=== PATIENT | female | born 1970 | race Caucasian/White ===

== ENCOUNTER 2016-06-26 10:36 | Emergency (ER) | payer SELFPAY ==
[~2016-06-26] VITALS: Ht 162.6 cm; Wt 77.0 kg
[~2016-06-26 10:36] MED LIST: DICY1TAB26 PO; GLUCTAB PO; LORTA5 PO; PANT20 PO; SUCR1TAB PO
[2016-06-26 10:41] VITALS: BP 167/104; PULSE 106; RESP 19; TEMP 98.7; O2SAT 100
[2016-06-26] MEDS ORDERED: METF500T PO ×2 (10:55→10:56)
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
[2016-06-26] MEDS ORDERED: IBUP800T23 PO (20:08)
[2016-06-26] MEDS ORDERED: CIPR-9 PO (20:08)
[2016-06-26] MEDS ORDERED: ULTR50TA5 PO (20:08)
[2016-07-20] MEDS ORDERED: METF500T PO (13:02)
[2016-07-20] MEDS ORDERED: LEVEMIR SQ (13:02)
[2016-07-20] MEDS ORDERED: LISI-515 PO (13:02)
[2016-07-20] MEDS ORDERED: ATOR40TA16 PO (13:02)
[2016-07-20] MEDS ORDERED: BAYETES (13:04)
[2016-07-26] MEDS ORDERED: RANI150T PO (10:48)
[2016-07-26] MEDS ORDERED: IBUP800T23 PO (10:48)
[2016-07-27] MEDS ORDERED: OXYC1TAB63 PO (15:09)
[2016-08-05] MEDS ORDERED: SERT25TA83 PO (16:39)
[2016-08-05] MEDS ORDERED: AMLO5TAB2 PO (16:42)
== END 2016-06-26 11:08 | disposition home or self-care (01) ==
LOC: PHED 10:36
DX: E11.621 Type 2 diabetes mellitus with foot ulcer (principal); L97.411 Non-pressure chronic ulcer of right heel and midfoot limited to breakdown of skin; I10 Essential (primary) hypertension; F17.200 Nicotine dependence, unspecified, uncomplicated; Z79.84 Long term (current) use of oral hypoglycemic drugs; Z86.59 Personal history of other mental and behavioral disorders
CPT/HCPCS: 99283

== ENCOUNTER 2016-06-26 18:33 | Emergency (ER) | payer SELFPAY ==
[~2016-06-26] VITALS: Ht 162.6 cm; Wt 75.0 kg
[~2016-06-26 18:33] MED LIST changes: +METF500T PO
[2016-06-26 18:35] VITALS: BP 176/90; PULSE 116; RESP 17; TEMP 99.2; O2SAT 98
[2016-06-26 19:23] VITALS: BP 162/102; PULSE 107; RESP 20; O2SAT 97
[2016-06-26] MEDS ORDERED: LIDOCAINE 1%/EPINEPHrine 1:100,000 SOLN 20 ML VIAL INFIL ONE (19:30)
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
[2016-06-26] MEDS ORDERED: IBUP800T23 PO (20:08)
[2016-06-26] MEDS ORDERED: ULTR50TA5 PO (20:08)
[2016-06-26] MEDS ORDERED: CIPR-9 PO (20:08)
[2016-06-26] MEDS ORDERED: ONDANSETRON HCL 4 MG/2 ML VIAL IV PUSH ONE (20:15)
[2016-06-26] MEDS ORDERED: MORPHINE SULFATE 4 MG/ML INJ IV PUSH ONE (20:15)
[2016-06-26] MEDS ORDERED: SODIUM CHLOR 0.9% 1000 ML INJ 1,000 ML IV ONE (20:15)
[2016-06-26] MEDS ORDERED: CIPROFLOXACIN 400 MG PREMIX 200 ML IV ONE (20:15)
--- NOTE | 2016-06-26 20:21 | RADRPT ---
EXAM DATE/TIME: 06/26/2016 19:53 [facility] COMPARISON: No previous studies available for comparison. INDICATIONS : Right foot pain and swelling for the past two days. Ulcer on bottom of foot for the past three weeks. MEDICAL HISTORY : Diabetes mellitus type II. SURGICAL HISTORY : None. ENCOUNTER: Initial ACUITY: 3 weeks PAIN SCORE: 10/10 LOCATION: Right foot. FINDINGS: Two view examination of the right foot demonstrates no soft tissue swelling, dislocation, or fracture . The calcaneus is intact. Bony mineralization is normal. CONCLUSION: 1. No acute bony findings. Soft tissue ulcer plantar aspect of foot anteriorly. Hallux valgus deformi ty. Tristen Martinez MD on June 26, 2016 at 20:18 Board Certified Radiologist. This report was verified electronically.
[2016-06-26 20:25] LABS: AUTOMATED NEUTROPHIL # 14.3 TH/MM3 (1.8-7.7); BASOPHIL # 0.2 TH/MM3 (0-0.2); BASOPHIL % 1.1 % (0.0-2.0); EOSINOPHIL # 0.2 TH/MM3 (0-0.4); EOSINOPHIL % 0.9 % (0.0-4.0); HEMATOCRIT 39.3 % (35.0-46.0); LYMPH % 11.9 % (9.0-44.0); LYMPHOCYTE # 2.1 TH/MM3 (1.0-4.8); MEAN CELL VOLUME 86.2 FL (80.0-100.0); MEAN CORPUSCULAR HEMOGLOBIN 29.6 PG (27.0-34.0); MEAN CORPUSCULAR HGB CONC 34.3 % (32.0-36.0); MONO % 6.7 % (0.0-8.0); NEUT % 79.4 % (16.0-70.0); PLATELET COUNT 248 TH/MM3 (150-450); RED BLOOD COUNT 4.56 MIL/MM3 (4.00-5.30); RED CELL DISTRIBUTION WIDTH 12.6 % (11.6-17.2); WHITE BLOOD COUNT 18.1 TH/MM3 (4.0-11.0)
[2016-06-26 20:30] LABS: HEMO FLAGS AUTO DIFF
[2016-06-26 20:32] VITALS: BP 119/83; PULSE 83; RESP 16; O2SAT 98
[2016-06-26 20:42] LABS: PLATELET ESTIMATE SMEAR NORMAL (NORMAL); PLATELET MORPHOLOGY NORMAL (NORMAL); SCAN/DIFF AUTO DIFF CONFIRMED
[2016-07-20] MEDS ORDERED: ATOR40TA16 PO (13:02)
[2016-07-20] MEDS ORDERED: METF500T PO (13:02)
[2016-07-20] MEDS ORDERED: LISI-515 PO (13:02)
[2016-07-20] MEDS ORDERED: LEVEMIR SQ (13:02)
[2016-07-20] MEDS ORDERED: BAYETES (13:04)
[2016-07-26] MEDS ORDERED: RANI150T PO (10:48)
[2016-07-26] MEDS ORDERED: IBUP800T23 PO (10:48)
[2016-07-27] MEDS ORDERED: OXYC1TAB63 PO (15:09)
[2016-08-05] MEDS ORDERED: SERT25TA83 PO (16:39)
[2016-08-05] MEDS ORDERED: AMLO5TAB2 PO (16:42)
== END 2016-06-26 22:06 | disposition home or self-care (01) ==
LOC: NEPC 18:33
DX: E11.621 Type 2 diabetes mellitus with foot ulcer (principal); L97.511 Non-pressure chronic ulcer of other part of right foot limited to breakdown of skin; I10 Essential (primary) hypertension; F17.200 Nicotine dependence, unspecified, uncomplicated; Z79.84 Long term (current) use of oral hypoglycemic drugs; Z86.59 Personal history of other mental and behavioral disorders
CPT/HCPCS: 11000; 73620; 85025; 85652; 86140; 86403; 87070; 96374; 96375; 99285; J0744; J2270; J2405; J7030; 87205

== ENCOUNTER 2016-06-29 09:02 | Inpatient (IN) | payer SELFPAY ==
[~2016-06-29] VITALS: Ht 162.6 cm; Wt 80.2 kg
[~2016-06-29 09:02] MED LIST changes: +CIPR-9 PO; -DICY1TAB26 PO; -GLUCTAB PO; +IBUP800T23 PO; -LORTA5 PO; -PANT20 PO; -SUCR1TAB PO; +ULTR50TA5 PO
[2016-06-29 09:09] VITALS: BP_SYST 174; BP_SYST 187; BP_DIAS 81; BP_DIAS 87; PULSE 112; PULSE 115; RESP 16; RESP 20; TEMP 99.1; TEMP 99.6; O2SAT 99
[2016-06-29] MEDS ORDERED: MORPHINE SULFATE 4 MG/ML INJ IV PUSH ONE (09:45)
[2016-06-29] MEDS ORDERED: PIPERACIL-TAZO 4.5 GM PREMIX 100 ML IV ONE (09:45)
[2016-06-29] MEDS ORDERED: SODIUM CHLOR 0.9% 1000 ML INJ 1,000 ML IV ONE ×2 (09:45)
[2016-06-29 09:49] LABS: AUTOMATED NEUTROPHIL # 12.3 TH/MM3 (1.8-7.7); BASOPHIL # 0.2 TH/MM3 (0-0.2); BASOPHIL % 1.4 % (0.0-2.0); EOSINOPHIL # 0.1 TH/MM3 (0-0.4); EOSINOPHIL % 0.4 % (0.0-4.0); HEMATOCRIT 35.7 % (35.0-46.0); HEMO FLAGS DIFF FINAL; LYMPH % 7.8 % (9.0-44.0); LYMPHOCYTE # 1.2 TH/MM3 (1.0-4.8); MEAN CELL VOLUME 85.9 FL (80.0-100.0); MEAN CORPUSCULAR HEMOGLOBIN 30.1 PG (27.0-34.0); MEAN CORPUSCULAR HGB CONC 35.1 % (32.0-36.0); MONO % 9.2 % (0.0-8.0); NEUT % 81.2 % (16.0-70.0); PLATELET COUNT 273 TH/MM3 (150-450); RED BLOOD COUNT 4.15 MIL/MM3 (4.00-5.30); RED CELL DISTRIBUTION WIDTH 12.7 % (11.6-17.2); WHITE BLOOD COUNT 15.2 TH/MM3 (4.0-11.0)
--- NOTE | 2016-06-29 10:03 | PD ---
HPI Chief Complaint: Wound/Suture/Staple Re-Check Time Seen by Provider: 09:22 Travel History International Travel<30 days: No Contact w/Intl Traveler<30days: No Traveled to known affect area: No History of Present Illness HPI 45-year-old woman who presents to the emergency department complaining of worsening right foot pain redness swelling. She was seen about 3 days ago in the emergency department for what appeared initially be non-infected ulceration on the foot that was a little bit worse the second time she was seen. It was debris did. She was placed on antibiotics. She's been on Cipro for 2 days. This morning she started noticing worsening pain redness and swelling on the dorsum of the foot, as well as ecchymosis to the pinky toe and that side of the foot. She is a history diabetes with poor compliance due to limited means. She has been taking her metformin and antibiotics as prescribed. No history of previous foot infections. No other complaints. History Past Medical History Narrative Medical Hypertension Diabetes Tetanus Vaccination: > 5 Years Influenza Vaccination: No LMP: 05/2016 : 1 Para: 0 Social History Alcohol Use: No Tobacco Use: Yes (/2 PPD) Allergies-Medications (Allergen,Severity, Reaction): Coded Allergies: Aspirin (Verified Adverse Reaction, Intermediate, VOMITING, 06/29/16) Reported Meds & Prescriptions Reported Meds & Active Scripts Active Ultram (Tramadol HCl) 50 Mg Tab 50 Mg PO Q4H PRN Ibuprofen 800 Mg Tab 800 Mg PO Q8H PRN Cipro (Ciprofloxacin HCl) 500 Mg Tab 500 Mg PO BID 10 Days Reported Metformin (Metformin HCl) 500 Mg Tab 500 Mg PO DAILY With a meal Review of Systems Except as stated in HPI: all other systems reviewed are Neg Physical Exam Narrative GENERAL: Generally well-appearing 45 year-old woman, appears uncomfortable but nontoxic. SKIN: Focused skin assessment warm/dry. HEAD: Atraumatic. Normocephalic. EYES: Pupils equal and round. No scleral icterus. No injection or drainage. ENT: No nasal bleeding or discharge. Mucous membranes pink and moist. NECK: Trachea midline. No JVD. CARDIOVASCULAR: Regular rate and rhythm. No murmur appreciated. RESPIRATORY: No accessory muscle use. Clear to auscultation. Breath sounds equal bilaterally. GASTROINTESTINAL: Abdomen soft, non-tender, nondistended. Hepatic and splenic margins not palpable. MUSCULOSKELETAL: No obvious deformities. Right foot reveals edema and warmth to the entire distal lower extremity especially of the dorsum of the foot. Erythema is really confined to the dorsum of the foot. There is pitting edema there. There is a little bit of ecchymosis and some ecchymotic blisters around the pinky toe and the web space between the fourth and fifth toe. NEUROLOGICAL: Awake and alert. No obvious cranial nerve deficits. Motor grossly within normal limits. Normal speech. PSYCHIATRIC: Appropriate mood and affect; insight and judgment normal. Data Data Last Documented VS Vital Signs Date Time Temp Pulse Resp B/P Pulse Ox O2 Delivery O2 Flow Rate FiO2 06/29/16 09:23 16 06/29/16 09:09 99.1 112 174/81 06/29/16 09:09 99 Orders Complete Blood Count With Diff (06/29/16 09:31) Comprehensive Metabolic Panel (06/29/16 09:31) Westergren Sedimentation Rate (06/29/16 09:31) C-Reactive Protein (Crp) (06/29/16 09:31) Blood Culture (06/29/16 09:31) Iv Access Insert/Monitor (06/29/16 09:31) Sodium Chlor 0.9% 1000 Ml Inj (Ns 1000 M (06/29/16 09:45) Sodium Chlor 0.9% 1000 Ml Inj (Ns 1000 M (06/29/16 09:45) Morphine Inj (Morphine Inj) (06/29/16 09:45) Piperacil-Tazo 4.5 Gm Premix (Zosyn 4.5 (06/29/16 09:45) Labs Laboratory Tests Test 06/29/16 09:35 White Blood Count 15.2 TH/MM3 Red Blood Count 4.15 MIL/MM3 Hemoglobin 12.5 GM/DL Hematocrit 35.7 % Mean Corpuscular Volume 85.9 FL Mean Corpuscular Hemoglobin 30.1 PG Mean Corpuscular Hemoglobin 35.1 % Concent Red Cell Distribution Width 12.7 % Platelet Count 273 TH/MM3 Mean Platelet Volume 8.7 FL Neutrophils (%) (Auto) 81.2 % Lymphocytes (%) (Auto) 7.8 % Monocytes (%) (Auto) 9.2 % Eosinophils (%) (Auto) 0.4 % Basophils (%) (Auto) 1.4 % Neutrophils # (Auto) 12.3 TH/MM3 Lymphocytes # (Auto) 1.2 TH/MM3 Monocytes # (Auto) 1.4 TH/MM3 Eosinophils # (Auto) 0.1 TH/MM3 Basophils # (Auto) 0.2 TH/MM3 CBC Comment DIFF FINAL Differential Comment Erythrocyte Sedimentation Rate 94 mm/hr Sodium Level 132 MEQ/L Potassium Level 3.4 MEQ/L Chloride Level 94 MEQ/L Carbon Dioxide Level 25.1 MEQ/L Anion Gap 13 MEQ/L Blood Urea Nitrogen 10 MG/DL Creatinine 1.02 MG/DL Estimat Glomerular Filtration 59 ML/MIN Rate Random Glucose 308 MG/DL Calcium Level 8.9 MG/DL Total Bilirubin 1.1 MG/DL Aspartate Amino Transf 24 U/L (AST/SGOT) Alanine Aminotransferase 27 U/L (ALT/SGPT) Alkaline Phosphatase 241 U/L C-Reactive Protein 27.00 MG/DL Total Protein 7.4 GM/DL Albumin 2.6 GM/DL MDM Medical Decision Making Medical Screen Exam Complete: Yes Emergency Medical Condition: Yes Interpretation(s) LABS: CBC remarkable for mild leukocytosis Sedimentation rate 94 CMP remarkable for mildly elevated BUN/creatinine CRP 27 Differential Diagnosis Diabetic foot infection, cellulitis, DVT, other Narrative Course Medical decision making INITIAL: 45-year-old presents emergency department worsening diabetic foot infection. She has been on antibiotics for 48 hours. Despite that she's had worsening symptoms. No apparent abscess. No apparent gangrene. We'll give IV antibiotics, labs. I don't think she has a DVT. We will need admission. Diagnosis Primary Impression: Diabetic foot infection Admitting Information Admitting Physician Requests: Admit Rony Watkins MD Jun 29, 2016 10:02
[2016-06-29 10:14] LABS: ANION GAP 13 MEQ/L (5-15); AST (GOT) 24 U/L (15-37); BICARBONATE 25.1 MEQ/L (21.0-32.0); BLOOD UREA NITROGEN 10 MG/DL (7-18); CHLORIDE 94 MEQ/L (98-107); GLOMERULAR FILTRATION RATE 59 ML/MIN (>89); POTASSIUM 3.4 MEQ/L (3.5-5.1); SODIUM (NA) 132 MEQ/L (136-145)
[2016-06-29 10:23] LABS: ALKALINE PHOSPHATASE 241 U/L (45-117); ALT (GPT) 27 U/L (10-53); TOTAL BILIRUBIN ADULT 1.1 MG/DL (0.2-1.0)
[2016-06-29 11:00] VITALS: BP 152/83; PULSE 96; RESP 16; TEMP 97.8; O2SAT 99
--- NOTE | 2016-06-29 11:12 | HHI.HP ---
[facility] Service Family Medicine Primary Care Physician No Primary Care Physician Admission Diagnosis diabetic foot infection Diagnoses: International Travel<30 Days: No Contact w/Intl Traveler<30days: No Known Affected Area: No History of Present Illness 45 year old female with a history of type II diabetes mellitus, recently uncontrolled, presents with 3 week history of foot ulcer. The ulcer is located on the base of the right foot on the ball of the foot behind the great toe. The ulcer has gotten bigger over the last 3 weeks. Over the last couple days, she has erythema across the top of her foot that started to spread up her right leg. She was treated with Ciprofloxacin for two days before admission but there was worsening rather than improvement. She also presented to the ED on 06/26 and had incision and debridement of the foot. There is some foul smelling drainage from the ulcer. No abscess reported. She had night sweats last night. (Mina Mendez MD R2) Review of Systems Constitutional: COMPLAINS OF: Chills, DENIES: Fatigue, Fever, Night Sweats Endocrine: DENIES: Polyuria, Polyphagia Eyes: DENIES: Blurred vision, Eye pain, Double Vision Ears, nose, mouth, throat: DENIES: Nasal discharge, Ear Pain Respiratory: DENIES: Cough, Sputum production, Shortness of breath Cardiovascular: DENIES: Chest pain, Palpitations, Dyspnea on Exertion, Lower Extremity Edema Gastrointestinal: COMPLAINS OF: Nausea, Vomiting, DENIES: Abdominal pain, Black stools, Bloody stools Musculoskeletal: DENIES: Joint pain, Muscle aches, Neck pain Hematologic/lymphatic: DENIES: Lymphadenopathy Neurologic: DENIES: Headache, Seizures Psychiatric: DENIES: Anxiety, Depression (Mina Mendez MD R2) Past Family Social History Past Medical History Diabetes mellitus type 2, uncontrolled Difficulty getting medical insurance Takes Metformin 500 mg daily for diabetes No complications besides current foot ulcer Past Surgical History Cholecystectomy Abdominal hernia repair Reported Medications Reported Meds & Active Scripts Active Ultram (Tramadol HCl) 50 Mg Tab 50 Mg PO Q4H PRN Ibuprofen 800 Mg Tab 800 Mg PO Q8H PRN Cipro (Ciprofloxacin HCl) 500 Mg Tab 500 Mg PO BID 10 Days Reported Metformin (Metformin HCl) 500 Mg Tab 500 Mg PO DAILY With a meal (Mina Mendez MD R2) Allergies: Coded Allergies: Aspirin (Verified Adverse Reaction, Intermediate, VOMITING, 06/29/16) *MDRO Multi-Drug Resistant Organism (Verified Adverse Reaction, Unknown, ) MRSA (wound drainage) - 06/29/16 Family History Mom had cancer: cervical Dad: of lung cancer Siblings: healthy Social History Smoke half pack per day, started age 25 Alcohol: None Drug use: Marijuana 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 There is a 1 cm x 1 cm ulcer on the base of the right MTP area. Some white purulent drainage from the ulcer. Not able to palpate bone, the ulceration seems limited to the soft tissue. No bony tenderness. HEENT: Normocephalic, no conjunctivitis, no nasal discharge, normal pharynx NECK: No lymphadenopathy CARDIOVASCULAR: Regular rate and rhythm without murmurs, gallops, or rubs. Normal dorsal pedis and PT pulses. RESPIRATORY: Clear to auscultation. Breath sounds equal bilaterally. No wheezes , rales, or rhonchi. GASTROINTESTINAL: Abdomen soft, non-tender, nondistended. No hepato-splenomegaly , or palpable masses. No guarding. MUSCULOSKELETAL: Extremities without clubbing, cyanosis, or edema. No joint tenderness, effusion, or edema noted. No calf tenderness. Negative Homans sign bilaterally. NEUROLOGICAL: Awake and alert. Cranial nerves II through XII intact. Five out of 5 muscle strength in all muscle groups. Normal speech. Slightly diminished sensation to light touch on right foot. Laboratory Laboratory Tests Test 06/29/16 09:35 White Blood Count 15.2 Red Blood Count 4.15 Hemoglobin 12.5 Hematocrit 35.7 Mean Corpuscular Volume 85.9 Mean Corpuscular Hemoglobin 30.1 Mean Corpuscular Hemoglobin 35.1 Concent Red Cell Distribution Width 12.7 Platelet Count 273 Mean Platelet Volume 8.7 Neutrophils (%) (Auto) 81.2 Lymphocytes (%) (Auto) 7.8 Monocytes (%) (Auto) 9.2 Eosinophils (%) (Auto) 0.4 Basophils (%) (Auto) 1.4 Neutrophils # (Auto) 12.3 Lymphocytes # (Auto) 1.2 Monocytes # (Auto) 1.4 Eosinophils # (Auto) 0.1 Basophils # (Auto) 0.2 CBC Comment DIFF FINAL Differential Comment Erythrocyte Sedimentation Rate 94 Sodium Level 132 Potassium Level 3.4 Chloride Level 94 Carbon Dioxide Level 25.1 Anion Gap 13 Blood Urea Nitrogen 10 Creatinine 1.02 Estimat Glomerular Filtration 59 Rate Random Glucose 308 Calcium Level 8.9 Total Bilirubin 1.1 Aspartate Amino Transf 24 (AST/SGOT) Alanine Aminotransferase 27 (ALT/SGPT) Alkaline Phosphatase 241 C-Reactive Protein 27.00 Total Protein 7.4 Albumin 2.6 Date/Time Procedure Status Source Growth 06/29/16 09:30 Aerobic Blood Culture Received Blood Peripheral Pending 06/29/16 09:30 Anaerobic Blood Culture Received Blood Peripheral Pending (Mina Mendez MD R2) Result Diagram: 06/29/16 0935 06/29/16 0935 Imaging Last 72 hours Impressions Foot MRI 06/29/16 0000 Signed Impressions: Service Date/Time: Wednesday, June 29, 2016 12:26 - CONCLUSION: 1. No evidence of osteomyelitis. 2. Focal mild enhancement about the plantar soft tissue ulceration. No drainable fluid collections seen. Forest Recinos MD (Mina Mendez MD R2) Septic Shock Reassessment Heart: Regular rate and rhythm (tachycardic on admission, normal rate now) Lungs: Clear Skin: Warm Capillary Refill: <2 seconds (Mina Mendez MD R2) Assessment and Plan Assessment and Plan 45 year old female with diabetic foot ulcer Code Status FULL CODE Discussed Condition With Discussed with Dr. Henderson, Dr. Helm (Mina Mendez MD R2) Attending Attestation Patient seen and examined. Case reviewed and discussed with the resident team. Agree with plan of care as discussed with me and documented in the resident note. pt seen on admission (Hortencia Helm MD) Problem List: (1) Diabetic foot ulcer Status: Acute Plan: Ulcer on base of MTP area of the right foot, seems limited to the soft tissue, does not extend to the bone. No fluctuance, no abscess. ESR and CRP elevated. Good DP and PT pulses. MRI of foot negative for osteomyelitis. - Debrided on 06/26/16. - Consult podiatry. - Wound culture, blood culture. - Zosyn q6hrs, adjust based on cultures. (2) Cellulitis of right leg Status: Acute Plan: See above for management (3) Type 2 diabetes mellitus Status: Acute Plan: Poorly controlled diabetes, glucose is 300 on admission. Takes metformin 500 mg qday at home. No PCP or health insurance. - Diabetic diet - Low dose sliding scale insulin - Diabetic education - Case management to help her get PCP and insurance (4) No contraindication to deep vein thrombosis (DVT) prophylaxis Status: Acute Plan: Lovenox 40 mg qday (5) Nutrition, metabolism, and development symptoms Status: Acute Plan: - IVF at maintenance - Electrolytes normal - Diabetic diet (Mina Mendez MD R2) Physician Certification 2 Midnight Certification Type: Admission for Inpatient Services Order for Inpatient Services The services are ordered in accordance with Medicare regulations or non- Medicare payer requirements, as applicable. In the case of services not specified as inpatient-only, they are appropriately provided as inpatient services in accordance with the 2-midnight benchmark. Estimated LOS (days): 3 days is the estimated time the patient will need to remain in the hospital, assuming treatment plan goals are met and no additional complications. Post-Hospital Plan: Home (Mina Mendez MD R2) Problem Qualifiers (1) Diabetic foot ulcer: Qualified Code: E11.621 - Diabetic ulcer of right midfoot associated with type 2 diabetes mellitus, limited to breakdown of skin (2) Type 2 diabetes mellitus: Qualified Code: E11.42 - Type 2 diabetes mellitus with diabetic polyneuropathy , without long-term current use of insulin Mina Mendez MD R2 Jun 29, 2016 11:12 Hortencia Helm MD Jul 02, 2016 12:34
[2016-06-29] MEDS ORDERED: GLUCAGON 1 MG/ML VIAL OTHER PRN (11:30)
[2016-06-29] MEDS ORDERED: DEXTROSE 50% IN WATER 50 ML VIAL(D50) IV PUSH PRN (11:30)
[2016-06-29] MEDS ORDERED: NALOXONE HCL 0.4 MG/ML AMP IV PRN (11:45)
[2016-06-29] MEDS: SODIUM CHLOR 0.9% 1000 ML INJ 1,000 ML IV SCH ×2 (12:09→20:39)
[2016-06-29] MEDS: ENOXAPARIN SODIUM 40 MG/0.4 ML SYRINGE SQ SCH (12:10)
[2016-06-29] MEDS ORDERED: GADODIAMIDE PF 287 MG/ML 5 ML VIAL (for RAD MRI) IV ONE (12:53)
[2016-06-29 13:00] VITALS: BP 144/81; PULSE 86; RESP 16; TEMP 98; O2SAT 99
--- NOTE | 2016-06-29 13:33 | RADRPT ---
EXAM DATE/TIME: 06/29/2016 12:26 [facility] COMPARISON: FOOT RIGHT LIMITED (2VWS), June 26, 2016, 19:53. INDICATIONS : Osteomyelitis. Wound base of 1st toe plantar surface. CONTRAST: 15 cc Omniscan (gadodiamide) IV MEDICAL HISTORY : Diabetes mellitus type 2. SURGICAL HISTORY : Umbilical hernia repair. Cholecystectomy. ENCOUNTER: Initial ACUITY: 3 weeks PAIN SCORE: 6/10 LOCATION: Right foot TECHNIQUE: Multiplanar, multisequence MRI examination was performed without contrast and after the intravenous a dministration of gadolinium. FINDINGS: There is a soft tissue ulceration on the plantar aspect of the forefoot superficial to the distal 1st metatarsus and sesamoids. There is some enhancement in the adjacent soft tissues, but no enhancemen t or signal abnormality within the sesamoids or surrounding tendons. There is also diffuse soft tiss ue swelling about the dorsal aspect of the forefoot. The osseous structures are normal alignment. T here is some T2 prolongation within the marrow of the diametaphysis of the 1st metatarsus laterally w ith mild signal abnormality on T1-weighted scans and without abnormal enhancement in the marrow. Con ventional radiographs demonstrate a pseudoarticulation of the sesamoid and 1st metatarsal head. This suggests that the signal change in the diametaphysis of the 1st metatarsus is reactive to the degene rative changes. CONCLUSION: 1. No evidence of osteomyelitis. 2. Focal mild enhancement about the plantar soft tissue ulceration. No drainable fluid collections s een. Forest Recinos MD on June 29, 2016 at 13:21 Board Certified Radiologist. This report was verified electronically.
[2016-06-29] MEDS: PIPERACIL-TAZO 3.375 GM PREMIX 50 ML IV SCH ×2 (16:02→20:37)
[2016-06-29] MEDS: ACETAMINOPHEN 325 MG TAB PO PRN (16:06)
[2016-06-29] MEDS: INSULIN ASPART SUPPLEMENTAL SCALE SQ SCH ×2 (16:07→20:38)
[2016-06-29 16:10] VITALS: BP 156/78; PULSE 92; RESP 17; TEMP 98; O2SAT 99
--- NOTE | 2016-06-29 16:44 | PD.POD ---
Subjective Podiatric Problems Infection great toe Past Med/Surg/Social History Social History Smoking Status: Current Every Day Smoker Objective Vital Signs Vital Signs Date Time Temp Pulse Resp B/P Pulse Ox O2 Delivery O2 Flow Rate FiO2 06/29/16 16:10 98.0 92 17 156/78 99 Room Air 06/29/16 13:00 98.0 86 16 144/81 99 Room Air 06/29/16 11:00 97.8 96 16 152/83 99 Room Air 06/29/16 09:45 17 06/29/16 09:23 16 06/29/16 09:09 99.1 112 20 174/81 06/29/16 09:09 99.6 115 16 187/87 99 Coded Allergies: Aspirin (Verified Adverse Reaction, Intermediate, VOMITING, 06/29/16) Assessment & Plan A/P Will see patient tomorrow to determine if wound care consultation is more appropriate for continuity of care. Trinity Preez DPM Jun 29, 2016 16:44
[2016-06-29 18:39] VITALS: BP 132/73; PULSE 89; RESP 16; TEMP 99.2; O2SAT 98
[2016-06-29 20:00] VITALS: BP 125/71; PULSE 91; RESP 20; TEMP 99; O2SAT 98
[2016-06-29] MEDS: ONDANSETRON HCL 4 MG/2 ML VIAL IVP PRN (20:38)
[2016-06-29] MEDS: SODIUM CHLORIDE 0.9% FLUSH 10 ML FLUSH IV FLUSH SCH (20:38)
[2016-06-29] MEDS: oxyCODONE/ACETAMINOPHEN 10 MG/325 MG TAB PO PRN (20:38)
[2016-06-29] MEDS: SODIUM CHLORIDE 0.9% FLUSH 10 ML FLUSH IV FLUSH PRN (20:38)
[2016-06-30] VITALS: BP 120/62; PULSE 84; RESP 20; TEMP 98.6; O2SAT 97
[2016-06-30] MEDS: SODIUM CHLOR 0.9% 1000 ML INJ 1,000 ML IV SCH ×3 (03:06→21:19)
[2016-06-30] MEDS: PIPERACIL-TAZO 3.375 GM PREMIX 50 ML IV SCH ×4 (03:07→21:19)
[2016-06-30 04:00] VITALS: BP 145/70; PULSE 92; RESP 20; TEMP 98.8; O2SAT 92
[2016-06-30] MEDS: INSULIN ASPART SUPPLEMENTAL SCALE SQ SCH ×4 (06:15→21:18)
[2016-06-30 08:03] LABS: AUTOMATED NEUTROPHIL # 10.3 TH/MM3 (1.8-7.7); BASOPHIL # 0.1 TH/MM3 (0-0.2); BASOPHIL % 0.5 % (0.0-2.0); EOSINOPHIL # 0.1 TH/MM3 (0-0.4); EOSINOPHIL % 0.8 % (0.0-4.0); HEMATOCRIT 29.3 % (35.0-46.0); HEMO FLAGS DIFF FINAL; LYMPH % 9.5 % (9.0-44.0); LYMPHOCYTE # 1.2 TH/MM3 (1.0-4.8); MEAN CELL VOLUME 85.2 FL (80.0-100.0); MEAN CORPUSCULAR HEMOGLOBIN 29.4 PG (27.0-34.0); MEAN CORPUSCULAR HGB CONC 34.6 % (32.0-36.0); MONO % 9.2 % (0.0-8.0); PLATELET COUNT 260 TH/MM3 (150-450); RED BLOOD COUNT 3.44 MIL/MM3 (4.00-5.30); RED CELL DISTRIBUTION WIDTH 12.7 % (11.6-17.2); WHITE BLOOD COUNT 12.9 TH/MM3 (4.0-11.0)
[2016-06-30 08:24] LABS: BICARBONATE 27.7 MEQ/L (21.0-32.0); POTASSIUM 3.3 MEQ/L (3.5-5.1)
[2016-06-30 08:42] VITALS: BP 143/73; PULSE 78; RESP 16; TEMP 100.2; O2SAT 97
[2016-06-30] MEDS: SODIUM CHLORIDE 0.9% FLUSH 10 ML FLUSH IV FLUSH SCH ×2 (09:00→21:18)
[2016-06-30] MEDS: oxyCODONE/ACETAMINOPHEN 10 MG/325 MG TAB PO PRN ×2 (09:37→21:24)
[2016-06-30 11:00] VITALS: BP 155/81; PULSE 86; RESP 18; TEMP 98.3; O2SAT 97
--- NOTE | 2016-06-30 11:10 | HHI.HP ---
[facility] Service Family Medicine Primary Care Physician No Primary Care Physician Admission Diagnosis diabetic foot infection Diagnoses: (1) Diabetic foot ulcer Diagnosis: Principal (2) Cellulitis of right leg Diagnosis: Principal (3) Type 2 diabetes mellitus Diagnosis: Principal (4) No contraindication to deep vein thrombosis (DVT) prophylaxis Diagnosis: Principal (5) Nutrition, metabolism, and development symptoms Diagnosis: Principal International Travel<30 Days: No Contact w/Intl Traveler<30days: No Known Affected Area: No History of Present Illness Ms Leyva is a 45 year old female with a history of type II diabetes mellitus, recently uncontrolled, who presented with 3 week history of foot ulcer. The ulcer is located on the base of the right foot on the ball of the foot behind the great toe. The ulcer has gotten bigger over the last 3 weeks. Over the last couple days, she has erythema across the top of her foot that started to spread up her right leg. She was treated with Ciprofloxacin for two days before admission but there was worsening rather than improvement. She also presented to the ED on 06/26 and had incision and debridement of the foot. There was some foul smelling drainage from the ulcer. No abscess reported. She had night sweats last night. She was started on iv abx and had a fever overnight but has had some resolution of her erythema that had been spreading up her leg. She has some numbness chronically and is insensitive to light touch on her 5th toe on the right and some other areas as well but regains normal feeling above the ankle. Yesterday, she had a small probably 1-2 cm roughly circular area at the base of her 4th and 5th toes on the right. This area was discolored and darker that the surrounding skin but was flat and nontender. However, this am this area has greatly enlarged and gone from the dorsum of her foot to the ventral area as well as becoming larger in size and expanding three dimensionally. Ms Leyva has diminished feeling in her foot especially on the right but does not complain of terrible pain in this area. Review of Systems Other Constitutional: COMPLAINS OF: Chills, fever overnight DENIES: Fatigue. burning or pain on urination or frequency Endocrine: DENIES: Polyuria, Polyphagia Eyes: DENIES: Blurred vision, Eye pain, Double Vision Ears, nose, mouth, throat: DENIES: Nasal discharge, Ear Pain Respiratory: DENIES: Cough, Sputum production, Shortness of breath Cardiovascular: DENIES: Chest pain, Palpitations, Dyspnea on Exertion, Lower Extremity Edema Gastrointestinal: COMPLAINS OF: Nausea, Vomiting, DENIES: Abdominal pain, Black stools, Bloody stools Musculoskeletal: DENIES: Joint pain, Muscle aches, Neck pain Hematologic/lymphatic: DENIES: Lymphadenopathy Neurologic: DENIES: Headache, Seizures Psychiatric: DENIES: Anxiety, Depression Past Family Social History Past Medical History Diabetes mellitus type 2, uncontrolled Difficulty getting medical insurance Takes Metformin 500 mg daily for diabetes No complications besides current foot ulcer and neuropathy Past Surgical History Cholecystectomy Abdominal hernia repair Allergies: Coded Allergies: Aspirin (Verified Adverse Reaction, Intermediate, VOMITING, 06/29/16) Family History Mom had cancer: cervical Dad: of lung cancer Siblings: healthy Social History Smoke half pack per day, started age 25 Alcohol: None Drug use: Marijuana 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 From [place], moved here 6 years ago Physical Exam Vital Signs Vital Signs Date Time Temp Pulse Resp B/P Pulse Ox O2 Delivery O2 Flow Rate FiO2 06/30/16 11:00 98.3 86 18 155/81 97 06/30/16 08:42 100.2 78 16 143/73 97 06/30/16 04:00 98.8 92 20 145/70 92 06/30/16 00:00 98.6 84 20 120/62 97 06/29/16 21:43 16 06/29/16 20:00 99.0 91 20 125/71 98 06/29/16 18:39 99.2 89 16 132/73 98 06/29/16 17:06 16 06/29/16 16:10 98.0 92 17 156/78 99 Room Air 06/29/16 13:00 98.0 86 16 144/81 99 Room Air Physical Exam GENERAL: Lying in bed, no distress SKIN: Right lower extremity was erythematous and warm up to the mid-he. There is a 1 cm x 1 cm ulcer on the base of the right MTP area. Some white purulent drainage from the ulcer. Not able to palpate bone, the ulceration seems limited to the soft tissue. No bony tenderness. Yesterday there was a flat 1-2 cm discolored area at the base of her 4th and 5th toes dorsally that was nontender but today the area of blister extends ventrally to the base of her toes as well as grew three dimensionally so it is not flat but contains obvious fluid. decreased sensation 5th toe but able to feel light touch on other toes HEENT: Normocephalic, no conjunctivitis, no nasal discharge, normal pharynx NECK: No lymphadenopathy CARDIOVASCULAR: Regular rate and rhythm without murmurs, gallops, or rubs. Normal dorsal pedis and PT pulses. RESPIRATORY: Clear to auscultation. Breath sounds equal bilaterally. No wheezes , rales, or rhonchi. GASTROINTESTINAL: Abdomen soft, non-tender, nondistended. No hepato-splenomegaly , or palpable masses. No guarding. MUSCULOSKELETAL: Extremities without clubbing, cyanosis, or edema. No joint tenderness, effusion, or edema noted. No calf tenderness. Negative Homans sign bilaterally. NEUROLOGICAL: Awake and alert. Cranial nerves II through XII intact. Five out of 5 muscle strength in all muscle groups. Normal speech. Slightly diminished sensation to light touch on right foot as above. Laboratory Laboratory Tests Test 06/30/16 06:46 White Blood Count 12.9 Red Blood Count 3.44 Hemoglobin 10.1 Hematocrit 29.3 Mean Corpuscular Volume 85.2 Mean Corpuscular Hemoglobin 29.4 Mean Corpuscular Hemoglobin 34.6 Concent Red Cell Distribution Width 12.7 Platelet Count 260 Mean Platelet Volume 8.9 Neutrophils (%) (Auto) 80.0 Lymphocytes (%) (Auto) 9.5 Monocytes (%) (Auto) 9.2 Eosinophils (%) (Auto) 0.8 Basophils (%) (Auto) 0.5 Neutrophils # (Auto) 10.3 Lymphocytes # (Auto) 1.2 Monocytes # (Auto) 1.2 Eosinophils # (Auto) 0.1 Basophils # (Auto) 0.1 CBC Comment DIFF FINAL Differential Comment Sodium Level 136 Potassium Level 3.3 Chloride Level 100 Carbon Dioxide Level 27.7 Anion Gap 8 Blood Urea Nitrogen 7 Creatinine 0.82 Estimat Glomerular Filtration 75 Rate Random Glucose 239 Calcium Level 8.2 Date/Time Procedure Status Source Growth 06/29/16 11:40 Gram Stain - Final Resulted Wound Drainage 06/29/16 11:40 Wound Culture Resulted Wound Drainage Pending 06/29/16 09:30 Aerobic Blood Culture Received Blood Peripheral Pending 06/29/16 09:30 Anaerobic Blood Culture Received Blood Peripheral Pending Result Diagram: 06/30/16 0646 06/30/16 0646 Imaging Last 72 hours Impressions Foot MRI 06/29/16 0000 Signed Impressions: Service Date/Time: Wednesday, June 29, 2016 12:26 - CONCLUSION: 1. No evidence of osteomyelitis. 2. Focal mild enhancement about the plantar soft tissue ulceration. No drainable fluid collections seen. Forest Recinos MD Assessment and Plan Assessment and Plan 45 year old female with diabetic foot ulcer Problem List: (1) Diabetic foot ulcer Status: Acute Plan: Ulcer on base of MTP area of the right foot, seems limited to the soft tissue, does not extend to the bone. No fluctuance, no abscess. ESR and CRP elevated. Good DP and PT pulses. MRI of foot negative for osteomyelitis. - Debrided on 06/26/16. - Consulted podiatry. - Wound culture, blood culture. - Zosyn q6hrs, adjust based on cultures. Wound culture done in ED was taken by scraping the skin with swabs so may not be the most reliable. -Overnight she has developed a large discoloration and swelling of her right foot and appreciate help of Podiatry in evaluation and treatment of this new worsening. (2) Cellulitis of right leg Status: Acute Plan: See above for management (3) Type 2 diabetes mellitus Status: Acute Plan: Poorly controlled diabetes, glucose is 300 on admission. Takes metformin 500 mg q day at home. No PCP or health insurance. - Diabetic diet - Low dose sliding scale insulin - Diabetic education - Case management to help her get PCP and insurance (4) No contraindication to deep vein thrombosis (DVT) prophylaxis Status: Acute Plan: Lovenox 40 mg qday (5) Nutrition, metabolism, and development symptoms Status: Acute Plan: - IVF at maintenance, consider heplocking if taking good po - Electrolytes normal - Diabetic diet Physician Certification 2 Midnight Certification Type: Admission for Inpatient Services Order for Inpatient Services The services are ordered in accordance with Medicare regulations or non- Medicare payer requirements, as applicable. In the case of services not specified as inpatient-only, they are appropriately provided as inpatient services in accordance with the 2-midnight benchmark. Estimated LOS (days): 3 3 days is the estimated time the patient will need to remain in the hospital, assuming treatment plan goals are met and no additional complications. Post-Hospital Plan: Home Problem Qualifiers (1) Diabetic foot ulcer: Qualified Code: E11.621 - Diabetic ulcer of right midfoot associated with type 2 diabetes mellitus, limited to breakdown of skin (2) Type 2 diabetes mellitus: Qualified Code: E11.42 - Type 2 diabetes mellitus with diabetic polyneuropathy , without long-term current use of insulin Hortencia Helm MD Jun 30, 2016 11:10
[2016-06-30] MEDS: ENOXAPARIN SODIUM 40 MG/0.4 ML SYRINGE SQ SCH (11:48)
[2016-06-30] MEDS ORDERED: WALKER WHEELS/F1 MIS (12:13)
--- NOTE | 2016-06-30 12:51 | PD.CONS ---
History of Present Illness Service Podiatry Consult Requested By ED Reason for Consult Infection R foot Primary Care Physician No Primary Care Physician Diagnoses: History of Present Illness Patient states she has had wounds on the foot with calluses and noticed blistering, redness, and swelling occurring a few days ago and came into ED for admission. She has history of uncontrolled diabetes. Past Family Social History Allergies: Coded Allergies: Aspirin (Verified Adverse Reaction, Intermediate, VOMITING, 06/29/16) Past Medical History Diabetes mellitus type 2, uncontrolled Past Surgical History Cholecystectomy Abdominal hernia repair Active Ordered Medications Current Medications Medications (Trade) Dose Ordered Sig/Tj Route Start Time Stop Time Status Last Admin (D50w (Vial) Inj) 25 ml UNSCH PRN IV PUSH 06/29/16 11:30 Glucagon 1 mg 1 mg UNSCH PRN OTHER 06/29/16 11:30 (NS 1000 ml Inj) 1,000 ml @ 120 mls/hr Q8H20M IV 06/29/16 12:00 06/30/16 11:49 (NS Flush) 2 ml UNSCH PRN IV FLUSH 06/29/16 11:45 06/29/16 20:38 (NS Flush) 2 ml BID IV FLUSH 06/29/16 21:00 06/29/16 20:38 (Tylenol) 650 mg Q4H PRN PO 06/29/16 11:45 06/29/16 16:06 (Zofran Inj) 4 mg Q6H PRN IVP 06/29/16 11:45 06/29/16 20:38 (Senokot) 17.2 mg Q12H PRN PO 06/29/16 11:45 Naloxone HCl 0.4 mg 0.4 mg UNSCH PRN IV 06/29/16 11:45 (Zosyn 3.375 Gm Premix) 50 ml @ 100 mls/hr Q6H IV 06/29/16 16:00 06/30/16 09:36 (Percocet 5-325 Mg) 1 tab Q4H PRN PO 06/29/16 20:00 (Percocet 10-325 Mg) 1 tab Q4H PRN PO 06/29/16 20:00 06/30/16 09:37 Family History Mom had cancer: cervical Dad: of lung cancer Siblings: healthy Social History Smoke half pack per day, started age 25 Alcohol: None Drug use: Marijuana Physical Exam Vital Signs Vital Signs Date Time Temp Pulse Resp B/P Pulse Ox O2 Delivery O2 Flow Rate FiO2 06/30/16 11:00 98.3 86 18 155/81 97 06/30/16 08:42 100.2 78 16 143/73 97 06/30/16 04:00 98.8 92 20 145/70 92 06/30/16 00:00 98.6 84 20 120/62 97 06/29/16 21:43 16 06/29/16 20:00 99.0 91 20 125/71 98 06/29/16 18:39 99.2 89 16 132/73 98 06/29/16 17:06 16 06/29/16 16:10 98.0 92 17 156/78 99 Room Air 06/29/16 13:00 98.0 86 16 144/81 99 Room Air Physical Exam R foot with erythema and pitting edema to forefoot. Dorsal necrotic bulla noted to between 4th/5th toe and webspace, extending plantarly to below toes 3,4,5 R foot. Warm skin temperature, but no capillary refill and dusk R 5th toe. Remaining toes appear viable. No deep abscess noted. There is hyperkeratotic buildup plantar to 1st and 5th met head areas. Laboratory Laboratory Tests Test 06/30/16 06:46 White Blood Count 12.9 Red Blood Count 3.44 Hemoglobin 10.1 Hematocrit 29.3 Mean Corpuscular Volume 85.2 Mean Corpuscular Hemoglobin 29.4 Mean Corpuscular Hemoglobin 34.6 Concent Red Cell Distribution Width 12.7 Platelet Count 260 Mean Platelet Volume 8.9 Neutrophils (%) (Auto) 80.0 Lymphocytes (%) (Auto) 9.5 Monocytes (%) (Auto) 9.2 Eosinophils (%) (Auto) 0.8 Basophils (%) (Auto) 0.5 Neutrophils # (Auto) 10.3 Lymphocytes # (Auto) 1.2 Monocytes # (Auto) 1.2 Eosinophils # (Auto) 0.1 Basophils # (Auto) 0.1 CBC Comment DIFF FINAL Differential Comment Sodium Level 136 Potassium Level 3.3 Chloride Level 100 Carbon Dioxide Level 27.7 Anion Gap 8 Blood Urea Nitrogen 7 Creatinine 0.82 Estimat Glomerular Filtration 75 Rate Random Glucose 239 Calcium Level 8.2 Date/Time Procedure Status Source Growth 06/29/16 11:40 Gram Stain - Final Resulted Wound Drainage 06/29/16 11:40 Wound Culture Resulted Wound Drainage Pending 06/29/16 09:30 Aerobic Blood Culture - Preliminary Resulted Blood Peripheral NO GROWTH IN 1 DAY 06/29/16 09:30 Anaerobic Blood Culture - Preliminary Resulted Blood Peripheral NO GROWTH IN 1 DAY Result Diagram: 06/30/16 0646 06/30/16 0646 Imaging Last Impressions Foot MRI 06/29/16 0000 Signed Impressions: Service Date/Time: Wednesday, June 29, 2016 12:26 - CONCLUSION: 1. No evidence of osteomyelitis. 2. Focal mild enhancement about the plantar soft tissue ulceration. No drainable fluid collections seen. Forest Recinos MD Assessment and Plan Assessment and Plan Abscess with gangrene R foot Bedside incision and drainage performed with #15 blade and scissors, to remove necrotic bullous tissue and drainage from bulla was cultured. Wound area cleansed and betadine wet to dry dressing applied. Vascular consult ordered regarding tissue viability and vascularity due to diabetes/smoking history. Discussed with patient that 5th toe viability will be determined in the coming days, but appears nonviable today. Will follow Trinity Perez DPM Jun 30, 2016 12:51
--- NOTE | 2016-06-30 13:37 | PD.CAR.PN ---
CVT Progress Note Subjective/Hospital Course: patient evaluated Full consult SUYAPA Justin Objective: Vital Signs Date Time Temp Pulse Resp B/P Pulse Ox O2 Delivery O2 Flow Rate FiO2 06/30/16 11:00 98.3 86 18 155/81 97 06/30/16 08:42 100.2 78 16 143/73 97 06/30/16 04:00 98.8 92 20 145/70 92 06/30/16 00:00 98.6 84 20 120/62 97 06/29/16 21:43 16 06/29/16 20:00 99.0 91 20 125/71 98 06/29/16 18:39 99.2 89 16 132/73 98 06/29/16 17:06 16 06/29/16 16:10 98.0 92 17 156/78 99 Room Air Labs: Laboratory Tests Test 06/30/16 06:46 White Blood Count 12.9 TH/MM3 (4.0-11.0) Red Blood Count 3.44 MIL/MM3 (4.00-5.30) Hemoglobin 10.1 GM/DL (11.6-15.3) Hematocrit 29.3 % (35.0-46.0) Mean Corpuscular Volume 85.2 FL (80.0-100.0) Mean Corpuscular Hemoglobin 29.4 PG (27.0-34.0) Mean Corpuscular Hemoglobin 34.6 % Concent (32.0-36.0) Red Cell Distribution Width 12.7 % (11.6-17.2) Platelet Count 260 TH/MM3 (150-450) Mean Platelet Volume 8.9 FL (7.0-11.0) Neutrophils (%) (Auto) 80.0 % (16.0-70.0) Lymphocytes (%) (Auto) 9.5 % (9.0-44.0) Monocytes (%) (Auto) 9.2 % (0.0-8.0) Eosinophils (%) (Auto) 0.8 % (0.0-4.0) Basophils (%) (Auto) 0.5 % (0.0-2.0) Neutrophils # (Auto) 10.3 TH/MM3 (1.8-7.7) Lymphocytes # (Auto) 1.2 TH/MM3 (1.0-4.8) Monocytes # (Auto) 1.2 TH/MM3 (0-0.9) Eosinophils # (Auto) 0.1 TH/MM3 (0-0.4) Basophils # (Auto) 0.1 TH/MM3 (0-0.2) CBC Comment DIFF FINAL Differential Comment Sodium Level 136 MEQ/L (136-145) Potassium Level 3.3 MEQ/L (3.5-5.1) Chloride Level 100 MEQ/L (98-107) Carbon Dioxide Level 27.7 MEQ/L (21.0-32.0) Anion Gap 8 MEQ/L (5-15) Blood Urea Nitrogen 7 MG/DL (7-18) Creatinine 0.82 MG/DL (0.50-1.00) Estimat Glomerular Filtration 75 ML/MIN (>89) Rate Random Glucose 239 MG/DL (74-106) Calcium Level 8.2 MG/DL (8.5-10.1) Result Diagram: 06/30/16 0646 06/30/16 0646 Sandy Mcallister MD Jun 30, 2016 13:37
[2016-06-30] MEDS ORDERED: IOHEXOL 350 MG/ML 10 ML VIAL (for RAD DIAG) IV ONE (15:39)
[2016-06-30] MEDS: oxyCODONE/ACETAMINOPHEN 5 MG/325 MG TAB PO PRN (16:18)
--- NOTE | 2016-06-30 17:33 | RADRPT ---
EXAM DATE/TIME: 06/30/2016 15:55 [facility] COMPARISON: No previous studies available for comparison. INDICATIONS : Right sided bruit. Peripheral vascular disease. MEDICAL HISTORY : Hypertension. Diabetes. Depression. SURGICAL HISTORY : Cholecystectomy. Oral surgery. ENCOUNTER: Initial ACUITY: 1 day PAIN SCORE: 0/10 LOCATION: Bilateral neck PEAK SYSTOLIC VELOCITIES (cm/sec): ICA/CCA RATIO: Right: 0.9 Left: 0.8 ICA: Right: 73 Left: 72 CCA: Right: 85 Left: 86 ECA: Right: 94 Left: 102 VERTEBRAL: Right: 88 antegrade Left: 72 antegrade Elevated flow velocities and ICA/CCA ratios have been found to correlate with increased degrees of vessel stenosis, calculated as percentage of diameter relative to a normal segment of distal ICA/CCA FINDINGS: RIGHT CAROTID: No significant stenosis is visualized. There is minimal calcification seen in the carotid bulb and p roximal internal carotid artery. The waveforms are within normal limits. LEFT CAROTID: No significant stenosis is visualized. There is minimal calcification seen in the proximal internal carotid artery. The waveforms are within normal limits. VERTEBRAL ARTERIES: Antegrade flow is seen in both vertebral arteries. CONCLUSION: Mild calcified plaque in the carotid bulb and proximal internal carotid arteries with hemodynamic pro file characteristic of less than 50% stenosis. Forest Recinos MD on June 30, 2016 at 17:30 Board Certified Radiologist. This report was verified electronically.
--- NOTE | 2016-06-30 18:17 | RADRPT ---
EXAM DATE/TIME: 06/30/2016 15:17 [facility] COMPARISON: CT ABDOMEN & PELVIS W CONTRAST, June 05, 2015, 12:20. INDICATIONS : Right foot ulcer. IV CONTRAST: 100 cc Omnipaque 350 (iohexol) IV RADIATION DOSE: 3.1 CTDIvol (mGy) MEDICAL HISTORY : Hypertension. Cardiovascular disease Diabetes mellitus type 2. SURGICAL HISTORY : Cholecystectomy. Umbilical hernia repair. ENCOUNTER: Initial ACUITY: 1 day PAIN SCALE: 3/10 LOCATION: Right foot region. TECHNIQUE: Volumetric scanning was performed using a multi-row detector CT scanner. The data was post processed with a variety of visualization algorithms including full volume maximum intensity projection, multi -planar sliding thin slab reformation, curved planar reformation, and surface rendering techniques. Using automated exposure control and adjustment of the mA and/or kV according to patient size, radiat ion dose was kept as low as reasonably achievable to obtain optimal diagnostic quality images. FINDINGS: Aorta/inflow: There is mild scattered calcified atherosclerotic plaque involving the infrarenal aorta. No ulceratio n, aneurysmal change, or stenosis. In-Flow vessels are patent. The celiac, SMA, VONDA, and renal arteri es are patent.Right lower extremity: The outflow vessels show scattered mild atherosclerotic plaque within the distal SFA and [id number] [id number] popliteal artery without a hemodynamically significant stenosis. Profunda femoris patent. The trif urcation vessels are somewhat limited in their evaluation due to venous contamination and motion david fact. The anterior tibial artery is patent. Posterior tibial artery is diffusely small in caliber. I am uncertain whether the posterior tibial artery is patent across the ankle joint. Left lower extremity: The left lower extremity shows a focal noncalcified atheromatous plaque at the level of the femoral c ondyles. This generates a 20-30% stenosis of the popliteal artery. The anterior tibial artery is butts nt. The tibioperoneal trunk, posterior tibial artery, and peroneal artery show scattered areas of ath erosclerotic disease with areas of significant luminal narrowing. A questionable short segment occlus ion involving the peroneal origin. Other structures: The gallbladder is surgically absent. Some heterogeneity to the spleen without focal lesion. This rel ates to the arterial phase of the exam. A 2.8 cm cystic lesion involving the left adnexa. No free flu id. Several enlarged lymph nodes within the right groin. The largest measures 1.8 x 1.8 cm. CONCLUSION: 1. Patent inflow and outflow bilaterally. 2. The right lower extremity is somewhat limited in evaluation due to venous contamination and motion artifact. Single-vessel runoff to the right foot via the anterior tibial artery. Posterior tibial an d peroneal are diffusely diseased. 3. Left lower extremity is better evaluated. Anterior tibial artery is patent. The posterior tibial a nd peroneal are diffusely diseased. 4. 2.8 cm left adnexal cyst likely ovarian in origin. 5. Right groin adenopathy. Forest Berry Jr., MD on June 30, 2016 at 18:05 Board Certified Radiologist. This report was verified electronically.
[2016-06-30 20:22] VITALS: BP 164/79; PULSE 86; RESP 20; TEMP 96.7; O2SAT 100
[2016-06-30] MEDS: SODIUM CHLORIDE 0.9% FLUSH 10 ML FLUSH IV FLUSH PRN (21:18)
[2016-07-01] VITALS (7 sets, daily range): BP systolic 137–179; BP diastolic 63–92; PULSE 72–90; RESP 16–20; TEMP 97.6–99.1; O2SAT 96–99
--- NOTE | 2016-07-01 01:49 | PD.CAR.PN ---
CVT Progress Note Subjective/Hospital Course: patient evaluated Full consult SUYAPA Justin 07/01/16 Patient with the ulcer of the foot and no signs of osteomyelitis Patient's long-standing diabetes mellitus this poorly controlled and she is quite noncompliant with her care I reviewed the CTA with runoff which confirms the clinical impression. Patient has a fairly good inflow and then typical pattern of diabetes small vessel disease starting at the level of popliteal artery which is somewhat narrowed. Unfortunately trifurcation vessels are diseased and the only vessel running to the foot bilaterally his anterior tibial artery which is also diseased The posterior tibial and peroneal arteries are severely calcified and diseased with pieces here and there and no true continuity At this point there is nothing to reconstruct here patient has severe small vessel disease and with continuation of smoking will end up needing bilateral leg amputations in next few years T Objective: Vital Signs Date Time Temp Pulse Resp B/P Pulse Ox O2 Delivery O2 Flow Rate FiO2 07/01/16 00:00 98.7 78 16 138/63 99 06/30/16 22:24 16 06/30/16 20:22 96.7 86 20 164/79 100 06/30/16 11:00 98.3 86 18 155/81 97 06/30/16 08:42 100.2 78 16 143/73 97 06/30/16 04:00 98.8 92 20 145/70 92 Result Diagram: 06/30/16 0646 06/30/16 0646 Sandy Mcallister MD Jul 01, 2016 01:49
[2016-07-01] MEDS: PIPERACIL-TAZO 3.375 GM PREMIX 50 ML IV SCH ×4 (04:00→22:19)
[2016-07-01] MEDS: oxyCODONE/ACETAMINOPHEN 10 MG/325 MG TAB PO PRN ×3 (04:38→21:21)
[2016-07-01] MEDS: SODIUM CHLOR 0.9% 1000 ML INJ 1,000 ML IV SCH (04:38)
[2016-07-01] MEDS: SODIUM CHLORIDE 0.9% FLUSH 10 ML FLUSH IV FLUSH PRN (04:39)
[2016-07-01 04:54] LABS: HEMATOCRIT 30.8 % (35.0-46.0); MEAN CELL VOLUME 87.2 FL (80.0-100.0); MEAN CORPUSCULAR HGB CONC 34.4 % (32.0-36.0); PLATELET COUNT 251 TH/MM3 (150-450); RED BLOOD COUNT 3.53 MIL/MM3 (4.00-5.30); RED CELL DISTRIBUTION WIDTH 12.8 % (11.6-17.2); WHITE BLOOD COUNT 10.8 TH/MM3 (4.0-11.0)
[2016-07-01 04:55] LABS: REVIEW FLAG FINAL
[2016-07-01 05:01] LABS: BICARBONATE 27.5 MEQ/L (21.0-32.0); POTASSIUM 3.2 MEQ/L (3.5-5.1)
[2016-07-01 05:03] LABS: APTT (PATIENT) 39.4 SEC (24.3-30.1); PROTHROMBIN TIME - PATIENT 10.8 SEC (9.8-11.6)
[2016-07-01] MEDS: INSULIN ASPART SUPPLEMENTAL SCALE SQ SCH ×4 (06:10→21:21)
[2016-07-01] MEDS ORDERED: POTASSIUM CHLORIDE 10 MEQ CONTROLLED RELEASE TAB PO ONE (07:15)
[2016-07-01] MEDS: SODIUM CHLORIDE 0.9% FLUSH 10 ML FLUSH IV FLUSH SCH ×2 (09:00→20:55)
[2016-07-01] MEDS: VANCOMYCIN INJ 1,000 MG in SODIUM CHLOR 0.9% 250 ML INJ 250 ML IV SCH ×2 (09:01→20:54)
--- NOTE | 2016-07-01 14:03 | HHI.FPPN ---
Subjective Remarks Lying in bed, comfortable, no distress. Pain well controlled. I&D performed on bullous necrotic tissue yesterday. No nausea, vomiting, diarrhea, fevers, chills. (Mina Mendez MD R2) Objective Vitals Vital Signs Date Time Temp Pulse Resp B/P Pulse Ox O2 Delivery O2 Flow Rate FiO2 07/01/16 12:00 98.1 72 16 179/83 99 07/01/16 07:19 97.6 75 16 137/67 97 07/01/16 05:39 16 07/01/16 04:00 99.1 90 18 161/76 96 07/01/16 00:00 98.7 78 16 138/63 99 06/30/16 20:22 96.7 86 20 164/79 100 I/O 06/30/16 06/30/16 06/30/16 07/01/16 07/01/16 07/01/16 07:00 15:00 23:00 07:00 15:00 23:00 Intake Total 300 ml Balance 300 ml Intake Oral 200 ml IV Total 100 ml # Voids 2 1 (Mina Mendez MD R2) Result Diagram: 07/01/16 0408 07/01/16 0408 Imaging Last 72 hours Impressions Carotid Artery Ultrasound 06/30/16 0000 Signed Impressions: Service Date/Time: Thursday, June 30, 2016 15:55 - CONCLUSION: Mild calcified plaque in the carotid bulb and proximal internal carotid arteries with hemodynamic profile characteristic of less than 50%% stenosis. Forest Recinos MD Aorta w/Runoff CTA 06/30/16 0000 Signed Impressions: Service Date/Time: Thursday, June 30, 2016 15:17 - CONCLUSION: 1. Patent inflow and outflow bilaterally. 2. The right lower extremity is somewhat limited in evaluation due to venous contamination and motion artifact. Single-vessel runoff to the right foot via the anterior tibial artery. Posterior tibial and peroneal are diffusely diseased. 3. Left lower extremity is better evaluated. Anterior tibial artery is patent. The posterior tibial and peroneal are diffusely diseased. 4. 2.8 cm left adnexal cyst likely ovarian in origin. 5. Right groin adenopathy. Forest Berry Jr., MD Foot MRI 06/29/16 0000 Signed Impressions: Service Date/Time: Josie, June 29, 2016 12:26 - CONCLUSION: 1. No evidence of osteomyelitis. 2. Focal mild enhancement about the plantar soft tissue ulceration. No drainable fluid collections seen. Forest Recinos MD Objective Remarks GENERAL: Lying in bed, no distress SKIN: Right lower extremity erythematous, decreasing from days prior. There is a 1 cm x 1 cm ulcer on the base of the right MTP area. Base of ulcer appears clean, well granulated. Right 5th digit is gangrenous and lacks sensation. Area on top of foot that was bullous and necrotic is now s/p I&D and appears clean with good granulation tissue. HEENT: Normocephalic, no conjunctivitis, no nasal discharge, normal pharynx NECK: No lymphadenopathy CARDIOVASCULAR: Regular rate and rhythm without murmurs, gallops, or rubs. Palpable dorsalis pedis and PT pulses. RESPIRATORY: Clear to auscultation. Breath sounds equal bilaterally. No wheezes , rales, or rhonchi. GASTROINTESTINAL: Abdomen soft, non-tender, nondistended. No hepato-splenomegaly , or palpable masses. No guarding. MUSCULOSKELETAL: Extremities without clubbing, cyanosis, or edema. No joint tenderness, effusion, or edema noted. No calf tenderness. Negative Homans sign bilaterally. NEUROLOGICAL: Awake and alert. Cranial nerves II through XII intact. Five out of 5 muscle strength in all muscle groups. Normal speech. Slightly diminished sensation to light touch on right foot as above. The right 5th digit is lacking completely in sensation. Procedures I&D of bullous necrotic abscess on top of right foot. (Mina Mendez MD R2) A/P Assessment and Plan 45 year old female with diabetic foot ulcer and cellulitis Discharge Planning Pending resolution of cellulitis, afebrile, podiatry recommendations on gangrenous toe (Mina Mendez MD R2) Attending Attestation Patient seen and examined. Case reviewed and discussed with the resident team. Agree with plan of care as discussed with me and documented in the resident note. (Hortencia Helm MD) Problem List: (1) Diabetic foot ulcer Status: Acute Plan: Ulcer on base of MTP area of the right foot, seems limited to the soft tissue, does not extend to the bone. No fluctuance, no abscess. ESR and CRP elevated. Good DP and PT pulses. MRI of foot negative for osteomyelitis. Area on top of right foot developed necrotic abscess the night of admission and has been incised and drained by podiatry. Initial wound culture growing MRSA. Culture of the abscess is showing group B beta strep. Blood culture negative to date. - Podiatry on board. - Follow cultures. - Zosyn q6hrs, adjust based on cultures/sensitivities. - Vancomycin added 07/01/16 to cover for MRSA. - Education on diabetes control, case management to help set up PCP. (2) Gangrenous toe Status: Acute Plan: 5th right digit is gangrenous, lacking in sensation. - Podiatry consulted - Vascular surgery on board, CTA runoff shows significant small vessel disease. - Definitive management per podiatry. (3) Cellulitis of right leg Status: Acute Plan: Improving, see above for management (4) Type 2 diabetes mellitus Status: Acute Plan: Poorly controlled diabetes, glucose is 300 on admission. Takes metformin 500 mg q day at home. No PCP or health insurance. - Diabetic diet - Low dose sliding scale insulin - Diabetic education - Case management to help her get PCP and insurance (5) No contraindication to deep vein thrombosis (DVT) prophylaxis Status: Acute Plan: Lovenox 40 mg qday (6) Nutrition, metabolism, and development symptoms Status: Acute Plan: - PO fluids - Electrolytes normal - Diabetic diet (Mina Mendez MD R2) Problem Qualifiers (1) Diabetic foot ulcer: Qualified Code: E11.621 - Diabetic ulcer of right midfoot associated with type 2 diabetes mellitus, limited to breakdown of skin (2) Type 2 diabetes mellitus: Qualified Code: E11.42 - Type 2 diabetes mellitus with diabetic polyneuropathy , without long-term current use of insulin Mina Mendez MD R2 Jul 01, 2016 14:03 Hortencia Helm MD Jul 02, 2016 12:35
--- NOTE | 2016-07-01 19:24 | PD.POD ---
Subjective Podiatric Problems R lateral foot infection, gangrene R 5th toe Past Med/Surg/Social History Social History Smoking Status: Current Every Day Smoker Objective Vital Signs Vital Signs Date Time Temp Pulse Resp B/P Pulse Ox O2 Delivery O2 Flow Rate FiO2 07/01/16 17:09 148/92 Automatic Cuff 07/01/16 16:17 98.2 79 18 163/85 97 07/01/16 12:00 98.1 72 16 179/83 99 07/01/16 07:19 97.6 75 16 137/67 97 07/01/16 05:39 16 07/01/16 04:00 99.1 90 18 161/76 96 07/01/16 00:00 98.7 78 16 138/63 99 06/30/16 20:22 96.7 86 20 164/79 100 Coded Allergies: Aspirin (Verified Adverse Reaction, Intermediate, VOMITING, 06/29/16) Medications and IVs Current Medications Medications (Trade) Dose Ordered Sig/Tj Route Start Time Stop Time Status Last Admin (D50w (Vial) Inj) 25 ml UNSCH PRN IV PUSH 06/29/16 11:30 (Glucagon Inj) 1 mg UNSCH PRN OTHER 06/29/16 11:30 (NS Flush) 2 ml UNSCH PRN IV FLUSH 06/29/16 11:45 07/01/16 04:39 (NS Flush) 2 ml BID IV FLUSH 06/29/16 21:00 06/30/16 21:18 (Tylenol) 650 mg Q4H PRN PO 06/29/16 11:45 06/29/16 16:06 (Zofran Inj) 4 mg Q6H PRN IVP 06/29/16 11:45 06/29/16 20:38 (Senokot) 17.2 mg Q12H PRN PO 06/29/16 11:45 Naloxone HCl 0.4 mg 0.4 mg UNSCH PRN IV 06/29/16 11:45 (Zosyn 3.375 Gm Premix) 50 ml @ 100 mls/hr Q6H IV 06/29/16 16:00 07/01/16 15:30 (Percocet 5-325 Mg) 1 tab Q4H PRN PO 06/29/16 20:00 06/30/16 16:18 Oxycodone/ Acetaminophen 1 tab 1 tab Q4H PRN PO 06/29/16 20:00 07/01/16 12:46 (Vancomycin Inj/ NS 250 ml Inj) 250 ml @ 250 mls/hr Q12H IV 07/01/16 09:00 07/01/16 09:01 (Vasotec Inj) 1.25 mg Q6H PRN IV PUSH 07/01/16 16:45 Other Results Laboratory Tests Test 06/29/16 06/30/16 07/01/16 09:35 06:46 04:08 Erythrocyte Sedimentation Rate 94 mm/hr Total Bilirubin 1.1 MG/DL Aspartate Amino Transf 24 U/L (AST/SGOT) Alanine Aminotransferase 27 U/L (ALT/SGPT) Alkaline Phosphatase 241 U/L C-Reactive Protein 27.00 MG/DL Total Protein 7.4 GM/DL Albumin 2.6 GM/DL Neutrophils (%) (Auto) 80.0 % Lymphocytes (%) (Auto) 9.5 % Monocytes (%) (Auto) 9.2 % Eosinophils (%) (Auto) 0.8 % Basophils (%) (Auto) 0.5 % Neutrophils # (Auto) 10.3 TH/MM3 Lymphocytes # (Auto) 1.2 TH/MM3 Monocytes # (Auto) 1.2 TH/MM3 Eosinophils # (Auto) 0.1 TH/MM3 Basophils # (Auto) 0.1 TH/MM3 CBC Comment DIFF FINAL Differential Comment White Blood Count 10.8 TH/MM3 Red Blood Count 3.53 MIL/MM3 Hemoglobin 10.6 GM/DL Hematocrit 30.8 % Mean Corpuscular Volume 87.2 FL Mean Corpuscular Hemoglobin 30.0 PG Mean Corpuscular Hemoglobin 34.4 % Concent Red Cell Distribution Width 12.8 % Platelet Count 251 TH/MM3 Mean Platelet Volume 8.3 FL Prothrombin Time 10.8 SEC Prothromb Time International 1.0 RATIO Ratio Activated Partial 39.4 SEC Thromboplast Time Sodium Level 137 MEQ/L Potassium Level 3.2 MEQ/L Chloride Level 101 MEQ/L Carbon Dioxide Level 27.5 MEQ/L Anion Gap 9 MEQ/L Blood Urea Nitrogen 6 MG/DL Creatinine 0.66 MG/DL Estimat Glomerular Filtration 97 ML/MIN Rate Random Glucose 177 MG/DL Calcium Level 8.0 MG/DL Physical Exam Remarks R 5th toe necrotic and much more demarcated today. Not boggy. Erythema has not receded from original markings at ankle. Edema present. Painful to palpation. No purulence noted. Assessment & Plan A/P R 5th toe gangrene, cellulitis R foot/ankle Plan for amputation R 5th toe with application of wound vac tomorrow 7 a.m. Discussed with patient that the antibiotics are not reducing erythema enough and I recommend removing known necrotic tissue in order to reduce bacterial burden. Discussed that there is still a chance further demarcation will continue and further surgery or amputation may be required. Discussed that wound healing will be the biggest issue for her, due to microvascular compromise, and may be why the antibiotics are not as effective as I would have hoped. NPO after midnight Trinity Perez DPM Jul 01, 2016 19:24
[2016-07-02] VITALS (7 sets, daily range): BP systolic 131–189; BP diastolic 69–91; PULSE 71–86; RESP 18–20; TEMP 95.2–98.3; O2SAT 96–98
[2016-07-02] MEDS: PIPERACIL-TAZO 3.375 GM PREMIX 50 ML IV SCH ×4 (03:32→23:53)
[2016-07-02] MEDS: INSULIN ASPART SUPPLEMENTAL SCALE SQ SCH ×4 (05:45→21:00)
[2016-07-02 06:03] LABS: HEMATOCRIT 28.8 % (35.0-46.0); MEAN CELL VOLUME 85.2 FL (80.0-100.0); MEAN CORPUSCULAR HGB CONC 35.3 % (32.0-36.0); PLATELET COUNT 304 TH/MM3 (150-450); RED BLOOD COUNT 3.38 MIL/MM3 (4.00-5.30); RED CELL DISTRIBUTION WIDTH 12.9 % (11.6-17.2); REVIEW FLAG FINAL; WHITE BLOOD COUNT 10.2 TH/MM3 (4.0-11.0)
[2016-07-02] MEDS ORDERED: BUPIVACAINE HCL PF 0.5% 30 ML VIAL ONE (06:05)
[2016-07-02 06:30] LABS: BICARBONATE 27.7 MEQ/L (21.0-32.0); POTASSIUM 3.4 MEQ/L (3.5-5.1)
[2016-07-02] MEDS ORDERED: MIDAZOLAM HCL 2 MG/2 ML VIAL ONE (06:36)
[2016-07-02] MEDS ORDERED: ACETAMINOPHEN 1000 MG/100 ML VIAL IV ONE (06:36)
[2016-07-02] MEDS ORDERED: DEXAMETHASONE SOD PHOS 4 MG/ML VIAL ONE (06:37)
[2016-07-02] MEDS ORDERED: FAMOTIDINE 20 MG/2 ML VIAL ONE (06:37)
[2016-07-02] MEDS ORDERED: POTASSIUM CHLORIDE 20 MEQ CONTROLLED RELEASE TAB PO ONE (06:45)
--- NOTE | 2016-07-02 08:01 | HHI.PR ---
Immediate Post Op Note Procedure Date: Jul 02, 2016 Pre Op Diagnosis: Infection/abscess R foot Gangrene R 5th toe Post Op Diagnosis: same Surgeon: Trinity Perez DPM Lead Assistant Manager(s): Staff Procedure: I&D R foot Amputation R 5th toe Findings: Consistent with diagnosis Copious purulent material upon incision to amputate R 5th toe at MTP joint. Drainage cultured. Irrigation with 9L NS and debridement of necrotic tissue. Wound extended plantarly under digits 3 and 4, with duskiness of those respective digits beginning to occur. Minimal bleeding noted to residual tissue. Residual wound following amputation of 5th digit extended dorsally and laterally along dorsal surface of 5th metatarsal and 4th interspace, and plantarly under digits 5,4,and 3. No wound vac applied. Wound packed with xeroform, 4x4, abd pad, cast padding, tracy to R foot. Will monitor viability of digits 3 and 4 in the next 36 hours. Plan to reevaluate and likely transmetatarsal amputation on Tuesday, due to lack of viable soft tissue coverage to attain functional foot otherwise. Will discuss with patient when awake. Additional Information: no tourniquet utilized. Minimal bleeding intraoperatively. Complications: none Specimen(s) removed: R 5th toe to pathology Culture R foot Estimated blood loss: Minimal, 15ml Anesthesia: General Drains: None IVF Patient to: PACU Patient Condition: Good Date/Time of Procedure: SEE SURGICAL CARE RECORD Trinity Perez DPM Jul 02, 2016 08:01
[2016-07-02] MEDS ORDERED: *morphine SULFATE 8 MG/ML PERIprocedure ONLY ONE (08:11)
[2016-07-02] MEDS ORDERED: DO NOT ADM ANY ANTICOAGULANT DRUGS PRN (08:30)
[2016-07-02] MEDS: VANCOMYCIN INJ 1,000 MG in SODIUM CHLOR 0.9% 250 ML INJ 250 ML IV SCH ×2 (09:00→21:04)
[2016-07-02] MEDS: SODIUM CHLORIDE 0.9% FLUSH 10 ML FLUSH IV FLUSH SCH ×2 (09:00→21:04)
[2016-07-02] MEDS ORDERED: ONDANSETRON HCL 4 MG/2 ML VIAL IV PUSH ONE (09:32)
[2016-07-02] MEDS ORDERED: PROPOFOL 200 MG/20 ML AMP IV ONE (09:32)
[2016-07-02] MEDS ORDERED: Vancomycin Consult Pharmacy 1 EA OTHER SCH (09:45)
--- NOTE | 2016-07-02 10:23 | PD.ID.CON ---
History of Present Illness Service ID Consult Requested By Dr.M. Mendez Reason for Consult Evaluation and M'ment of Diabetic foot ulcer/abscess. Primary Care Physician No Primary Care Physician Diagnoses: History of Present Illness Ms Leyva is a 45-year-old female with past medical history significant for type 2 diabetes uncontrolled presents with a three-week history of foot ulcer. She reports that she had noticed a callus on the ball of the foot which may have ulcerated. She reports she has not much sensation in the lower extremities and unsure of how this started. The ulcer is located on the base of the right foot on the ball of the foot behind the great toe. The ulcer has gotten bigger over the last 3 weeks. Over the last couple days, she has erythema across the top of her foot that started to spread up her right leg. She was treated with Ciprofloxacin for two days before admission but there was worsening rather than improvement. She also presented to the ED on 06/26 and had incision and debridement of the foot. There was some foul smelling drainage from the ulcer. No abscess reported. She had night sweats last night. She was started on iv abx and had fever overnight but has had some resolution of her erythema that had been spreading up her leg. She developed a small probably 1-2 cm roughly circular area at the base of her 4th and 5th toes on the right. This area was discolored and darker that the surrounding skin but was flat and nontender. However, the area has greatly enlarged and gone from the dorsum of her foot to the ventral area as well as becoming larger in size and expanding three dimensionally. ID consulted for evaluation and management of diabetic foot ulcer and abscess. Review of Systems ROS Limitations: Poor Historian Constitutional: COMPLAINS OF: Fatigue, Fever, Chills, DENIES: Diaphoretic episodes, Weight gain, Weight loss, Dizziness, Change in appetite, Night Sweats Endocrine: DENIES: Abnorml menstrual pattern, Heat/cold intolerance, Polydipsia , Polyuria, Polyphagia Eyes: DENIES: Blurred vision, Diplopia, Eye inflammation, Eye pain, Vision loss , Photosensitivity, Double Vision Ears, nose, mouth, throat: DENIES: Tinnitus, Hearing loss, Vertigo, Nasal discharge, Oral lesions, Throat pain, Hoarseness, Ear Pain, Running Nose, Epistaxis, Sinus Pain, Toothache, Odynophagia Respiratory: DENIES: Apneas, Cough, Snoring, Wheezing, Hemoptysis, Sputum production, Shortness of breath Cardiovascular: DENIES: Chest pain, Palpitations, Syncope, Dyspnea on Exertion , PND, Lower Extremity Edema, Orthopnea, Claudication Gastrointestinal: DENIES: Abdominal pain, Black stools, Bloody stools, Constipation, Diarrhea, Nausea, Vomiting, Difficulty Swallowing, Anorexia Genitourinary: DENIES: Abnormal vaginal bleeding, Dysmenorrhea, Dyspareunia, Sexual dysfunction, Urinary frequency, Urinary incontinence, Urgency, Hematuria , Dysuria, Nocturia, Vaginal discharge Musculoskeletal: COMPLAINS OF: Joint pain, Joint Swelling, DENIES: Muscle aches, Stiffness, Back pain, Neck pain Integumentary: COMPLAINS OF: Abnormal pigmentation, DENIES: Pruritus, Rash, Nail changes, Breast masses, Breast skin changes, Nipple discharge Hematologic/lymphatic: DENIES: Bruising, Lymphadenopathy Immunologic/allergic: DENIES: Eczema, Urticaria Neurologic: COMPLAINS OF: Paresthesias, DENIES: Abnormal gait, Headache, Localized weakness, Seizures, Speech Problems, Tremor, Poor Balance Psychiatric: DENIES: Anxiety, Confusion, Mood changes, Depression, Hallucinations, Agitation, Suicidal Ideation, Homicidal Ideation, Delusions Except as stated in HPI: all other systems reviewed are Neg Past Family Social History Allergies: Coded Allergies: Aspirin (Verified Adverse Reaction, Intermediate, VOMITING, 06/29/16) *MDRO Multi-Drug Resistant Organism (Verified Adverse Reaction, Unknown, ) MRSA (wound drainage) - 06/29/16 Past Medical History Diabetes mellitus type 2, uncontrolled Difficulty getting medical insurance Takes Metformin 500 mg daily for diabetes No complications besides current foot ulcer and neuropathy Past Surgical History Cholecystectomy Abdominal hernia repair Reported Medications Reported Meds & Active Scripts Active Walker with Front Wheels (Device) 1 Mis Mis 1 Ea .ROUTE DIRECTED Ultram (Tramadol HCl) 50 Mg Tab 50 Mg PO Q4H PRN Ibuprofen 800 Mg Tab 800 Mg PO Q8H PRN Cipro (Ciprofloxacin HCl) 500 Mg Tab 500 Mg PO BID 10 Days Reported Metformin (Metformin HCl) 500 Mg Tab 500 Mg PO DAILY With a meal Active Ordered Medications Current Medications Medications (Trade) Dose Ordered Sig/Tj Route Start Time Stop Time Status Last Admin (D50w (Vial) Inj) 25 ml UNSCH PRN IV PUSH 06/29/16 11:30 (Glucagon Inj) 1 mg UNSCH PRN OTHER 06/29/16 11:30 (NS Flush) 2 ml UNSCH PRN IV FLUSH 06/29/16 11:45 07/01/16 04:39 (NS Flush) 2 ml BID IV FLUSH 06/29/16 21:00 07/02/16 09:00 (Tylenol) 650 mg Q4H PRN PO 06/29/16 11:45 06/29/16 16:06 (Zofran Inj) 4 mg Q6H PRN IVP 06/29/16 11:45 06/29/16 20:38 (Senokot) 17.2 mg Q12H PRN PO 06/29/16 11:45 Naloxone HCl 0.4 mg 0.4 mg UNSCH PRN IV 06/29/16 11:45 (Zosyn 3.375 Gm Premix) 50 ml @ 100 mls/hr Q6H IV 06/29/16 16:00 07/02/16 03:32 (Percocet 5-325 Mg) 1 tab Q4H PRN PO 06/29/16 20:00 06/30/16 16:18 Oxycodone/ Acetaminophen 1 tab 1 tab Q4H PRN PO 06/29/16 20:00 07/01/16 21:21 (Vancomycin Inj/ NS 250 ml Inj) 250 ml @ 250 mls/hr Q12H IV 07/01/16 09:00 07/02/16 09:00 (Vasotec Inj) 1.25 mg Q6H PRN IV PUSH 07/01/16 16:45 Miscellaneous Information ALL NURSING DEPARTME... 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 From [place], moved here 6 years ago Physical Exam Vital Signs Vital Signs Date Time Temp Pulse Resp B/P Pulse Ox O2 Delivery O2 Flow Rate FiO2 07/02/16 08:30 98.3 79 12 161/88 95 Nasal Cannula 2 07/02/16 08:15 76 12 161/90 95 Nasal Cannula 2 07/02/16 08:00 98.3 92 12 167/91 92 Nasal Cannula 4 07/02/16 08:00 95.2 78 20 175/83 96 07/02/16 04:30 97.5 81 20 145/75 96 07/02/16 00:00 97.1 80 20 131/69 97 07/01/16 22:23 14 07/01/16 20:00 97.7 82 20 173/79 98 07/01/16 17:09 148/92 Automatic Cuff 07/01/16 16:17 98.2 79 18 163/85 97 07/01/16 12:00 98.1 72 16 179/83 99 Physical Exam GENERAL: This is a well-nourished, well-developed patient, in no apparent distress. SKIN: No rashes, ecchymoses or lesions. Cool and dry. HEAD: Atraumatic. Normocephalic. No temporal or scalp tenderness. EYES: Pupils equal round and reactive. Extraocular motions intact. No scleral icterus. No injection or drainage. ENT: Nose without bleeding, purulent drainage or septal hematoma. Throat without erythema, tonsillar hypertrophy or exudate. Uvula midline. Airway patent. NECK: Trachea midline. Supple, nontender, no meningeal signs. CARDIOVASCULAR: RRR RESPIRATORY: Clear to auscultation. Breath sounds equal bilaterally. No wheezes , rales, or rhonchi. GASTROINTESTINAL: Abdomen soft, non-tender, nondistended. MUSCULOSKELETAL: RLE in post op dressing. [place] toes and wiggles toes. NEUROLOGICAL: Awake and alert. Grossly non focal. Decreased sensation to soft touch in LE Psych: cooperative IV line sites with no e.o infection. Laboratory Laboratory Tests Test 07/02/16 05:26 White Blood Count 10.2 Red Blood Count 3.38 Hemoglobin 10.2 Hematocrit 28.8 Mean Corpuscular Volume 85.2 Mean Corpuscular Hemoglobin 30.0 Mean Corpuscular Hemoglobin 35.3 Concent Red Cell Distribution Width 12.9 Platelet Count 304 Mean Platelet Volume 8.2 Sodium Level 135 Potassium Level 3.4 Chloride Level 99 Carbon Dioxide Level 27.7 Anion Gap 8 Blood Urea Nitrogen 7 Creatinine 0.69 Estimat Glomerular Filtration 92 Rate Random Glucose 206 Calcium Level 8.4 Magnesium Level 1.8 Date/Time Procedure Status Source Growth 07/02/16 08:50 Gram Stain Received Wound Foot Pending 07/02/16 08:50 Wound Culture Received Wound Foot Pending 07/02/16 08:50 Fungal Smear Received Wound Foot Pending 07/02/16 08:50 Fungal Culture Received Wound Foot Pending 07/02/16 08:50 Acid Fast Stain Received Wound Foot Pending 07/02/16 08:50 Mycobacterial Culture Received Wound Foot Pending 06/30/16 12:45 Gram Stain - Final Complete Wound Foot 06/30/16 12:45 Wound Culture - Final Complete Group B Beta Strep 06/29/16 09:30 Aerobic Blood Culture - Preliminary Resulted Blood Peripheral NO GROWTH IN 2 DAYS 06/29/16 09:30 Anaerobic Blood Culture - Preliminary Resulted Blood Peripheral NO GROWTH IN 2 DAYS Result Diagram: 07/02/16 0526 07/02/16 0526 Imaging Last Impressions Carotid Artery Ultrasound 06/30/16 0000 Signed Impressions: Service Date/Time: Thursday, June 30, 2016 15:55 - CONCLUSION: Mild calcified plaque in the carotid bulb and proximal internal carotid arteries with hemodynamic profile characteristic of less than 50%% stenosis. Forest Recinos MD Aorta w/Runoff CTA 06/30/16 0000 Signed Impressions: Service Date/Time: Thursday, June 30, 2016 15:17 - CONCLUSION: 1. Patent inflow and outflow bilaterally. 2. The right lower extremity is somewhat limited in evaluation due to venous contamination and motion artifact. Single-vessel runoff to the right foot via the anterior tibial artery. Posterior tibial and peroneal are diffusely diseased. 3. Left lower extremity is better evaluated. Anterior tibial artery is patent. The posterior tibial and peroneal are diffusely diseased. 4. 2.8 cm left adnexal cyst likely ovarian in origin. 5. Right groin adenopathy. Forest Berry Jr., MD Foot MRI 06/29/16 0000 Signed Impressions: Service Date/Time: Wednesday, June 29, 2016 12:26 - CONCLUSION: 1. No evidence of osteomyelitis. 2. Focal mild enhancement about the plantar soft tissue ulceration. No drainable fluid collections seen. Forest Recinos MD Assessment and Plan Assessment and Plan Right plantar aspect Diabetic foot infection (DFI) with abscess. MRSA and Grp B strep infection in DFI. Small vessel disease, PVD. Diabetes mellitus uncontrolled Chronic smoker still active: counseled. Recs: Continue Zosyn IV Continue Vanco IV (target 10-15) for now. Follow cultures follow clinically. d/w : will need further I&D and possible more surgery such as TMA based on follow up examinations by her. She will d.w patient on follow up exam. to cover for me from 07/03/16 to 07/05/16. I will be back 07/06/16. Charmaine Soares MD Jul 02, 2016 10:23
--- NOTE | 2016-07-02 10:54 | PD.CAR.PN ---
CVT Progress Note Subjective/Hospital Course: patient evaluated Full consult TF Thanks Nhan 07/01/16 Patient with the ulcer of the foot and no signs of osteomyelitis Patient's long-standing diabetes mellitus this poorly controlled and she is quite noncompliant with her care I reviewed the CTA with runoff which confirms the clinical impression. Patient has a fairly good inflow and then typical pattern of diabetes small vessel disease starting at the level of popliteal artery which is somewhat narrowed. Unfortunately trifurcation vessels are diseased and the only vessel running to the foot bilaterally his anterior tibial artery which is also diseased The posterior tibial and peroneal arteries are severely calcified and diseased with pieces here and there and no true continuity At this point there is nothing to reconstruct here patient has severe small vessel disease and with continuation of smoking will end up needing bilateral leg amputations in next few years J 07/02/16 From vascular standpoint this patient has good inflow through iliacs into the femorals and superficial femoral arteries bilaterally as well popliteal arteries. The problem recurs below the level of the knee were patient's occlusion of posterior tibial and peroneal arteries bilaterally in the only runoff to the foot bilaterally his anterior tibial artery There is no unreconstructable disease here and any attempt to do any arthrectomy and balloon angioplasty or such would potentially result in complete occlusion and imminent limb loss. Patient needs to be active and stop smoking otherwise she will end up with a lateral above-knee amputations in the next few years Objective: Vital Signs Date Time Temp Pulse Resp B/P Pulse Ox O2 Delivery O2 Flow Rate FiO2 07/02/16 08:30 98.3 79 12 161/88 95 Nasal Cannula 2 07/02/16 08:15 76 12 161/90 95 Nasal Cannula 2 07/02/16 08:00 98.3 92 12 167/91 92 Nasal Cannula 4 07/02/16 08:00 95.2 78 20 175/83 96 07/02/16 04:30 97.5 81 20 145/75 96 07/02/16 00:00 97.1 80 20 131/69 97 07/01/16 22:23 14 07/01/16 20:00 97.7 82 20 173/79 98 07/01/16 17:09 148/92 Automatic Cuff 07/01/16 16:17 98.2 79 18 163/85 97 07/01/16 12:00 98.1 72 16 179/83 99 Labs: Laboratory Tests Test 07/02/16 05:26 White Blood Count 10.2 TH/MM3 (4.0-11.0) Red Blood Count 3.38 MIL/MM3 (4.00-5.30) Hemoglobin 10.2 GM/DL (11.6-15.3) Hematocrit 28.8 % (35.0-46.0) Mean Corpuscular Volume 85.2 FL (80.0-100.0) Mean Corpuscular Hemoglobin 30.0 PG (27.0-34.0) Mean Corpuscular Hemoglobin 35.3 % Concent (32.0-36.0) Red Cell Distribution Width 12.9 % (11.6-17.2) Platelet Count 304 TH/MM3 (150-450) Mean Platelet Volume 8.2 FL (7.0-11.0) Sodium Level 135 MEQ/L (136-145) Potassium Level 3.4 MEQ/L (3.5-5.1) Chloride Level 99 MEQ/L (98-107) Carbon Dioxide Level 27.7 MEQ/L (21.0-32.0) Anion Gap 8 MEQ/L (5-15) Blood Urea Nitrogen 7 MG/DL (7-18) Creatinine 0.69 MG/DL (0.50-1.00) Estimat Glomerular Filtration 92 ML/MIN (>89) Rate Random Glucose 206 MG/DL (74-106) Calcium Level 8.4 MG/DL (8.5-10.1) Magnesium Level 1.8 MG/DL (1.5-2.5) Result Diagram: 07/02/16 0526 07/02/16 0526 Sandy Mcallister MD Jul 02, 2016 10:54
--- NOTE | 2016-07-02 11:58 | HHI.FPPN ---
Subjective Remarks Ms Leyva is s/p amputation of her 5th toe today. Her foot is well bandaged and she has sensation in her toes now but per operative report she had a large amount of pus and some spreading infection under the tissues that may necessitate further operations. She has had some variability in her glucose levels but has been NPO with surgery and had some elevated levels otherwise. Objective Vitals Vital Signs Date Time Temp Pulse Resp B/P Pulse Ox O2 Delivery O2 Flow Rate FiO2 07/02/16 08:30 98.3 79 12 161/88 95 Nasal Cannula 2 07/02/16 08:15 76 12 161/90 95 Nasal Cannula 2 07/02/16 08:00 98.3 92 12 167/91 92 Nasal Cannula 4 07/02/16 08:00 95.2 78 20 175/83 96 07/02/16 04:30 97.5 81 20 145/75 96 07/02/16 00:00 97.1 80 20 131/69 97 07/01/16 22:23 14 07/01/16 20:00 97.7 82 20 173/79 98 07/01/16 17:09 148/92 Automatic Cuff 07/01/16 16:17 98.2 79 18 163/85 97 07/01/16 12:00 98.1 72 16 179/83 99 I/O 07/01/16 07/01/16 07/01/16 07/02/16 07/02/16 07/02/16 07:00 15:00 23:00 07:00 15:00 23:00 Intake Total 1200 ml 240 ml 200 ml Output Total 50 ml Balance 1200 ml 240 ml 150 ml Intake Oral 700 ml 240 ml IV Total 500 ml Other 200 ml Output Estimated Blood Loss 50 ml # Voids 2 3 2 1 # Bowel Movements 0 0 Result Diagram: 07/02/16 0526 07/02/16525 Objective Remarks GENERAL: Lying in bed, no distress after surgery SKIN: Right lower extremity erythematous, was decreasing from days prior. There was a 1 cm x 1 cm ulcer on the base of the right MTP area. Base of ulcer appeared clean, well granulated. Right 5th digit was gangrenous and lacked sensation. Area on top of foot that was bullous and necrotic is now s/p I&D and appeared clean with good granulation tissue. Today, was not able to examine foot as she had just returned from surgery and had a large bandage however she has sensation in her remaining toes that appear pink at the ends except some slight purple tinge to her third toe. She is able to move her remaining toes as well. HEENT: Normocephalic, no conjunctivitis, no nasal discharge, normal pharynx NECK: No lymphadenopathy CARDIOVASCULAR: Regular rate and rhythm without murmurs, gallops, or rubs. Palpable dorsalis pedis and PT pulses yesterday. RESPIRATORY: Clear to auscultation. Breath sounds equal bilaterally. No wheezes , rales, or rhonchi. GASTROINTESTINAL: Abdomen soft, non-tender, nondistended. No hepato-splenomegaly , or palpable masses. No guarding. MUSCULOSKELETAL: Extremities without clubbing, cyanosis, or edema. No joint tenderness, effusion, or edema noted. No calf tenderness. Negative Homans sign bilaterally. NEUROLOGICAL: Awake and alert. Cranial nerves II through XII intact. Five out of 5 muscle strength in all muscle groups. Normal speech. Slightly diminished sensation to light touch on right foot as above yesterday. The right 5th digit was lacking completely in sensation. Procedures I&D of bullous necrotic abscess on top of right foot. Urinary Catheter: No Vascular Central Line Catheter: No A/P Assessment and Plan 45 year old female with diabetic foot ulcer and cellulitis Discharge Planning Pending resolution of cellulitis, afebrile, podiatry recommendations on gangrenous toe Problem List: (1) Diabetic foot ulcer Status: Acute Plan: Ulcer on base of MTP area of the right foot, seems limited to the soft tissue, does not extend to the bone. No fluctuance, no abscess. ESR and CRP elevated. Good DP and PT pulses. MRI of foot negative for osteomyelitis on admission. Area on top of right foot developed necrotic abscess the night of admission and has been incised and drained by podiatry. Initial wound culture growing MRSA but this culture was done by swabbing the skin of the ulcer as I observed this being done. Culture of the abscess is showing group B beta strep which is a true culture as it was done with the I& D. Blood cultures negative to date. - Podiatry on board, appreciate their help. - Follow cultures. - Zosyn q6hrs, adjust based on cultures/sensitivities. - Vancomycin added 07/01/16 to cover for MRSA. When admitted she had no evidence of abscess near the wound and it seemed to be just cellulitis but the bullous abscess came up with the strep infection - Education on diabetes control, case management to help set up PCP. (2) Gangrenous toe Status: Acute Plan: 5th right digit was gangrenous, lacking in sensation. - Podiatry consulted - Vascular surgery on board, CTA runoff shows significant small vessel disease. - Definitive management per podiatry done today as her tow was removed. She may need a more extensive amputation as she looked worse during surgery than expected. (3) Cellulitis of right leg Status: Acute Plan: Improving, see above for management (4) Type 2 diabetes mellitus Status: Acute Plan: Poorly controlled diabetes, glucose was 300 on admission. Takes metformin 500 mg q day at home. No PCP or health insurance. - Diabetic diet - Low dose sliding scale insulin - Diabetic education - Case management to help her get PCP and insurance - her glucoses are variable in the hospital and will work on determining what she will need as an outpt (5) No contraindication to deep vein thrombosis (DVT) prophylaxis Status: Acute Plan: Lovenox 40 mg q day, held as she just had surgery and may need more extensive surgery (6) Nutrition, metabolism, and development symptoms Status: Acute Plan: - PO fluids - Electrolytes normal - Diabetic diet Problem Qualifiers (1) Diabetic foot ulcer: Qualified Code: E11.621 - Diabetic ulcer of right midfoot associated with type 2 diabetes mellitus, limited to breakdown of skin (2) Type 2 diabetes mellitus: Qualified Code: E11.42 - Type 2 diabetes mellitus with diabetic polyneuropathy , without long-term current use of insulin Hortencia Helm MD Jul 02, 2016 11:58
--- NOTE | 2016-07-02 12:18 | RADRPT ---
EXAM DATE/TIME: 07/02/2016 09:19 [facility] COMPARISON: MRI FOOT RIGHT W & W/O CONTRAST, June 29, 2016, 12:26. FOOT RIGHT LIMITED (2VWS), June 26, 2016, 1 9:53. INDICATIONS : Post op right foot surgery removal of 5th toe. MEDICAL HISTORY : Diabetes mellitus type II. Cardiovascular disease. Hypertension. SURGICAL HISTORY : Umbilical hernia repair. Cholecystectomy. ENCOUNTER: Initial ACUITY: 1 day PAIN SCORE: 5/10 LOCATION: Right Foot FINDINGS: There is amputation of the fifth toe at the level of the metatarsophalangeal joint. The rest of the e xamination has not significantly changed. CONCLUSION: Postop amputation. Lore Whitley MD on July 02, 2016 at 12:15 Board Certified Radiologist. This report was verified electronically.
--- NOTE | 2016-07-02 19:52 | EKG ---
Date Performed: 07/01/2016 Time Performed: 22:06:20 PTAGE: 45 years EKG: Sinus rhythm Early repolarization is less prominent from the prior tracing NORMAL ECG PREVIOUS TRACING : 10/19/2011 19.38 DOCTOR: Elder Wong Interpretating Date/Time 07/02/2016 19:51:37
[2016-07-02] MEDS ORDERED: PHARMACY ORDERED LAB ONE (20:45)
[2016-07-02] MEDS: oxyCODONE/ACETAMINOPHEN 10 MG/325 MG TAB PO PRN (21:19)
[2016-07-03 04:00] VITALS: BP 144/70; PULSE 76; RESP 18; TEMP 97.9; O2SAT 99
[2016-07-03] MEDS: PIPERACIL-TAZO 3.375 GM PREMIX 50 ML IV SCH ×4 (04:06→21:52)
[2016-07-03] MEDS: INSULIN ASPART SUPPLEMENTAL SCALE SQ SCH ×4 (05:54→20:51)
[2016-07-03 07:27] LABS: MEAN CELL VOLUME 85.5 FL (80.0-100.0); MEAN CORPUSCULAR HEMOGLOBIN 30.1 PG (27.0-34.0); MEAN CORPUSCULAR HGB CONC 35.2 % (32.0-36.0); PLATELET COUNT 319 TH/MM3 (150-450); RED BLOOD COUNT 3.28 MIL/MM3 (4.00-5.30); RED CELL DISTRIBUTION WIDTH 12.8 % (11.6-17.2); REVIEW FLAG FINAL; WHITE BLOOD COUNT 9.1 TH/MM3 (4.0-11.0)
[2016-07-03 07:51] LABS: BICARBONATE 29.2 MEQ/L (21.0-32.0); MAGNESIUM 1.7 MG/DL (1.5-2.5); POTASSIUM 3.2 MEQ/L (3.5-5.1)
[2016-07-03 08:00] VITALS: BP 180/86; PULSE 75; RESP 18; TEMP 98; O2SAT 98
[2016-07-03] MEDS: VANCOMYCIN INJ 1,000 MG in SODIUM CHLOR 0.9% 250 ML INJ 250 ML IV SCH (08:41)
[2016-07-03] MEDS: SODIUM CHLORIDE 0.9% FLUSH 10 ML FLUSH IV FLUSH SCH ×2 (08:41→20:49)
--- NOTE | 2016-07-03 09:35 | HHI.FPPN ---
Subjective Remarks No acute events overnight. POD 1 from R pinky toe amputation. During surgery there was copious purulent drainage. Pain currently well-controlled. No CP, SOB , N/V. (Ritesh Henderson MD R1) Objective Vitals Vital Signs Date Time Temp Pulse Resp B/P Pulse Ox O2 Delivery O2 Flow Rate FiO2 07/03/16 04:00 97.9 76 18 144/70 99 07/02/16 22:28 98.0 77 18 177/91 98 07/02/16 19:45 98.3 75 20 179/85 97 07/02/16 17:18 96.2 86 20 189/91 97 07/02/16 12:00 98.1 71 20 155/76 97 I/O 07/02/16 07/02/16 07/02/16 07/03/16 07/03/16 07/03/16 07:00 15:00 23:00 07:00 15:00 23:00 Intake Total 200 ml 480 ml Output Total 50 ml Balance 150 ml 480 ml Intake Oral 480 ml Other 200 ml Output Estimated Blood Loss 50 ml # Voids 1 2 # Bowel Movements 0 0 (Ritesh Henderson MD R1) Result Diagram: 07/03/16 0614 07/03/16 0614 Imaging Last Impressions Foot X-Ray 07/02/16 0000 Signed Impressions: Service Date/Time: Saturday, July 02, 2016 09:19 - CONCLUSION: Postop amputation. KDilip Whitley MD Carotid Artery Ultrasound 06/30/16 0000 Signed Impressions: Service Date/Time: Thursday, June 30, 2016 15:55 - CONCLUSION: Mild calcified plaque in the carotid bulb and proximal internal carotid arteries with hemodynamic profile characteristic of less than 50%% stenosis. Forest Recinos MD Aorta w/Runoff CTA 06/30/16 0000 Signed Impressions: Service Date/Time: Thursday, June 30, 2016 15:17 - CONCLUSION: 1. Patent inflow and outflow bilaterally. 2. The right lower extremity is somewhat limited in evaluation due to venous contamination and motion artifact. Single-vessel runoff to the right foot via the anterior tibial artery. Posterior tibial and peroneal are diffusely diseased. 3. Left lower extremity is better evaluated. Anterior tibial artery is patent. The posterior tibial and peroneal are diffusely diseased. 4. 2.8 cm left adnexal cyst likely ovarian in origin. 5. Right groin adenopathy. Forest Berry Jr., MD Foot MRI 06/29/16 0000 Signed Impressions: Service Date/Time: Wednesday, June 29, 2016 12:26 - CONCLUSION: 1. No evidence of osteomyelitis. 2. Focal mild enhancement about the plantar soft tissue ulceration. No drainable fluid collections seen. Forest Recinos MD Objective Remarks GENERAL: Lying in bed, no distress after surgery SKIN: Right lower extremity erythematous, was decreasing from days prior. There was a 1 cm x 1 cm ulcer on the base of the right MTP area. Base of ulcer appeared clean, well granulated. S/p right 5th toe amputation. Area on top of foot that was bullous and necrotic is now s/p I&D and appeared clean with good granulation tissue. Today, was not able to examine foot as she has firm wrapping in place however she has sensation in her remaining toes that appear pink at the ends except some slight purple tinge to her third toe. She is able to move her remaining toes as well, limited by firm wrap in place. CARDIOVASCULAR: Regular rate and rhythm without murmurs, gallops, or rubs. RESPIRATORY: Clear to auscultation. Breath sounds equal bilaterally. No wheezes , rales, or rhonchi. GASTROINTESTINAL: Abdomen soft, non-tender, nondistended. No hepato-splenomegaly , or palpable masses. No guarding. MUSCULOSKELETAL: Extremities without clubbing, cyanosis, or edema. Right foot exam as above. NEUROLOGICAL: Awake and alert. Cranial nerves II through XII intact. Five out of 5 muscle strength in all muscle groups. Normal speech. Slightly diminished sensation to light touch on right foot as above yesterday. Procedures I&D of bullous necrotic abscess on top of right foot. (Ritesh Henderson MD R1) A/P Assessment and Plan 45 year old female with diabetic foot ulcer and cellulitis Discharge Planning Pending resolution of cellulitis, afebrile, podiatry recommendations on gangrenous toe (Ritesh Henderson MD R1) Attending Attestation Patient seen and examined. Case reviewed and discussed with the resident team. Agree with plan of care as discussed with me and documented in the resident note. (Hortencia Helm MD) Problem List: (1) Diabetic foot ulcer Status: Acute Plan: Ulcer on base of MTP area of the right foot, seems limited to the soft tissue, does not extend to the bone. No fluctuance, no abscess. ESR and CRP elevated. Good DP and PT pulses. MRI of foot negative for osteomyelitis on admission. Area on top of right foot developed necrotic abscess the night of admission and has been incised and drained by podiatry. Initial wound culture growing MRSA but this culture was done by swabbing the skin of the ulcer as I observed this being done. Wound culture at time of I&D growing group B strep Blood cultures negative to date. POD 1 s/p R pinky toe amputation. - Podiatry on board, appreciate their assistance - To re-evaluate with likely trans-metatarsal amputation on 07/04 - Follow cultures - Zosyn q6hrs - Vancomycin added 07/01/16 to cover for MRSA. When admitted she had no evidence of abscess near the wound and it seemed to be just cellulitis but the bullous abscess came up with the strep infection - Education on diabetes control, case management to help set up PCP (2) Gangrenous toe Status: Acute Plan: 5th right digit was gangrenous, lacking in sensation POD 1 s/p amputation - Podiatry consulted, appreciate assistance (see above) - Vascular surgery on board, CTA runoff shows significant small vessel disease (3) Cellulitis of right leg Status: Acute Plan: Improving, see above for management (4) Type 2 diabetes mellitus Status: Chronic Plan: Poorly controlled diabetes, glucose was 300 on admission. Takes metformin 500 mg q day at home. No PCP or health insurance. BSG 192-360 - Diabetic diet - Low dose sliding scale insulin - Diabetic education - Case management to help her get PCP and insurance - her glucoses are variable in the hospital and will work on determining what she will need as an outpt (5) No contraindication to deep vein thrombosis (DVT) prophylaxis Status: Acute Plan: Lovenox 40 mg q day, held as she just had surgery and may need more extensive surgery (6) Nutrition, metabolism, and development symptoms Status: Acute Plan: - PO fluids - Electrolytes normal - Diabetic diet dw Dr. Helm (Ritesh Henderson MD R1) Problem Qualifiers (1) Diabetic foot ulcer: Qualified Code: E11.621 - Diabetic ulcer of right midfoot associated with type 2 diabetes mellitus, limited to breakdown of skin (2) Type 2 diabetes mellitus: Qualified Code: E11.42 - Type 2 diabetes mellitus with diabetic polyneuropathy , without long-term current use of insulin Ritesh Henderson MD R1 Jul 03, 2016 09:35 Hortencia Helm MD Jul 06, 2016 11:24
[2016-07-03] MEDS: oxyCODONE/ACETAMINOPHEN 10 MG/325 MG TAB PO PRN ×3 (10:36→21:51)
--- NOTE | 2016-07-03 10:36 | PD.POD ---
Subjective Podiatric Problems R lateral foot infection, gangrene R 5th toe s/p amputation R 5th toe and I&D R foot 07/02/16 Past Med/Surg/Social History Social History Smoking Status: Current Every Day Smoker Objective Vital Signs Vital Signs Date Time Temp Pulse Resp B/P Pulse Ox O2 Delivery O2 Flow Rate FiO2 07/03/16 08:00 98.0 75 18 180/86 98 07/03/16 04:00 97.9 76 18 144/70 99 07/02/16 22:28 98.0 77 18 177/91 98 07/02/16 19:45 98.3 75 20 179/85 97 07/02/16 17:18 96.2 86 20 189/91 97 07/02/16 12:00 98.1 71 20 155/76 97 Coded Allergies: Aspirin (Verified Adverse Reaction, Intermediate, VOMITING, 06/29/16) *MDRO Multi-Drug Resistant Organism (Verified Adverse Reaction, Unknown, ) MRSA (wound drainage) - 06/29/16 Physical Exam Remarks R lateral foot amputation site with 80% healthy granular base and 10% fibrous, 10% necrotic tissue noted. R 3rd/4th toes still appear viable at this time and have pinked back up with capillary refill intact. Wound extends dorsally into 4th interspace and laterally to 5th metatarsal head , and plantarly into toe sulcus under 4th and 3rd toes. No kirby purulence or malodor noted. Assessment & Plan A/P R 5th toe gangrene, cellulitis R foot, s/p I&D R foot and amputation R 5th toe Ana Plan for OR tomorrow for repeat I&D R foot with attempt at wound vac application Discussed that if the wound condition deteriorates, she may have to have eventual TMA vs 4th/5th ray amputations to allow wound closure to occur. Discussed that foot salvage attempt requires her to be NWB R foot at all times. Discussed very long-term wound healing for salvage attempt and likelihood of recurrent infections and possible hospitalizations. She understood risks/benefits/complications. NPO after midnight tonight. Trinity Perez DPM Jul 03, 2016 10:36
[2016-07-03] MEDS: SENNOSIDES 8.6 MG TAB PO PRN (11:28)
[2016-07-03 12:00] VITALS: BP 157/81; PULSE 77; RESP 18; TEMP 98; O2SAT 98
[2016-07-03 16:00] VITALS: BP 154/78; PULSE 71; RESP 18; TEMP 97.7; O2SAT 99
[2016-07-03] MEDS: VANCOMYCIN 1,000 MG/NS 250 ML IV SCH ×2 (17:12)
[2016-07-03 20:00] VITALS: BP 140/76; PULSE 73; RESP 18; TEMP 98; O2SAT 96
[2016-07-04] VITALS (8 sets, daily range): BP systolic 114–192; BP diastolic 55–90; PULSE 71–80; RESP 18–20; TEMP 97.4–99; O2SAT 95–98
[2016-07-04] MEDS: VANCOMYCIN 1,000 MG/NS 250 ML IV SCH ×4 (00:54→09:00)
[2016-07-04] MEDS: oxyCODONE/ACETAMINOPHEN 10 MG/325 MG TAB PO PRN ×2 (02:44→13:33)
[2016-07-04] MEDS: PIPERACIL-TAZO 3.375 GM PREMIX 50 ML IV SCH ×4 (04:00→21:54)
[2016-07-04] MEDS: INSULIN ASPART SUPPLEMENTAL SCALE SQ SCH ×4 (06:03→21:55)
[2016-07-04 07:21] LABS: HEMATOCRIT 31.5 % (35.0-46.0); MEAN CELL VOLUME 86.9 FL (80.0-100.0); MEAN CORPUSCULAR HEMOGLOBIN 28.8 PG (27.0-34.0); MEAN CORPUSCULAR HGB CONC 33.2 % (32.0-36.0); PLATELET COUNT 340 TH/MM3 (150-450); RED BLOOD COUNT 3.63 MIL/MM3 (4.00-5.30); REVIEW FLAG FINAL; WHITE BLOOD COUNT 9.1 TH/MM3 (4.0-11.0)
[2016-07-04 07:29] LABS: APTT (PATIENT) 35.5 SEC (24.3-30.1); PROTHROMBIN TIME - PATIENT 10.5 SEC (9.8-11.6)
[2016-07-04 07:42] LABS: BICARBONATE 29.9 MEQ/L (21.0-32.0); POTASSIUM 3.4 MEQ/L (3.5-5.1)
[2016-07-04] MEDS ORDERED: POTASSIUM CHLORIDE 20 MEQ CONTROLLED RELEASE TAB PO ONE (08:00)
[2016-07-04] MEDS ORDERED: NEOMYCIN/POLYMYXIN 1 ML G.U. IRRIGANT IR ONE (08:10)
[2016-07-04] MEDS ORDERED: PHARMACY ORDERED LAB ONE ×2 (08:45→16:45)
--- NOTE | 2016-07-04 08:57 | HHI.PR ---
Immediate Post Op Note Procedure Date: Jul 04, 2016 Pre Op Diagnosis: Infection R foot Post Op Diagnosis: Infection R foot Surgeon: Trinity Perez DPM Rn Forensic(s): Staff Procedure: I&D R foot with wound vac application Findings: Consistent with diagnosis. There is exposed tendon to R dorsal 5th metatarsal area and plantar R 3rd digit area. Bone is visible to 5th met head with central cartilaginous erosion noted. No further necrotic tissue noted. Healthy bleeding granular base to wound bed. Wound extends from dorsal lateral foot to plantar toe sulcus under digits 4, 3, and ends at interspace between 2nd/3rd digits. Approximate wound measurements 15cm x 4cm x 2cm depth with undermining approximately 1cm at each end of the wound Adaptic applied over tendon and bone, followed by small granufoam wound vac. Setting at 125mmHg continuous medium. 4x4, cast padding, and tracy bandage applied over vac. Additional Information: no tourniquet utilized. More bleeding noted intraoperatively than before. Digits 3 and 4 no longer appear dusky at this time. Patient will likely need to either be transferred to [facility] for long-term care vs home health wound vac changes. Patient's wound will be monitored weekly while in-house to determine if further surgery is required or if she is able to continue limb salvage attempt. Complications: none Specimen(s) removed: none Estimated blood loss: 20mL Anesthesia: General Drains: None IVF Patient to: PACU Patient Condition: Good Date/Time of Procedure: SEE SURGICAL CARE RECORD Trinity Perez DPM Jul 04, 2016 08:57
[2016-07-04] MEDS ORDERED: fentaNYL CITRATE 250 MCG/5 ML AMP ONE (09:06)
[2016-07-04] MEDS ORDERED: MIDAZOLAM HCL 2 MG/2 ML VIAL ONE (09:06)
[2016-07-04] MEDS ORDERED: VANCOMYCIN HCL 1000 MG VIAL ONE (09:10)
[2016-07-04] MEDS ORDERED: *morphine SULFATE 8 MG/ML PERIprocedure ONLY ONE (09:27)
[2016-07-04] MEDS ORDERED: DO NOT ADM ANY ANTICOAGULANT DRUGS PRN (09:30)
[2016-07-04] MEDS: SODIUM CHLORIDE 0.9% FLUSH 10 ML FLUSH IV FLUSH SCH ×2 (10:46→21:57)
[2016-07-04] MEDS ORDERED: PHENYLEPH/NS 1000 MCG/10 ML SYR IV ONE (12:00)
[2016-07-04] MEDS ORDERED: ePHEDrine/NS 25 MG/5 ML SYR IV ONE (12:00)
[2016-07-04] MEDS ORDERED: PROPOFOL 200 MG/20 ML AMP IV ONE (12:00)
[2016-07-04] MEDS ORDERED: ONDANSETRON HCL 4 MG/2 ML VIAL IV PUSH ONE (12:00)
--- NOTE | 2016-07-04 14:42 | HHI.FPPN ---
Subjective Remarks Had repeat I&D of right foot this morning, tolerated procedure well. Still having some pain of right foot but well-controlled with current medication regimen. Good sensation of remaining toes. Not having any CP, SOB, N/V, abdominal pain. (Ritesh Henderson MD R1) Objective Vitals Vital Signs Date Time Temp Pulse Resp B/P Pulse Ox O2 Delivery O2 Flow Rate FiO2 07/04/16 12:00 98.1 76 18 178/84 97 07/04/16 09:40 74 16 162/89 95 Nasal Cannula 3 07/04/16 09:30 74 16 167/94 95 Nasal Cannula 3 07/04/16 09:15 90 16 148/86 95 Nasal Cannula 3 07/04/16 08:54 98.8 90 16 157/100 95 Nasal Cannula 3 07/04/16 08:00 98.0 77 18 171/81 96 07/04/16 06:05 71 168/87 07/04/16 04:00 98.1 72 18 171/90 96 07/04/16 00:15 97.9 74 18 114/55 98 07/03/16 20:00 98.0 73 18 140/76 96 07/03/16 16:00 97.7 71 18 154/78 99 I/O 07/03/16 07/03/16 07/03/16 07/04/16 07/04/16 07/04/16 07:00 15:00 23:00 07:00 15:00 23:00 Intake Total 480 ml 1817 ml 850 ml Output Total 450 ml Balance 480 ml 1817 ml 400 ml Intake Oral 480 ml 1200 ml 0 ml IV Total 617 ml Other 850 ml Output Urine Total 400 ml Estimated Blood Loss 50 ml # Voids 2 4 1 2 # Bowel Movements 0 1 0 0 0 (Ritesh Henderson MD R1) Result Diagram: 07/04/16 0610 07/04/16 0610 Imaging Last Impressions Foot X-Ray 07/02/16 0000 Signed Impressions: Service Date/Time: Saturday, July 02, 2016 09:19 - CONCLUSION: Postop amputation. Lore Whitley MD Carotid Artery Ultrasound 06/30/16 0000 Signed Impressions: Service Date/Time: Thursday, June 30, 2016 15:55 - CONCLUSION: Mild calcified plaque in the carotid bulb and proximal internal carotid arteries with hemodynamic profile characteristic of less than 50%% stenosis. Forest Recinos MD Aorta w/Runoff CTA 06/30/16 0000 Signed Impressions: Service Date/Time: Thursday, June 30, 2016 15:17 - CONCLUSION: 1. Patent inflow and outflow bilaterally. 2. The right lower extremity is somewhat limited in evaluation due to venous contamination and motion artifact. Single-vessel runoff to the right foot via the anterior tibial artery. Posterior tibial and peroneal are diffusely diseased. 3. Left lower extremity is better evaluated. Anterior tibial artery is patent. The posterior tibial and peroneal are diffusely diseased. 4. 2.8 cm left adnexal cyst likely ovarian in origin. 5. Right groin adenopathy. Forest Berry Jr., MD Foot MRI 06/29/16 0000 Signed Impressions: Service Date/Time: Wednesday, June 29, 2016 12:26 - CONCLUSION: 1. No evidence of osteomyelitis. 2. Focal mild enhancement about the plantar soft tissue ulceration. No drainable fluid collections seen. Forest Recinos MD Objective Remarks GENERAL: Lying in bed, no distress after surgery SKIN: Right lower extremity erythematous, was decreasing from days prior. There was a 1 cm x 1 cm ulcer on the base of the right MTP area. Base of ulcer appeared clean, well granulated. S/p right 5th toe amputation. Area on top of foot that was bullous and necrotic is now s/p I&D x2; appeared clean with good granulation tissue. Today, was not able to examine foot as she has firm wrapping in place however she has sensation in her remaining toes that appear pink at the ends except some slight purple tinge to her third toe. She is able to move her remaining toes as well, limited by cast. CARDIOVASCULAR: Regular rate and rhythm without murmurs, gallops, or rubs. RESPIRATORY: Clear to auscultation. Breath sounds equal bilaterally. No wheezes , rales, or rhonchi. GASTROINTESTINAL: Abdomen soft, non-tender, nondistended. No hepato-splenomegaly , or palpable masses. No guarding. MUSCULOSKELETAL: Extremities without clubbing, cyanosis, or edema. Right foot exam as above. NEUROLOGICAL: Awake and alert. Cranial nerves II through XII intact. Five out of 5 muscle strength in all muscle groups. Normal speech. Sensation intact over remaining toes R foot. Procedures Amputation R 5th toe with I&D - 07/02 Repeat I&D abscess with wound vac placement R foot - 07/04 (Ritesh Henderson MD R1) A/P Assessment and Plan 45 year old female with diabetic foot ulcer and cellulitis Discharge Planning Pending removal of wound vac (Ritesh Henderson MD R1) Attending Attestation Patient seen and examined. Case reviewed and discussed with the resident team. Agree with plan of care as discussed with me and documented in the resident note. (Hortencia Helm MD) Problem List: (1) Diabetic foot ulcer Status: Acute Plan: Ulcer on base of MTP area of the right foot, seems limited to the soft tissue, does not extend to the bone. No fluctuance, no abscess. ESR and CRP elevated. Good DP and PT pulses. MRI of foot negative for osteomyelitis on admission. Area on top of right foot developed necrotic abscess the night of admission and has been incised and drained by podiatry. Initial wound culture growing MRSA but this culture was done by swabbing the skin of the ulcer as I observed this being done. Wound culture at time of I&D growing group B strep Superficial wound culture growing MRSA Blood cultures negative to date. POD 2 s/p R pinky toe amputation. - Podiatry on board, appreciate their assistance - Wound vac in place after repeat I&D R foot, following - Follow cultures - Zosyn q6hrs; despite cultures growing only gram positives, continue at this time due to improvement on Zosyn alone over first day hospitalization - Vancomycin added 07/01/16 to cover for MRSA. When admitted she had no evidence of abscess near the wound and it seemed to be just cellulitis but the bullous abscess came up with the strep infection - Education on diabetes control, case management to help set up PCP (2) Gangrenous toe Status: Acute Plan: 5th right digit was gangrenous, lacking in sensation POD 2 s/p amputation - Podiatry consulted, appreciate assistance (see above) - Vascular surgery on board, CTA runoff shows significant small vessel disease (3) Cellulitis of right leg Status: Acute Plan: Improving, see above for antibiotics management (4) Type 2 diabetes mellitus Status: Chronic Plan: Poorly controlled diabetes, glucose was 300 on admission. Takes metformin 500 mg q day at home. No PCP or health insurance. BSG 190s to low 300s - Diabetic diet - Low dose sliding scale insulin - Add Levemir 5 BID - Diabetic education - Case management to help her get PCP and insurance - her glucoses are variable in the hospital and will work on determining what she will need as an outpt (5) No contraindication to deep vein thrombosis (DVT) prophylaxis Status: Acute Plan: Lovenox 40 mg q day, held as she just had surgery and may need more extensive surgery (6) Nutrition, metabolism, and development symptoms Status: Acute Plan: - PO fluids - Electrolytes normal - Diabetic diet dw Dr. Helm (Ritesh Henderson MD R1) Problem Qualifiers (1) Diabetic foot ulcer: Qualified Code: E11.621 - Diabetic ulcer of right midfoot associated with type 2 diabetes mellitus, limited to breakdown of skin (2) Type 2 diabetes mellitus: Qualified Code: E11.42 - Type 2 diabetes mellitus with diabetic polyneuropathy , without long-term current use of insulin Ritesh Henderson MD R1 Jul 04, 2016 14:42 Hortencia Helm MD Jul 06, 2016 11:25
--- NOTE | 2016-07-04 16:28 | HHI.PR ---
Addendum to Inpatient Note Addendum Reason: Additional Documentation Additional Information OFF SERVICE NOTE 45 yo female with h/o T2DM admitted for diabetic foot ulcer of right foot. Initially appeared mild but with severe surrounding cellulitis, started on Zosyn IV hospital day 1. Cellulitis improved however 5th toe became more necrotic. Added vancomycin 07/01 to provide expanded gram positive coverage. She was taken to the OR on 07/02 for amputation right 5th toe, at that time wound draining copious purulent material with suspected abscess noted, I&D performed during same surgery. Wound cultures grew both group B Strep and MRSA. ID consulted, continuing vancomycin and Zosyn. Podiatry performed repeat I&D with wound vac placement on 07/04. Disposition pending further management of wound by podiatry, culture results with sensitivities, and ID recommendations for treatment choice and duration. Antibiotic History Zosyn - 06/29 to present Vanco - 07/01 to present Ritesh Henderson MD R1 Jul 04, 2016 4:28 pm
--- NOTE | 2016-07-04 17:28 | HHI.IDPN ---
Subjective Subjective Remarks ID COVERAGE 45 Y/O female admitted with R foot ulcer, has DM, smoker Has had amputation 5th toe Repeat surgery done today and had debridement, has wound vac in place No fever No rash No diarrhea Antibiotics Vanco Zosyn Lines PIV Past Medical History Diabetes mellitus type 2, uncontrolled Difficulty getting medical insurance Takes Metformin 500 mg daily for diabetes No complications besides current foot ulcer and neuropathy Past Surgical History Cholecystectomy Abdominal hernia repair Allergies: Coded Allergies: Aspirin (Verified Adverse Reaction, Intermediate, VOMITING, 06/29/16) *MDRO Multi-Drug Resistant Organism (Verified Adverse Reaction, Unknown, ) MRSA (wound drainage) - 06/29/16 Objective . Vital Signs Date Time Temp Pulse Resp B/P Pulse Ox O2 Delivery O2 Flow Rate FiO2 07/04/16 16:00 97.4 80 18 189/86 95 07/04/16 12:00 98.1 76 18 178/84 97 07/04/16 09:40 74 16 162/89 95 Nasal Cannula 3 07/04/16 09:30 74 16 167/94 95 Nasal Cannula 3 07/04/16 09:15 90 16 148/86 95 Nasal Cannula 3 07/04/16 08:54 98.8 90 16 157/100 95 Nasal Cannula 3 07/04/16 08:00 98.0 77 18 171/81 96 07/04/16 06:05 71 168/87 07/04/16 04:00 98.1 72 18 171/90 96 07/04/16 00:15 97.9 74 18 114/55 98 07/03/16 20:00 98.0 73 18 140/76 96 07/03/16 07/03/16 07/04/16 15:00 23:00 07:00 Intake Total 1817 ml Balance 1817 ml Intake Oral 1200 ml IV Total 617 ml # Voids 4 1 2 # Bowel Movements 1 0 0 . Laboratory Tests Test 07/03/16 07/04/16 06:14 06:10 White Blood Count 9.1 TH/MM3 9.1 TH/MM3 Red Blood Count 3.28 MIL/MM3 3.63 MIL/MM3 Hemoglobin 9.9 GM/DL 10.5 GM/DL Hematocrit 28.0 % 31.5 % Mean Corpuscular Volume 85.5 FL 86.9 FL Mean Corpuscular Hemoglobin 30.1 PG 28.8 PG Mean Corpuscular Hemoglobin 35.2 % 33.2 % Concent Red Cell Distribution Width 12.8 % 13.0 % Platelet Count 319 TH/MM3 340 TH/MM3 Mean Platelet Volume 8.2 FL 8.0 FL Laboratory Tests Test 07/03/16 07/04/16 06:14 06:10 Sodium Level 135 MEQ/L 138 MEQ/L Potassium Level 3.2 MEQ/L 3.4 MEQ/L Chloride Level 98 MEQ/L 100 MEQ/L Carbon Dioxide Level 29.2 MEQ/L 29.9 MEQ/L Anion Gap 8 MEQ/L 8 MEQ/L Blood Urea Nitrogen 11 MG/DL 12 MG/DL Creatinine 0.85 MG/DL 0.92 MG/DL Estimat Glomerular Filtration 72 ML/MIN 66 ML/MIN Rate Random Glucose 288 MG/DL 180 MG/DL Calcium Level 8.4 MG/DL 8.6 MG/DL Magnesium Level 1.7 MG/DL Microbiology Date/Time Procedure Status Source Growth 07/02/16 08:50 Gram Stain - Final Complete Wound Foot 07/02/16 08:50 Wound Culture - Final Complete Group B Beta Strep 07/02/16 08:50 Acid Fast Stain - Final Resulted Wound Foot NO ACID FAST BACILLI SEEN 07/02/16 08:50 Mycobacterial Culture Resulted Wound Foot Pending 07/02/16 08:50 Fungal Smear - Final Resulted Wound Foot NO FUNGAL ELEMENTS SEEN. 07/02/16 08:50 Fungal Culture Resulted Wound Foot Pending Imaging Foot X-Ray 07/02/16 0000 Signed Impressions: Service Date/Time: Saturday, July 02, 2016 09:19 - CONCLUSION: Postop amputation. K. Sachin Whitley MD Carotid Artery Ultrasound 06/30/16 0000 Signed Impressions: Service Date/Time: Thursday, June 30, 2016 15:55 - CONCLUSION: Mild calcified plaque in the carotid bulb and proximal internal carotid arteries with hemodynamic profile characteristic of less than 50%% stenosis. Forest Recinos MD Aorta w/Runoff CTA 06/30/16 0000 Signed Impressions: Service Date/Time: Thursday, June 30, 2016 15:17 - CONCLUSION: 1. Patent inflow and outflow bilaterally. 2. The right lower extremity is somewhat limited in evaluation due to venous contamination and motion artifact. Single-vessel runoff to the right foot via the anterior tibial artery. Posterior tibial and peroneal are diffusely diseased. 3. Left lower extremity is better evaluated. Anterior tibial artery is patent. The posterior tibial and peroneal are diffusely diseased. 4. 2.8 cm left adnexal cyst likely ovarian in origin. 5. Right groin adenopathy. Forest Berry Jr., MD Foot MRI 06/29/16 0000 Signed Impressions: Service Date/Time: Wednesday, June 29, 2016 12:26 - CONCLUSION: 1. No evidence of osteomyelitis. 2. Focal mild enhancement about the plantar soft tissue ulceration. No drainable fluid collections seen. Forest Recinos MD Physical Exam GENERAL: Awake and alert, NAD SKIN: No rashes, ecchymoses or lesions. Cool and dry. HEAD: Atraumatic. Normocephalic. No temporal or scalp tenderness. EYES: Pupils equal round and reactive. Extraocular motions intact. No scleral icterus. No injection or drainage. ENT: Nose without bleeding, purulent drainage. MOsit mucosa. Throat without erythema, or exudate. NECK: Trachea midline. Supple, nontender, no meningeal signs. CARDIOVASCULAR: RRR RESPIRATORY: Clear to auscultation. Breath sounds equal bilaterally. No wheezes , rales, or rhonchi. GASTROINTESTINAL: Abdomen soft, non-tender, nondistended. MUSCULOSKELETAL: RLE in post op dressing. [place] toes and wiggles toes. NEUROLOGICAL: Awake and alert. Grossly non focal. Decreased sensation to soft touch in LE Psych: cooperative IV line sites with no e.o infection. Assessment & Plan Remarks IMPRESSION Right plantar aspect Diabetic foot infection (DFI) with abscess. MRSA and Grp B strep infection in DFI. Small vessel disease, PVD. Diabetes mellitus uncontrolled Chronic smoker still active: counseled. Recs: Continue Zosyn IV Continue Vanco IV (target 10-15) Follow cultures Monitor progress Podiatry will be following her wound closely - has exposed bones, and not sure what kind of coverage can be done for that; high risk for more amputation Martha Braun MD Jul 04, 2016 17:28
[2016-07-04] MEDS: INSULIN DETEMIR 100 UNITS/ML VIAL SQ SCH (21:00)
[2016-07-05] VITALS (8 sets, daily range): BP systolic 144–202; BP diastolic 75–98; PULSE 68–83; RESP 17–20; TEMP 97.9–99.9; O2SAT 94–98
[2016-07-05] MEDS: oxyCODONE/ACETAMINOPHEN 10 MG/325 MG TAB PO PRN ×3 (00:41→23:42)
[2016-07-05] MEDS: ONDANSETRON HCL 4 MG/2 ML VIAL IVP PRN (00:41)
[2016-07-05] MEDS: SODIUM CHLORIDE 0.9% FLUSH 10 ML FLUSH IV FLUSH PRN (00:42)
[2016-07-05] MEDS: PIPERACIL-TAZO 3.375 GM PREMIX 50 ML IV SCH ×4 (02:57→21:25)
[2016-07-05] MEDS: ENALAPRILAT 1.25 MG/ML VIAL IV PUSH PRN ×3 (02:57→21:23)
[2016-07-05] MEDS: INSULIN ASPART SUPPLEMENTAL SCALE SQ SCH ×4 (05:39→21:25)
[2016-07-05 07:40] LABS: HEMATOCRIT 28.2 % (35.0-46.0); MEAN CELL VOLUME 85.3 FL (80.0-100.0); MEAN CORPUSCULAR HGB CONC 35.1 % (32.0-36.0); PLATELET COUNT 356 TH/MM3 (150-450); REVIEW FLAG FINAL
[2016-07-05 08:04] LABS: BICARBONATE 29.4 MEQ/L (21.0-32.0); POTASSIUM 3.6 MEQ/L (3.5-5.1)
[2016-07-05] MEDS: SODIUM CHLORIDE 0.9% FLUSH 10 ML FLUSH IV FLUSH SCH ×2 (09:40→21:24)
[2016-07-05] MEDS: INSULIN DETEMIR 100 UNITS/ML VIAL SQ SCH ×2 (09:40→21:24)
[2016-07-05] MEDS: VANCOMYCIN 1,000 MG/NS 250 ML IV SCH ×4 (09:40→21:24)
[2016-07-05] MEDS: SENNOSIDES 8.6 MG TAB PO PRN (10:20)
[2016-07-05] MEDS ORDERED: LISINOPRIL 10 MG TAB PO SCH (10:30)
--- NOTE | 2016-07-05 11:18 | HHI.FPPN ---
Subjective Remarks Patient seen and examined this morning. Afebrile, elevated blood pressures ranging from 144-202/82-98. She says pain is tolerable. Her main concern is that her blood pressure is elevated, agrees with starting lisinopril. She reports that she has good sensation in her toes. Endorses: None Denies: Fever, chills, nausea, vomiting, shortness of breath, chest pain, headache, abdominal pain, calf pain (Chan Garcia MD R2) Objective Vitals Vital Signs Date Time Temp Pulse Resp B/P Pulse Ox O2 Delivery O2 Flow Rate FiO2 07/05/16 08:31 98.2 68 17 172/89 96 07/05/16 04:00 98.0 68 20 144/75 95 07/05/16 03:04 70 175/82 07/05/16 01:48 75 186/79 174/78 07/05/16 00:00 99.9 74 20 202/98 94 07/04/16 21:35 96 21 07/04/16 20:00 99.0 74 20 192/80 95 07/04/16 16:00 97.4 80 18 189/86 95 07/04/16 12:00 98.1 76 18 178/84 97 I/O 07/04/16 07/04/16 07/04/16 07/05/16 07/05/16 07/05/16 07:00 15:00 23:00 07:00 15:00 23:00 Intake Total 850 ml 620 ml Output Total 450 ml Balance 400 ml 620 ml Intake Oral 0 ml 620 ml Other 850 ml Output Urine Total 400 ml Estimated Blood Loss 50 ml # Voids 2 4 # Bowel Movements 0 0 0 (Chan Garcia MD R2) Result Diagram: 07/05/16 0615 07/05/16 0615 Imaging Last Impressions Foot X-Ray 07/02/16 0000 Signed Impressions: Service Date/Time: Saturday, July 02, 2016 09:19 - CONCLUSION: Postop amputation. Lore Whitley MD Carotid Artery Ultrasound 06/30/16 0000 Signed Impressions: Service Date/Time: Thursday, June 30, 2016 15:55 - CONCLUSION: Mild calcified plaque in the carotid bulb and proximal internal carotid arteries with hemodynamic profile characteristic of less than 50%% stenosis. Forest Recinos MD Aorta w/Runoff CTA 06/30/16 0000 Signed Impressions: Service Date/Time: Thursday, June 30, 2016 15:17 - CONCLUSION: 1. Patent inflow and outflow bilaterally. 2. The right lower extremity is somewhat limited in evaluation due to venous contamination and motion artifact. Single-vessel runoff to the right foot via the anterior tibial artery. Posterior tibial and peroneal are diffusely diseased. 3. Left lower extremity is better evaluated. Anterior tibial artery is patent. The posterior tibial and peroneal are diffusely diseased. 4. 2.8 cm left adnexal cyst likely ovarian in origin. 5. Right groin adenopathy. Forest Berry Jr., MD Foot MRI 06/29/16 0000 Signed Impressions: Service Date/Time: Wednesday, June 29, 2016 12:26 - CONCLUSION: 1. No evidence of osteomyelitis. 2. Focal mild enhancement about the plantar soft tissue ulceration. No drainable fluid collections seen. Forest Recinos MD Objective Remarks GENERAL: Lying in bed, no distress after surgery SKIN: Right lower extremity erythematous, was decreasing from days prior. There was a 1 cm x 1 cm ulcer on the base of the right MTP area. Base of ulcer appeared clean, well granulated. S/p right 5th toe amputation. Area on top of foot that was bullous and necrotic is now s/p I&D x2; appeared clean with good granulation tissue. Today, was not able to examine foot as she has firm wrapping in place with vacuum however she has sensation in her remaining toes that appear pink at the ends except some slight purple tinge to her third toe. She is able to move her remaining toes as well, limited by cast. CARDIOVASCULAR: Regular rate and rhythm without murmurs, gallops, or rubs. RESPIRATORY: Clear to auscultation. Breath sounds equal bilaterally. No wheezes , rales, or rhonchi. GASTROINTESTINAL: Abdomen soft, non-tender, nondistended. No hepato-splenomegaly , or palpable masses. No guarding. MUSCULOSKELETAL: Extremities without clubbing, cyanosis, or edema. Right foot exam as above. NEUROLOGICAL: Awake and alert. Cranial nerves II through XII intact. Five out of 5 muscle strength in all muscle groups. Normal speech. Sensation intact over remaining toes R foot. Procedures Amputation R 5th toe with I&D - 07/02 Repeat I&D abscess with wound vac placement R foot - 07/04 (Chan Garcia MD R2) A/P Assessment and Plan 45 year old female with diabetic foot ulcer and cellulitis Discharge Planning Pending removal of wound vac (Chan Garcia MD R2) Attending Attestation Patient seen and examined. Case reviewed and discussed with the resident team. Agree with plan of care as discussed with me and documented in the resident note. (Hortencia Helm MD) Problem List: (1) Diabetic foot ulcer Status: Acute Plan: Foot in dressing with vacuum Wound culture at time of I&D growing group B strep Superficial wound culture growing MRSA Blood cultures negative to date. POD 3 s/p R pinky toe amputation. - Podiatry on board, appreciate their assistance - Wound vac in place after repeat I&D R foot, following - Follow cultures - Zosyn q6hrs; despite cultures growing only gram positives, continue at this time due to improvement on Zosyn alone over first day hospitalization - Vancomycin added 07/01/16 to cover for MRSA. When admitted she had no evidence of abscess near the wound and it seemed to be just cellulitis but the bullous abscess came up with the strep infection - Education on diabetes control, case management to help set up PCP (2) Gangrenous toe Status: Acute Plan: 5th right digit was gangrenous, lacking in sensation POD 3 s/p amputation - Podiatry consulted, appreciate assistance (see above) - Vascular surgery on board, CTA runoff shows significant small vessel disease (3) Cellulitis of right leg Status: Acute Plan: Improving, see above for antibiotics management (4) Type 2 diabetes mellitus Status: Chronic Plan: Poorly controlled diabetes, glucose was 300 on admission. Takes metformin 500 mg q day at home. No PCP or health insurance. BSG 150s to 190s - Diabetic diet - Low dose sliding scale insulin - Levemir 5 BID - Diabetic education - Case management to help her get PCP and insurance - her glucoses are variable in the hospital and will work on determining what she will need as an outpt (5) Nutrition, metabolism, and development symptoms Status: Acute Plan: - PO fluids - Electrolytes normal - Diabetic diet - DVT prophylaxis: Heparin every 8 Disposition: Pending podiatry recommendations dw Dr. Helm (Chan Garcia MD R2) Problem Qualifiers (1) Diabetic foot ulcer: Qualified Code: E11.621 - Diabetic ulcer of right midfoot associated with type 2 diabetes mellitus, limited to breakdown of skin (2) Type 2 diabetes mellitus: Qualified Code: E11.42 - Type 2 diabetes mellitus with diabetic polyneuropathy , without long-term current use of insulin Chan Garcia MD R2 Jul 05, 2016 11:18 Hortencia Helm MD Jul 06, 2016 11:25
[2016-07-05] MEDS: HEPARIN SODIUM - SQ 10,000 UNITS/ML VIAL SQ SCH ×2 (13:46→21:25)
[2016-07-06] VITALS (8 sets, daily range): BP systolic 134–176; BP diastolic 74–93; PULSE 55–77; RESP 16–18; TEMP 97.6–98.6; O2SAT 93–97
[2016-07-06] MEDS: HEPARIN SODIUM - SQ 10,000 UNITS/ML VIAL SQ SCH ×3 (04:24→21:34)
[2016-07-06] MEDS: PIPERACIL-TAZO 3.375 GM PREMIX 50 ML IV SCH ×4 (04:24→21:40)
[2016-07-06] MEDS: oxyCODONE/ACETAMINOPHEN 10 MG/325 MG TAB PO PRN ×3 (05:51→21:33)
[2016-07-06] MEDS: INSULIN ASPART SUPPLEMENTAL SCALE SQ SCH ×4 (05:51→21:35)
[2016-07-06 08:07] LABS: HEMATOCRIT 29.7 % (35.0-46.0); MEAN CELL VOLUME 85.8 FL (80.0-100.0); MEAN CORPUSCULAR HEMOGLOBIN 28.9 PG (27.0-34.0); MEAN CORPUSCULAR HGB CONC 33.7 % (32.0-36.0); PLATELET COUNT 305 TH/MM3 (150-450); RED BLOOD COUNT 3.46 MIL/MM3 (4.00-5.30); RED CELL DISTRIBUTION WIDTH 12.7 % (11.6-17.2); REVIEW FLAG FINAL; WHITE BLOOD COUNT 7.9 TH/MM3 (4.0-11.0)
[2016-07-06 08:17] LABS: BICARBONATE 28.6 MEQ/L (21.0-32.0); POTASSIUM 3.3 MEQ/L (3.5-5.1)
[2016-07-06] MEDS: INSULIN DETEMIR 100 UNITS/ML VIAL SQ SCH ×2 (09:19→21:34)
[2016-07-06] MEDS: ENALAPRILAT 1.25 MG/ML VIAL IV PUSH PRN (09:19)
[2016-07-06] MEDS: SODIUM CHLORIDE 0.9% FLUSH 10 ML FLUSH IV FLUSH SCH ×2 (09:20→21:38)
[2016-07-06] MEDS: VANCOMYCIN 1,000 MG/NS 250 ML IV SCH ×4 (09:20→22:27)
[2016-07-06] MEDS: LISINOPRIL 20 MG TAB PO SCH (09:20)
--- NOTE | 2016-07-06 09:25 | HHI.FPPN ---
Subjective Remarks Patient seen and examined this morning. Afebrile since stable. She reports that her pain is well-controlled. She has been getting physical therapy and able to move around. She reports that today her dressing will be changed on the foot and they may or may not continue the vacuum. Her main concern is her meals and how they are affecting her blood sugar, we have agreed to get diabetic education and dietitian consult to come and talk to her. She is looking forward to this. Endorses: None Denies: Fever, chills, nausea, vomiting, shortness of breath, chest pain, headache, abdominal pain, calf pain (Chan Garcia MD R2) Objective Vitals Vital Signs Date Time Temp Pulse Resp B/P Pulse Ox O2 Delivery O2 Flow Rate FiO2 07/06/16 08:08 97.8 64 17 163/82 95 07/06/16 06:36 18 07/06/16 04:00 97.9 68 16 158/84 95 07/06/16 00:00 98.0 74 18 148/88 96 07/05/16 20:00 98.1 83 20 170/94 98 07/05/16 16:33 97.9 72 18 183/92 98 07/05/16 12:36 98.3 72 17 180/89 96 I/O 07/05/16 07/05/16 07/05/16 07/06/16 07/06/16 07/06/16 07:00 15:00 23:00 07:00 15:00 23:00 Intake Total 620 ml 720 ml 480 ml 0 ml Balance 620 ml 720 ml 480 ml 0 ml Intake Oral 620 ml 720 ml 480 ml 0 ml # Voids 4 4 1 1 # Bowel Movements 0 0 0 0 (Chan Garcia MD R2) Result Diagram: 07/06/16 0716 07/06/16 0716 Imaging Last Impressions Foot X-Ray 07/02/16 0000 Signed Impressions: Service Date/Time: Saturday, July 02, 2016 09:19 - CONCLUSION: Postop amputation. Lore Whitley MD Carotid Artery Ultrasound 06/30/16 0000 Signed Impressions: Service Date/Time: Thursday, June 30, 2016 15:55 - CONCLUSION: Mild calcified plaque in the carotid bulb and proximal internal carotid arteries with hemodynamic profile characteristic of less than 50%% stenosis. Foerst Recinos MD Aorta w/Runoff CTA 06/30/16 0000 Signed Impressions: Service Date/Time: Thursday, June 30, 2016 15:17 - CONCLUSION: 1. Patent inflow and outflow bilaterally. 2. The right lower extremity is somewhat limited in evaluation due to venous contamination and motion artifact. Single-vessel runoff to the right foot via the anterior tibial artery. Posterior tibial and peroneal are diffusely diseased. 3. Left lower extremity is better evaluated. Anterior tibial artery is patent. The posterior tibial and peroneal are diffusely diseased. 4. 2.8 cm left adnexal cyst likely ovarian in origin. 5. Right groin adenopathy. Forest Berry Jr., MD Foot MRI 06/29/16 0000 Signed Impressions: Service Date/Time: Wednesday, June 29, 2016 12:26 - CONCLUSION: 1. No evidence of osteomyelitis. 2. Focal mild enhancement about the plantar soft tissue ulceration. No drainable fluid collections seen. Forest Recinos MD Objective Remarks GENERAL: Lying in bed, no distress after surgery SKIN: Right lower extremity erythematous, was decreasing from days prior. There was a 1 cm x 1 cm ulcer on the base of the right MTP area. Base of ulcer appeared clean, well granulated. S/p right 5th toe amputation. Area on top of foot that was bullous and necrotic is now s/p I&D x2; appeared clean with good granulation tissue. Today, was not able to examine foot as she has firm wrapping in place with vacuum however she has sensation in her remaining toes that appear pink at the ends except some slight purple tinge to her third toe. She is able to move her remaining toes as well, limited by cast. CARDIOVASCULAR: Regular rate and rhythm without murmurs, gallops, or rubs. RESPIRATORY: Clear to auscultation. Breath sounds equal bilaterally. No wheezes , rales, or rhonchi. GASTROINTESTINAL: Abdomen soft, non-tender, nondistended. No hepato-splenomegaly , or palpable masses. No guarding. MUSCULOSKELETAL: Extremities without clubbing, cyanosis, or edema. Right foot exam as above. NEUROLOGICAL: Awake and alert. Cranial nerves II through XII intact. Five out of 5 muscle strength in all muscle groups. Normal speech. Sensation intact over remaining toes R foot. Procedures Amputation R 5th toe with I&D - 07/02 Repeat I&D abscess with wound vac placement R foot - 07/04 Medications and IVs Current Medications Medications (Trade) Dose Ordered Sig/Tj Route Start Time Stop Time Status Last Admin (D50w (Vial) Inj) 25 ml UNSCH PRN IV PUSH 06/29/16 11:30 (Glucagon Inj) 1 mg UNSCH PRN OTHER 06/29/16 11:30 (NS Flush) 2 ml UNSCH PRN IV FLUSH 06/29/16 11:45 07/05/16 00:42 (NS Flush) 2 ml BID IV FLUSH 06/29/16 21:00 07/05/16 21:24 (Tylenol) 650 mg Q4H PRN PO 06/29/16 11:45 06/29/16 16:06 (Zofran Inj) 4 mg Q6H PRN IVP 06/29/16 11:45 07/05/16 00:41 (Senokot) 17.2 mg Q12H PRN PO 06/29/16 11:45 07/05/16 10:20 Naloxone HCl 0.4 mg 0.4 mg UNSCH PRN IV 06/29/16 11:45 (Zosyn 3.375 Gm Premix) 50 ml @ 100 mls/hr Q6H IV 06/29/16 16:00 07/06/16 04:24 (Percocet 5-325 Mg) 1 tab Q4H PRN PO 06/29/16 20:00 06/30/16 16:18 (Percocet 10-325 Mg) 1 tab Q4H PRN PO 06/29/16 20:00 07/06/16 05:51 Enalaprilat 1.25 mg 1.25 mg Q6H PRN IV PUSH 07/01/16 16:45 07/05/16 21:23 (Vancomycin Consult Pharmacy) 0 ml @ 0 mls/hr UNSCH OTHER 07/02/16 09:45 Insulin Detemir 5 units 5 units Q12HR SQ 07/04/16 21:00 07/05/16 21:24 (Vancomycin Inj/ NS 250 ml Inj) 250 ml @ 250 mls/hr Q12H IV 07/05/16 09:00 07/05/16 21:24 Miscellaneous Information SPECIFIC LAB TO BE ALVERTO... ONCE ONCE .XX 07/06/16 20:45 07/06/16 20:46 (Heparin Inj) 5,000 units Q8HR SQ 07/05/16 14:00 07/06/16 04:24 (Prinivil) 20 mg DAILY PO 07/06/16 09:00 (Chan Garcia MD R2) A/P Assessment and Plan 45 year old female with diabetic foot ulcer and cellulitis Discharge Planning Pending removal of wound vac (Chan Garcia MD R2) Attending Attestation Patient seen and examined. Case reviewed and discussed with the resident team. Agree with plan of care as discussed with me and documented in the resident note. she reports podiatry may want to do a skin graft to cover her wound (Hortencia Helm MD) Problem List: (1) Diabetic foot ulcer Status: Acute Plan: Foot in dressing with vacuum Wound culture at time of I&D growing group B strep Superficial wound culture growing MRSA Blood cultures negative to date. POD 4 s/p R fifth toe amputation. - Podiatry on board, appreciate their assistance - Wound vac in place after repeat I&D R foot, following - Follow cultures - Zosyn q6hrs; despite cultures growing only gram positives, continue at this time due to improvement on Zosyn alone over first day hospitalization - Vancomycin added 07/01/16 to cover for MRSA. When admitted she had no evidence of abscess near the wound and it seemed to be just cellulitis but the bullous abscess came up with the strep infection - Education on diabetes control, case management to help set up PCP (2) Gangrenous toe Status: Acute Plan: 5th right digit was gangrenous, lacking in sensation POD 4 s/p amputation - Podiatry consulted, appreciate assistance (see above) - Vascular surgery on board, CTA runoff shows significant small vessel disease (3) Cellulitis of right leg Status: Acute Plan: Improving, see above for antibiotics management (4) Type 2 diabetes mellitus Status: Chronic Plan: Poorly controlled diabetes, glucose was 300 on admission. Takes metformin 500 mg q day at home. No PCP or health insurance. BSG 170s to 300s - Diabetic diet - Low dose sliding scale insulin - Increasing to Levemir 10 BID - Diabetic education - Case management to help her get PCP and insurance - her glucoses are variable in the hospital and will work on determining what she will need as an outpt (5) Nutrition, metabolism, and development symptoms Status: Acute Plan: - PO fluids - Electrolytes normal - Diabetic diet - DVT prophylaxis: Heparin every 8 Disposition: Pending podiatry recommendations wdw Dr. Helm (Chan Garcia MD R2) Problem Qualifiers (1) Diabetic foot ulcer: Qualified Code: E11.621 - Diabetic ulcer of right midfoot associated with type 2 diabetes mellitus, limited to breakdown of skin (2) Type 2 diabetes mellitus: Qualified Code: E11.42 - Type 2 diabetes mellitus with diabetic polyneuropathy , without long-term current use of insulin Chan Garcia MD R2 Jul 06, 2016 09:25 Hortencia Helm MD Jul 06, 2016 11:26
[2016-07-06] MEDS ORDERED: POTASSIUM CHLORIDE 10 MEQ CONTROLLED RELEASE TAB PO ONE (09:30)
--- NOTE | 2016-07-06 10:14 | MP ---
cc: TRINITY HOUSTON DPM DATE OF SURGERY: 07/02/2016 DATE OF : 1970 INDICATION The patient presented to the emergency department with worsening infection to the right lateral aspect of the foot with color changes to the right fifth toe. It was noted that the toe was starting to turn dark and her foot was very red and swollen and increasingly painful. She had MRI that showed no fluid collection noted. However, the infection began worsening and I explained to her that the fifth digit was necrotic and was no longer alive and was infected and needed to be removed in order to remove as much infectious material from her as possible. She agreed to move forward with amputation of the right fifth toe due to gangrene of the right fifth toe as well as incision and drainage of the right foot. She understood the risks, benefits and potential complications and wished to proceed with the surgery. DETAILS OF PROCEDURE She was seen in pre-op holding by myself, nursing staff and Anesthesia where the correct patient, side and site were all confirmed to be correct and the right foot. She was then taken to the surgical suite, placed in supine position where attention was directed to the right foot. The right foot was prepped and draped in normal sterile fashion followed by two semi-elliptical incisions made to remove the fifth digit and disarticulation at the metatarsophalangeal joint. Upon incision copious purulent material was produced and just actively draining from the area. The drainage was cultured. The area was copiously irrigated with nine liters of normal saline and there was extensive debridement of all the necrotic tissue which extended plantarly under digits three and four. There was also noted to be some duskiness of those respective digits that was beginning to occur. Minimal bleeding was noted to the residual tissue. At the dorsal aspect of the surface of the fifth metatarsal into the fourth interspace necrotic tissue extended in that direction as well. Following removal of necrotic tissue and irrigation with the nine liters of normal saline the wound was packed with Xeroform, 4x4s, ABD pad and cast padding with Michael bandage to the right foot. Will monitor the viability of the digits three and four over the next 36 hours and determine if further amputation is more likely versus a repeat debridement of the area in order to attempt to salvage the foot. I will discussed with the patient in the coming days SHORT OPERATIVE NOTE SURGEON [facility] LENDING MANAGER Staff. PREOPERATIVE DIAGNOSIS 1. Infection and abscess, right foot. 2. Gangrene, right fifth toe. POSTOPERATIVE DIAGNOSIS 1. Infection and abscess, right foot. 2. Gangrene, right fifth toe. PROCEDURE I&D right foot with amputation of the right fifth toe. PATHOLOGY Culture right foot, and fifth digit to pathology. PROPHYLAXIS On scheduled antibiotics. ANESTHESIA General endotracheal. ESTIMATED BLOOD LOSS 15 mL and minimal. CONDITION Stable to PACU. COMPLICATIONS None. TOURNIQUET TIME No tourniquet was utilized and there was minimal bleeding noted intraoperatively. Vascular is on the case with their consultation pending. Will assess in the coming days. PLAN OF ACTIVITY She will be non-weightbearing to the right foot. Trinity BRYANT /9:00 AM /9:52 AM
--- NOTE | 2016-07-06 10:26 | MP ---
cc: TRINIYT HOUSTON RODOLFO DATE OF SURGERY: 07/04/2016 DATE OF : 1970 INDICATION The patient is a 45-year-old female who presented initially with infection to the right foot with necrosis of the fifth toe. She underwent a right fifth toe amputation with incision and drainage of the right foot on 07/02/2016. I had discussed with her that she would either need further debridement of the area with possibility of applying a wound VAC versus further amputation of the foot. At the time of that surgery the right third and fourth digits were beginning to appear dusky and over the last 36 hours they have pinked back up and become more viable in appearance. I discussed with the patient that we will attempt wound salvage at this time and will monitor over the coming days, weeks and months to determine if further surgery is required. She agreed to move forward with I&D of the right foot with wound VAC application. DETAILS OF PROCEDURE She was seen in pre-op holding by myself, nursing staff and Anesthesia where the correct patient, side and site were all confirmed to be correct in the right foot. She was then taken to the surgical suite and placed in supine position. The right foot was prepped and draped in normal sterile fashion followed by attention directed to the right foot after timeouts were performed as per hospital protocol. The area was copiously irrigated and debrided using a curet, #15 blade and rongeur down to healthy bleeding tissue. There was tendon exposed to the plantar aspect of the third digit and the right dorsal aspect of the fifth metatarsal area. There was also bone noted to be visible to the fifth metatarsal head with a central cartilaginous erosion noted in the metatarsal head area. There was no further necrotic tissue noted within the wound bed and healthy bleeding granular base was also noted to the wound bed. It extends dorsally and laterally on the foot all the way to the plantar toe sulcus under digit four and then digit three with exposed tendon at that area, and the wound ends at the interspace area between the second and third digits. The proximal wound measurements are 15 cm x 4 cm and 2 cm in depth and there is undermining noted approximately 1 cm at each end of the wound. Adaptic was then applied after irrigation and debridement. Adaptic was applied over the tendon and bone area followed by a small GranuFoam wound VAC. This wound VAC was set at 125 mmHg continuous medium and was found to have no leaks. A bandage consisting of 4x4s, cast padding and Michael bandage applied over the VAC. She tolerated the procedure and anesthesia well without complications and was returned to PACU with vital signs stable and vascular status intact to the remainder of the right foot. We will monitor the wound over the coming weeks to determine if further surgery is required versus continued limb salvage attempts. I discussed with the patient that she will be non-weightbearing to the right foot at all times. SHORT OPERATIVE NOTE SURGEON [facility] [employer] TEACHER Staff. PREOPERATIVE DIAGNOSIS Infection right foot. POSTOPERATIVE DIAGNOSIS Infection right foot. PROCEDURE Incision and drainage right foot with wound VAC application. PATHOLOGY None. COMPLICATIONS None. PROPHYLAXIS On schedule antibiotics. ANESTHESIA General endotracheal. ESTIMATED BLOOD LOSS 20 mL. CONDITION Stable to PACU. DISPOSITION Non-weightbearing right foot. Continue wound VAC dressing changes Tuesday, , Tuesday, and wrote for the nursing staff if they have complications to consult the wound care nurse to come and assist with obtaining a seal due to the difficulty of the dressing being between the toes. We will monitor the wound approximately every week while the patient is in-house to determine if the wound is responding positively. The patient will need to have wound VAC dressings ordered with home health upon discharge versus staying in-house bed bug exterminator or being transferred over to [facility] for long-term care. Trinity BRYANT /9:06 AM /10:13 AM
[2016-07-06] MEDS: ACETAMINOPHEN 325 MG TAB PO PRN (13:36)
--- NOTE | 2016-07-06 19:38 | PD.POD ---
Subjective Podiatric Problems s/p R 5th digit amputation and right foot I and D with Dr Perez. Patient seen at bedside this am in NAD. Pain scale used: 0-10 numeric scale Pain score: 0 Past Med/Surg/Social History Social History Smoking Status: Current Every Day Smoker Objective Vital Signs Vital Signs Date Time Temp Pulse Resp B/P Pulse Ox O2 Delivery O2 Flow Rate FiO2 07/06/16 17:42 96 21 07/06/16 16:26 97.6 61 18 176/84 96 07/06/16 12:17 97.7 77 18 155/74 96 07/06/16 08:08 97.8 64 17 163/82 95 07/06/16 06:36 18 07/06/16 04:00 97.9 68 16 158/84 95 07/06/16 00:00 98.0 74 18 148/88 96 07/05/16 20:00 98.1 83 20 170/94 98 Coded Allergies: Aspirin (Verified Adverse Reaction, Intermediate, VOMITING, 06/29/16) *MDRO Multi-Drug Resistant Organism (Verified Adverse Reaction, Unknown, ) MRSA (wound drainage) - 06/29/16 Other Results Laboratory Tests Test 07/03/16 07/04/16 07/04/16 07/06/16 06:14 06:10 16:45 07:16 Magnesium Level 1.7 MG/DL Prothrombin Time 10.5 SEC Prothromb Time International 1.0 RATIO Ratio Activated Partial 35.5 SEC Thromboplast Time Vancomycin Level Trough 20.1 MCG/ML White Blood Count 7.9 TH/MM3 Red Blood Count 3.46 MIL/MM3 Hemoglobin 10.0 GM/DL Hematocrit 29.7 % Mean Corpuscular Volume 85.8 FL Mean Corpuscular Hemoglobin 28.9 PG Mean Corpuscular Hemoglobin 33.7 % Concent Red Cell Distribution Width 12.7 % Platelet Count 305 TH/MM3 Mean Platelet Volume 7.8 FL Sodium Level 137 MEQ/L Potassium Level 3.3 MEQ/L Chloride Level 100 MEQ/L Carbon Dioxide Level 28.6 MEQ/L Anion Gap 8 MEQ/L Blood Urea Nitrogen 11 MG/DL Creatinine 0.91 MG/DL Estimat Glomerular Filtration 67 ML/MIN Rate Random Glucose 234 MG/DL Calcium Level 8.3 MG/DL Exam-Podiatry Dermatological Exam Ulcers: Location/Measurements RLE Intact VAC. Minimal drainage. Digits 1-4 pink and warm, CFT < 5 secs. Muscle strength is + 5/5 in all quadrants. Assessment & Plan Diagnosis: (1) Diabetic foot infection Status: Acute (2) Diabetic foot ulcer Status: Acute (3) Gangrenous toe Status: Acute (4) Type 2 diabetes mellitus Status: Chronic A/P s/p R 5th digit amputation and right foot I and D with Dr Perez. Plan for VAC change on 07/08/16. Plan for abx. Will continue to f/u. Problem Qualifiers (1) Diabetic foot ulcer: Qualified Code: E11.621 - Diabetic ulcer of right midfoot associated with type 2 diabetes mellitus, limited to breakdown of skin (2) Type 2 diabetes mellitus: Qualified Code: E11.42 - Type 2 diabetes mellitus with diabetic polyneuropathy , without long-term current use of insulin Roselyn Issa DPM Jul 06, 2016 19:38
[2016-07-06] MEDS ORDERED: PHARMACY ORDERED LAB ONE (20:45)
[2016-07-07] VITALS (10 sets, daily range): BP systolic 156–183; BP diastolic 70–92; PULSE 58–68; RESP 16–18; TEMP 97.7–99.1; O2SAT 93–99
[2016-07-07] MEDS: PIPERACIL-TAZO 3.375 GM PREMIX 50 ML IV SCH ×2 (05:11→09:03)
[2016-07-07] MEDS: oxyCODONE/ACETAMINOPHEN 10 MG/325 MG TAB PO PRN ×3 (05:12→21:38)
[2016-07-07] MEDS: HEPARIN SODIUM - SQ 10,000 UNITS/ML VIAL SQ SCH ×3 (05:12→21:38)
[2016-07-07] MEDS: INSULIN ASPART SUPPLEMENTAL SCALE SQ SCH ×4 (06:06→21:39)
[2016-07-07 08:36] LABS: BICARBONATE 29.7 MEQ/L (21.0-32.0)
[2016-07-07 08:37] LABS: POTASSIUM 4.6 MEQ/L (3.5-5.1)
--- NOTE | 2016-07-07 08:37 | HHI.FPPN ---
Subjective Remarks Patient seen and examined this morning. Afebrile vital signs stable. She is doing well and has no complaints this time. She had a discussion with the diabetic education team and really enjoyed the conversation and what she learned. She understands the plan of care is wound VAC change on 07/08/16. Endorses: None Denies: Fever, chills, nausea, vomiting, shortness of breath, chest pain, headache, abdominal pain, calf pain (Chan Garcia MD R2) Objective Vitals Vital Signs Date Time Temp Pulse Resp B/P Pulse Ox O2 Delivery O2 Flow Rate FiO2 07/07/16 04:00 97.9 63 16 165/85 96 07/07/16 00:00 98.0 58 18 163/89 98 07/06/16 20:00 98.2 55 16 164/84 97 07/06/16 17:42 96 21 07/06/16 16:26 97.6 61 18 176/84 96 07/06/16 12:17 97.7 77 18 155/74 96 I/O 07/06/16 07/06/16 07/06/16 07/07/16 07/07/16 07/07/16 07:00 15:00 23:00 07:00 15:00 23:00 Intake Total 0 ml 820 ml 480 ml 240 ml Balance 0 ml 820 ml 480 ml 240 ml Intake Oral 0 ml 820 ml 480 ml 240 ml # Voids 1 3 2 3 # Bowel Movements 0 0 0 0 (Chan Garcia MD R2) Result Diagram: 07/06/16 0716 07/06/16 0716 Imaging Last Impressions Foot X-Ray 07/02/16 0000 Signed Impressions: Service Date/Time: Saturday, July 02, 2016 09:19 - CONCLUSION: Postop amputation. KDilip Whitley MD Carotid Artery Ultrasound 06/30/16 0000 Signed Impressions: Service Date/Time: Thursday, June 30, 2016 15:55 - CONCLUSION: Mild calcified plaque in the carotid bulb and proximal internal carotid arteries with hemodynamic profile characteristic of less than 50%% stenosis. Forest Recinos MD Aorta w/Runoff CTA 06/30/16 0000 Signed Impressions: Service Date/Time: Thursday, June 30, 2016 15:17 - CONCLUSION: 1. Patent inflow and outflow bilaterally. 2. The right lower extremity is somewhat limited in evaluation due to venous contamination and motion artifact. Single-vessel runoff to the right foot via the anterior tibial artery. Posterior tibial and peroneal are diffusely diseased. 3. Left lower extremity is better evaluated. Anterior tibial artery is patent. The posterior tibial and peroneal are diffusely diseased. 4. 2.8 cm left adnexal cyst likely ovarian in origin. 5. Right groin adenopathy. Forest Berry Jr., MD Foot MRI 06/29/16 0000 Signed Impressions: Service Date/Time: Wednesday, June 29, 2016 12:26 - CONCLUSION: 1. No evidence of osteomyelitis. 2. Focal mild enhancement about the plantar soft tissue ulceration. No drainable fluid collections seen. Forest Recinos MD Objective Remarks GENERAL: Lying in bed, no distress after surgery SKIN: Right lower extremity erythematous, was decreasing from days prior. There was a 1 cm x 1 cm ulcer on the base of the right MTP area. Base of ulcer appeared clean, well granulated. S/p right 5th toe amputation. Area on top of foot that was bullous and necrotic is now s/p I&D x2; appeared clean with good granulation tissue. Today, was not able to examine foot as she has firm wrapping in place with vacuum however she has sensation in her remaining toes that appear pink at the ends except some slight purple tinge to her third toe. She is able to move her remaining toes as well, limited by cast. CARDIOVASCULAR: Regular rate and rhythm without murmurs, gallops, or rubs. RESPIRATORY: Clear to auscultation. Breath sounds equal bilaterally. No wheezes , rales, or rhonchi. GASTROINTESTINAL: Abdomen soft, non-tender, nondistended. No hepato-splenomegaly , or palpable masses. No guarding. MUSCULOSKELETAL: Extremities without clubbing, cyanosis, or edema. Right foot exam as above. NEUROLOGICAL: Awake and alert. Cranial nerves II through XII intact. Five out of 5 muscle strength in all muscle groups. Normal speech. Sensation intact over remaining toes R foot. Procedures Amputation R 5th toe with I&D - 07/02 Repeat I&D abscess with wound vac placement R foot - 07/04 Medications and IVs Current Medications Medications (Trade) Dose Ordered Sig/Tj Route Start Time Stop Time Status Last Admin (D50w (Vial) Inj) 25 ml UNSCH PRN IV PUSH 06/29/16 11:30 (Glucagon Inj) 1 mg UNSCH PRN OTHER 06/29/16 11:30 (NS Flush) 2 ml UNSCH PRN IV FLUSH 06/29/16 11:45 07/05/16 00:42 (NS Flush) 2 ml BID IV FLUSH 06/29/16 21:00 07/06/16 21:38 (Tylenol) 650 mg Q4H PRN PO 06/29/16 11:45 07/06/16 13:36 (Zofran Inj) 4 mg Q6H PRN IVP 06/29/16 11:45 07/05/16 00:41 Naloxone HCl 0.4 mg 0.4 mg UNSCH PRN IV 06/29/16 11:45 (Zosyn 3.375 Gm Premix) 50 ml @ 100 mls/hr Q6H IV 06/29/16 16:00 07/07/16 05:11 (Percocet 5-325 Mg) 1 tab Q4H PRN PO 06/29/16 20:00 06/30/16 16:18 (Percocet 10-325 Mg) 1 tab Q4H PRN PO 06/29/16 20:00 07/07/16 05:12 Enalaprilat 1.25 mg 1.25 mg Q6H PRN IV PUSH 07/01/16 16:45 07/06/16 09:19 Pharmacy Profile Note 0 ml @ 0 mls/hr UNSCH OTHER 07/02/16 09:45 (Vancomycin Inj/ NS 250 ml Inj) 250 ml @ 250 mls/hr Q12H IV 07/05/16 09:00 07/06/16 22:27 (Heparin Inj) 5,000 units Q8HR SQ 07/05/16 14:00 07/07/16 05:12 (Prinivil) 20 mg DAILY PO 07/06/16 09:00 07/06/16 09:20 (Levemir Inj) 10 units Q12HR SQ 07/06/16 21:00 07/06/16 21:34 (Nessa-Colace) 2 tab BID PO 07/07/16 09:00 (Chan Garcia MD R2) A/P Assessment and Plan 45 year old female with diabetic foot ulcer and cellulitis Discharge Planning Pending removal of wound vac (Chan Garcia MD R2) Attending Attestation Patient seen and examined. Case reviewed and discussed with the resident team. Agree with plan of care as discussed with me and documented in the resident note. (Hortencia Helm MD) Problem List: (1) Diabetic foot ulcer Status: Acute Plan: Foot in dressing with vacuum Wound culture at time of I&D growing group B strep Superficial wound culture growing MRSA Blood cultures negative to date. POD 4 s/p R fifth toe amputation. - Podiatry on board, appreciate their assistance - Wound vac in place after repeat I&D R foot, following -Group B strep, MRSA - Zosyn q6hrs; despite cultures growing only gram positives, continue at this time due to improvement on Zosyn alone over first day hospitalization - Vancomycin added 07/01/16 to cover for MRSA. When admitted she had no evidence of abscess near the wound and it seemed to be just cellulitis but the bullous abscess came up with the strep infection - Education on diabetes control, case management to help set up PCP (2) Gangrenous toe Status: Acute Plan: 5th right digit was gangrenous, lacking in sensation POD 4 s/p amputation - Podiatry consulted, appreciate assistance (see above) - Vascular surgery on board, CTA runoff shows significant small vessel disease (3) Cellulitis of right leg Status: Acute Plan: Improving, see above for antibiotics management (4) Type 2 diabetes mellitus Status: Chronic Plan: Poorly controlled diabetes, glucose was 300 on admission. Takes metformin 500 mg q day at home. No PCP or health insurance. BSG 170s to 300s - Diabetic diet - Low dose sliding scale insulin - Increasing to Levemir 10 BID - Diabetic education - Case management to help her get PCP and insurance - her glucoses are variable in the hospital and will work on determining what she will need as an outpt (5) Nutrition, metabolism, and development symptoms Status: Acute Plan: - PO fluids - Electrolytes normal - Diabetic diet - DVT prophylaxis: Heparin every 8 Disposition: Pending podiatry recommendations wdw Dr. Helm (Chan Garcia MD R2) Problem Qualifiers (1) Diabetic foot ulcer: Qualified Code: E11.621 - Diabetic ulcer of right midfoot associated with type 2 diabetes mellitus, limited to breakdown of skin (2) Type 2 diabetes mellitus: Qualified Code: E11.42 - Type 2 diabetes mellitus with diabetic polyneuropathy , without long-term current use of insulin Chan Garcia MD R2 Jul 07, 2016 08:37 Hortencia Helm MD Jul 08, 2016 11:48
[2016-07-07] MEDS: INSULIN DETEMIR 100 UNITS/ML VIAL SQ SCH ×2 (09:00→21:39)
[2016-07-07] MEDS: DOCUSATE SODIUM 50 MG/SENNA 8.6 MG TAB PO SCH ×2 (09:04→21:38)
[2016-07-07] MEDS: LISINOPRIL 20 MG TAB PO SCH (09:04)
--- NOTE | 2016-07-07 11:05 | HHI.IDPN ---
Subjective Subjective Remarks 45 y/o female admitted with R foot ulcer, has DM, smoker No fever No rash No diarrhea Antibiotics Vanco Zosyn Lines PIV Past Medical History Diabetes mellitus type 2, uncontrolled Difficulty getting medical insurance Takes Metformin 500 mg daily for diabetes No complications besides current foot ulcer and neuropathy Past Surgical History Cholecystectomy Abdominal hernia repair Allergies: Coded Allergies: Aspirin (Verified Adverse Reaction, Intermediate, VOMITING, 06/29/16) *MDRO Multi-Drug Resistant Organism (Verified Adverse Reaction, Unknown, ) MRSA (wound drainage) - 06/29/16 Objective . Vital Signs Date Time Temp Pulse Resp B/P Pulse Ox O2 Delivery O2 Flow Rate FiO2 07/07/16 08:09 97.7 60 17 167/74 93 07/07/16 04:00 97.9 63 16 165/85 96 07/07/16 00:00 98.0 58 18 163/89 98 07/06/16 20:00 98.2 55 16 164/84 97 07/06/16 17:42 96 21 07/06/16 16:26 97.6 61 18 176/84 96 07/06/16 12:17 97.7 77 18 155/74 96 07/06/16 07/06/16 07/07/16 15:00 23:00 07:00 Intake Total 820 ml 480 ml 240 ml Balance 820 ml 480 ml 240 ml Intake Oral 820 ml 480 ml 240 ml # Voids 3 2 3 # Bowel Movements 0 0 0 . Laboratory Tests Test 07/06/16 07:16 White Blood Count 7.9 TH/MM3 Red Blood Count 3.46 MIL/MM3 Hemoglobin 10.0 GM/DL Hematocrit 29.7 % Mean Corpuscular Volume 85.8 FL Mean Corpuscular Hemoglobin 28.9 PG Mean Corpuscular Hemoglobin 33.7 % Concent Red Cell Distribution Width 12.7 % Platelet Count 305 TH/MM3 Mean Platelet Volume 7.8 FL Laboratory Tests Test 07/06/16 07/07/16 07:16 07:26 Sodium Level 137 MEQ/L 138 MEQ/L Potassium Level 3.3 MEQ/L 4.6 MEQ/L Chloride Level 100 MEQ/L 101 MEQ/L Carbon Dioxide Level 28.6 MEQ/L 29.7 MEQ/L Anion Gap 8 MEQ/L 7 MEQ/L Blood Urea Nitrogen 11 MG/DL 12 MG/DL Creatinine 0.91 MG/DL 0.96 MG/DL Estimat Glomerular Filtration 67 ML/MIN 63 ML/MIN Rate Random Glucose 234 MG/DL 145 MG/DL Calcium Level 8.3 MG/DL 8.5 MG/DL Imaging Foot X-Ray 07/02/16 0000 Signed Impressions: Service Date/Time: Saturday, July 02, 2016 09:19 - CONCLUSION: Postop amputation. KDilip Whitley MD Carotid Artery Ultrasound 06/30/16 0000 Signed Impressions: Service Date/Time: Thursday, June 30, 2016 15:55 - CONCLUSION: Mild calcified plaque in the carotid bulb and proximal internal carotid arteries with hemodynamic profile characteristic of less than 50%% stenosis. Forest Recinos MD Aorta w/Runoff CTA 06/30/16 0000 Signed Impressions: Service Date/Time: Thursday, June 30, 2016 15:17 - CONCLUSION: 1. Patent inflow and outflow bilaterally. 2. The right lower extremity is somewhat limited in evaluation due to venous contamination and motion artifact. Single-vessel runoff to the right foot via the anterior tibial artery. Posterior tibial and peroneal are diffusely diseased. 3. Left lower extremity is better evaluated. Anterior tibial artery is patent. The posterior tibial and peroneal are diffusely diseased. 4. 2.8 cm left adnexal cyst likely ovarian in origin. 5. Right groin adenopathy. Forest Berry Jr., MD Foot MRI 06/29/16 0000 Signed Impressions: Service Date/Time: Wednesday, June 29, 2016 12:26 - CONCLUSION: 1. No evidence of osteomyelitis. 2. Focal mild enhancement about the plantar soft tissue ulceration. No drainable fluid collections seen. Forest Recinos MD Physical Exam GENERAL: Awake and alert, NAD SKIN: No rashes, ecchymoses or lesions. Cool and dry. HEAD: Atraumatic. Normocephalic. No temporal or scalp tenderness. EYES: Pupils equal round and reactive. Extraocular motions intact. No scleral icterus. No injection or drainage. ENT: Nose without bleeding, purulent drainage. MOsit mucosa. Throat without erythema, or exudate. NECK: Trachea midline. Supple, nontender, no meningeal signs. CARDIOVASCULAR: RRR RESPIRATORY: Clear to auscultation. Breath sounds equal bilaterally. No wheezes , rales, or rhonchi. GASTROINTESTINAL: Abdomen soft, non-tender, nondistended. MUSCULOSKELETAL: RLE with wound vac. NEUROLOGICAL: Awake and alert. Grossly non focal. Decreased sensation to soft touch in LE Psych: cooperative IV line sites with no e.o infection. Assessment & Plan Remarks IMPRESSION Right plantar aspect Diabetic foot infection (DFI) with abscess. MRSA and Grp B strep infection in DFI. Small vessel disease, PVD. Diabetes mellitus uncontrolled Chronic smoker still active: counseled. Recs: DC Zosyn IV Continue Vanco IV (target 10-15) Follow cultures Monitor progress Podiatry will be following her wound closely - has exposed bones, and not sure what kind of coverage can be done for that; high risk for more amputation Charmaine Soares MD Jul 07, 2016 11:05
[2016-07-07] MEDS: VANCOMYCIN INJ 1,500 MG in SODIUM CHLORID 0.9% 500 ML INJ 500 ML IV SCH ×2 (11:08→22:58)
[2016-07-07] MEDS: ENALAPRILAT 1.25 MG/ML VIAL IV PUSH PRN (21:38)
[2016-07-07] MEDS: SODIUM CHLORIDE 0.9% FLUSH 10 ML FLUSH IV FLUSH SCH (21:39)
[2016-07-08] VITALS (7 sets, daily range): BP systolic 147–179; BP diastolic 67–96; PULSE 61–70; RESP 16–20; TEMP 97.7–98.3; O2SAT 93–98
[2016-07-08] MEDS: HEPARIN SODIUM - SQ 10,000 UNITS/ML VIAL SQ SCH ×3 (05:08→21:46)
[2016-07-08] MEDS: INSULIN ASPART SUPPLEMENTAL SCALE SQ SCH ×4 (06:02→21:47)
[2016-07-08] MEDS: oxyCODONE/ACETAMINOPHEN 10 MG/325 MG TAB PO PRN ×3 (06:02→21:48)
[2016-07-08 06:44] LABS: HEMATOCRIT 29.1 % (35.0-46.0); MEAN CELL VOLUME 85.1 FL (80.0-100.0); MEAN CORPUSCULAR HEMOGLOBIN 30.2 PG (27.0-34.0); MEAN CORPUSCULAR HGB CONC 35.5 % (32.0-36.0); PLATELET COUNT 355 TH/MM3 (150-450); RED BLOOD COUNT 3.41 MIL/MM3 (4.00-5.30); REVIEW FLAG FINAL; WHITE BLOOD COUNT 8.9 TH/MM3 (4.0-11.0)
[2016-07-08 06:56] LABS: BICARBONATE 29.2 MEQ/L (21.0-32.0); POTASSIUM 3.6 MEQ/L (3.5-5.1)
[2016-07-08] MEDS: LISINOPRIL 20 MG TAB PO SCH (08:31)
[2016-07-08] MEDS: SODIUM CHLORIDE 0.9% FLUSH 10 ML FLUSH IV FLUSH SCH ×2 (08:32→21:47)
[2016-07-08] MEDS: INSULIN DETEMIR 100 UNITS/ML VIAL SQ SCH ×2 (08:32→21:47)
[2016-07-08] MEDS: DOCUSATE SODIUM 50 MG/SENNA 8.6 MG TAB PO SCH ×2 (08:36→21:46)
[2016-07-08] MEDS: VANCOMYCIN INJ 1,500 MG in SODIUM CHLORID 0.9% 500 ML INJ 500 ML IV SCH ×2 (10:10→22:45)
--- NOTE | 2016-07-08 11:03 | HHI.FPPN ---
Subjective Remarks Patient seen and examined this morning. Afebrile vital signs stable. Her foot is out of the wound VAC and she says she is doing well. She has no complaints at this time. Endorses: None Denies: Fever, chills, nausea, vomiting, shortness of breath, chest pain, headache, abdominal pain, calf pain (Chan Garcia MD R2) Objective Vitals Vital Signs Date Time Temp Pulse Resp B/P Pulse Ox O2 Delivery O2 Flow Rate FiO2 07/08/16 08:00 98.0 70 18 160/76 96 07/08/16 04:00 98.3 63 16 147/67 96 07/08/16 00:00 97.9 63 16 149/88 98 07/07/16 23:00 156/88 07/07/16 21:42 162/92 07/07/16 21:32 99 21 07/07/16 20:00 99.1 67 18 183/90 98 07/07/16 16:10 98.9 68 18 167/79 98 07/07/16 12:10 97.9 62 18 166/70 98 I/O 07/07/16 07/07/16 07/07/16 07/08/16 07/08/16 07/08/16 07:00 15:00 23:00 07:00 15:00 23:00 Intake Total 240 ml 360 ml 480 ml 240 ml Balance 240 ml 360 ml 480 ml 240 ml Intake Oral 240 ml 360 ml 480 ml 240 ml # Voids 3 5 2 2 # Bowel Movements 0 1 0 0 (Chan Garcia MD R2) Result Diagram: 07/08/16 0556 07/08/16 0556 Imaging Last Impressions Foot X-Ray 07/02/16 0000 Signed Impressions: Service Date/Time: Saturday, July 02, 2016 09:19 - CONCLUSION: Postop amputation. K. Sachin Whitley MD Carotid Artery Ultrasound 06/30/16 0000 Signed Impressions: Service Date/Time: Thursday, June 30, 2016 15:55 - CONCLUSION: Mild calcified plaque in the carotid bulb and proximal internal carotid arteries with hemodynamic profile characteristic of less than 50%% stenosis. Forest Recinos MD Aorta w/Runoff CTA 06/30/16 0000 Signed Impressions: Service Date/Time: Thursday, June 30, 2016 15:17 - CONCLUSION: 1. Patent inflow and outflow bilaterally. 2. The right lower extremity is somewhat limited in evaluation due to venous contamination and motion artifact. Single-vessel runoff to the right foot via the anterior tibial artery. Posterior tibial and peroneal are diffusely diseased. 3. Left lower extremity is better evaluated. Anterior tibial artery is patent. The posterior tibial and peroneal are diffusely diseased. 4. 2.8 cm left adnexal cyst likely ovarian in origin. 5. Right groin adenopathy. Forest Berry Jr., MD Foot MRI 06/29/16 0000 Signed Impressions: Service Date/Time: Wednesday, June 29, 2016 12:26 - CONCLUSION: 1. No evidence of osteomyelitis. 2. Focal mild enhancement about the plantar soft tissue ulceration. No drainable fluid collections seen. Forest Recinos MD Objective Remarks GENERAL: Lying in bed, no distress after surgery SKIN: Base of ulcer appeared clean, well granulated. S/p right 5th toe amputation. Area on top of foot that was bullous and necrotic is now s/p I&D x2 ; appeared clean with good granulation tissue. The amputated area was able to be visualized, good granulation, no signs of pus or erythema, no bone visualized. She is able to move her remaining toes as well, limited by cast. CARDIOVASCULAR: Regular rate and rhythm without murmurs, gallops, or rubs. RESPIRATORY: Clear to auscultation. Breath sounds equal bilaterally. No wheezes , rales, or rhonchi. GASTROINTESTINAL: Abdomen soft, non-tender, nondistended. No hepato-splenomegaly , or palpable masses. No guarding. MUSCULOSKELETAL: Extremities without clubbing, cyanosis, or edema. Right foot exam as above. NEUROLOGICAL: Awake and alert. Cranial nerves II through XII intact. Five out of 5 muscle strength in all muscle groups. Normal speech. Sensation intact over remaining toes R foot. Procedures Amputation R 5th toe with I&D - 07/02 Repeat I&D abscess with wound vac placement R foot - 07/04 Medications and IVs Current Medications Medications (Trade) Dose Ordered Sig/Tj Route Start Time Stop Time Status Last Admin (D50w (Vial) Inj) 25 ml UNSCH PRN IV PUSH 06/29/16 11:30 (Glucagon Inj) 1 mg UNSCH PRN OTHER 06/29/16 11:30 (NS Flush) 2 ml UNSCH PRN IV FLUSH 06/29/16 11:45 07/05/16 00:42 (NS Flush) 2 ml BID IV FLUSH 06/29/16 21:00 07/08/16 08:32 (Tylenol) 650 mg Q4H PRN PO 06/29/16 11:45 07/06/16 13:36 (Zofran Inj) 4 mg Q6H PRN IVP 06/29/16 11:45 07/05/16 00:41 (Narcan Inj) 0.4 mg UNSCH PRN IV 06/29/16 11:45 (Percocet 5-325 Mg) 1 tab Q4H PRN PO 06/29/16 20:00 06/30/16 16:18 (Percocet 10-325 Mg) 1 tab Q4H PRN PO 06/29/16 20:00 07/08/16 10:10 Enalaprilat 1.25 mg 1.25 mg Q6H PRN IV PUSH 07/01/16 16:45 07/07/16 21:38 (Vancomycin Consult Pharmacy) 0 ml @ 0 mls/hr UNSCH OTHER 07/02/16 09:45 (Heparin Inj) 5,000 units Q8HR SQ 07/05/16 14:00 07/08/16 05:08 (Prinivil) 20 mg DAILY PO 07/06/16 09:00 07/08/16 08:31 (Levemir Inj) 10 units Q12HR SQ 07/06/16 21:00 07/08/16 08:32 Senna/Docusate Sodium 2 tab 2 tab BID PO 07/07/16 09:00 07/07/16 21:38 (Vancomycin Inj/ NS 500 ml Inj) 515 ml @ 250 mls/hr Q12H IV 07/07/16 11:00 07/08/16 10:10 Miscellaneous Information SPECIFIC LAB TO BE DRAWN:VANCOMYCIN TROUGH DATE TO... ONCE ONCE .XX 07/09/16 10:45 07/09/16 10:46 (Chan Garcia MD R2) A/P Assessment and Plan 45 year old female with diabetic foot ulcer and cellulitis Discharge Planning Pending podiatry recommendations (Chan Garcia MD R2) Attending Attestation Patient seen and examined. Case reviewed and discussed with the resident team. Agree with plan of care as discussed with me and documented in the resident note. (Hortencia Helm MD) Problem List: (1) Diabetic foot ulcer Status: Acute Plan: Wound culture at time of I&D growing group B strep Superficial wound culture growing MRSA Blood cultures negative to date. POD 5 s/p R fifth toe amputation. - Podiatry on board, appreciate their assistance -Group B strep, MRSA - Zosyn q6hrs; despite cultures growing only gram positives - Vancomycin added 07/01/16 to cover for MRSA. - Education on diabetes control, case management to help set up PCP (2) Gangrenous toe Status: Acute Plan: 5th right digit was gangrenous, lacking in sensation POD 5 s/p amputation - Podiatry consulted, appreciate assistance (see above) - Vascular surgery on board, CTA runoff shows significant small vessel disease (3) Cellulitis of right leg Status: Acute Plan: Improving, see above for antibiotics management (4) Type 2 diabetes mellitus Status: Chronic Plan: Poorly controlled diabetes, glucose was 300 on admission. Takes metformin 500 mg q day at home. No PCP or health insurance. BSG 170s to 300s - Diabetic diet - Low dose sliding scale insulin - Increasing to Levemir 10 BID - Diabetic education - Case management to help her get PCP and insurance - her glucoses are variable in the hospital and will work on determining what she will need as an outpt (5) Nutrition, metabolism, and development symptoms Status: Acute Plan: - PO fluids - Electrolytes normal - Diabetic diet - DVT prophylaxis: Heparin every 8 Disposition: Pending podiatry recommendations wdw Dr. Helm (Chan Garcia MD R2) Problem Qualifiers (1) Diabetic foot ulcer: Qualified Code: E11.621 - Diabetic ulcer of right midfoot associated with type 2 diabetes mellitus, limited to breakdown of skin (2) Type 2 diabetes mellitus: Qualified Code: E11.42 - Type 2 diabetes mellitus with diabetic polyneuropathy , without long-term current use of insulin Chan Garcia MD R2 Jul 08, 2016 11:03 Hortencia Helm MD Jul 08, 2016 11:48
[2016-07-08] MEDS: ACETAMINOPHEN 325 MG TAB PO PRN (16:42)
[2016-07-08] MEDS: ENALAPRILAT 1.25 MG/ML VIAL IV PUSH PRN (17:12)
--- NOTE | 2016-07-08 19:53 | PD.POD ---
Subjective Podiatric Problems s/p R 5th digit amputation and right foot I and D with Dr Perez. Patient seen at bedside this am in NAD. Pain scale used: 0-10 numeric scale Pain score: 4 Past Med/Surg/Social History Social History Smoking Status: Current Every Day Smoker Objective Vital Signs Vital Signs Date Time Temp Pulse Resp B/P Pulse Ox O2 Delivery O2 Flow Rate FiO2 07/08/16 16:00 97.7 69 18 179/88 93 07/08/16 12:00 98.2 61 18 157/96 96 07/08/16 08:00 98.0 70 18 160/76 96 07/08/16 04:00 98.3 63 16 147/67 96 07/08/16 00:00 97.9 63 16 149/88 98 07/07/16 23:00 156/88 07/07/16 21:42 162/92 07/07/16 21:32 99 21 07/07/16 20:00 99.1 67 18 183/90 98 Coded Allergies: Aspirin (Verified Adverse Reaction, Intermediate, VOMITING, 06/29/16) *MDRO Multi-Drug Resistant Organism (Verified Adverse Reaction, Unknown, ) MRSA (wound drainage) - 06/29/16 Other Results Laboratory Tests Test 07/04/16 07/06/16 07/08/16 06:10 22:10 05:56 Prothrombin Time 10.5 SEC Prothromb Time International 1.0 RATIO Ratio Activated Partial 35.5 SEC Thromboplast Time Vancomycin Level Trough 6.1 MCG/ML White Blood Count 8.9 TH/MM3 Red Blood Count 3.41 MIL/MM3 Hemoglobin 10.3 GM/DL Hematocrit 29.1 % Mean Corpuscular Volume 85.1 FL Mean Corpuscular Hemoglobin 30.2 PG Mean Corpuscular Hemoglobin 35.5 % Concent Red Cell Distribution Width 13.0 % Platelet Count 355 TH/MM3 Mean Platelet Volume 7.9 FL Sodium Level 140 MEQ/L Potassium Level 3.6 MEQ/L Chloride Level 102 MEQ/L Carbon Dioxide Level 29.2 MEQ/L Anion Gap 9 MEQ/L Blood Urea Nitrogen 9 MG/DL Creatinine 0.81 MG/DL Estimat Glomerular Filtration 76 ML/MIN Rate Random Glucose 186 MG/DL Calcium Level 8.8 MG/DL Exam-Podiatry Dermatological Exam Ulcers: Location/Measurements RLE digit 4-1 warm and pink. Surgical site is granular with exposed tendon. No mal odor and no acute soi. Assessment & Plan Diagnosis: (1) Diabetic foot infection Status: Acute (2) Diabetic foot ulcer Status: Acute (3) Gangrenous toe Status: Acute (4) Type 2 diabetes mellitus Status: Chronic A/P s/p R 5th digit amputation and right foot I and D with Dr Perez. No further surgical intervention planned. OK to d/c per Podiatry Needs 6 weeks IV abx Needs d/c with VAC Recommend HBO consult prior to d/c F/U with Dr Perez within 1 week of d/c. Problem Qualifiers (1) Diabetic foot ulcer: Qualified Code: E11.621 - Diabetic ulcer of right midfoot associated with type 2 diabetes mellitus, limited to breakdown of skin (2) Type 2 diabetes mellitus: Qualified Code: E11.42 - Type 2 diabetes mellitus with diabetic polyneuropathy , without long-term current use of insulin Roselyn Issa DPM Jul 08, 2016 19:53
[2016-07-09 00:01] VITALS: BP 132/79; PULSE 76; RESP 16; TEMP 97.6; O2SAT 97
[2016-07-09 04:00] VITALS: BP 165/77; PULSE 90; RESP 16; TEMP 98.4; O2SAT 96
[2016-07-09] MEDS: HEPARIN SODIUM - SQ 10,000 UNITS/ML VIAL SQ SCH ×3 (05:40→20:37)
[2016-07-09] MEDS: INSULIN ASPART SUPPLEMENTAL SCALE SQ SCH ×4 (05:41→20:38)
[2016-07-09 08:00] VITALS: BP 171/83; PULSE 67; RESP 16; TEMP 98.4; O2SAT 96
[2016-07-09] MEDS: DOCUSATE SODIUM 50 MG/SENNA 8.6 MG TAB PO SCH ×2 (08:51→20:37)
[2016-07-09] MEDS: LISINOPRIL 20 MG TAB PO SCH (08:51)
[2016-07-09] MEDS: INSULIN DETEMIR 100 UNITS/ML VIAL SQ SCH ×2 (08:52→20:38)
[2016-07-09] MEDS: SODIUM CHLORIDE 0.9% FLUSH 10 ML FLUSH IV FLUSH SCH ×2 (08:52→20:39)
[2016-07-09] MEDS: ENALAPRILAT 1.25 MG/ML VIAL IV PUSH PRN ×2 (08:52→21:55)
[2016-07-09] MEDS: oxyCODONE/ACETAMINOPHEN 10 MG/325 MG TAB PO PRN ×2 (08:53→21:56)
--- NOTE | 2016-07-09 09:28 | HHI.FPPN ---
Subjective Remarks Ms Leyva needs 6 weeks of iv antibiotics per pt today. She also is keeping her wound vac plus her resort manager wants her to have hyperbaric oxygen. Otherwise, she feels well and is happy to go through whatever treatment she needs to heal. She has no complaints. Objective Vitals Vital Signs Date Time Temp Pulse Resp B/P Pulse Ox O2 Delivery O2 Flow Rate FiO2 07/09/16 08:00 98.4 67 16 171/83 96 07/09/16 04:00 98.4 90 16 165/77 96 07/09/16 00:01 97.6 76 16 132/79 97 07/08/16 21:25 98 21 07/08/16 20:00 98.1 70 20 169/81 96 07/08/16 16:00 97.7 69 18 179/88 93 07/08/16 12:00 98.2 61 18 157/96 96 I/O 07/08/16 07/08/16 07/08/16 07/09/16 07/09/16 07/09/16 07:00 15:00 23:00 07:00 15:00 23:00 Intake Total 240 ml 1200 ml 540 ml 80 ml Balance 240 ml 1200 ml 540 ml 80 ml Intake Oral 240 ml 1200 ml 540 ml 80 ml # Voids 2 3 3 1 # Bowel Movements 0 0 Result Diagram: 07/08/16 0556 07/08/16 0556 Objective Remarks GENERAL: Lying in bed, no distress after surgery SKIN: Base of ulcer appeared clean, well granulated. S/p right 5th toe amputation. Area on top of foot that was bullous and necrotic is now s/p I&D x2 ; appeared clean with good granulation tissue. The amputated area was able to be visualized, good granulation, no signs of pus or erythema, no bone visualized. She is able to move her remaining toes as well. CARDIOVASCULAR: Regular rate and rhythm without murmurs, gallops, or rubs. RESPIRATORY: Clear to auscultation. Breath sounds equal bilaterally. No wheezes , rales, or rhonchi. GASTROINTESTINAL: Abdomen soft, non-tender, nondistended. No hepato-splenomegaly , or palpable masses. No guarding. MUSCULOSKELETAL: Extremities without clubbing, cyanosis, or edema. Right foot exam as above. NEUROLOGICAL: Awake and alert. Cranial nerves II through XII intact. Five out of 5 muscle strength in all muscle groups. Normal speech. Sensation intact over remaining toes R foot. Procedures Amputation R 5th toe with I&D - 07/02 Repeat I&D abscess with wound vac placement R foot - 07/04 Urinary Catheter: No Vascular Central Line Catheter: No A/P Assessment and Plan 45 year old female with diabetic foot ulcer and cellulitis Discharge Planning Pending podiatry recommendations Problem List: (1) Diabetic foot ulcer Status: Acute Plan: Wound culture at time of I&D growing group B strep Superficial wound culture growing MRSA Blood cultures negative to date. POD 6 s/p R fifth toe amputation. - Podiatry on board, appreciate their assistance -Group B strep, MRSA - Zosyn q6hrs; despite cultures growing only gram positives as she is diabetic and the MRSA culture was just a skin scraping and not a tissue culture - Vancomycin added 07/01/16 to cover for MRSA. - Education on diabetes control, case management to help set up PCP - unsure how many weeks left in her 6 weeks total of abx. She has no insurance and getting HHC, wound vac, hyperbaric oxygen and abx paid for as an outpt will be extremely difficult. (2) Type 2 diabetes mellitus Status: Chronic Plan: Poorly controlled diabetes, glucose was 300 on admission. Takes metformin 500 mg q day at home. No PCP or health insurance. BSG 170s to 300s - Diabetic diet - Low dose sliding scale insulin - Increasing to Levemir 10 BID - Diabetic education - Case management to help her get PCP and insurance, she wants to go to FP clinic on discharge - her glucoses are variable in the hospital and will work on determining what she will need as an outpt (3) Nutrition, metabolism, and development symptoms Status: Acute Plan: - PO fluids - Electrolytes normal - Diabetic diet - DVT prophylaxis: Heparin every 8 Disposition: Pending podiatry recommendations, she will likely merit extended stay (4) Gangrenous toe Status: Acute Plan: 5th right digit was gangrenous, lacking in sensation POD 6 s/p amputation - Podiatry consulted, appreciate assistance (see above) - Vascular surgery on board, CTA runoff shows significant small vessel disease Problem Qualifiers (1) Diabetic foot ulcer: Qualified Code: E11.621 - Diabetic ulcer of right midfoot associated with type 2 diabetes mellitus, limited to breakdown of skin (2) Type 2 diabetes mellitus: Qualified Code: E11.42 - Type 2 diabetes mellitus with diabetic polyneuropathy , without long-term current use of insulin Hortencia Helm MD Jul 09, 2016 09:28
[2016-07-09] MEDS ORDERED: PHARMACY ORDERED LAB ONE (10:45)
[2016-07-09] MEDS: VANCOMYCIN INJ 1,500 MG in SODIUM CHLORID 0.9% 500 ML INJ 500 ML IV SCH (11:47)
[2016-07-09 12:00] VITALS: BP 207/98; PULSE 71; RESP 18; TEMP 98; O2SAT 98
--- NOTE | 2016-07-09 13:00 | PD.WOU.CON ---
Patient Intake Chief Complaint Mack grade 3 ulceration of the right foot Consult Requested by Dr. Issa for HBO evaluation Reason for Consult HBO evaluation Primary Care Physician No Primary Care Physician History of Present Illness Patient is a 45-year-old diabetic with history of smoking who had an infection of the right lateral foot. She underwent incision and drainage by Dr. Navarro with application of negative pressure wound therapy VAC. Dr. Issa has been following the patient and felt that she may benefit from hyperbaric oxygen therapy. Patient currently has no apical insurance. There has been discussion of doing further surgical debridement of her wound. Coded Allergies: Aspirin (Verified Adverse Reaction, Intermediate, VOMITING, 06/29/16) *MDRO Multi-Drug Resistant Organism (Verified Adverse Reaction, Unknown, ) MRSA (wound drainage) - 06/29/16 Preferred Language to Discuss: [place] Barriers to Learning: None Teaching Method: Discussion Vital Signs Date Time Temp Pulse Resp B/P Pulse Ox O2 Delivery O2 Flow Rate FiO2 07/09/16 08:00 98.4 67 16 171/83 96 07/09/16 04:00 98.4 90 16 165/77 96 07/09/16 00:01 97.6 76 16 132/79 97 07/08/16 21:25 98 21 07/08/16 20:00 98.1 70 20 169/81 96 07/08/16 16:00 97.7 69 18 179/88 93 Pain scale used: 0-10 numeric scale Pain score: 1 Medications Current Medications Sodium Chloride 1,000 ml @ 2,000 mls/hr Q30M ONCE IV ; Start 06/29/16 at 09:45 ; Stop 06/29/16 at 09:45; Status DC Sodium Chloride (NS 1000 ml Inj) 1,000 ml @ 2,000 mls/hr Q30M ONCE IV Last administered on 06/29/16 09:41; Start 06/29/16 at 09:45; Stop 06/29/16 at 10:14 ; Status DC Morphine Sulfate 4 mg 4 mg ONCE ONCE IV PUSH Last administered on 06/29/16 09 :40; Start 06/29/16 at 09:45; Stop 06/29/16 at 09:46; Status DC Piperacillin Sod/ Tazobactam Sod (Zosyn 4.5 Gm Premix) 100 ml @ 200 mls/hr ONCE ONCE IV Last administered on 06/29/16 09:41; Start 06/29/16 at 09:45; Stop 06/29/16 at 10:14; Status DC Dextrose (D50w (Vial) Inj) 25 ml UNSCH PRN IV PUSH HYPOGLYCEMIA-SEE COMMENTS; Start 06/29/16 at 11:30 Glucagon (Glucagon Inj) 1 mg UNSCH PRN OTHER HYPOGLYCEMIA-SEE COMMENTS; Start 06/29/16 at 11:30 Insulin Aspart 1 1 ACHS SLIDING SCALE SQ Last administered on 07/09/16 11:47 ; Start 06/29/16 at 16:00 Sodium Chloride (NS 1000 ml Inj) 1,000 ml @ 120 mls/hr Q8H20M IV Last administered on 07/01/16 04:38; Start 06/29/16 at 12:00; Stop 07/01/16 at 14:04 ; Status DC Sodium Chloride (NS Flush) 2 ml UNSCH PRN IV FLUSH FLUSH AFTER USING IV ACCESS Last administered on 07/05/16 00:42; Start 06/29/16 at 11:45 Sodium Chloride (NS Flush) 2 ml BID IV FLUSH Last administered on 07/09/16 08: 52; Start 06/29/16 at 21:00 Acetaminophen (Tylenol) 650 mg Q4H PRN PO PAIN SCALE 3 TO 4 Last administered on 07/08/16 16:42; Start 06/29/16 at 11:45 Ondansetron HCl (Zofran Inj) 4 mg Q6H PRN IVP NAUSEA OR VOMITING Last administered on 07/05/16 00:41; Start 06/29/16 at 11:45 Sennosides (Senokot) 17.2 mg Q12H PRN PO CONSTIPATION Last administered on 07/05 10:20; Start 06/29/16 at 11:45; Stop 07/07/16 at 07:07; Status DC Enoxaparin Sodium (Lovenox Inj) 40 mg Q24H SQ Last administered on 06/30/16 11 :48; Start 06/29/16 at 13:00; Stop 06/30/16 at 12:14; Status DC Naloxone HCl 0.4 mg 0.4 mg UNSCH PRN IV SEE LABEL COMMENTS; Start 06/29/16 at 11:45 Piperacillin Sod/ Tazobactam Sod (Zosyn 3.375 Gm Premix) 50 ml @ 100 mls/hr Q6H IV Last administered on 07/07/16 09:03; Start 06/29/16 at 16:00; Stop at 10:37; Status DC Gadodiamide (Omniscan Pf Inj) 15 ml STK-MED ONCE IV Last administered on 12:53; Start 06/29/16 at 12:53; Stop 06/29/16 at 12:54; Status DC Oxycodone/ Acetaminophen (Percocet 5-325 Mg) 1 tab Q4H PRN PO PAIN SCALE 5 TO 7 Last administered on 06/30/16 16:18; Start 06/29/16 at 20:00 Oxycodone/ Acetaminophen (Percocet 10-325 Mg) 1 tab Q4H PRN PO PAIN SCALE 8 TO 10 Last administered on 07/09/16 08:53; Start 06/29/16 at 20:00 Iohexol (Omnipaque 350 Inj) 100 ml STK-MED ONCE IV Last administered on 15:39; Start 06/30/16 at 15:39; Stop 06/30/16 at 15:40; Status DC Potassium Chloride 40 meq 40 meq ONCE ONCE PO Last administered on 07/01/16 07:50; Start 07/01/16 at 07:15; Stop 07/01/16 at 07:16; Status DC Vancomycin HCl/ Sodium Chloride (Vancomycin Inj/ NS 250 ml Inj) 250 ml @ 250 mls/hr Q12H IV Last administered on 07/03/16 08:41; Start 07/01/16 at 09:00; Stop 07/03/16 at 11:22; Status DC Enalaprilat (Vasotec Inj) 1.25 mg Q6H PRN IV PUSH SBP>160, DBP>90 Last administered on 07/09/16 08:52; Start 07/01/16 at 16:45 Bupivacaine HCl (Marcaine Pf 0.5% Inj) 30 ml STK-MED ONCE .ROUTE ; Start at 06:05; Stop 07/02/16 at 06:06; Status DC Acetaminophen (Ofirmev Inj) 1,000 mg STK-MED ONCE IV ; Start 07/02/16 at 06:36; Stop 07/02/16 at 06:37; Status DC Midazolam HCl (Versed Inj) 2 mg STK-MED ONCE .ROUTE ; Start 07/02/16 at 06:36; Stop 07/02/16 at 06:37; Status DC Fentanyl Citrate (fentaNYL INJ) 100 mcg STK-MED ONCE .ROUTE ; Start 07/02/16 at 06:37; Stop 07/02/16 at 06:38; Status DC Dexamethasone Sodium Phosphate (Decadron Inj) 4 mg STK-MED ONCE .ROUTE ; Start 07/02/16 at 06:37; Stop 07/02/16 at 06:38; Status DC Famotidine (Pepcid Inj) 20 mg STK-MED ONCE .ROUTE ; Start 07/02/16 at 06:37; Stop 07/02/16 at 06:38; Status DC Potassium Chloride (KCl) 40 meq ONCE ONCE PO ; Start 07/02/16 at 06:45; Stop at 06:46; Status DC Morphine Sulfate (*morphine INJ PERIprocedure ONLY) 8 mg STK-MED ONCE .ROUTE Last administered on 07/02/16t 08:11; Start 07/02/16 at 08:11; Stop 07/02/16 at 08:12; Status DC Miscellaneous Information ALL NURSING DEPARTME... UNSCH PRN .XX SEE LABEL COMMENTS; Start 07/02/16 at 08:30; Stop 07/03/16 at 08:29; Status DC Pharmacy Profile Note (Vancomycin Consult Pharmacy) 0 ml @ 0 mls/hr UNSCH OTHER ; Start 07/02/16 at 09:45 Miscellaneous Information SPECIFIC LAB TO BE ALVERTO... ONCE ONCE .XX Last administered on 07/02/16t 20:45; Start 07/02/16 at 20:45; Stop 07/02/16 at 20:46 ; Status DC Vancomycin HCl/ Sodium Chloride (Vancomycin Inj/ NS 250 ml Inj) 250 ml @ 250 mls/hr Q8H IV Last administered on 07/04/16 09:00; Start 07/03/16 at 17:00; Stop 07/04/16 at 19:13; Status DC Miscellaneous Information SPECIFIC LAB TO BE ALVERTO... ONCE ONCE .XX ; Start 07/04 at 08:45; Stop 07/04/16 at 08:46; Status DC Potassium Chloride (KCl) 40 meq ONCE ONCE PO Last administered on 07/04/16 10 :45; Start 07/04/16 at 08:00; Stop 07/04/16 at 08:01; Status DC Neomycin/Polymyxin (Neosporin G.u. Irr) 6 ml STK-MED ONCE IR Last administered on 07/04/16 08:10; Start 07/04/16 at 08:10; Stop 07/04/16 at 08:36; Status DC Midazolam HCl (Versed Inj) 2 mg STK-MED ONCE .ROUTE ; Start 07/04/16 at 09:06; Stop 07/04/16 at 09:07; Status DC Fentanyl Citrate (fentaNYL INJ) 250 mcg STK-MED ONCE .ROUTE ; Start 07/04/16 at 09:06; Stop 07/04/16 at 09:07; Status DC Vancomycin HCl (Vancomycin Inj) 1,000 mg STK-MED ONCE .ROUTE ; Start 07/04/16 at 09:10; Stop 07/04/16 at 09:11; Status DC Miscellaneous Information ALL NURSING DEPARTME... UNSCH PRN .XX SEE LABEL COMMENTS; Start 07/04/16 at 09:30; Stop 07/05/16 at 09:29; Status DC Morphine Sulfate (*morphine INJ PERIprocedure ONLY) 8 mg STK-MED ONCE .ROUTE Last administered on 07/04/16 09:27; Start 07/04/16 at 09:27; Stop 07/04/16 at 09:28; Status DC Insulin Detemir (Levemir Inj) 5 units Q12HR SQ Last administered on 07/06/16 09:19; Start 07/04/16 at 21:00; Stop 07/06/16 at 09:26; Status DC Miscellaneous Information SPECIFIC LAB TO BE ALVERTO... ONCE ONCE .XX Last administered on 07/04/16 16:45; Start 07/04/16 at 16:45; Stop 07/04/16 at 16:46 ; Status DC Vancomycin HCl/ Sodium Chloride (Vancomycin Inj/ NS 250 ml Inj) 250 ml @ 250 mls/hr Q12H IV Last administered on 07/06/16 22:27; Start 07/05/16 at 09:00; Stop 07/07/16 at 08:59; Status DC Miscellaneous Information SPECIFIC LAB TO BE ALVERTO... ONCE ONCE .XX Last administered on 07/06/16 20:45; Start 07/06/16 at 20:45; Stop 07/06/16 at 20:46 ; Status DC Lisinopril (Prinivil) 10 mg DAILY PO Last administered on 07/05/16 11:14; Start 07/05/16 at 10:30; Stop 07/06/16 at 07:24; Status DC Heparin Sodium (Porcine) (Heparin Inj) 5,000 units Q8HR SQ Last administered on 07/09/16 05:40; Start 07/05/16 at 14:00 Lisinopril (Prinivil) 20 mg DAILY PO Last administered on 07/09/16 08:51; Start 07/06/16 at 09:00 Insulin Detemir (Levemir Inj) 10 units Q12HR SQ Last administered on 07/09/16 08:52; Start 07/06/16 at 21:00 Potassium Chloride (KCl) 10 meq UNSCH X1 ONCE PO Last administered on 09:35; Start 07/06/16 at 09:30; Stop 07/06/16 at 09:31; Status DC Senna/Docusate Sodium 2 tab 2 tab BID PO Last administered on 07/09/16 08:51; Start 07/07/16 at 09:00 Vancomycin HCl/ Sodium Chloride (Vancomycin Inj/ NS 500 ml Inj) 515 ml @ 250 mls/hr Q12H IV Last administered on 07/09/16 11:47; Start 07/07/16 at 11:00 Miscellaneous Information SPECIFIC LAB TO BE DRAWN:VANCOMYCIN TROUGH DATE TO... ONCE ONCE .XX Last administered on 07/09/16 11:47; Start 07/09/16 at 10:45; Stop 07/09/16 at 10:46; Status DC Past, Family & Social History Past Medical History PFS Reviewed: Yes Endocrine: 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: Diabetes mellitus Past Surgical History Gastrointestinal: 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: Cholecystectomy Review of Systems Neurological: COMPLAINS OF: Numbness/tingling, Changes in sensation Psychiatric: COMPLAINS OF: Depression/anxiety Wound Assessment Vascular Assessment R Dorsails Pedis: Doppler L Dorsails Pedis: Doppler R Posterior Tibial: Doppler L Posterior Tibial: Doppler Sensation of Left Extremity: Diminished Sensation of Right Extremity: Diminished Healing Assessment Rate 1) Wound Location/Description: Mack grade 3 ulceration of the right foot with exposed tendons Lab and Radiology Results Laboratory Laboratory Tests Test 07/08/16 05:56 White Blood Count 8.9 TH/MM3 Red Blood Count 3.41 MIL/MM3 Hemoglobin 10.3 GM/DL Hematocrit 29.1 % Mean Corpuscular Volume 85.1 FL Mean Corpuscular Hemoglobin 30.2 PG Mean Corpuscular Hemoglobin 35.5 % Concent Red Cell Distribution Width 13.0 % Platelet Count 355 TH/MM3 Mean Platelet Volume 7.9 FL Laboratory Tests Test 07/08/16 05:56 Sodium Level 140 MEQ/L Potassium Level 3.6 MEQ/L Chloride Level 102 MEQ/L Carbon Dioxide Level 29.2 MEQ/L Anion Gap 9 MEQ/L Blood Urea Nitrogen 9 MG/DL Creatinine 0.81 MG/DL Estimat Glomerular Filtration 76 ML/MIN Rate Random Glucose 186 MG/DL Calcium Level 8.8 MG/DL Radiology Last Impressions Foot X-Ray 07/02/16 0000 Signed Impressions: Service Date/Time: Saturday, July 02, 2016 09:19 - CONCLUSION: Postop amputation. K. Sachin Whitley MD Carotid Artery Ultrasound 06/30/16 0000 Signed Impressions: Service Date/Time: Thursday, June 30, 2016 15:55 - CONCLUSION: Mild calcified plaque in the carotid bulb and proximal internal carotid arteries with hemodynamic profile characteristic of less than 50%% stenosis. Forest Recinos MD Aorta w/Runoff CTA 06/30/16 0000 Signed Impressions: Service Date/Time: Thursday, June 30, 2016 15:17 - CONCLUSION: 1. Patent inflow and outflow bilaterally. 2. The right lower extremity is somewhat limited in evaluation due to venous contamination and motion artifact. Single-vessel runoff to the right foot via the anterior tibial artery. Posterior tibial and peroneal are diffusely diseased. 3. Left lower extremity is better evaluated. Anterior tibial artery is patent. The posterior tibial and peroneal are diffusely diseased. 4. 2.8 cm left adnexal cyst likely ovarian in origin. 5. Right groin adenopathy. Forest Berry Jr., MD Foot MRI 06/29/16 0000 Signed Impressions: Service Date/Time: Wednesday, June 29, 2016 12:26 - CONCLUSION: 1. No evidence of osteomyelitis. 2. Focal mild enhancement about the plantar soft tissue ulceration. No drainable fluid collections seen. Forest Recinos MD Assessment/Plan Problem List: (1) Diabetic foot infection Status: Acute (2) Diabetic foot ulcer Status: Acute Additional Plans & Procedures PLAN: Patient might benefit from hyperbaric oxygen therapy. However, HBO T can only be administered on an outpatient basis. Patient has no financial ability to pay for hyperbaric oxygen therapy. More than likely she will require further surgical intervention. Should she should go home and wishes to start hyperbaric therapy we can revisit that procedure at that time. Continue thank you for this consultation. Please reconsult as necessary Problem Qualifiers (1) Diabetic foot ulcer: Qualified Code: E11.621 - Diabetic ulcer of right midfoot associated with type 2 diabetes mellitus, limited to breakdown of skin Dalton Salvador DPM Jul 09, 2016 13:00
[2016-07-09] MEDS: oxyCODONE/ACETAMINOPHEN 5 MG/325 MG TAB PO PRN (16:28)
--- NOTE | 2016-07-09 19:06 | HHI.PR ---
Addendum to Inpatient Note Addendum Reason: Additional Documentation Additional Information Case d.w Patient is self pay. DME such as wound vac, HBO therapy and IV antibiotics at home need to be arranged. D/w [facility] nurse case manager: once arrangements made please call me. I can be reached on my cell if these arrangements can be made on Tuesday. If any medical needs (not discharge related issues) please call this weekend. Charmaine Soares MD Jul 09, 2016 19:06
[2016-07-09 20:00] VITALS: BP 181/89; PULSE 73; RESP 18; TEMP 97.9; O2SAT 97
[2016-07-09] MEDS: VANCOMYCIN 1,000 MG/NS 250 ML IV SCH ×2 (23:58)
[2016-07-10] VITALS (7 sets, daily range): BP systolic 151–186; BP diastolic 76–91; PULSE 61–74; RESP 16–20; TEMP 97.7–98.5; O2SAT 94–100
[2016-07-10] MEDS: HEPARIN SODIUM - SQ 10,000 UNITS/ML VIAL SQ SCH ×3 (05:37→21:40)
[2016-07-10] MEDS: INSULIN ASPART SUPPLEMENTAL SCALE SQ SCH ×4 (05:39→21:40)
--- NOTE | 2016-07-10 07:31 | HHI.FPPN ---
Subjective Remarks Patient was seen and examined this morning. Her symptoms are stable. Pain is well controlled. She has no shortness of breath, chest pain, fever, chills, nausea, vomiting, abdominal pain. She had a bowel movement yesterday. She is tolerating meals well. She understands that she is taking you IV antibiotics for a total of 6 weeks, continue wound VAC. She is unable to have hyperbaric oxygen therapy as an inpatient and does not have insurance at this time and therefore we will not be able to afford [id number] HBO therapy. (Paula Beltrán MD R1) Objective Vitals Vital Signs Date Time Temp Pulse Resp B/P Pulse Ox O2 Delivery O2 Flow Rate FiO2 07/10/16 04:00 98.0 74 18 151/76 94 07/10/16 01:00 156/88 07/10/16 00:00 98.0 68 16 168/83 98 07/09/16 20:00 97.9 73 18 181/89 97 07/09/16 12:00 98.0 71 18 207/98 98 07/09/16 08:00 98.4 67 16 171/83 96 I/O 07/09/16 07/09/16 07/09/16 07/10/16 07/10/16 07/10/16 07:00 15:00 23:00 07:00 15:00 23:00 Intake Total 80 ml 480 ml 240 ml 120 ml Balance 80 ml 480 ml 240 ml 120 ml Intake Oral 80 ml 480 ml 240 ml 120 ml # Voids 1 3 2 2 # Bowel Movements 0 1 0 (Paula Beltrán MD R1) Result Diagram: 07/08/16 0556 07/08/16 0556 Imaging Last Impressions Foot X-Ray 07/02/16 0000 Signed Impressions: Service Date/Time: Saturday, July 02, 2016 09:19 - CONCLUSION: Postop amputation. Lore Whitley MD Carotid Artery Ultrasound 06/30/16 0000 Signed Impressions: Service Date/Time: Thursday, June 30, 2016 15:55 - CONCLUSION: Mild calcified plaque in the carotid bulb and proximal internal carotid arteries with hemodynamic profile characteristic of less than 50%% stenosis. Forest Recinos MD Aorta w/Runoff CTA 06/30/16 0000 Signed Impressions: Service Date/Time: Thursday, June 30, 2016 15:17 - CONCLUSION: 1. Patent inflow and outflow bilaterally. 2. The right lower extremity is somewhat limited in evaluation due to venous contamination and motion artifact. Single-vessel runoff to the right foot via the anterior tibial artery. Posterior tibial and peroneal are diffusely diseased. 3. Left lower extremity is better evaluated. Anterior tibial artery is patent. The posterior tibial and peroneal are diffusely diseased. 4. 2.8 cm left adnexal cyst likely ovarian in origin. 5. Right groin adenopathy. oFrest Berry Jr., MD Foot MRI 06/29/16 0000 Signed Impressions: Service Date/Time: Wednesday, June 29, 2016 12:26 - CONCLUSION: 1. No evidence of osteomyelitis. 2. Focal mild enhancement about the plantar soft tissue ulceration. No drainable fluid collections seen. Forest Recinos MD Objective Remarks GENERAL: Patient is a well nourished, well appearing female sitting in bed in no apparent distress. SKIN: Patient's right lower extremity continues to be attached a wound VAC with dressing clean, dry, intact. She has 1st-3rd toes exposed and they are normal in appearance. Exam 07/08: Base of ulcer appeared clean, well granulated. S/p right 5th toe amputation. Area on top of foot that was bullous and necrotic is now s/p I&D x2; appeared clean with good granulation tissue. The amputated area was able to be visualized, good granulation, no signs of pus or erythema, no bone visualized. She is able to move her remaining toes as well. CARDIOVASCULAR: Regular rate and rhythm without murmurs, gallops, or rubs. RESPIRATORY: Clear to auscultation. Breath sounds equal bilaterally. No wheezes , rales, or rhonchi. GASTROINTESTINAL: Abdomen soft, non-tender, nondistended. No hepato-splenomegaly , or palpable masses. No guarding. MUSCULOSKELETAL: Extremities without clubbing, cyanosis, or edema. Right foot exam as above. NEUROLOGICAL: Awake and alert. Cranial nerves II through XII intact. Five out of 5 muscle strength in all muscle groups. Normal speech. Sensation intact over remaining toes R foot. Procedures Amputation R 5th toe with I&D - 07/02 Repeat I&D abscess with wound vac placement R foot - 07/04 Medications and IVs Inpatient Medications Acetaminophen (Tylenol) 650 mg Q4H PRN PO PAIN SCALE 3 TO 4 Last administered on 07/08/16 16:42; Start 06/29/16 at 11:45 Dextrose (D50w (Vial) Inj) 25 ml UNSCH PRN IV PUSH HYPOGLYCEMIA-SEE COMMENTS; Start 06/29/16 at 11:30 Enalaprilat (Vasotec Inj) 1.25 mg Q6H PRN IV PUSH SBP>160, DBP>90 Last administered on 07/09/16 21:55; Start 07/01/16 at 16:45 Enoxaparin Sodium (Lovenox Inj) 40 mg Q24H SQ Last administered on 06/30/16 11 :48; Start 06/29/16 at 13:00; Stop 06/30/16 at 12:14; Status DC Glucagon (Glucagon Inj) 1 mg UNSCH PRN OTHER HYPOGLYCEMIA-SEE COMMENTS; Start 06/29/16 at 11:30 Heparin Sodium (Porcine) (Heparin Inj) 5,000 units Q8HR SQ Last administered on 07/10/16 05:37; Start 07/05/16 at 14:00 Insulin Aspart 1 1 ACHS SLIDING SCALE SQ Last administered on 07/10/16 05:39 ; Start 06/29/16 at 16:00 Insulin Detemir (Levemir Inj) 10 units Q12HR SQ Last administered on 07/09/16 20:38; Start 07/06/16 at 21:00 Lisinopril (Prinivil) 20 mg DAILY PO Last administered on 07/09/16 08:51; Start 07/06/16 at 09:00 Miscellaneous Information SPECIFIC LAB TO BE DRAWN:VANCO TROUGH DATE TO... ONCE ONCE .XX ; Start 07/10/16 at 23:45; Stop 07/10/16 at 23:46 Morphine Sulfate 4 mg 4 mg ONCE ONCE IV PUSH Last administered on 06/29/16 09 :40; Start 06/29/16 at 09:45; Stop 06/29/16 at 09:46; Status DC Naloxone HCl 0.4 mg 0.4 mg UNSCH PRN IV SEE LABEL COMMENTS; Start 06/29/16 at 11:45 Ondansetron HCl (Zofran Inj) 4 mg Q6H PRN IVP NAUSEA OR VOMITING Last administered on 07/05/16 00:41; Start 06/29/16 at 11:45 Oxycodone/ Acetaminophen (Percocet 5-325 Mg) 1 tab Q4H PRN PO PAIN SCALE 5 TO 7 Last administered on 07/09/16 16:28; Start 06/29/16 at 20:00 Oxycodone/ Acetaminophen (Percocet 10-325 Mg) 1 tab Q4H PRN PO PAIN SCALE 8 TO 10 Last administered on 07/09/16 21:56; Start 06/29/16 at 20:00 Pharmacy Profile Note (Vancomycin Consult Pharmacy) 0 ml @ 0 mls/hr UNSCH OTHER ; Start 07/02/16 at 09:45 Piperacillin Sod/ Tazobactam Sod (Zosyn 3.375 Gm Premix) 50 ml @ 100 mls/hr Q6H IV Last administered on 07/07/16 09:03; Start 06/29/16 at 16:00; Stop at 10:37; Status DC Piperacillin Sod/ Tazobactam Sod (Zosyn 4.5 Gm Premix) 100 ml @ 200 mls/hr ONCE ONCE IV Last administered on 06/29/16 09:41; Start 06/29/16 at 09:45; Stop 06/29/16 at 10:14; Status DC Potassium Chloride 40 meq 40 meq ONCE ONCE PO ; Start 07/02/16 at 06:45; Stop 07/02/16 at 06:46; Status DC Potassium Chloride (KCl) 10 meq UNSCH X1 ONCE PO Last administered on 09:35; Start 07/06/16 at 09:30; Stop 07/06/16 at 09:31; Status DC Senna/Docusate Sodium 2 tab 2 tab BID PO Last administered on 07/09/16 20:37; Start 07/07/16 at 09:00 Sennosides (Senokot) 17.2 mg Q12H PRN PO CONSTIPATION Last administered on 07/05 10:20; Start 06/29/16 at 11:45; Stop 07/07/16 at 07:07; Status DC Sodium Chloride (NS 1000 ml Inj) 1,000 ml @ 120 mls/hr Q8H20M IV Last administered on 07/01/16 04:38; Start 06/29/16 at 12:00; Stop 07/01/16 at 14:04 ; Status DC Sodium Chloride (NS Flush) 2 ml BID IV FLUSH Last administered on 07/09/16 20: 39; Start 06/29/16 at 21:00 Vancomycin HCl 1500 mg/Sodium Chloride 515 ml @ 250 mls/hr Q12H IV Last administered on 07/09/16 11:47; Start 07/07/16 at 11:00; Stop 07/09/16 at 13:26 ; Status DC Vancomycin HCl/ Sodium Chloride (Vancomycin Inj/ NS 250 ml Inj) 250 ml @ 250 mls/hr Q12H IV Last administered on 07/09/16 23:58; Start 07/10/16 at 00:00 ( Paula Beltrán MD R1) A/P Assessment and Plan 45 year old female with diabetes, admitted with diabetic foot ulcer and cellulitis, status post I&D and fifth toe amputation of the right lower extremity. She needs to remain inpatient due to need for continued use of wound VAC, need for continued IV antibiotics, and lack of insurance. Discharge Planning Possibly to be discharged in 12 days. Patient needs to be set up for continued home management to include home health, IV antibiotics to total course of 6 weeks therapy, and wound VAC. (Paula Beltrán MD R1) Attending Attestation Patient seen and examined. Case reviewed and discussed with the resident team. Agree with plan of care as discussed with me and documented in the resident note. (Hortencia Helm MD) Problem List: (1) Diabetic foot ulcer Status: Acute Plan: Continue IV Vanco and Zosyn per ID. Continue wound VAC per podiatry. Will discharge once patient can be set up with wound VAC and IV antibiotics at home. It is recommended the patient receive hyperbaric oxygen therapy, however, patient would need to pay out of pocket for this as outpatient Hospital course: Wound culture 06/29 and 06/30, at time of I&D, growing Group B strep, MRSA Wound culture growing MRSA was superficial wound collection Blood cultures 06/29 negative growth, final Patient received right fifth toe amputation on 07/04 Podiatry on board, appreciate their assistance Zosyn 06/29-07/07; though cultures growing only gram positives she is diabetic and the MRSA culture was just a skin scraping and not a tissue culture Vancomycin added 07/01/16 to cover for MRSA. Education on diabetes control, case management to help set up PCP Infectious disease consulted, Dr. Soares following. Patient to require PICC placement for IV antibx at home, will write for these prior to discharge. She has no insurance and getting HHC, wound vac, hyperbaric oxygen and abx paid for as an outpt will be extremely difficult. (2) Type 2 diabetes mellitus Status: Chronic Plan: BSG [id number] over last 24 hours, required 13 additional units NovoLog Continue sliding scale and diabetic diet Continue Levemir 10 units twice a day Hospital course: - Poorly controlled diabetes, glucose was 300 on admission. Takes metformin 500 mg q day at home. No PCP or health insurance. - Diabetic diet - Low dose sliding scale insulin - Levemir 10 BID increased from 5 BID - Diabetic education - Case management to help her get PCP and insurance, she wants to go to FP clinic on discharge - her bedtime glucoses are variable in the hospital and will work on determining what she will need as an outpt (3) Gangrenous toe Status: Acute Plan: 5th right digit was gangrenous, lacking in sensation S/P amputation 07/04 Hospital Course: - Podiatry consulted, appreciate assistance (see above) - Vascular surgery on board, CTA runoff shows significant small vessel disease (4) Nutrition, metabolism, and development symptoms Status: Acute Plan: - PO fluids - Electrolytes normal - Diabetic diet - DVT prophylaxis: Heparin every 8 (Paula Beltrán MD R1) Problem Qualifiers (1) Diabetic foot ulcer: Qualified Code: E11.621 - Diabetic ulcer of right midfoot associated with type 2 diabetes mellitus, limited to breakdown of skin (2) Type 2 diabetes mellitus: Qualified Code: E11.42 - Type 2 diabetes mellitus with diabetic polyneuropathy , without long-term current use of insulin Paula Beltrán MD R1 Jul 10, 2016 07:31 Hortencia Helm MD July 12, 2016 11:57
[2016-07-10] MEDS: INSULIN DETEMIR 100 UNITS/ML VIAL SQ SCH ×2 (09:54→21:39)
[2016-07-10] MEDS: LISINOPRIL 20 MG TAB PO SCH (09:54)
[2016-07-10] MEDS: SODIUM CHLORIDE 0.9% FLUSH 10 ML FLUSH IV FLUSH SCH ×2 (09:54→21:39)
[2016-07-10] MEDS: DOCUSATE SODIUM 50 MG/SENNA 8.6 MG TAB PO SCH ×2 (09:54→21:00)
[2016-07-10] MEDS: oxyCODONE/ACETAMINOPHEN 10 MG/325 MG TAB PO PRN ×2 (12:04→21:41)
[2016-07-10] MEDS: VANCOMYCIN 1,000 MG/NS 250 ML IV SCH ×2 (12:44)
[2016-07-10] MEDS: ENALAPRILAT 1.25 MG/ML VIAL IV PUSH PRN (12:44)
[2016-07-11] VITALS (8 sets, daily range): BP systolic 137–190; BP diastolic 79–105; PULSE 57–82; RESP 18–20; TEMP 97.5–98.4; O2SAT 96–100
[2016-07-11] MEDS: VANCOMYCIN 1,000 MG/NS 250 ML IV SCH ×4 (00:51→13:05)
[2016-07-11] MEDS: ENALAPRILAT 1.25 MG/ML VIAL IV PUSH PRN ×2 (00:58→21:51)
[2016-07-11] MEDS: oxyCODONE/ACETAMINOPHEN 10 MG/325 MG TAB PO PRN ×3 (02:09→21:50)
[2016-07-11] MEDS: HEPARIN SODIUM - SQ 10,000 UNITS/ML VIAL SQ SCH ×3 (06:17→21:51)
[2016-07-11] MEDS: INSULIN ASPART SUPPLEMENTAL SCALE SQ SCH ×4 (06:18→21:48)
[2016-07-11] MEDS: DOCUSATE SODIUM 50 MG/SENNA 8.6 MG TAB PO SCH ×2 (08:10→21:00)
[2016-07-11] MEDS: LISINOPRIL 20 MG TAB PO SCH (08:10)
[2016-07-11] MEDS: INSULIN DETEMIR 100 UNITS/ML VIAL SQ SCH ×2 (08:11→21:47)
[2016-07-11] MEDS: SODIUM CHLORIDE 0.9% FLUSH 10 ML FLUSH IV FLUSH SCH ×2 (08:20→21:50)
--- NOTE | 2016-07-11 09:07 | HHI.FPPN ---
Subjective Remarks Patient seen and examined this morning. Afebrile vital signs stable. She is sitting up in bed comfortable with no complaints. We discussed future plan of care and need for home health, she is in agreement with obtaining a PICC line for further antibiotics. Endorses: Phantom feelings of amputated toe Denies: Fever, chills, nausea, vomiting, shortness of breath, chest pain, headache, abdominal pain, calf pain (Chan Garcia MD R2) Objective Vitals Vital Signs Date Time Temp Pulse Resp B/P Pulse Ox O2 Delivery O2 Flow Rate FiO2 07/11/16 08:22 Room Air 07/11/16 04:00 97.6 82 20 137/80 98 07/11/16 01:30 154/80 07/11/16 00:00 97.6 63 20 168/79 97 07/10/16 20:00 97.7 70 20 170/79 99 160/80 07/10/16 20:00 Room Air 07/10/16 16:00 98.5 65 16 182/83 96 07/10/16 12:00 98.3 61 16 184/82 100 I/O 07/10/16 07/10/16 07/10/16 07/11/16 07/11/16 07/11/16 07:00 15:00 23:00 07:00 15:00 23:00 Intake Total 120 ml 720 ml 480 ml 480 ml Balance 120 ml 720 ml 480 ml 480 ml Intake Oral 120 ml 720 ml 480 ml 480 ml # Voids 2 4 3 3 # Bowel Movements 0 1 (Chan Garcia MD R2) Result Diagram: 07/08/16 0556 07/10/16 0925 Objective Remarks GENERAL: Patient is a well nourished, well appearing female sitting in bed in no apparent distress. SKIN: Patient's right lower extremity continues to be attached a wound VAC with dressing clean, dry, intact. She has 1st-3rd toes exposed and they are normal in appearance. Exam 07/08: Base of ulcer appeared clean, well granulated. S/p right 5th toe amputation. Area on top of foot that was bullous and necrotic is now s/p I&D x2; appeared clean with good granulation tissue. The amputated area was able to be visualized, good granulation, no signs of pus or erythema, no bone visualized. She is able to move her remaining toes as well. CARDIOVASCULAR: Regular rate and rhythm without murmurs, gallops, or rubs. RESPIRATORY: Clear to auscultation. Breath sounds equal bilaterally. No wheezes , rales, or rhonchi. GASTROINTESTINAL: Abdomen soft, non-tender, nondistended. No hepato-splenomegaly , or palpable masses. No guarding. MUSCULOSKELETAL: Extremities without clubbing, cyanosis, or edema. Right foot exam as above. NEUROLOGICAL: Awake and alert. Cranial nerves II through XII intact. Five out of 5 muscle strength in all muscle groups. Normal speech. Sensation intact over remaining toes R foot. Procedures Amputation R 5th toe with I&D - 07/02 Repeat I&D abscess with wound vac placement R foot - 07/04 (Chan Garcia MD R2) A/P Assessment and Plan 45 year old female with diabetes, admitted with diabetic foot ulcer and cellulitis, status post I&D and fifth toe amputation of the right lower extremity. She needs to remain inpatient due to need for continued use of wound VAC, need for continued IV antibiotics, and lack of insurance. Discharge Planning Patient needs to be set up for continued home management to include home health , IV antibiotics to total course of 6 weeks therapy, and wound VAC. (Chan Garcia MD R2) Attending Attestation Patient seen and examined. Case reviewed and discussed with the resident team. Agree with plan of care as discussed with me and documented in the resident note. (Hortencia Helm MD) Problem List: (1) Diabetic foot ulcer Status: Acute Plan: Continue IV Vanco and Zosyn per ID. Continue wound VAC per podiatry. Will discharge once patient can be set up with wound VAC and IV antibiotics at home. It is recommended the patient receive hyperbaric oxygen therapy, however, patient would need to pay out of pocket for this as outpatient Hospital course: Wound culture 06/29 and 06/30, at time of I&D, growing Group B strep, MRSA Wound culture growing MRSA was superficial wound collection Blood cultures 06/29 negative growth, final Patient received right fifth toe amputation on 07/04 Podiatry on board, appreciate their assistance Jacquelinesycayla 06/29-07/07; though cultures growing only gram positives she is diabetic and the MRSA culture was just a skin scraping and not a tissue culture Vancomycin added 07/01/16 to cover for MRSA. Education on diabetes control, case management to help set up PCP Infectious disease consulted, Dr. Soares following. Patient to require PICC placement for IV antibx at home, will write for these prior to discharge. She has no insurance and getting HHC, wound vac, hyperbaric oxygen and abx paid for as an outpt will be extremely difficult. (2) Type 2 diabetes mellitus Status: Chronic Plan: BSG [id number] over last 24 hours, required 13 additional units NovoLog Continue sliding scale and diabetic diet Continue Levemir 10 units twice a day Hospital course: - Poorly controlled diabetes, glucose was 300 on admission. Takes metformin 500 mg q day at home. No PCP or health insurance. - Diabetic diet - Low dose sliding scale insulin - Levemir 10 BID - Diabetic education - Case management to help her get PCP and insurance, she wants to go to FP clinic on discharge - her bedtime glucoses are variable in the hospital and will work on determining what she will need as an outpt (3) Gangrenous toe Status: Acute Plan: 5th right digit was gangrenous, lacking in sensation S/P amputation 07/04 Hospital Course: - Podiatry consulted, appreciate assistance (see above) - Vascular surgery on board, CTA runoff shows significant small vessel disease (4) Nutrition, metabolism, and development symptoms Status: Acute Plan: - Electrolytes normal - Diabetic diet - DVT prophylaxis: Heparin every 8 (Chan Garcia MD R2) Problem Qualifiers (1) Diabetic foot ulcer: Qualified Code: E11.621 - Diabetic ulcer of right midfoot associated with type 2 diabetes mellitus, limited to breakdown of skin (2) Type 2 diabetes mellitus: Qualified Code: E11.42 - Type 2 diabetes mellitus with diabetic polyneuropathy , without long-term current use of insulin Chan Garcia MD R2 Jul 11, 2016 09:07 Hortencia Helm MD July 12, 2016 11:58
[2016-07-11 10:34] LABS: BASOPHIL # 0.1 TH/MM3 (0-0.2); BASOPHIL % 0.7 % (0.0-2.0); EOSINOPHIL # 0.3 TH/MM3 (0-0.4); EOSINOPHIL % 3.2 % (0.0-4.0); HEMATOCRIT 32.7 % (35.0-46.0); HEMO FLAGS DIFF FINAL; LYMPHOCYTE # 2.7 TH/MM3 (1.0-4.8); MEAN CELL VOLUME 86.7 FL (80.0-100.0); MEAN CORPUSCULAR HEMOGLOBIN 29.5 PG (27.0-34.0); MEAN CORPUSCULAR HGB CONC 34.1 % (32.0-36.0); MONO % 7.7 % (0.0-8.0); NEUT % 57.4 % (16.0-70.0); PLATELET COUNT 415 TH/MM3 (150-450); RED BLOOD COUNT 3.77 MIL/MM3 (4.00-5.30); RED CELL DISTRIBUTION WIDTH 13.6 % (11.6-17.2); WHITE BLOOD COUNT 8.7 TH/MM3 (4.0-11.0)
--- NOTE | 2016-07-11 11:16 | HHI.FF ---
Face to Face Verification Diagnosis: (1) Diabetic foot ulcer (2) Type 2 diabetes mellitus Physical Therapy Order: Evaluate and Treat Occupational Therapy Order: Evaluate and Treat Home Health Nursing Order: Medical education Signs/symptoms of disease process Diabetic education Medication education-adverse effect Wound care and dressing changes IV medication administration Instructions: Patient will require IV antibiotics to be administered once daily She will require management of wound VAC daily until ordered to DC by physician I have seen patient Ana Leyva on 07/11/16. My clinical findings support the need for the requested home health care services because: Patient is diabetic with recent nonhealing ulcer requiring amputation of right fifth toe. She has continued requirement for wound VAC, IV antibiotics, and likely hyperbaric oxygen therapy. She requires home health services because she must remain nonambulatory and requires IV antibiotic administration daily. Ltd mobility - disease progression Deconditioned w/ increased weakness Infection w/ risk of complications Injectable med education/admin I certify that my clinical findings support that this patient is homebound because: Post-op weakness Poor cardiac reserve Paula Beltrán MD R1 Jul 11, 2016 11:16
[2016-07-11 11:19] LABS: POTASSIUM 3.7 MEQ/L (3.5-5.1)
[2016-07-11] MEDS: ACETAMINOPHEN 325 MG TAB PO PRN (11:31)
[2016-07-11] MEDS ORDERED: PHARMACY ORDERED LAB ONE (11:45)
--- NOTE | 2016-07-11 18:38 | RADRPT ---
EXAM DATE/TIME: 07/11/2016 18:04 [facility] COMPARISON: CHEST SINGLE AP, March 24, 2015, 10:05. INDICATIONS : Right sided PICC line placement. MEDICAL HISTORY : None. SURGICAL HISTORY : None. ENCOUNTER: Initial ACUITY: 1 day PAIN SCORE: 0/10 LOCATION: Bilateral chest FINDINGS: There is linear atelectasis in both lung bases. There is no appreciable pleural effusion for techniq ue. Heart and mediastinum are unremarkable. Right subclavian PICC line is present with tip overlappi ng the expected region of the SVC. No definite pneumothorax is seen for technique. CONCLUSION: Bibasilar linear atelectasis. Lore Whitley MD on July 11, 2016 at 18:35 Board Certified Radiologist. This report was verified electronically.
[2016-07-11] MEDS ORDERED: SODIUM CHLORIDE 0.9% FLUSH 10 ML FLUSH IV FLUSH PRN (19:00)
[2016-07-12] VITALS (7 sets, daily range): BP systolic 156–181; BP diastolic 77–91; PULSE 63–81; RESP 17–19; TEMP 97.1–98.8; O2SAT 95–98
[2016-07-12] MEDS ORDERED: VANCOMYCIN 1,000 MG/NS 250 ML IV SCH ×2 (06:00)
[2016-07-12] MEDS: HEPARIN SODIUM - SQ 10,000 UNITS/ML VIAL SQ SCH ×3 (06:02→21:53)
[2016-07-12] MEDS: INSULIN ASPART SUPPLEMENTAL SCALE SQ SCH ×4 (06:03→21:55)
[2016-07-12] MEDS: SODIUM CHLORIDE 0.9% FLUSH 10 ML FLUSH IV FLUSH SCH ×3 (10:35→21:58)
[2016-07-12] MEDS: INSULIN DETEMIR 100 UNITS/ML VIAL SQ SCH ×2 (10:36→21:54)
[2016-07-12] MEDS: DOCUSATE SODIUM 50 MG/SENNA 8.6 MG TAB PO SCH ×2 (10:36→21:00)
[2016-07-12] MEDS: LISINOPRIL 20 MG TAB PO SCH (10:36)
[2016-07-12] MEDS: oxyCODONE/ACETAMINOPHEN 10 MG/325 MG TAB PO PRN ×3 (10:38→23:04)
[2016-07-12] MEDS ORDERED: LEVEMIR SQ (11:20)
[2016-07-12] MEDS ORDERED: GLUCTES12 (11:20)
[2016-07-12] MEDS ORDERED: BIOM30MI (11:20)
[2016-07-12] MEDS ORDERED: OXYC1TAB36 PO (11:20)
[2016-07-12] MEDS ORDERED: INSU1MIS15 (11:20)
[2016-07-12] MEDS ORDERED: LISI-515 PO (11:20)
[2016-07-12] MEDS ORDERED: LANCETS1 MI1 (11:20)
[2016-07-12] MEDS ORDERED: GLUCKIT15 (11:20)
[2016-07-12] MEDS ORDERED: METF500T PO (11:20)
--- NOTE | 2016-07-12 12:01 | HHI.FPPN ---
Subjective Remarks Pt seen and examined this AM. Was feeling anxious about wound vac and dressing changes but feeling better now. Ready to go home. Denies CP, SOB. Ambulating with wheeled walker. Tolerating PO without nausea/vomiting. (Tatiana Villegas MD) Objective Vitals Vital Signs Date Time Temp Pulse Resp B/P Pulse Ox O2 Delivery O2 Flow Rate FiO2 07/12/16 10:44 Room Air 07/12/16 08:07 98.4 64 19 178/91 98 07/12/16 04:30 156/78 07/12/16 04:00 97.9 71 18 161/77 95 07/12/16 00:00 98.8 70 18 171/85 98 07/11/16 23:00 160/82 07/11/16 20:00 97.5 57 18 190/90 100 07/11/16 20:00 Room Air 07/11/16 16:00 97.9 60 20 176/93 96 07/11/16 12:00 98.4 62 20 162/85 98 I/O 07/11/16 07/11/16 07/11/16 07/12/16 07/12/16 07/12/16 07:00 15:00 23:00 07:00 15:00 23:00 Intake Total 480 ml 560 ml Output Total 100 ml Balance 480 ml -100 ml 560 ml Intake Oral 480 ml 560 ml Drainage Total 100 ml # Voids 3 4 # Bowel Movements 0 (Tatiana Villegas MD) Result Diagram: 07/11/16 0916 07/12/16 0630 Objective Remarks GENERAL: Well-nourished, well-developed, pleasant female sitting up in bed in [facility]. SKIN: Warm and dry. HEENT: Pupils equal and round. EOMI. MMM. HEART: RRR no m/r/g. LUNGS: CTAB without wheezes or crackles. EXTREMITIES: RLE with wound VAC. Dressing C/D/I. RUE with PICC line in place and no surrounding erythema. NEURO: Awake and alert. Normal speech. PSYCH: Appropriate mood and affect. Procedures Amputation R 5th toe with I&D - 07/02 Repeat I&D abscess with wound vac placement R foot - 07/04 (Tatiana Villegas MD) A/P Assessment and Plan 45 year old female with poorly-controlled diabetes and no PCP admitted on 06/29/16 with RLE diabetic foot ulcer and cellulitis. Foot MRI did not show evidence of osteomyelitis and CTA with run-off showed bilateral severe small vessel disease. Bedside I&D was performed on 06/30 by podiatry She underwent I&D and R fifth toe amputation on 07/02. CV surgery consulted but unfortunately small vessel disease burden was too high for any vascular intervention. The patient underwent further I&D in the OR along with amputation of the right fifth toe on 07/[address] Perez (podiatry). Cultures of the wound grew MRSA and group B strep, and infectious disease was consulted. She went back to the OR on 07/04 for further debridement along with wound vac placement. She is medically stable and ready for discharge with home health to administer IV vancomycin and wound vac care. Discharge Planning D/C home with home health today; patient to need 6 weeks IV vancomycin and wound vac care. Case management assisting with D/C needs. (Tatiana Villegas MD) Attending Attestation Patient seen and examined. Case reviewed and discussed with the resident team. Agree with plan of care as discussed with me and documented in the resident note. (Hortencia Helm MD) Problem List: (1) Diabetic foot ulcer Status: Acute Plan: Patient with poorly-controlled DM presenting with R fifth toe diabetic foot ulcer. MRI with no evidence of osteomyelitis. CTA of LE w/ severe small vessel disease; not a vascular surgery candidate. - Wound cultures growing Group B strep and MRSA - Blood cultures no growth - Podiatry consulted; s/p I&D and right fifth toe amputation on 07/02 and repeat I&D with wound vac placement on 07/04. Appreciate their expertise - ID consulted for assistance with antibiotic management as patient will need long-term IV antibiotics. PICC line RUE placed yesterday * Zosyn 06/29-07/07 * Vancomycin 07/01- (will await orders from ID for duration of treatment) - Patient would benefit from HBO but since self-pay she is not a candidate at this time (2) Type 2 diabetes mellitus Status: Chronic Plan: Poorly-controlled DM and h/o noncompliance. - Diabetic education and nutrition consulted - Supposedly takes metformin at home but compliance is questionable - Patient has been on Levemir 10 units BID but has required 11 units SSI yesterday so will D/C home on 12 units BID and PCP will titrate - D/C home on metformin 1000 mg PO BID - Check A1c (3) Peripheral arterial disease Status: Chronic Plan: Patient with severe bilateral small vessel disease and not a vascular surgery candidate. - A1c and lipid profile ordered - Counseled on smoking cessation - Needs better BP control; to be followed as outpatient - D/C on ASA and statin (4) Hypertension Status: Chronic Plan: BPs elevated. Started on Lisinopril this admission and increased to 40 mg daily today. Patient will need f/u as outpatient. (5) Nutrition, metabolism, and development symptoms Status: Acute Plan: - Fluids: Tolerating PO - Electrolytes: WNL - Nutrition: Diabetic diet sdw Dr. Helm and Dr. Lore Beltrán (Tatiana Villegas MD) Problem Qualifiers (1) Diabetic foot ulcer: Qualified Code: E11.621 - Diabetic ulcer of right midfoot associated with type 2 diabetes mellitus, limited to breakdown of skin (2) Type 2 diabetes mellitus: Qualified Code: E11.42 - Type 2 diabetes mellitus with diabetic polyneuropathy , without long-term current use of insulin Tatiana Villegas MD July 12, 2016 12:01 Hortencia Helm MD July 12, 2016 13:10
[2016-07-12] MEDS ORDERED: ATOR40TA16 PO (12:06)
--- NOTE | 2016-07-12 12:07 | HHI.DS ---
Discharge Summary Admission Date Jun 29, 2016 at 10:53 Discharge Date: July 12, 2016 Admitting Diagnosis diabetic foot infection (1) Diabetic foot ulcer Plan: Patient with poorly-controlled DM presenting with R fifth toe diabetic foot ulcer. MRI with no evidence of osteomyelitis. CTA of LE w/ severe small vessel disease; not a vascular surgery candidate. - Wound cultures growing Group B strep and MRSA - Blood cultures no growth - Podiatry consulted; s/p I&D and right fifth toe amputation on 07/02 and repeat I&D with wound vac placement on 07/04. Appreciate their expertise - ID consulted for assistance with antibiotic management as patient will need long-term IV antibiotics. PICC line RUE placed yesterday * Zosyn 06/29-07/07 * Vancomycin 07/01- (will await orders from ID for duration of treatment) - Patient would benefit from HBO but since self-pay she is not a candidate at this time (2) Type 2 diabetes mellitus Plan: Poorly-controlled DM and h/o noncompliance. - Diabetic education and nutrition consulted - Supposedly takes metformin at home but compliance is questionable - Patient has been on Levemir 10 units BID but has required 11 units SSI yesterday so will D/C home on 12 units BID and PCP will titrate - D/C home on metformin 1000 mg PO BID - Check A1c (3) Peripheral arterial disease Plan: Patient with severe bilateral small vessel disease and not a vascular surgery candidate. - A1c and lipid profile ordered - Counseled on smoking cessation - Needs better BP control; to be followed as outpatient - D/C on ASA and statin (4) Hypertension Plan: BPs elevated. Started on Lisinopril this admission and increased to 40 mg daily today. Patient will need f/u as outpatient. Consultants Podiatry ID Vascular surgery Procedures Amputation R 5th toe with I&D - 07/02 Repeat I&D abscess with wound vac placement R foot - 07/04 Brief History Ms Leyva is a 45 year old female with a history of type II diabetes mellitus, recently uncontrolled, who presented with 3 week history of foot ulcer. The ulcer is located on the base of the right foot on the ball of the foot behind the great toe. The ulcer has gotten bigger over the last 3 weeks. Over the last couple days, she has erythema across the top of her foot that started to spread up her right leg. She was treated with Ciprofloxacin for two days before admission but there was worsening rather than improvement. She also presented to the ED on 06/26 and had incision and debridement of the foot. There was some foul smelling drainage from the ulcer. No abscess reported. She had night sweats last night. She was started on iv abx and had a fever overnight but has had some resolution of her erythema that had been spreading up her leg. She has some numbness chronically and is insensitive to light touch on her 5th toe on the right and some other areas as well but regains normal feeling above the ankle. Yesterday, she had a small probably 1-2 cm roughly circular area at the base of her 4th and 5th toes on the right. This area was discolored and darker that the surrounding skin but was flat and nontender. However, this am this area has greatly enlarged and gone from the dorsum of her foot to the ventral area as well as becoming larger in size and expanding three dimensionally. Ms Leyva has diminished feeling in her foot especially on the right but does not complain of terrible pain in this area. CBC/BMP: 07/11/16 0916 07/12/16 0630 Significant Findings Laboratory Tests Test 07/10/16 07/11/16 07/11/16 07/12/16 09:25 09:16 12:01 06:30 Estimat Glomerular Filtration 67 ML/MIN (>89) 66 ML/MIN (>89) 69 ML/MIN (>89) Rate Red Blood Count 3.77 MIL/MM3 (4.00-5.30) Hemoglobin 11.1 GM/DL (11.6-15.3) Hematocrit 32.7 % (35.0-46.0) Vancomycin Level Trough 18.5 MCG/ML (5.0-10.0) PE at Discharge GENERAL: Well-nourished, well-developed, pleasant female sitting up in bed in [facility]. SKIN: Warm and dry. HEENT: Pupils equal and round. EOMI. MMM. HEART: RRR no m/r/g. LUNGS: CTAB without wheezes or crackles. EXTREMITIES: RLE with wound VAC. Dressing C/D/I. RUE with PICC line in place and no surrounding erythema. NEURO: Awake and alert. Normal speech. PSYCH: Appropriate mood and affect. Hospital Course 45 year old female with poorly-controlled diabetes and no PCP admitted on 06/29/16 with RLE diabetic foot ulcer and cellulitis. Foot MRI did not show evidence of osteomyelitis and CTA with run-off showed bilateral severe small vessel disease. Bedside I&D was performed on 06/30 by podiatry She underwent I&D and R fifth toe amputation on 07/02. CV surgery consulted but unfortunately small vessel disease burden was too high for any vascular intervention. The patient underwent further I&D in the OR along with amputation of the right fifth toe on 07/[address] Perez (podiatry). Cultures of the wound grew MRSA and group B strep, and infectious disease was consulted. She went back to the OR on 07/04 for further debridement along with wound vac placement. She is medically stable and ready for discharge with home health to administer IV vancomycin and wound vac care on 07/12. Pt Condition on Discharge: Stable Discharge Disposition: Disch w/ Home Health Serv Discharge Instructions DIET: Follow Instructions for: Diabetic Diet Activities you can perform: Partial Weight Bearing Follow up Referrals: Infectious Disease - 1 Week PCP Follow-up - 1 Week New Medications: Aspirin (Aspirin) 81 Mg Tabdr 81 MG PO DAILY #30 TAB Atorvastatin (Atorvastatin) 40 Mg Tab 40 MG PO HS Cholesterol Management #30 Ref 0 TAB Blood Glucose Monitoring W/Device (Glucocom Blood Glucose Mo W/Device) 1 Kit Kit 1 KIT .ROUTE DIRECTED Blood Sugar Management #1 KIT Glucocom Test Strips (Glucocom Test Strips) 1 Sarah Sarah 1 EA .ROUTE DIRECTED Blood Sugar Management #1 BOX Insulin Detemir Inj (Levemir Inj) 1,000 unit/ 10 ML Vial 12 UNITS SQ BID Do not mix with any other Insulin. Blood Sugar Management #1 Ref 1 VIAL Insulin Syringe/U-100/31G X 5/16" 1 ml (Insulin Syringe/U-100/31G X 5/16" 1 ml) 1 Mis Mis 1 EA .ROUTE DIRECTED Blood Sugar Management #1 Ref 0 BOX Lancets (Lancets) 1 Mis Mis 1 EA .ROUTE DIRECTED Blood Sugar Management #1 Ref 0 BOX Metformin (Metformin) 500 Mg Tab 500 MG PO BIDPC With meals Blood Sugar Management #60 Ref 0 TAB Parenteral Therapy Supplies (Sharpsafety Sharps Contai) 1 Mis Mis 1 EA .ROUTE DIRECTED #1 Ref 0 EA Walker with Front Wheels (Walker with Front Wheels) 1 Mis Mis 1 EA .ROUTE DIRECTED #1 Ref 0 EA Lisinopril (Lisinopril) 20 Mg Tab 40 MG PO DAILY #30 TAB Oxycodone-Acetaminophen (Oxycodone-Acetaminophen) 10-325 mg Tab 1 TAB PO Q4H PRN BREAKTHROUGH PAIN #30 TAB Discontinued Medications: Ciprofloxacin (Cipro) 500 Mg Tab 500 MG PO BID Infection Days 10 Ref 0 TAB Ibuprofen (Ibuprofen) 800 Mg Tab 800 MG PO Q8H PRN pain #30 Ref 0 TAB Metformin (Metformin) 500 Mg Tab 500 MG PO DAILY With a meal Blood Sugar Management #30 Ref 0 TAB Tramadol (Ultram) 50 Mg Tab 50 MG PO Q4H PRN PAIN #12 Ref 0 TAB Tatiana Villegas MD July 12, 2016 12:07
[2016-07-12] MEDS ORDERED: EPIN1INJ21 IV PUSH (12:29)
[2016-07-12] MEDS ORDERED: EPIN1INJ21 SQ (12:29)
[2016-07-12] MEDS ORDERED: SOLU250I IV PUSH (12:29)
[2016-07-12] MEDS ORDERED: VANC10IN IV (12:29)
--- NOTE | 2016-07-12 12:39 | HHI.FF ---
cc: Yolande Hackett MD Infusion Therapy Location of Infusion Therapy: Home Health Care IV Infusion Order Patient Information Appointment Date: July 12, 2016 Patient Weight 80.2 kg Diagnosis: Diagnosis MRSA osteomyelitis foot Coded Allergies: Aspirin (Verified Adverse Reaction, Intermediate, VOMITING, 06/29/16) *MDRO Multi-Drug Resistant Organism (Verified Adverse Reaction, Unknown, ) MRSA (wound drainage) - 06/29/16 Administer Medication Vancomycin 1250 mg IV daily Start Treatment: July 12, 2016 Stop Treatment: August 10, 2016 Additional Information Venous access: PICC Line Additional Instructions [x] Peripheral flush and dressing changes per protocol [x] 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 [] May leave port accessed during therapy. [] May leave peripheral site accessed for duration of therapy. [x] If patient has SOB or respiratory distress, check oxygen saturation. If less than 90% or clinical signs of respiratory distress, administer oxygen at 2 L/min. via nasal cannula and notify physician. [x] Anaphylaxis/Reaction orders: * Stop infusion. * Keep IV line open with saline flush. * Notify physician. * Monitor vital signs every 15 minutes until symptoms resolve. * Check Oxygen saturation; Oxygen at 2 L/min. via nasal cannula if less than 90% or clinical signs of respiratory distress. * Administer diphenhydramine (Benadryl) 25 mg IV STAT, (unless patient has received as pre-med). May repeat once, if necessary. * Solu-Cortef 250 mg IVP over 30-60 seconds, use 100 mg vials for each dissolution. * Epinephrine (1mg/1 ml) 0.3 mg subcutaneously or IVP now with any signs of respiratory distress. * Check with physician for new additional pre-med orders if patient is re- challenged or re-treated. [x] May remove PICC line when treatment complete, after confirming with Physician. [x] If the patient is admitted to the hospital, the ED, or transferred via [facility] , complete transfer form including medication reconciliation order sheet. Laboratory Tests Weekly Labs: CBC w/diff, Creatinine, CRP, LFT's (Hepatic function test), Vancomycin Trough (Target 15-20) Additional Information Please draw weekly labs, call with abnormal labs and or, change in clinical condition or problems to: Dr.Reba Hackett and or covering ID Physician Follow up appt: Patient to schedule follow up appt with Dr.Reba Hackett within 10 days weeks post discharge. Follow up with PCP Follow up with other MDs as planned. Counseling: Counseled about medication side effects Counseled about PICC line care and hand hygiene. Charmaine Soares MD July 12, 2016 12:39
--- NOTE | 2016-07-12 12:46 | HHI.IDPN ---
Subjective Subjective Remarks 45 y/o female admitted with R foot ulcer, has DM, smoker No fever No rash No diarrhea Antibiotics Vanco IV Lines PIV Past Medical History Diabetes mellitus type 2, uncontrolled Difficulty getting medical insurance Takes Metformin 500 mg daily for diabetes No complications besides current foot ulcer and neuropathy Past Surgical History Cholecystectomy Abdominal hernia repair Allergies: Coded Allergies: Aspirin (Verified Adverse Reaction, Intermediate, VOMITING, 06/29/16) *MDRO Multi-Drug Resistant Organism (Verified Adverse Reaction, Unknown, ) MRSA (wound drainage) - 06/29/16 Objective . Vital Signs Date Time Temp Pulse Resp B/P Pulse Ox O2 Delivery O2 Flow Rate FiO2 07/12/16 10:44 Room Air 07/12/16 08:07 98.4 64 19 178/91 98 07/12/16 04:30 156/78 07/12/16 04:00 97.9 71 18 161/77 95 07/12/16 00:00 98.8 70 18 171/85 98 07/11/16 23:00 160/82 07/11/16 20:00 97.5 57 18 190/90 100 07/11/16 20:00 Room Air 07/11/16 16:00 97.9 60 20 176/93 96 07/11/16 07/11/16 07/12/16 15:00 23:00 07:00 Intake Total 560 ml Output Total 100 ml Balance -100 ml 560 ml Intake Oral 560 ml Drainage Total 100 ml # Voids 4 # Bowel Movements 0 . Laboratory Tests Test 07/11/16 09:16 White Blood Count 8.7 TH/MM3 Red Blood Count 3.77 MIL/MM3 Hemoglobin 11.1 GM/DL Hematocrit 32.7 % Mean Corpuscular Volume 86.7 FL Mean Corpuscular Hemoglobin 29.5 PG Mean Corpuscular Hemoglobin 34.1 % Concent Red Cell Distribution Width 13.6 % Platelet Count 415 TH/MM3 Mean Platelet Volume 8.0 FL Neutrophils (%) (Auto) 57.4 % Lymphocytes (%) (Auto) 31.0 % Monocytes (%) (Auto) 7.7 % Eosinophils (%) (Auto) 3.2 % Basophils (%) (Auto) 0.7 % Neutrophils # (Auto) 5.0 TH/MM3 Lymphocytes # (Auto) 2.7 TH/MM3 Monocytes # (Auto) 0.7 TH/MM3 Eosinophils # (Auto) 0.3 TH/MM3 Basophils # (Auto) 0.1 TH/MM3 CBC Comment DIFF FINAL Differential Comment Laboratory Tests Test 07/11/16 07/12/16 09:16 06:30 Sodium Level 139 MEQ/L Potassium Level 3.7 MEQ/L Chloride Level 103 MEQ/L Carbon Dioxide Level 29.0 MEQ/L Anion Gap 7 MEQ/L Blood Urea Nitrogen 17 MG/DL Creatinine 0.92 MG/DL 0.89 MG/DL Estimat Glomerular Filtration 66 ML/MIN 69 ML/MIN Rate Random Glucose 78 MG/DL Calcium Level 9.3 MG/DL Imaging Foot X-Ray 07/02/16 0000 Signed Impressions: Service Date/Time: Saturday, July 02, 2016 09:19 - CONCLUSION: Postop amputation. Lore Whitley MD Carotid Artery Ultrasound 06/30/16 0000 Signed Impressions: Service Date/Time: Thursday, June 30, 2016 15:55 - CONCLUSION: Mild calcified plaque in the carotid bulb and proximal internal carotid arteries with hemodynamic profile characteristic of less than 50%% stenosis. Froest Recinos MD Aorta w/Runoff CTA 06/30/16 0000 Signed Impressions: Service Date/Time: Thursday, June 30, 2016 15:17 - CONCLUSION: 1. Patent inflow and outflow bilaterally. 2. The right lower extremity is somewhat limited in evaluation due to venous contamination and motion artifact. Single-vessel runoff to the right foot via the anterior tibial artery. Posterior tibial and peroneal are diffusely diseased. 3. Left lower extremity is better evaluated. Anterior tibial artery is patent. The posterior tibial and peroneal are diffusely diseased. 4. 2.8 cm left adnexal cyst likely ovarian in origin. 5. Right groin adenopathy. Forest Berry Jr., MD Foot MRI 06/29/16 0000 Signed Impressions: Service Date/Time: Wednesday, June 29, 2016 12:26 - CONCLUSION: 1. No evidence of osteomyelitis. 2. Focal mild enhancement about the plantar soft tissue ulceration. No drainable fluid collections seen. Forest Recinos MD Physical Exam GENERAL: Awake and alert, NAD SKIN: No rashes, ecchymoses or lesions. Cool and dry. HEAD: Atraumatic. Normocephalic. No temporal or scalp tenderness. EYES: Pupils equal round and reactive. Extraocular motions intact. No scleral icterus. No injection or drainage. ENT: Nose without bleeding, purulent drainage. MOsit mucosa. Throat without erythema, or exudate. NECK: Trachea midline. Supple, nontender, no meningeal signs. CARDIOVASCULAR: RRR RESPIRATORY: Clear to auscultation. Breath sounds equal bilaterally. No wheezes , rales, or rhonchi. GASTROINTESTINAL: Abdomen soft, non-tender, nondistended. MUSCULOSKELETAL: RLE with wound vac. NEUROLOGICAL: Awake and alert. Grossly non focal. Decreased sensation to soft touch in LE Psych: cooperative IV line sites with no e.o infection. Assessment & Plan Remarks IMPRESSION Right plantar aspect Diabetic foot infection (DFI) with abscess. MRSA and Grp B strep infection in DFI. Small vessel disease, PVD. Diabetes mellitus uncontrolled Chronic smoker still active: counseled. Recs: Continue Vanco IV (target 10-15). [place] Pharmacist to change dose to 1250 mg IV q24hrs to hopefully transition to home in next day or two once Home health arrangements done. xuan Primary team Xuan Ux Specialist: patient needs IV antibiotics at home or SNF (cannot weight bear to come to clinic every day). Also needs transportation arranged to ensure the patient comes to her follow up visits. In addition to this she needs wound vac arranged. ID orders in chart already once placed determined i will finalize the order. Charmaine Soares MD July 12, 2016 12:46
[2016-07-12 14:01] LABS: HEMOGLOBIN A1a 1.6 %; HEMOGLOBIN A1b 2.7 %; HEMOGLOBIN Ao 79.8 %; HEMOGLOBIN P3 4.2 %
--- NOTE | 2016-07-12 16:07 | HHI.FF ---
Face to Face Verification Diagnosis: (1) Diabetic foot infection (2) Osteomyelitis Home Health Nursing Order: Medication education-adverse effect Wound care and dressing changes IV medication administration Instructions: Wound care nursing Dressing changes M, W, F Wound vac management IV Vancomycin administration daily via PICC I have seen patient Ana Leyva on 07/12/16. My clinical findings support the need for the requested home health care services because: Ltd mobility - disease progression Limited ability to care for self Infection w/ risk of complications Injectable med education/admin I certify that my clinical findings support that this patient is homebound because: Unsteady gait/balance Unsafe to leave home unassisted Paula Beltrán MD R1 July 12, 2016 16:07
[2016-07-13] VITALS: BP 170/87; PULSE 65; RESP 17; TEMP 97.6; O2SAT 95
[2016-07-13 00:48] VITALS: BP 152/98
[2016-07-13 04:00] VITALS: BP 148/72; PULSE 62; RESP 17; TEMP 96.7; O2SAT 98
[2016-07-13] MEDS: HEPARIN SODIUM - SQ 10,000 UNITS/ML VIAL SQ SCH ×2 (05:43→13:45)
[2016-07-13] MEDS: INSULIN ASPART SUPPLEMENTAL SCALE SQ SCH ×3 (05:44→15:58)
[2016-07-13] MEDS ORDERED: PHARMACY ORDERED LAB ONE (05:45)
[2016-07-13] MEDS ORDERED: VANCOMYCIN INJ 1,250 MG in SODIUM CHLOR 0.9% 250 ML INJ 250 ML IV SCH (06:00)
[2016-07-13 08:10] VITALS: BP 167/78; PULSE 64; RESP 16; TEMP 98.1; O2SAT 96
[2016-07-13] MEDS: DOCUSATE SODIUM 50 MG/SENNA 8.6 MG TAB PO SCH (08:15)
[2016-07-13] MEDS: LISINOPRIL 20 MG TAB PO SCH (08:15)
[2016-07-13] MEDS: SODIUM CHLORIDE 0.9% FLUSH 10 ML FLUSH IV FLUSH SCH ×2 (08:16)
[2016-07-13] MEDS: INSULIN DETEMIR 100 UNITS/ML VIAL SQ SCH (08:16)
--- NOTE | 2016-07-13 08:48 | HHI.FPPN ---
Subjective Remarks Patient was seen and examined this morning. She has no complaints or concerns this morning. She denies chest pain, sob. She is somewhat anxious about managing her IV medications at home and asks about how to apply for Medicaid and disability. (Paula Beltrán MD R1) Objective Vitals Vital Signs Date Time Temp Pulse Resp B/P Pulse Ox O2 Delivery O2 Flow Rate FiO2 07/13/16 04:00 96.7 62 17 148/72 98 07/13/16 00:48 152/98 07/13/16 00:00 97.6 65 17 170/87 95 07/12/16 21:55 Room Air 07/12/16 20:00 98.0 72 17 162/78 96 07/12/16 16:06 97.1 81 18 156/89 96 07/12/16 12:06 97.7 63 19 181/89 98 07/12/16 10:44 Room Air I/O 07/12/16 07/12/16 07/12/16 07/13/16 07/13/16 07/13/16 07:00 15:00 23:00 07:00 15:00 23:00 Intake Total 480 ml 240 ml 240 ml Output Total 6 ml Balance 474 ml 240 ml 240 ml Intake Oral 480 ml 240 ml 240 ml Output Urine Total 6 ml # Voids 2 2 # Bowel Movements 1 (Paula Beltrán MD R1) Result Diagram: 07/11/16 0916 07/12/16 0630 Imaging Last Impressions Chest X-Ray 07/11/16 0000 Signed Impressions: Service Date/Time: Monday, July 11, 2016 18:04 - CONCLUSION: Bibasilar linear atelectasis. Lore Whitley MD Foot X-Ray 07/02/16 0000 Signed Impressions: Service Date/Time: Saturday, July 02, 2016 09:19 - CONCLUSION: Postop amputation. Lore Whitley MD Carotid Artery Ultrasound 06/30/16 0000 Signed Impressions: Service Date/Time: Thursday, June 30, 2016 15:55 - CONCLUSION: Mild calcified plaque in the carotid bulb and proximal internal carotid arteries with hemodynamic profile characteristic of less than 50%% stenosis. Forest Recinos MD Aorta w/Runoff CTA 06/30/16 0000 Signed Impressions: Service Date/Time: Thursday, June 30, 2016 15:17 - CONCLUSION: 1. Patent inflow and outflow bilaterally. 2. The right lower extremity is somewhat limited in evaluation due to venous contamination and motion artifact. Single-vessel runoff to the right foot via the anterior tibial artery. Posterior tibial and peroneal are diffusely diseased. 3. Left lower extremity is better evaluated. Anterior tibial artery is patent. The posterior tibial and peroneal are diffusely diseased. 4. 2.8 cm left adnexal cyst likely ovarian in origin. 5. Right groin adenopathy. Forest Berry Jr., MD Foot MRI 06/29/16 0000 Signed Impressions: Service Date/Time: Wednesday, June 29, 2016 12:26 - CONCLUSION: 1. No evidence of osteomyelitis. 2. Focal mild enhancement about the plantar soft tissue ulceration. No drainable fluid collections seen. Forest Recinos MD Objective Remarks GENERAL: Well-nourished, well-developed, pleasant female sitting up in bed in NAD. SKIN: Warm and dry. Skin exam notable only for RLE findings. HEENT: Pupils equal and round. EOMI. MMM. HEART: RRR no m/r/g. LUNGS: CTAB without wheezes or crackles. EXTREMITIES: RLE with wound VAC. Dressing C/D/I. RUE with PICC line in place and no surrounding erythema. NEURO: Awake and alert. Normal speech. PSYCH: Appropriate mood and affect. Procedures Amputation R 5th toe with I&D - 07/02 Repeat I&D abscess with wound vac placement R foot - 07/04 Medications and IVs Inpatient Medications Acetaminophen (Tylenol) 650 mg Q4H PRN PO PAIN SCALE 3 TO 4 Last administered on 07/11/16 11:31; Start 06/29/16 at 11:45 Dextrose (D50w (Vial) Inj) 25 ml UNSCH PRN IV PUSH HYPOGLYCEMIA-SEE COMMENTS; Start 06/29/16 at 11:30 Enalaprilat (Vasotec Inj) 1.25 mg Q6H PRN IV PUSH SBP>160, DBP>90 Last administered on 07/11/16 21:51; Start 07/01/16 at 16:45 Enoxaparin Sodium (Lovenox Inj) 40 mg Q24H SQ Last administered on 06/30/16 11 :48; Start 06/29/16 at 13:00; Stop 06/30/16 at 12:14; Status DC Glucagon (Glucagon Inj) 1 mg UNSCH PRN OTHER HYPOGLYCEMIA-SEE COMMENTS; Start 06/29/16 at 11:30 Heparin Sodium (Porcine) (Heparin Central Flush) See Protocol UNSCH PRN IV FLUSH SEE PROTOCOL TABLE; Start 07/11/16 at 19:00 Heparin Sodium (Porcine) (Heparin Inj) 5,000 units Q8HR SQ Last administered on 07/13/16 05:43; Start 07/05/16 at 14:00 Insulin Aspart 1 1 ACHS SLIDING SCALE SQ Last administered on 07/13/16 05:44; Start 06/29/16 at 16:00 Insulin Detemir (Levemir Inj) 10 units Q12HR SQ Last administered on 07/13/16 08:16; Start 07/06/16 at 21:00 Lisinopril (Prinivil) 20 mg DAILY PO Last administered on 07/11/16 08:10; Start 07/06/16 at 09:00; Stop 07/12/16 at 06:59; Status DC Lisinopril 40 mg 40 mg DAILY PO Last administered on 07/13/16 08:15; Start 07/12 at 09:00 Miscellaneous Information SPECIFIC LAB TO BE DRAWN:VANCOMY... ONCE ONCE .XX Last administered on 07/13/16 05:44; Start 07/13/16 at 05:45; Stop 07/13/16 at 05: 46; Status DC Morphine Sulfate 4 mg 4 mg ONCE ONCE IV PUSH Last administered on 06/29/16 09 :40; Start 06/29/16 at 09:45; Stop 06/29/16 at 09:46; Status DC Naloxone HCl 0.4 mg 0.4 mg UNSCH PRN IV SEE LABEL COMMENTS; Start 06/29/16 at 11:45 Ondansetron HCl (Zofran Inj) 4 mg Q6H PRN IVP NAUSEA OR VOMITING Last administered on 07/05/16 00:41; Start 06/29/16 at 11:45 Oxycodone/ Acetaminophen (Percocet 5-325 Mg) 1 tab Q4H PRN PO PAIN SCALE 5 TO 7 Last administered on 07/09/16 16:28; Start 06/29/16 at 20:00 Oxycodone/ Acetaminophen (Percocet 10-325 Mg) 1 tab Q4H PRN PO PAIN SCALE 8 TO 10 Last administered on 07/12/16 23:04; Start 06/29/16 at 20:00 Pharmacy Profile Note (Vancomycin Consult Pharmacy) 0 ml @ 0 mls/hr UNSCH OTHER ; Start 07/02/16 at 09:45 Piperacillin Sod/ Tazobactam Sod (Zosyn 3.375 Gm Premix) 50 ml @ 100 mls/hr Q6H IV Last administered on 07/07/16 09:03; Start 06/29/16 at 16:00; Stop at 10:37; Status DC Piperacillin Sod/ Tazobactam Sod (Zosyn 4.5 Gm Premix) 100 ml @ 200 mls/hr ONCE ONCE IV Last administered on 06/29/16 09:41; Start 06/29/16 at 09:45; Stop 06/29/16 at 10:14; Status DC Potassium Chloride 40 meq 40 meq ONCE ONCE PO ; Start 07/02/16 at 06:45; Stop 07/02/16 at 06:46; Status DC Potassium Chloride (KCl) 10 meq UNSCH X1 ONCE PO Last administered on 09:35; Start 07/06/16 at 09:30; Stop 07/06/16 at 09:31; Status DC Senna/Docusate Sodium 2 tab 2 tab BID PO Last administered on 07/11/16 08:10; Start 07/07/16 at 09:00 Sennosides (Senokot) 17.2 mg Q12H PRN PO CONSTIPATION Last administered on 07/05 10:20; Start 06/29/16 at 11:45; Stop 07/07/16 at 07:07; Status DC Sodium Chloride (NS 1000 ml Inj) 1,000 ml @ 120 mls/hr Q8H20M IV Last administered on 07/01/16 04:38; Start 06/29/16 at 12:00; Stop 07/01/16 at 14:04 ; Status DC Sodium Chloride (NS Flush) UNSCH PRN IV FLUSH SEE PROTOCOL TABLE; Start at 19:00 Vancomycin HCl/ Sodium Chloride (Vancomycin Inj/ NS 250 ml Inj) 262.5 ml @ 250 mls/hr Q24H IV Last administered on 07/13/16 06:48; Start 07/13/16 at 06:00 Vancomycin HCl/ Sodium Chloride (Vancomycin Inj/ NS 500 ml Inj) 515 ml @ 250 mls/hr Q12H IV Last administered on 07/09/16t 11:47; Start 07/07/16 at 11:00; Stop 07/09/16 at 13:26; Status DC (Paula Beltrán MD R1) Urinary Catheter: No (Paula Beltrán MD R1) Vascular Central Line Catheter: No (Paula Beltrán MD R1) A/P Assessment and Plan 45 year old female with poorly-controlled diabetes and no PCP admitted on 06/29/16 with RLE diabetic foot ulcer and cellulitis. Foot MRI did not show evidence of osteomyelitis and CTA with run-off showed bilateral severe small vessel disease. Bedside I&D was performed on 06/30 by podiatry She underwent I&D and R fifth toe amputation on 07/02. CV surgery consulted but unfortunately small vessel disease burden was too high for any vascular intervention. The patient underwent further I&D in the OR along with amputation of the right fifth toe on 07/[address] Perez (podiatry). Cultures of the wound grew MRSA and group B strep, and infectious disease was consulted. She went back to the OR on 07/04 for further debridement along with wound vac placement. She is medically stable and ready for discharge with home health to administer IV vancomycin and wound vac care. Discharge Planning D/C home with home health 07/12; patient to need 6 weeks IV vancomycin and wound vac care, orders written. Case management assisting with D/C needs. (Paula Beltrán MD R1) Attending Attestation Patient seen and examined. Case reviewed and discussed with the resident team. Agree with plan of care as discussed with me and documented in the resident note. (Hortencia Helm MD) Problem List: (1) Diabetic foot ulcer Status: Acute Plan: Patient with poorly-controlled DM presenting with R fifth toe diabetic foot ulcer. MRI with no evidence of osteomyelitis. CTA of LE w/ severe small vessel disease; not a vascular surgery candidate. - Wound cultures growing Group B strep and MRSA - Blood cultures no growth - Podiatry consulted; s/p I&D and right fifth toe amputation on 07/02 and repeat I&D with wound vac placement on 07/04. Appreciate their expertise - ID consulted for assistance with antibiotic management as patient will need long-term IV antibiotics. PICC line RUE placed yesterday * Zosyn 06/29-07/07 * Vancomycin 07/01- to continue daily infusions as outpt - Patient would benefit from HBO but since self-pay she is not a candidate at this time (2) Type 2 diabetes mellitus Status: Chronic Plan: Poorly-controlled DM and h/o noncompliance. - Diabetic education and nutrition consulted - Supposedly takes metformin at home but compliance is questionable - Patient has been on Levemir 10 units BID but has required 11 units SSI yesterday so will D/C home on 12 units BID and PCP will titrate - D/C home on metformin 1000 mg PO BID - Check A1c (3) Peripheral arterial disease Status: Chronic Plan: Patient with severe bilateral small vessel disease and not a vascular surgery candidate. - A1c and lipid profile ordered - Counseled on smoking cessation - Needs better BP control; to be followed as outpatient - Standard of care to start ASA and statin; allergic to ASA (rash) so will start atorvastatin; lipid profile and a1c to be followed up as outpatient (4) Hypertension Status: Chronic Plan: BPs elevated. Started on Lisinopril this admission and increased to 40 mg daily today. Patient will need f/u as outpatient. (5) Nutrition, metabolism, and development symptoms Status: Acute Plan: - Fluids: Tolerating PO - Electrolytes: WNL - Nutrition: Diabetic diet - PPX: heparin 5000U sq 8hr (Paula Beltrán MD R1) Problem Qualifiers (1) Diabetic foot ulcer: Qualified Code: E11.621 - Diabetic ulcer of right midfoot associated with type 2 diabetes mellitus, limited to breakdown of skin (2) Type 2 diabetes mellitus: Qualified Code: E11.42 - Type 2 diabetes mellitus with diabetic polyneuropathy , without long-term current use of insulin Paula Beltrán MD R1 July 13, 2016 08:48 Hortencia Helm MD July 16, 2016 13:53
[2016-07-13] MEDS ORDERED: ATOR40TA16 PO (09:02)
[2016-07-13] MEDS ORDERED: ATORVASTATIN 40 MG TAB PO SCH (09:30)
[2016-07-13] MEDS: ACETAMINOPHEN 325 MG TAB PO PRN (11:11)
[2016-07-13 12:10] VITALS: BP 189/91; PULSE 64; RESP 16; TEMP 98.5; O2SAT 97
[2016-07-13] MEDS ORDERED: LORazepam 0.5 MG TAB PO PRN (13:30)
[2016-07-13] MEDS ORDERED: SERTRALINE HCL 50 MG TAB PO SCH (13:30)
[2016-07-13] MEDS ORDERED: PILL SPLITTER OTHER PRN (13:45)
--- NOTE | 2016-07-13 15:48 | HHI.FF ---
Face to Face Verification Diagnosis: (1) Diabetic foot ulcer (2) Osteomyelitis Home Health Nursing Order: Wound care and dressing changes Instructions: Wound care nursing Dressing changes M, W, F Wound vac management I have seen patient Ana Leyva on 07/13/16. My clinical findings support the need for the requested home health care services because: Ltd mobility - disease progression Infection w/ risk of complications I certify that my clinical findings support that this patient is homebound because: Post-op weakness Unsafe to leave home unassisted [id number] bed/chair Paula Beltrán MD R1 July 13, 2016 15:47
[2016-07-13] MEDS: oxyCODONE/ACETAMINOPHEN 10 MG/325 MG TAB PO PRN (16:00)
[2016-07-13 16:09] VITALS: BP 174/76; PULSE 62; RESP 16; TEMP 98; O2SAT 97
[2016-07-20] MEDS ORDERED: ATOR40TA16 PO (13:02)
[2016-07-20] MEDS ORDERED: METF500T PO (13:02)
[2016-07-20] MEDS ORDERED: LISI-515 PO (13:02)
[2016-07-20] MEDS ORDERED: LEVEMIR SQ (13:02)
[2016-07-20] MEDS ORDERED: BAYETES (13:04)
[2016-07-26] MEDS ORDERED: RANI150T PO (10:48)
[2016-07-26] MEDS ORDERED: IBUP800T23 PO (10:48)
[2016-07-27] MEDS ORDERED: OXYC1TAB63 PO (15:09)
[2016-08-05] MEDS ORDERED: SERT25TA83 PO (16:39)
[2016-08-05] MEDS ORDERED: AMLO5TAB2 PO (16:42)
== END 2016-07-13 19:15 | disposition home health service (06) | DRG 617 ==
LOC: NEPE 09:02 → NEDA 10:53 → NEDH 16:26 → NEPFCDU 18:43 → N04B 07-02 22:28
PROVIDERS: ADMIT Family Medicine; ATTEND Family Medicine
PROC: 0J9Q3ZZ Drainage of Right Foot Subcutaneous Tissue and Fascia, Percutaneous Approach (ICD-10-PCS; 2016-06-30)
PROC: 0JDQ0ZZ Extraction of Right Foot Subcutaneous Tissue and Fascia, Open Approach (ICD-10-PCS; 2016-07-02)
PROC: 0Y6X0Z0 Detachment at Right 5th Toe, Complete, Open Approach (ICD-10-PCS; principal; 2016-07-02 07:12)
PROC: 0JDQ0ZZ Extraction of Right Foot Subcutaneous Tissue and Fascia, Open Approach (ICD-10-PCS; 2016-07-04)
DX: E11.621 Type 2 diabetes mellitus with foot ulcer (principal); L02.611 Cutaneous abscess of right foot; E11.52 Type 2 diabetes mellitus with diabetic peripheral angiopathy with gangrene; L03.115 Cellulitis of right lower limb; E11.65 Type 2 diabetes mellitus with hyperglycemia; L97.519 Non-pressure chronic ulcer of other part of right foot with unspecified severity; E11.42 Type 2 diabetes mellitus with diabetic polyneuropathy; E11.628 Type 2 diabetes mellitus with other skin complications; I10 Essential (primary) hypertension; Z88.6 Allergy status to analgesic agent; F12.90 Cannabis use, unspecified, uncomplicated; B95.62 Methicillin resistant Staphylococcus aureus infection as the cause of diseases classified elsewhere; B95.1 Streptococcus, group B, as the cause of diseases classified elsewhere; F17.210 Nicotine dependence, cigarettes, uncomplicated; Z79.84 Long term (current) use of oral hypoglycemic drugs; Z91.19 Patient's noncompliance with other medical treatment and regimen
CPT/HCPCS: 36569; 71010; 73630; 73720; 75635; 76937; 80048; 80053; 80061; 80202; 82565; 82948; 83036; 83735; 85025; 85027; 85610; 85652; 85730; 86140; 86403; 87015; 87040; 87070; 87102; 87116; 87147; 87186; 87205; 87206; 88305; 88311; 93005; 93880; 94150; 96361; 96365; 96375; A9579; J0131; J1100; J1642; J1644; J1650; J1815; J2250; J2270; J2370; J2405; J2543; J3010; J3370; J7030; J7040; J7050; L3260; Q9967

== ENCOUNTER 2016-08-01 14:16 | Inpatient (IN) | payer SELFPAY ==
[~2016-08-01] VITALS: Ht 162.6 cm; Wt 75.9 kg
[~2016-08-01 14:16] MED LIST changes: +ATOR40TA16 PO; +BAYETES; +BIOM30MI; -CIPR-9 PO; +EPIN1INJ21 IV PUSH; +EPIN1INJ21 SQ; +GLUCKIT15; +GLUCTES12; +INSU1MIS15; +LANCETS1 MI1; +LEVEMIR SQ; +LISI-515 PO; +OXYC1TAB63 PO; +RANI150T PO; +SOLU250I IV PUSH; -ULTR50TA5 PO; +VANC10IN IV; +WALKER WHEELS/F1 MIS
[2016-08-01 14:18] VITALS: BP 166/87; PULSE 68; RESP 20; TEMP 98; O2SAT 99
[2016-08-01] MEDS ORDERED: MORPHINE SULFATE 4 MG/ML INJ IV PUSH ONE (15:15)
[2016-08-01 15:27] VITALS: O2SAT 99
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
--- NOTE | 2016-08-01 15:48 | RADRPT ---
EXAM DATE/TIME: 08/01/2016 15:38 [facility] COMPARISON: FOOT RIGHT COMPLETE ([id number]), July 02, 2016, 9:19. INDICATIONS : Wound check post surgery 07/02/2016. MEDICAL HISTORY : Diabetes mellitus type II. Hypertension SURGICAL HISTORY : Right fifth digit diabetic amputation ENCOUNTER: Subsequent ACUITY: 1 month PAIN SCORE: 3/10 LOCATION: Right foot FINDINGS: Changes of fifth toe amputation again noted. Heads of the second through fifth metatarsals are extrem chari osteopenic but I don't see an acute bony destructive process. There is some soft tissue swelling and probable ulceration dorsal to the distal fifth metatarsal. CONCLUSION: Previous fifth toe amputation. Swelling and ulceration around the distal fifth metatarsal without acu te bone destruction or other definite radiographic evidence of osteomyelitis. Distal second through f ifth metatarsals are all considerably osteopenic. Kit Pike MD on August 01, 2016 at 15:44 Board Certified Radiologist. This report was verified electronically.
[2016-08-01 15:50] LABS: AUTOMATED NEUTROPHIL # 1.6 TH/MM3 (1.8-7.7); BASOPHIL # 0.1 TH/MM3 (0-0.2); BASOPHIL % 1.1 % (0.0-2.0); EOSINOPHIL # 0.7 TH/MM3 (0-0.4); EOSINOPHIL % 15.3 % (0.0-4.0); HEMATOCRIT 32.4 % (35.0-46.0); HEMO FLAGS DIFF FINAL; LYMPH % 39.7 % (9.0-44.0); LYMPHOCYTE # 1.9 TH/MM3 (1.0-4.8); MEAN CELL VOLUME 83.7 FL (80.0-100.0); MEAN CORPUSCULAR HEMOGLOBIN 28.9 PG (27.0-34.0); MEAN CORPUSCULAR HGB CONC 34.6 % (32.0-36.0); MONO % 10.7 % (0.0-8.0); NEUT % 33.2 % (16.0-70.0); PLATELET COUNT 214 TH/MM3 (150-450); RED BLOOD COUNT 3.87 MIL/MM3 (4.00-5.30); RED CELL DISTRIBUTION WIDTH 13.4 % (11.6-17.2); WHITE BLOOD COUNT 4.8 TH/MM3 (4.0-11.0)
[2016-08-01 16:07] LABS: BICARBONATE 27.3 MEQ/L (21.0-32.0); MAGNESIUM 1.7 MG/DL (1.5-2.5); POTASSIUM 4.3 MEQ/L (3.5-5.1)
[2016-08-01 16:09] LABS: APTT (PATIENT) 36.1 SEC (24.3-30.1)
[2016-08-01] MEDS ORDERED: GLUCAGON 1 MG/ML VIAL OTHER PRN (17:15)
[2016-08-01] MEDS ORDERED: ACETAMINOPHEN 325 MG TAB PO PRN ×2 (17:15→20:45)
[2016-08-01] MEDS ORDERED: DEXTROSE 50% IN WATER 50 ML VIAL(D50) IV PRN (17:15)
[2016-08-01] MEDS ORDERED: VANC1000P IV (17:36)
[2016-08-01 18:37] VITALS: BP 156/89; PULSE 72; PULSE 88; RESP 16; O2SAT 98
--- NOTE | 2016-08-01 20:43 | HHI.HP ---
HPI Service [facility] Primary Care Physician Ritesh Henderson MD Admission Diagnosis right surgical wound infection, new diabetic ulcer Diagnoses: (1) Diabetic foot infection Diagnosis: Principal (2) HTN (hypertension) Diagnosis: Principal (3) DM (diabetes mellitus) Diagnosis: Principal Travel History International Travel<30 Days: No Contact w/Intl Traveler <30 Da: No Traveled to Known Affected Are: No History of Present Illness This is a 45-year-old female with a PMH of Depression, HTN, DM and Right 5th Toe Amputation 07/02 s/p I&D and Wound Vac 07/04/[address] Perez, who presented to the ER w/ complaints of possible right foot infection x2-3 days. Notes right toe skin darkening, denies fevers or chills. Previously on Zosyn -07/07/16 and Vanc started on 07/01 via PICC, compliant w/ meds, currently being seen by [facility]. On arrival, BP 166/87, HR 68, O2 sat 98% on RA, Afebrile. WBC normal. Chemistry essentially at baseline. CRP 0.81. INR 1.0. Foot X- ray with previous fifth toe amputation, swelling and ulceration around distal fifth metatarsal without acute bone destruction or evidence of osteomyelitis. S /p Blood/Wound Cultures in ER. Review of Systems Except as stated in HPI: all other systems reviewed are Neg ROS: 14 point review of systems otherwise negative. Past Family Social History Past Medical History PMH: Depression, HTN, DM and Right 5th Toe Amputation 07/02 s/p I&D and Wound Vac 07/04/[address] Perez Past Surgical History PAST SURGICAL HISTORY: Umbilical Hernia Repair, Cholecystectomy, Right Toe And dictation Allergies: Coded Allergies: Aspirin (Verified Adverse Reaction, Intermediate, VOMITING, 08/01/16) *MDRO Multi-Drug Resistant Organism (Verified Adverse Reaction, Unknown, ) MRSA (wound drainage) - 06/29/16 Family History PAST FAMILY HISTORY: Reviewed, positive for DM. Social History PAST SOCIAL HISTORY: Negative for alcohol, tobacco or drugs. Physical Exam Vital Signs Vital Signs Date Time Temp Pulse Resp B/P Pulse Ox O2 Delivery O2 Flow Rate FiO2 08/01/16 18:37 72 16 156/89 98 Room Air 08/01/16 15:55 16 08/01/16 15:27 99 Room Air 08/01/16 14:18 98.0 68 20 166/87 99 Room Air Physical Exam PE: GENERAL: Middle-aged female in no acute distress. HEENT: PERRLA, EOMI. No scleral icterus or conjunctival pallor. No lid lag or facial droop. CARDIOVASCULAR: Regular rate and rhythm. No obvious murmurs to auscultation. No chest tenderness to palpation. RESPIRATORY: No obvious rhonchi or wheezing. Clear to auscultation. Breath sounds equal bilaterally. GASTROINTESTINAL: Abdomen soft, non-tender, nondistended. BS normal. MUSCULOSKELETAL: Extremities without clubbing, cyanosis, or edema. No obvious deformities. Right 5th toe amputation, +purulent drainage, darkening of surrounding tissue. NEUROLOGICAL: Awake, alert and oriented x4. No focal neurologic deficits. Moving both upper and lower extremities spontaneously. Laboratory Laboratory Tests Test 08/01/16 15:25 White Blood Count 4.8 Red Blood Count 3.87 Hemoglobin 11.2 Hematocrit 32.4 Mean Corpuscular Volume 83.7 Mean Corpuscular Hemoglobin 28.9 Mean Corpuscular Hemoglobin 34.6 Concent Red Cell Distribution Width 13.4 Platelet Count 214 Mean Platelet Volume 8.0 Neutrophils (%) (Auto) 33.2 Lymphocytes (%) (Auto) 39.7 Monocytes (%) (Auto) 10.7 Eosinophils (%) (Auto) 15.3 Basophils (%) (Auto) 1.1 Neutrophils # (Auto) 1.6 Lymphocytes # (Auto) 1.9 Monocytes # (Auto) 0.5 Eosinophils # (Auto) 0.7 Basophils # (Auto) 0.1 CBC Comment DIFF FINAL Differential Comment Prothrombin Time 11.0 Prothromb Time International 1.0 Ratio Activated Partial 36.1 Thromboplast Time Sodium Level 141 Potassium Level 4.3 Chloride Level 107 Carbon Dioxide Level 27.3 Anion Gap 7 Blood Urea Nitrogen 21 Creatinine 0.84 Estimat Glomerular Filtration 73 Rate Random Glucose 146 Calcium Level 8.8 Magnesium Level 1.7 C-Reactive Protein 0.81 Date/Time Procedure Status Source Growth 08/01/16 15:25 Gram Stain Received Wound Foot Pending 08/01/16 15:25 Wound Culture Received Wound Foot Pending 08/01/16 15:24 Aerobic Blood Culture Received Blood Peripheral Pending 08/01/16 15:24 Anaerobic Blood Culture Received Blood Peripheral Pending Result Diagram: 08/01/16 1525 08/01/16 1525 Assessment and Plan Problem List: (1) Diabetic foot infection ICD Code: E11.69 Status: Acute (2) HTN (hypertension) ICD Code: I10 Status: Acute (3) DM (diabetes mellitus) ICD Code: E11.9 Status: Acute Assessment and Plan A/P: 1. Diabetic Foot Infection: Right 5th Toe Amputation 07/02 s/p I&D and Wound Vac 07/04/[address] Perez, previoulsy on Zosyn 06/29-07/07/16 and Vanc started on 07/01 via PICC, compliant w/ meds, currently being seen by [facility]. Will consult Dr. Soares for further eval, Podiatry consulted by ER physician. Continue w/ IV Abx. Follow up Blood/Wound Cultures. 2. HTN: BP 160's, resume home medications, will monitor. 3. DM: Sliding scale w/ Accu-Cheks. Resume home Insulin. Check Hgb A1c. 4. DVT Prophylaxis: Mechanical contraindication in light of lower extremity wound 5. Social work for d/c planning as needed. 6. Case discussed w/ ER physician at length. Sandra Krause MD August 01, 2016 20:43
[2016-08-01] MEDS ORDERED: SODIUM CHLORIDE 0.9% FLUSH 10 ML FLUSH IV FLUSH PRN (20:45)
[2016-08-01] MEDS ORDERED: ONDANSETRON HCL 4 MG/2 ML VIAL IVP PRN (20:45)
[2016-08-01] MEDS ORDERED: BISACODYL 10 MG SUPP RECTAL PRN (20:45)
[2016-08-01] MEDS ORDERED: Vancomycin Consult Pharmacy 1 EA OTHER SCH (20:45)
[2016-08-01 21:00] VITALS: BP 181/95; PULSE 71; RESP 18; TEMP 97.1; O2SAT 100
[2016-08-01 21:12] VITALS: BP_SYST 152; BP_SYST 162; BP_DIAS 81; BP_DIAS 82; PULSE 73
[2016-08-01] MEDS: VANCOMYCIN 1,000 MG/NS 250 ML IV SCH ×2 (22:27)
[2016-08-01] MEDS: ATORVASTATIN 40 MG TAB PO SCH (22:27)
[2016-08-01] MEDS: INSULIN ASPART SUPPLEMENTAL SCALE SQ SCH (22:28)
[2016-08-01] MEDS: SODIUM CHLORIDE 0.9% FLUSH 10 ML FLUSH IV FLUSH SCH (22:29)
[2016-08-01] MEDS: INSULIN DETEMIR 100 UNITS/ML VIAL SQ SCH (22:29)
[2016-08-01] MEDS: MORPHINE SULFATE 4 MG/ML INJ IV PRN (22:52)
[2016-08-02] VITALS (7 sets, daily range): BP systolic 149–177; BP diastolic 80–93; PULSE 62–78; RESP 16–18; TEMP 96.2–97.6; O2SAT 99–100
[2016-08-02] MEDS: MORPHINE SULFATE 4 MG/ML INJ IV PRN (04:14)
[2016-08-02] MEDS: INSULIN ASPART SUPPLEMENTAL SCALE SQ SCH ×4 (05:39→21:00)
[2016-08-02 05:49] LABS: AUTOMATED NEUTROPHIL # 1.7 TH/MM3 (1.8-7.7); BASOPHIL % 0.7 % (0.0-2.0); EOSINOPHIL # 0.7 TH/MM3 (0-0.4); EOSINOPHIL % 13.5 % (0.0-4.0); HEMATOCRIT 31.8 % (35.0-46.0); HEMO FLAGS DIFF FINAL; LYMPH % 41.1 % (9.0-44.0); LYMPHOCYTE # 2.1 TH/MM3 (1.0-4.8); MEAN CELL VOLUME 84.3 FL (80.0-100.0); MEAN CORPUSCULAR HEMOGLOBIN 28.1 PG (27.0-34.0); MEAN CORPUSCULAR HGB CONC 33.4 % (32.0-36.0); MONO % 11.2 % (0.0-8.0); NEUT % 33.5 % (16.0-70.0); PLATELET COUNT 204 TH/MM3 (150-450); RED BLOOD COUNT 3.77 MIL/MM3 (4.00-5.30); RED CELL DISTRIBUTION WIDTH 13.3 % (11.6-17.2)
[2016-08-02 06:32] LABS: ALT (GPT) 15 U/L (10-53); ANION GAP 7 MEQ/L (5-15); AST (GOT) 15 U/L (15-37); BICARBONATE 28.1 MEQ/L (21.0-32.0); BLOOD UREA NITROGEN 20 MG/DL (7-18); CHLORIDE 106 MEQ/L (98-107); GLOMERULAR FILTRATION RATE 80 ML/MIN (>89); POTASSIUM 3.8 MEQ/L (3.5-5.1); SODIUM (NA) 141 MEQ/L (136-145)
[2016-08-02 06:35] LABS: ALKALINE PHOSPHATASE 93 U/L (45-117); TOTAL BILIRUBIN ADULT 0.4 MG/DL (0.2-1.0)
[2016-08-02] MEDS: VANCOMYCIN 1,000 MG/NS 250 ML IV SCH ×4 (09:37→21:11)
[2016-08-02] MEDS: SODIUM CHLORIDE 0.9% FLUSH 10 ML FLUSH IV FLUSH SCH ×2 (09:38→21:12)
[2016-08-02] MEDS: INSULIN DETEMIR 100 UNITS/ML VIAL SQ SCH ×2 (09:45→21:31)
[2016-08-02] MEDS: ACETAMINOPHEN/HYDROcodone 325 MG/5 MG TAB PO PRN ×3 (12:24→21:11)
--- NOTE | 2016-08-02 13:53 | PD.ID.CON ---
History of Present Illness Service ID Consult Requested By Reason for Consult Evaluation and Mment of Diabetic foot ulcer ? osteomyelitis. Primary Care Physician Ritesh Henderson MD Diagnoses: History of Present Illness Ms Leyva is a 45-year-old female with past medical history significant for type 2 diabetes uncontrolled presented with 3 week h/o ulcer back in June 2016. She was seen by me and during that admission. Patient was discharged on Vanco IV and was seen in follow up at clinic who reports the wound was doing better. Patient reports the wound vac was discontinued due to difficulty placing it due to the position of the wound. She now reports she is back at hospital because her toe ulcer margins are black in color and she is concerned about new infection. She reports compliance with medications. Podiatry consult is pending at time of my visit. Patient has a PICC line in place. ID consulted for evaluation and management of diabetic foot ulcer ? osteomyelitis. Past Family Social History Allergies: Coded Allergies: Aspirin (Verified Adverse Reaction, Intermediate, VOMITING, 08/01/16) *MDRO Multi-Drug Resistant Organism (Verified Adverse Reaction, Unknown, ) MRSA (wound drainage) - 06/29/16 Past Medical History Diabetes mellitus type 2, uncontrolled Difficulty getting medical insurance Takes Metformin 500 mg daily for diabetes No complications besides current foot ulcer and neuropathy Past Surgical History Cholecystectomy Abdominal hernia repair Reported Medications Reported Meds & Active Scripts Active Oxycodone-Acetaminophen 5-325 mg Tab 1 Tab PO Q6H PRN Atorvastatin (Atorvastatin Calcium) 40 Mg Tab 40 Mg PO HS Lisinopril 20 Mg Tab 40 Mg PO DAILY 30 Days Metformin (Metformin HCl) 500 Mg Tab 500 Mg PO BIDPC With meals Levemir Inj (Insulin Detemir) 1,000 unit/ 10 ML Vial 12 Units SQ BID Do not mix with any other Insulin. Reported Vancomycin Inj (Vancomycin HCl) 1,000 Mg Inj 1,250 Mg IV DAILY Active Ordered Medications Current Medications Medications (Trade) Dose Ordered Sig/Tj Route Start Time Stop Time Status Last Admin (D50w (Vial) Inj) 50 ml UNSCH PRN IV 08/01/16 17:15 (Glucagon Inj) 1 mg UNSCH PRN OTHER 08/01/16 17:15 (NS Flush) 2 ml UNSCH PRN IV FLUSH 08/01/16 20:45 (NS Flush) 2 ml BID IV FLUSH 08/01/16 21:00 08/02/16 09:38 (Zofran Inj) 4 mg Q6H PRN IVP 08/01/16 20:45 08/01/16 22:47 (Dulcolax Supp) 10 mg DAILY PRN RECTAL 08/01/16 20:45 (Tylenol) 650 mg Q6H PRN PO 08/01/16 20:45 (Bradford 5-325 Mg) 1 tab Q4H PRN PO 08/01/16 20:45 08/02/16 12:24 (Morphine Inj) 2 mg Q3H PRN IV 08/01/16 20:45 08/02/16 04:14 (Lipitor) 40 mg HS PO 08/01/16 21:00 08/01/16 22:27 Insulin Detemir 12 units 12 units BID SQ 08/01/16 21:00 08/02/16 09:45 Pharmacy Profile Note 0 ml @ 0 mls/hr UNSCH OTHER 08/01/16 20:45 (Vancomycin Inj/ NS 250 ml Inj) 250 ml @ 250 mls/hr Q12H IV 08/01/16 21:00 08/02/16 09:37 Miscellaneous Information SPECIFIC LAB TO BE DRAWN:VANCO TROUGH DATE TO BE DRDilip.. 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 From [place], moved here 6 years ago Physical Exam Vital Signs Vital Signs Date Time Temp Pulse Resp B/P Pulse Ox O2 Delivery O2 Flow Rate FiO2 08/02/16 12:00 96.4 74 18 161/89 100 08/02/16 08:00 96.2 78 16 175/88 99 08/02/16 05:51 149/80 08/02/16 04:00 96.8 75 18 165/93 99 08/02/16 00:00 97.2 63 17 168/84 100 08/01/16 21:12 73 162/81 152/82 08/01/16 21:00 97.1 71 18 181/95 100 08/01/16 18:37 72 16 156/89 98 Room Air 08/01/16 15:55 16 08/01/16 15:27 99 Room Air 08/01/16 14:18 98.0 68 20 166/87 99 Room Air Physical Exam GENERAL: This is a well-nourished, well-developed patient, in no apparent distress. SKIN: No rashes, ecchymoses or lesions. Cool and dry. HEAD: Atraumatic. Normocephalic. No temporal or scalp tenderness. EYES: Pupils equal round and reactive. Extraocular motions intact. No scleral icterus. No injection or drainage. ENT: Nose without bleeding, purulent drainage or septal hematoma. Throat without erythema, tonsillar hypertrophy or exudate. Uvula midline. Airway patent. NECK: Trachea midline. No JVD or lymphadenopathy. Supple, nontender, no meningeal signs. CARDIOVASCULAR: Regular rate and rhythm without murmurs, gallops, or rubs. RESPIRATORY: Clear to auscultation. Breath sounds equal bilaterally. No wheezes , rales, or rhonchi. GASTROINTESTINAL: Abdomen soft, non-tender, nondistended. MUSCULOSKELETAL: Prior fifth digit amp Wound forefoot- dorsolateral wound along fifth superficial, granular, about 4 cm long and wrapping under 3,4 sulcus- Retained nonabsorbable graft reved from sulcus with slough and possible purulence Wound under sulcus no tracking deep, granular -interdigital 3-5 induration, scabbing removed with no deep wound. NEUROLOGICAL: Awake and alert. Grossly non focal Psych: cooperative PICC line site with no e/o infection. Laboratory Laboratory Tests Test 08/01/16 08/02/16 15:25 04:10 White Blood Count 4.8 5.0 Red Blood Count 3.87 3.77 Hemoglobin 11.2 10.6 Hematocrit 32.4 31.8 Mean Corpuscular Volume 83.7 84.3 Mean Corpuscular Hemoglobin 28.9 28.1 Mean Corpuscular Hemoglobin 34.6 33.4 Concent Red Cell Distribution Width 13.4 13.3 Platelet Count 214 204 Mean Platelet Volume 8.0 8.2 Neutrophils (%) (Auto) 33.2 33.5 Lymphocytes (%) (Auto) 39.7 41.1 Monocytes (%) (Auto) 10.7 11.2 Eosinophils (%) (Auto) 15.3 13.5 Basophils (%) (Auto) 1.1 0.7 Neutrophils # (Auto) 1.6 1.7 Lymphocytes # (Auto) 1.9 2.1 Monocytes # (Auto) 0.5 0.6 Eosinophils # (Auto) 0.7 0.7 Basophils # (Auto) 0.1 0.0 CBC Comment DIFF FINAL DIFF FINAL Differential Comment Prothrombin Time 11.0 Prothromb Time International 1.0 Ratio Activated Partial 36.1 Thromboplast Time Sodium Level 141 141 Potassium Level 4.3 3.8 Chloride Level 107 106 Carbon Dioxide Level 27.3 28.1 Anion Gap 7 7 Blood Urea Nitrogen 21 20 Creatinine 0.84 0.78 Estimat Glomerular Filtration 73 80 Rate Random Glucose 146 154 Calcium Level 8.8 8.9 Magnesium Level 1.7 C-Reactive Protein 0.81 Total Bilirubin 0.4 Aspartate Amino Transf 15 (AST/SGOT) Alanine Aminotransferase 15 (ALT/SGPT) Alkaline Phosphatase 93 Total Protein 6.5 Albumin 3.1 Date/Time Procedure Status Source Growth 08/01/16 15:25 Gram Stain - Final Resulted Wound Foot 08/01/16 15:25 Wound Culture Resulted Wound Foot Pending 08/01/16 15:24 Aerobic Blood Culture - Preliminary Resulted Blood Peripheral NO GROWTH IN 1 DAY 08/01/16 15:24 Anaerobic Blood Culture - Preliminary Resulted Blood Peripheral NO GROWTH IN 1 DAY Result Diagram: 08/02/16 0410 08/02/16 0410 Imaging Last Impressions Foot X-Ray 08/01/16 0000 Signed Impressions: Service Date/Time: Monday, August 01, 2016 15:38 - CONCLUSION: Previous fifth toe amputation. Swelling and ulceration around the distal fifth metatarsal without acute bone destruction or other definite radiographic evidence of osteomyelitis. Distal second through fifth metatarsals are all considerably osteopenic. Kit Pike MD Assessment and Plan Assessment and Plan Right foot osteomyelitis culture/path proven last admission was on Vanco IV as outpatient (tentative stop date was August 10 but will reassess) Right foot Diabetic foot infection MRSA and Strep in prior cultures Now with MRSA again. Retained foreign body removed by Podiatry as possible source of continuing infection. DM2 uncontrolled. Recs Continue Vanco IV (target trough 15-20) Follow cultures Follow clinically. Appreciate podiatry recs. Hopefully home soon if no surgery by podiatry and will likely switch to oral at this point since clinically at this point no residual osteomyelitis per ortho note. Charmanie Soares MD August 02, 2016 13:53
[2016-08-02] MEDS: LISINOPRIL 20 MG TAB PO SCH (15:31)
--- NOTE | 2016-08-02 16:20 | PD.CONS ---
History of Present Illness Service Podiatry Consult Requested By Reason for Consult Right foot infection Primary Care Physician Ritesh Henderson MD Diagnoses: History of Present Illness Ms Leyva is a 45-year-old female with past medical history significant for type 2 diabetes uncontrolled presented with 3 week h/o ulcer back in June 2016. She was seen by me and during that admission. Patient was discharged on Vanco IV and was seen in follow up at clinic who reports the wound was doing better. Patient reports the wound vac was discontinued due to difficulty placing it due to the position of the wound. She now reports she is back at hospital because her toe ulcer margins are black in color and she is concerned about new infection. She reports compliance with medications. Podiatry consult is pending at time of my visit. Patient has a PICC line in place. ID consulted for evaluation and management of diabetic foot ulcer ? osteomyelitis. Past Family Social History Allergies: Coded Allergies: Aspirin (Verified Adverse Reaction, Intermediate, VOMITING, 08/01/16) *MDRO Multi-Drug Resistant Organism (Verified Adverse Reaction, Unknown, ) MRSA (wound drainage) - 06/29/16 Physical Exam Vital Signs Vital Signs Date Time Temp Pulse Resp B/P Pulse Ox O2 Delivery O2 Flow Rate FiO2 08/02/16 14:25 18 08/02/16 12:00 96.4 74 18 161/89 100 08/02/16 08:00 96.2 78 16 175/88 99 08/02/16 05:51 149/80 08/02/16 04:00 96.8 75 18 165/93 99 08/02/16 00:00 97.2 63 17 168/84 100 08/01/16 21:12 73 162/81 152/82 08/01/16 21:00 97.1 71 18 181/95 100 08/01/16 18:37 72 16 156/89 98 Room Air Physical Exam GENERAL: This is a well-nourished, well-developed patient, in no apparent distress. SKIN: No rashes, ecchymoses or lesions. Cool and dry. HEAD: Atraumatic. Normocephalic. No temporal or scalp tenderness. EYES: Pupils equal round and reactive. Extraocular motions intact. No scleral icterus. No injection or drainage. ENT: Nose without bleeding, purulent drainage or septal hematoma. Throat without erythema, tonsillar hypertrophy or exudate. Uvula midline. Airway patent. NECK: Trachea midline. No JVD or lymphadenopathy. Supple, nontender, no meningeal signs. CARDIOVASCULAR: Regular rate and rhythm without murmurs, gallops, or rubs. RESPIRATORY: Clear to auscultation. Breath sounds equal bilaterally. No wheezes , rales, or rhonchi. GASTROINTESTINAL: Abdomen soft, non-tender, nondistended. No hepato-splenomegaly , or palpable masses. No guarding. MUSCULOSKELETAL: Extremities without clubbing, cyanosis, or edema. No joint tenderness, effusion, or edema noted. No calf tenderness. Negative Homans sign bilaterally. NEUROLOGICAL: Awake and alert. Cranial nerves II through XII intact. Motor and sensory grossly within normal limits. Five out of 5 muscle strength in all muscle groups. Normal speech. Laboratory Laboratory Tests Test 08/02/16 04:10 White Blood Count 5.0 Red Blood Count 3.77 Hemoglobin 10.6 Hematocrit 31.8 Mean Corpuscular Volume 84.3 Mean Corpuscular Hemoglobin 28.1 Mean Corpuscular Hemoglobin 33.4 Concent Red Cell Distribution Width 13.3 Platelet Count 204 Mean Platelet Volume 8.2 Neutrophils (%) (Auto) 33.5 Lymphocytes (%) (Auto) 41.1 Monocytes (%) (Auto) 11.2 Eosinophils (%) (Auto) 13.5 Basophils (%) (Auto) 0.7 Neutrophils # (Auto) 1.7 Lymphocytes # (Auto) 2.1 Monocytes # (Auto) 0.6 Eosinophils # (Auto) 0.7 Basophils # (Auto) 0.0 CBC Comment DIFF FINAL Differential Comment Sodium Level 141 Potassium Level 3.8 Chloride Level 106 Carbon Dioxide Level 28.1 Anion Gap 7 Blood Urea Nitrogen 20 Creatinine 0.78 Estimat Glomerular Filtration 80 Rate Random Glucose 154 Calcium Level 8.9 Total Bilirubin 0.4 Aspartate Amino Transf 15 (AST/SGOT) Alanine Aminotransferase 15 (ALT/SGPT) Alkaline Phosphatase 93 Total Protein 6.5 Albumin 3.1 Date/Time Procedure Status Source Growth 08/01/16 15:25 Gram Stain - Final Resulted Wound Foot 08/01/16 15:25 Wound Culture - Preliminary Resulted S. Aureus Mrsa 08/01/16 15:24 Aerobic Blood Culture - Preliminary Resulted Blood Peripheral NO GROWTH IN 1 DAY 08/01/16 15:24 Anaerobic Blood Culture - Preliminary Resulted Blood Peripheral NO GROWTH IN 1 DAY Result Diagram: 08/02/16 0410 08/02/16 041 Imaging Xray negative for foreign bodies or signs of bone infection with fifth digit amp Course Right foot sensation loss Pulses intact No foot edema or streaking, redness CAn wiggle toes Prior fifth digit amp Wound forefoot- dorsolateral wound along fifth superficial, granular, about 4 cm long and wrapping under 3,4 sulcus- Retained nonabsorbable graft reved from sulcus with slough and possible purulence Wound under sulcus no tracking deep, granular -interdigital 3-5 induration, scabbing removed with no deep wound, xerosis diffuse on plantar forefoot Assessment and Plan Assessment and Plan Right foot wound with infection from presumed retained xeroform graft Graft removed and good punctate bleeding Wound redressed with saline, 4x4, kerlix, tracy Plan is observe and see if removing graft improves wound May begin santyl to help remove slough from retained sulcus graft No sign of bone infection or deep wound Continue antibiotics Kenji Melendez DPM August 02, 2016 16:20
--- NOTE | 2016-08-02 16:35 | HHI.PR ---
Subjective Remarks no complains of pain at present patient states good hypoglycemic awareness, she states she has been checking her BS at home ranges from 90-140s on 12 units bid of SQ Levemir and Metformin no diarrhea, chesrt pains or shortness of breath seen earlier by Podiatry Objective Vitals Vital Signs Date Time Temp Pulse Resp B/P Pulse Ox O2 Delivery O2 Flow Rate FiO2 08/02/16 14:25 18 08/02/16 12:00 96.4 74 18 161/89 100 08/02/16 08:00 96.2 78 16 175/88 99 08/02/16 05:51 149/80 08/02/16 04:00 96.8 75 18 165/93 99 08/02/16 00:00 97.2 63 17 168/84 100 08/01/16 21:12 73 162/81 152/82 08/01/16 21:00 97.1 71 18 181/95 100 08/01/16 18:37 72 16 156/89 98 Room Air I/O 08/01/16 08/01/16 08/01/16 08/02/16 08/02/16 08/02/16 07:00 15:00 23:00 07:00 15:00 23:00 Intake Total 240 ml 960 ml Output Total 350 ml Balance -110 ml 960 ml Intake Oral 240 ml 960 ml Output Urine Total 350 ml # Voids 2 1 4 # Bowel Movements 1 Result Diagram: 08/02/16 0410 08/02/16 0410 Imaging Last Impressions Foot X-Ray 08/01/16 0000 Signed Impressions: Service Date/Time: Monday, August 01, 2016 15:38 - CONCLUSION: Previous fifth toe amputation. Swelling and ulceration around the distal fifth metatarsal without acute bone destruction or other definite radiographic evidence of osteomyelitis. Distal second through fifth metatarsals are all considerably osteopenic. Kit Pike MD Objective Remarks awake and alert, NAD anicteric lungs clear regular rhythm abdomen soft, nontender UE- PICC line in place, good peripheral pulses Left foot- elastic dressing in place A/P Problem List: (1) Diabetic foot infection ICD Code: E11.69 Status: Acute (2) HTN (hypertension) ICD Code: I10 Status: Acute (3) DM (diabetes mellitus) ICD Code: E11.9 Status: Acute Assessment and Plan 45 years old female Diabetic Foot Infection with forefoot abscess history of MRSA. Possible retained foreign body S/P Right 5th Toe Amputation 07/02 s/p I&D and Wound Vac by Dr. Perez, previously on Zosyn 06/29-07/07/16 and Vanc started on via PICC, compliant w/ meds, currently being seen by [facility]. - Podiatry and ID will be ff along with us. Daily dressing change. IV Vancomycin HTN, uncontrolled - Lisinorpil 40 mg po daily. clonidine prn parameter DM: Sliding scale w/ Accu-Cheks. last A1C 11.3 . patient swears that she has been compliant and monitoring her blood sugars- doing good on Levemer 12 unit bid continue this and adjust. Hold Metformin in the event of any imaging studies DVT Prophylaxis: Mechanical contraindication in light of lower extremity wound Social work for d/c planning as needed. Joslyn Gunderson MD August 02, 2016 16:34
[2016-08-02] MEDS: ATORVASTATIN 40 MG TAB PO SCH (21:12)
[2016-08-03] VITALS (7 sets, daily range): BP systolic 134–179; BP diastolic 71–93; PULSE 60–70; RESP 18–20; TEMP 97–98; O2SAT 98–100
[2016-08-03] MEDS: cloNIDine HCL 0.1 MG TAB PO PRN ×3 (00:33→20:29)
[2016-08-03] MEDS: ACETAMINOPHEN/HYDROcodone 325 MG/5 MG TAB PO PRN ×3 (00:37→20:07)
[2016-08-03] MEDS: INSULIN ASPART SUPPLEMENTAL SCALE SQ SCH ×4 (06:03→20:17)
[2016-08-03] MEDS ORDERED: PHARMACY ORDERED LAB ONE (08:45)
[2016-08-03] MEDS: LISINOPRIL 20 MG TAB PO SCH (10:22)
[2016-08-03] MEDS: INSULIN DETEMIR 100 UNITS/ML VIAL SQ SCH ×2 (10:25→20:18)
[2016-08-03] MEDS: VANCOMYCIN 1,000 MG/NS 250 ML IV SCH ×2 (10:40)
[2016-08-03] MEDS: SODIUM CHLORIDE 0.9% FLUSH 10 ML FLUSH IV FLUSH SCH ×2 (10:45→20:19)
--- NOTE | 2016-08-03 14:51 | PD.POD ---
Subjective Podiatric Problems Pt doing well, no acutre events Pain score: 3 Past Med/Surg/Social History Past Medical History Endocrine: 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: Diabetes mellitus Respiratory: DENIES HX OF: Allergies/hay fever, Asthma, COPD, CPAP use, Sleep apnea, Other respiratory history Cardiovascular: 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: Hyperlipidemia, Hypertension, DENIES HX OF: Abdominal aortic aneurysm, Angina, Atrial fibrillation, Cardiac arrhythmias, Coronary artery disease, Deep venous thrombosis, Heart failure, Heart valve disease, Myocardial infarction, Peripheral vascular dz, Other CV history Gastrointestinal: DENIES HX OF: Colitis, GERD, Irritable bowel syndrome, Liver disease, Pancreatitis, Peptic ulcer disease, Other GI history Genitourinary: DENIES HX OF: Chlamydia, Gonorrhea, Hemodialysis, Herpes genitalis, Human papillomavirus, Kidney disease, Kidney failure, Kidney stones, Past UTI, Peritoneal dialysis, Urinary incontinence, Other history Gynecologic: 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) Age at menarche: 11 history: : 2 Live births: 0 Musculoskeletal: DENIES HX OF: Fibromyalgia, Fractures, Gout, Osteoarthritis, Osteoporosis, Rheumatoid arthritis, Other musculoskeletal hx Cancer/Hematology: DENIES HX OF: Anemia, Bladder Cancer, Blood cancer, Brain cancer, Breast cancer, Colorectal cancer, Endocrine cancer, Eye cancer, GI cancer, cancer, Kidney cancer, Leukemia, Liver cancer, Lung cancer, Lymphoma , Musculoskeletal cancer, Neurologic cancer, Oral cancer, Skin cancer, Stomach cancer, Thyroid cancer, Other cancer/hematology Cancer - female: DENIES HX OF: Cervical cancer, Ovarian cancer, Uterine cancer Infectious disease: DENIES HX OF: AIDS, Chickenpox, Hepatitis, HIV, Measles, MRSA, Mumps, Polio, Positive PPD, Rheumatic fever, Rubella, Syphilis, Tuberculosis, Vanc-resistant enterococc, Other inf disease history Integumentary: DENIES HX OF: Acne, Eczema, Psoriasis, Other integumentary hx Neurologic: DENIES HX OF: ADHD, Autism, Dementia, Developmental delay, Headaches, Multiple sclerosis, Parkinson disease, Peripheral neuropathy, Restless leg syndrome, Seizures, Stroke, Transient ischemic attack, Other neurologic history Psychiatric: 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: Anxiety, DENIES HX OF: Anorexia nervosa, Bipolar disorder, Bulimia, Depression, Schizophrenia, Other psychiatric history Genetic/metabolic: DENIES HX OF: Cystic fibrosis, Down syndrome, Other genetic history, Other metabolic history Events: DENIES HX OF: Anaphylaxis, Gunshot wound, Motor vehicle accident, Other events Disabilities: DENIES HX OF: Hearing deficit, Vision deficit, Hemiparesis, Paraplegia, Quadriplegia, Other disabilities Past Surgical History HEENT: DENIES HX OF: Cataract extraction, Dental surgery, Laryngectomy, Tonsillectomy, Other head surgery, Other eye surgery, Other ear surgery, Other nasal surgery, Other throat surgery Endocrine: DENIES HX OF: Parathyroidectomy, Thyroid surgery, Other endocrine surgery Respiratory: DENIES HX OF: Bronchoscopy, Lobectomy, Other chest surgery Cardiovascular: DENIES HX OF: Angiogram, Angioplasty, CABG surgery, Carotid endarterectomy, Coronary stent, Heart transplant, Pacemaker, Valve replacement, Other cardiac surgery Gastrointestinal: 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: Cholecystectomy, Hernia repair (umbilical ), DENIES HX OF: Appendectomy, Colectomy, subtotal, Colectomy, total, Gastric bypass, Splenectomy, Other GI surgery Genitourinary: DENIES HX OF: Bladder surgery, Kidney stone extraction, Nephrectomy, Other surgery Gynecologic: DENIES HX OF: Cervical conization/LEEP, delivery, Hysterectomy, Oophorectomy, Tubal ligation, 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7 63 18 154/76 98 08/03/16 01:50 67 18 134/71 98 08/03/16 00:00 98.0 70 18 179/87 100 08/02/16 20:00 97.6 69 18 165/82 100 08/02/16 16:00 96.7 62 17 177/84 100 Coded Allergies: Aspirin (Verified Adverse Reaction, Intermediate, VOMITING, 08/01/16) *MDRO Multi-Drug Resistant Organism (Verified Adverse Reaction, Unknown, ) MRSA (wound drainage) - 06/29/16 MRSA (foot)-08/01/16 Exam-Podiatry Remarks Right foot 2/4 pulses No redness to proximal foor post surgical wound from fifth ray dorsolateral under 3,4 toe in sulcus- rolled edges, granular, punctate bleeding, no deep tracking wound, 1,2,3,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 Paulino in one week Pt to keep dressing c/d/i and change dressing daily via home health Sugar control and medical management per primary Kenji Melendez DPM August 03, 2016 14:51
--- NOTE | 2016-08-03 15:01 | HHI.PR ---
Subjective Remarks no complains Objective Vitals Vital Signs Date Time Temp Pulse Resp B/P Pulse Ox O2 Delivery O2 Flow Rate FiO2 08/03/16 12:00 97.2 60 20 156/92 100 08/03/16 08:00 97.0 60 20 170/89 99 08/03/16 05:30 97.7 63 18 154/76 98 08/03/16 01:50 67 18 134/71 98 08/03/16 00:00 98.0 70 18 179/87 100 08/02/16 20:00 97.6 69 18 165/82 100 08/02/16 16:00 96.7 62 17 177/84 100 I/O 08/02/16 08/02/16 08/02/16 08/03/16 08/03/16 08/03/16 07:00 15:00 23:00 07:00 15:00 23:00 Intake Total 240 ml 960 ml 480 ml 120 ml Output Total 350 ml Balance -110 ml 960 ml 480 ml 120 ml Intake Oral 240 ml 960 ml 480 ml 120 ml Output Urine Total 350 ml # Voids 1 4 2 2 # Bowel Movements 1 Result Diagram: 08/02/16 0410 08/03/16 0543 Imaging Last Impressions Foot X-Ray 08/01/16 0000 Signed Impressions: Service Date/Time: Monday, August 01, 2016 15:38 - CONCLUSION: Previous fifth toe amputation. Swelling and ulceration around the distal fifth metatarsal without acute bone destruction or other definite radiographic evidence of osteomyelitis. Distal second through fifth metatarsals are all considerably osteopenic. Kit Pike MD Objective Remarks awake and alert, NAD anicteric lungs clear regular rhythm abdomen soft, nontender UE- PICC line in place, good peripheral pulses Left foot- wound- no foul odor, minimal drainage A/P Problem List: (1) Diabetic foot infection ICD Code: E11.69 Status: Acute (2) HTN (hypertension) ICD Code: I10 Status: Acute (3) DM (diabetes mellitus) ICD Code: E11.9 Status: Acute Assessment and Plan 45 years old female Diabetic Foot Infection with forefoot abscess history of MRSA. S/P Right 5th Toe Amputation 07/02 s/p I&D and Wound Vac 07/04/[address] Perez, S/P removable on retained nonabsorbable by Podiatry 08/02 - Dr. Yoandy godfrey- dressing changed today -Dr. Rodger godfrey on Vancomycin HTN, uncontrolled - Lisinopril 40 mg po daily. clonidine prn parameter- counselled on compliance DM: Sliding scale w/ Accu-Cheks. last A1C 11.3 . patient swears that she has been compliant and monitoring her blood sugars- doing good on Levemer 12 unit bid continue this and adjust. Hold Metformin in the event of any imaging studies - restart Metformin 500 mg po bid DVT Prophylaxis: Mechanical contraindication in light of lower extremity wound Social work for d/c planning as needed. Joslyn Gunderson MD August 03, 2016 15:01 Joslyn Gunderson MD August 03, 2016 15:01
[2016-08-03] MEDS: metFORMIN HCL 500 MG TAB PO SCH (17:07)
[2016-08-03] MEDS ORDERED: DOXY100C PO (19:09)
--- NOTE | 2016-08-03 19:15 | HHI.PR ---
Addendum to Inpatient Note Addendum Reason: Additional Documentation Additional Information Reviewed podiatry note from today no residual bone infection, continue wound care and follow up in 1 week with Reviewed chart: BCX negative at 48hrs, Afebrile, WBC ok. 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 Discontinue PICC line choco today to avoid any PICC infections. No need from ID standpoint. Patient not on maintenance IVF either. Ok to leave IV line out tonite. Ok to DC home from ID standpoint. RN asked to notify hospitalist. Will sign off please call back if any change in clinical condition or questions. Charmaine Soares MD August 03, 2016 19:15
[2016-08-03] MEDS: DOXYCYCLINE HYCLATE 100 MG CAP PO SCH (20:07)
[2016-08-03] MEDS: ATORVASTATIN 40 MG TAB PO SCH (20:07)
[2016-08-04] VITALS: BP 137/74; PULSE 63; RESP 16; TEMP 97.3; O2SAT 98
[2016-08-04] MEDS: ACETAMINOPHEN/HYDROcodone 325 MG/5 MG TAB PO PRN (00:07)
[2016-08-04 04:00] VITALS: BP 142/80; PULSE 68; RESP 18; TEMP 96.5; O2SAT 99
[2016-08-04] MEDS: INSULIN ASPART SUPPLEMENTAL SCALE SQ SCH ×2 (07:00→12:06)
[2016-08-04] MEDS: DOXYCYCLINE HYCLATE 100 MG CAP PO SCH (07:49)
[2016-08-04] MEDS: metFORMIN HCL 500 MG TAB PO SCH (07:49)
[2016-08-04] MEDS: LISINOPRIL 20 MG TAB PO SCH (07:49)
[2016-08-04 07:50] VITALS: BP 151/85; PULSE 60; RESP 20; TEMP 96.5; O2SAT 98
[2016-08-04] MEDS: INSULIN DETEMIR 100 UNITS/ML VIAL SQ SCH (07:50)
--- NOTE | 2016-08-04 07:56 | HHI.PR ---
Subjective Remarks no complaints blood sugars reviewed with her- improved readings Objective Vitals Vital Signs Date Time Temp Pulse Resp B/P Pulse Ox O2 Delivery O2 Flow Rate FiO2 08/04/16 04:00 96.5 68 18 142/80 99 08/04/16 00:00 97.3 63 16 137/74 98 08/03/16 20:20 97.2 60 18 173/81 99 08/03/16 16:32 18 08/03/16 16:00 97.4 66 20 170/93 100 08/03/16 12:00 97.2 60 20 156/92 100 08/03/16 08:00 97.0 60 20 170/89 99 I/O 08/03/16 08/03/16 08/03/16 08/04/16 08/04/16 08/04/16 07:00 15:00 23:00 07:00 15:00 23:00 Intake Total 120 ml 600 ml 480 ml 360 ml Balance 120 ml 600 ml 480 ml 360 ml Intake Oral 120 ml 600 ml 480 ml 360 ml # Voids 2 2 2 Result Diagram: 08/02/16 0410 08/03/16 0543 Imaging Last Impressions Foot X-Ray 08/01/16 0000 Signed Impressions: Service Date/Time: Monday, August 01, 2016 15:38 - CONCLUSION: Previous fifth toe amputation. Swelling and ulceration around the distal fifth metatarsal without acute bone destruction or other definite radiographic evidence of osteomyelitis. Distal second through fifth metatarsals are all considerably osteopenic. Kit Pike MD Objective Remarks awake and alert, NAD anicteric lungs clear regular rhythm abdomen soft, nontender UE- PICC line in place, good peripheral pulses Left foot- wound- no foul odor, minimal drainage, edges clean, no necrotic edges A/P Problem List: (1) Diabetic foot infection ICD Code: E11.69 Status: Acute (2) HTN (hypertension) ICD Code: I10 Status: Acute (3) DM (diabetes mellitus) ICD Code: E11.9 Status: Acute Assessment and Plan 45 years old female Diabetic Foot Infection with forefoot abscess history of MRSA. Possible retained foreign body S/P Right 5th Toe Amputation 07/02 s/p I&D and Wound Vac by Dr. Perez, previously on Zosyn 06/29-4/26/17 and Vanc started on via PICC, compliant w/ meds, currently being ff by [facility]. - Podiatry ff cleared for DC- dressing change daily. OP ff up with Dr. Mckenzie Soares ff up- Dozycycline 100 m,g po bid x 7 days HTN,improved readings on Lisinorpil 40 mg po daily. clonidine prn parameter DM: reinforced ciet and compliance with meds last A1C 11.3 . patient swears that she has been compliant and monitoring her blood sugars- doing good on Levemer 12 unit bid continue this and adjust. continue metformin 500 mg po bid DVT Prophylaxis: Mechanical contraindication in light of lower extremity wound DC today FF up with PCP tomorrow FF up with Podiatry in 1 week Joslyn Gunderson MD August 04, 2016 07:55
[2016-08-04] MEDS ORDERED: ULTR37.55 PO (08:01)
[2016-08-04 11:50] VITALS: BP 146/85; PULSE 66; RESP 20; TEMP 97.2; O2SAT 98
[2016-08-04] MEDS: SODIUM CHLORIDE 0.9% FLUSH 10 ML FLUSH IV FLUSH SCH (11:56)
--- NOTE | 2016-08-04 12:06 | HHI.FF ---
Face to Face Verification Diagnosis: (1) DM (diabetes mellitus) (2) Diabetic foot infection Home Health Nursing Order: Medical education Signs/symptoms of disease process Wound care and dressing changes I have seen patient Ana Leyva on 08/04/16. My clinical findings support the need for the requested home health care services because: Ltd mobility - disease progression Med compliance is questionable Infection w/ risk of complications I certify that my clinical findings support that this patient is homebound because: Need for psychosocial assistance Joslyn Gunderson MD August 04, 2016 12:06
--- NOTE | 2016-08-04 12:08 | HHI.DS ---
Discharge Summary Admission Date August 01, 2016 at 18:30 Discharge Date: August 04, 2016 Admitting Diagnosis right surgical wound infection, new diabetic ulcer (1) Diabetic foot infection ICD Code: E11.69 Diagnosis: Principal (2) HTN (hypertension) ICD Code: I10 Diagnosis: Secondary (3) DM (diabetes mellitus) ICD Code: E11.9 Diagnosis: Secondary Procedures none Brief History - From Admission This is a 45-year-old female with a PMH of Depression, HTN, DM and Right 5th Toe Amputation 07/02 s/p I&D and Wound Vac 07/04/[address] Perez, who presented to the ER w/ complaints of possible right foot infection x2-3 days. Notes right toe skin darkening, denies fevers or chills. Previously on Zosyn -07/07/16 and Vanc started on 07/01 via PICC, compliant w/ meds, currently being seen by [facility]. On arrival, BP 166/87, HR 68, O2 sat 98% on RA, Afebrile. WBC normal. Chemistry essentially at baseline. CRP 0.81. INR 1.0. Foot X- ray with previous fifth toe amputation, swelling and ulceration around distal fifth metatarsal without acute bone destruction or evidence of osteomyelitis. S /p Blood/Wound Cultures in ER. CBC/BMP: 08/02/16 0410 08/03/16 0543 Significant Findings Laboratory Tests Test 08/01/16 08/02/16 08/03/16 08/03/16 15:25 04:10 05:43 10:30 Red Blood Count 3.87 MIL/MM3 3.77 MIL/MM3 (4.00-5.30) (4.00-5.30) Hemoglobin 11.2 GM/DL 10.6 GM/DL (11.6-15.3) (11.6-15.3) Hematocrit 32.4 % 31.8 % (35.0-46.0) (35.0-46.0) Monocytes (%) (Auto) 10.7 % 11.2 % (0.0-8.0) (0.0-8.0) Eosinophils (%) (Auto) 15.3 % 13.5 % (0.0-4.0) (0.0-4.0) Neutrophils # (Auto) 1.6 TH/MM3 1.7 TH/MM3 (1.8-7.7) (1.8-7.7) Eosinophils # (Auto) 0.7 TH/MM3 0.7 TH/MM3 (0-0.4) (0-0.4) Activated Partial 36.1 SEC Thromboplast Time (24.3-30.1) Blood Urea Nitrogen 21 MG/DL (7-18) 20 MG/DL (7-18) Estimat Glomerular Filtration 73 ML/MIN (>89) 80 ML/MIN (>89) 69 ML/MIN (>89) Rate Random Glucose 146 MG/DL 154 MG/DL (74-106) (74-106) C-Reactive Protein 0.81 MG/DL (0.00-0.30) Albumin 3.1 GM/DL (3.4-5.0) Vancomycin Level Trough 14.6 MCG/ML (5.0-10.0) PE at Discharge awake and alert, NAD anicteric lungs clear regular rhythm abdomen soft, nontender UE- PICC line in place, good peripheral pulses Left foot- wound- no foul odor, minimal drainage, edges clean, no necrotic edges Pt update on day of discharge awake and alert, afebrile, no chills, pain controlled foot- dry,no active drainage Hospital Course 45 years old female Diabetic Foot Infection with forefoot abscess history of MRSA. Possible retained foreign body S/P Right 5th Toe Amputation 07/02 s/p I&D and Wound Vac by Dr. Perez, previously on Zosyn 06/29-07/07/16 and Vanc started on via PICC, compliant w/ meds, currently being ff by [facility]. - Podiatry ff cleared for DC- dressing change daily. OP ff up with Dr. Rincon -sppreciate Dr. Soares ff up- Dozycycline 100 m,g po bid x 7 days HTN,improved readings on Lisinorpil 40 mg po daily. clonidine prn parameter DM: reinforced ciet and compliance with meds last A1C 11.3 . patient swears that she has been compliant and monitoring her blood sugars- doing good on Levemer 12 unit bid continue this and adjust. continue metformin 500 mg po bid DVT Prophylaxis: Mechanical contraindication in light of lower extremity wound DC today FF up with PCP tomorrow FF up with Podiatry in 1 week Pt Condition on Discharge: Stable Discharge Disposition: Disch w/ Home Health Serv Discharge Time: <= 30 minutes Discharge Instructions DIET: Follow Instructions for: Heart Healthy Diet, Diabetic Diet Speech Therapy-Diet Recommends: Regular Activities you can perform: Weight Bearing as Brien Follow up Referrals: Appointment for Follow Up - 1 Week @ with Podiatry PCP Follow-up - Next Day with duane [facility] New Medications: Doxycycline Hyclate (Doxycycline Hyclate) 100 Mg Cap 100 MG PO BID MRSA Diabetic foot infection Days 7 Ref 0 CAP Tramadol-Acetaminophen (Ultracet) 37.5-325 mg Tab 1 TAB PO Q6H PRN PAIN #28 Ref 0 TAB Continued Medications: Atorvastatin (Atorvastatin) 40 Mg Tab 40 MG PO HS Cholesterol Management #30 Ref 6 TAB Insulin Detemir Inj (Levemir Inj) 1,000 unit/ 10 ML Vial 12 UNITS SQ BID Do not mix with any other Insulin. Blood Sugar Management #1 Ref 6 VIAL Lisinopril (Lisinopril) 20 Mg Tab 40 MG PO DAILY Days 30 Ref 7 TAB Metformin (Metformin) 500 Mg Tab 500 MG PO BIDPC With meals Blood Sugar Management #180 Ref 3 TAB Discontinued Medications: Oxycodone-Acetaminophen (Oxycodone-Acetaminophen) 5-325 mg Tab 1 TAB PO Q6H PRN PAIN #30 Ref 0 TAB Vancomycin Inj (Vancomycin Inj) 1,000 Mg Inj 1250 MG IV DAILY Infection Ref 0 BAG Joslyn Gunderson MD August 04, 2016 12:08
[2016-08-05] MEDS ORDERED: SERT25TA83 PO (16:39)
[2016-08-05] MEDS ORDERED: AMLO5TAB2 PO (16:42)
== END 2016-08-04 13:25 | disposition home or self-care (01) | DRG 863 ==
LOC: NEPD 14:16 → NEDA 17:20 → OBSVTOIN 18:30 → HOCB 20:48
PROVIDERS: ADMIT Internal Medicine; ATTEND Internal Medicine
PROC: 0JCQ3ZZ Extirpation of Matter from Right Foot Subcutaneous Tissue and Fascia, Percutaneous Approach (ICD-10-PCS; principal; 2016-08-02)
DX: T81.4XXA Infection following a procedure, initial encounter (principal); T87.43 Infection of amputation stump, right lower extremity; E11.628 Type 2 diabetes mellitus with other skin complications; M79.5 Residual foreign body in soft tissue; Y82.8 Other medical devices associated with adverse incidents; E11.69 Type 2 diabetes mellitus with other specified complication; E11.65 Type 2 diabetes mellitus with hyperglycemia; Z79.4 Long term (current) use of insulin; Z79.84 Long term (current) use of oral hypoglycemic drugs; I73.9 Peripheral vascular disease, unspecified; I10 Essential (primary) hypertension; F17.210 Nicotine dependence, cigarettes, uncomplicated; F12.90 Cannabis use, unspecified, uncomplicated; Z86.14 Personal history of Methicillin resistant Staphylococcus aureus infection; Z88.6 Allergy status to analgesic agent
CPT/HCPCS: 73630; 80048; 80053; 80202; 82565; 82948; 83735; 85025; 85610; 85730; 86140; 86403; 87040; 87070; 87147; 87186; 87205; 96374; J1815; J2270; J2405; J3370; J7050

== ENCOUNTER 2016-08-10 16:54 | Inpatient (IN) | payer MEDICAID ==
[~2016-08-10] VITALS: Ht 162.6 cm; Wt 74.0 kg
[~2016-08-10 16:54] MED LIST changes: +AMLO5TAB2 PO; -BAYETES; -BIOM30MI; +DOXY100C PO; -EPIN1INJ21 IV PUSH; -EPIN1INJ21 SQ; -GLUCKIT15; -GLUCTES12; -IBUP800T23 PO; -INSU1MIS15; -LANCETS1 MI1; -OXYC1TAB63 PO; -RANI150T PO; +SERT25TA83 PO; -SOLU250I IV PUSH; +ULTR37.55 PO; -VANC10IN IV; -WALKER WHEELS/F1 MIS
[2016-08-10 16:56] VITALS: BP 143/84; PULSE 84; RESP 17; TEMP 98.3; O2SAT 98
--- NOTE | 2016-08-10 17:04 | PD ---
Physical Exam Date Seen by Provider: August 10, 2016 Time Seen by Provider: 17:02 Narrative 45 yo female here for evaluation of right foot infection. Mainly on the 5th digit. Released from hospital recently. Dr Gonzalez follows her and told her to come here today. Has an amputation. States that it looks worsen infection. Increased pain. History of MRSA Vitals sign stable. Patient awaiting bed placement. Data Data Last Documented VS Vital Signs Date Time Temp Pulse Resp B/P Pulse Ox O2 Delivery O2 Flow Rate FiO2 08/10/16 16:56 98.3 84 17 143/84 98 [facility] Medical Record Reviewed: Yes Supervised Visit with LUIS DANIEL: No Ze Esparza August 10, 2016 17:04
--- NOTE | 2016-08-10 17:55 | RADRPT ---
EXAM DATE/TIME: 08/10/2016 17:49 [facility] COMPARISON: FOOT RIGHT LIMITED (2VWS), June 26, 2016, 19:53. INDICATIONS : Right foot pain and swelling for 2 weeks. Right 5th toe amputation June 2016. MEDICAL HISTORY : Hypertension. Cardiovascular disease Diabetes mellitus type 2. SURGICAL HISTORY : Cholecystectomy. Umbilical hernia repair. Right 5th toe amputation. ENCOUNTER: Initial ACUITY: 2 weeks PAIN SCORE: 5/10 LOCATION: Right foot. FINDINGS: Status post distal amputation. There is diffuse soft tissue swelling. There is some lucency involving the distal fifth metatarsal. Can't exclude osteomyelitis. The rest of the bony structures are grossl y intact. No radiopaque foreign bodies. CONCLUSION: Soft tissue swelling and lucency involving the distal fifth metatarsal. Can't exclude osteomyelitis. Recommend MRI of the right foot. Pedro Greene MD on August 10, 2016 at 17:52 Board Certified Radiologist. This report was verified electronically.
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
[2016-08-10] MEDS ORDERED: ZOLO25TA PO (18:07)
[2016-08-10 18:21] LABS: AUTOMATED NEUTROPHIL # 5.2 TH/MM3 (1.8-7.7); BASOPHIL # 0.1 TH/MM3 (0-0.2); BASOPHIL % 0.7 % (0.0-2.0); EOSINOPHIL # 0.9 TH/MM3 (0-0.4); EOSINOPHIL % 8.9 % (0.0-4.0); HEMATOCRIT 39.8 % (35.0-46.0); HEMO FLAGS DIFF FINAL; LYMPH % 33.4 % (9.0-44.0); LYMPHOCYTE # 3.4 TH/MM3 (1.0-4.8); MEAN CELL VOLUME 85.7 FL (80.0-100.0); MEAN CORPUSCULAR HEMOGLOBIN 28.2 PG (27.0-34.0); MEAN CORPUSCULAR HGB CONC 32.8 % (32.0-36.0); MONO % 5.5 % (0.0-8.0); NEUT % 51.5 % (16.0-70.0); PLATELET COUNT 248 TH/MM3 (150-450); RED BLOOD COUNT 4.65 MIL/MM3 (4.00-5.30); RED CELL DISTRIBUTION WIDTH 13.4 % (11.6-17.2); WHITE BLOOD COUNT 10.1 TH/MM3 (4.0-11.0)
[2016-08-10 18:40] LABS: BICARBONATE 26.9 MEQ/L (21.0-32.0); POTASSIUM 4.4 MEQ/L (3.5-5.1)
[2016-08-10] MEDS ORDERED: CLINDAMYCIN INJ 600 MG in SODIUM CHLORIDE 0.9% INJ 100 ML IV ONE (19:45)
--- NOTE | 2016-08-10 19:52 | PD ---
Data Data Last Documented VS Vital Signs Date Time Temp Pulse Resp B/P Pulse Ox O2 Delivery O2 Flow Rate FiO2 08/10/16 21:24 71 18 171/95 100 Room Air 08/10/16 16:56 98.3 Orders Foot, Limited (2vws) (08/10/16 ) Complete Blood Count With Diff (08/10/16 17:34) Basic Metabolic Panel (Bmp) (08/10/16 17:34) Lactic Acid Sepsis Protocol (08/10/16 17:34) Blood Culture (08/10/16 17:34) Westergren Sedimentation Rate (08/10/16 17:53) C-Reactive Protein (Crp) (08/10/16 17:50) Mri Foot W&W/O Contrast (08/10/16 ) Clindamycin Inj (Cleocin Inj) (08/10/16 19:45) Gadodiamide Pf Inj (Omniscan Pf Inj) (08/10/16 20:12) Wound Culture And Gram Stain (08/10/16 21:21) Admit Order (Ed Use Only) (08/10/16 21:42) Labs Laboratory Tests Test 08/10/16 17:50 White Blood Count 10.1 TH/MM3 Red Blood Count 4.65 MIL/MM3 Hemoglobin 13.1 GM/DL Hematocrit 39.8 % Mean Corpuscular Volume 85.7 FL Mean Corpuscular Hemoglobin 28.2 PG Mean Corpuscular Hemoglobin 32.8 % Concent Red Cell Distribution Width 13.4 % Platelet Count 248 TH/MM3 Mean Platelet Volume 7.9 FL Neutrophils (%) (Auto) 51.5 % Lymphocytes (%) (Auto) 33.4 % Monocytes (%) (Auto) 5.5 % Eosinophils (%) (Auto) 8.9 % Basophils (%) (Auto) 0.7 % Neutrophils # (Auto) 5.2 TH/MM3 Lymphocytes # (Auto) 3.4 TH/MM3 Monocytes # (Auto) 0.6 TH/MM3 Eosinophils # (Auto) 0.9 TH/MM3 Basophils # (Auto) 0.1 TH/MM3 CBC Comment DIFF FINAL Differential Comment Erythrocyte Sedimentation Rate 42 mm/hr Sodium Level 138 MEQ/L Potassium Level 4.4 MEQ/L Chloride Level 102 MEQ/L Carbon Dioxide Level 26.9 MEQ/L Anion Gap 9 MEQ/L Blood Urea Nitrogen 25 MG/DL Creatinine 0.92 MG/DL Estimat Glomerular Filtration 66 ML/MIN Rate Random Glucose 174 MG/DL Lactic Acid Level 1.2 mmol/L Calcium Level 9.7 MG/DL C-Reactive Protein 0.30 MG/DL [facility] Medical Record Reviewed: Yes Supervised Visit with LUIS DANIEL: No Interpretation(s) Last Impressions Foot X-Ray 08/10/16 0000 Signed Impressions: Service Date/Time: Wednesday, August 10, 2016 17:49 - CONCLUSION: Soft tissue swelling and lucency involving the distal fifth metatarsal. Can't exclude osteomyelitis. Recommend MRI of the right foot. Pedro Greene MD Foot MRI 08/10/16 0000 Signed Impressions: Service Date/Time: Wednesday, August 10, 2016 19:44 - CONCLUSION: 1. Interval indentation of the fifth toe. 2. Subtle enhancement involving the head of the fourth and fifth metatarsals which is a new finding from the prior exam. This could relate to early osteomyelitis. Consideration should be made to a short-term followup MRI of the foot with gadolinium. 3. Diffuse edema throughout the forefoot without abscess. Forest Berry Jr., MD Narrative Course During the course of the patients emergency department visit, the patients history, examination, and differential diagnosis were reviewed with the patient. The patient had IV access obtained and blood work sent for analysis. The patient's case was checked out to me by Dr. Davis. She requested that I review the patient's MRI findings of the foot. The patient has a recent history of having a fifth toe amputation of the right foot in June 2016. The patient is diabetic. The patient recently completed a course of doxycycline and is followed by a traveling clerk as an outpatient by the name of Dr. Perez. The patient became concerned today when she noticed some drainage at the base of the third toe of the right foot. Home health nurse came out and told her to go to the ER for evaluation for possible recurrent infection. The Patient's x- ray of the foot revealed a lucency in one of the bones, osteomyelitis could not be ruled out at that time, recommended MRI for further evaluation. The patient was initially provided clindamycin 600 mg IV by . The patients laboratory studies were reviewed and remarkable for a white count 10.1, hemoglobin 13.1, platelets 248, differential remarkable for 8.9 eosinophils, sedimentation rate is 42, BNP is remarkable for BUN of 25, GFR 66, glucose 174, C reactive protein 0.30, lactic acid 1.2. Radiology studies were reviewed and remarkable for a right foot x-ray that reveals soft tissue swelling and lucency involving the distal fifth metatarsal, cannot exclude osteomyelitis, recommend MRI of the right foot. RI of the foot revealed and her viral indentation of the fifth toe, subtle enhancement involving the head of the fourth and fifth tarsals which is a new finding from the prior exam and could relate to early osteomyelitis. Diffuse edema throughout the forefoot without abscess is noted. The patient's case was discussed with the hospitalist on-call for admission. The patients results were discussed with the patient, including the plan of care. I explained that further testing and/ or monitoring is indicated based on the patients history, examination, and/ or laboratory findings. Therefore, I recommended admission for additional evaluation. The patient expressed understanding and was agreeable with this plan. The patient was admitted to the hospital in stable condition and sent to a bed under the care of the [facility] hospitalist service. Physician Communication Physician Communication The patient's case was discussed with Dr. Staley who did agree to admit the patient for further evaluation and treatment at this time. Diagnosis Primary Impression: Diabetic foot infection Admitting Information Admitting Physician Requests: Admit Tatiana Wong MD August 10, 2016 19:52
[2016-08-10] MEDS ORDERED: GADODIAMIDE PF 287 MG/ML 5 ML VIAL (for RAD MRI) IV ONE (20:12)
[2016-08-10 21:24] VITALS: BP 171/95; PULSE 71; RESP 18; O2SAT 100
--- NOTE | 2016-08-10 21:32 | RADRPT ---
EXAM DATE/TIME: 08/10/2016 19:44 [facility] COMPARISON: MRI FOOT RIGHT W & W/O CONTRAST, June 29, 2016, 12:26. INDICATIONS : Osteomyelitis. Wound on plantar surface near base of third and fourth digit. CONTRAST: 15 cc Omniscan (gadodiamide) IV MEDICAL HISTORY : Hypertension. Hypercholesterolemia. Diabetes. SURGICAL HISTORY : Cholecystectomy. Umbilical hernia repair. Right 5th toe amputation. ENCOUNTER: Subsequent ACUITY: 1 day PAIN SCORE: 5/10 LOCATION: Right foot. TECHNIQUE: Multiplanar, multisequence MRI examination was performed without contrast and after the intravenous a dministration of gadolinium. FINDINGS: Since the previous examination the patient has undergone amputation of the fifth toe at the level of the metatarsophalangeal joint. There is diffuse edema seen involving the forefoot. There is a subtle area of enhancement involving the head of the fourth and fifth metatarsals. This is a new finding fro m the prior examination. No abscess is observed. CONCLUSION: 1. Interval indentation of the fifth toe. 2. Subtle enhancement involving the head of the fourth and fifth metatarsals which is a new finding f rom the prior exam. This could relate to early osteomyelitis. Consideration should be made to a short -term followup MRI of the foot with gadolinium. 3. Diffuse edema throughout the forefoot without abscess. Forest Berry Jr., MD on August 10, 2016 at 21:26 Board Certified Radiologist. This report was verified electronically.
[2016-08-10] MEDS ORDERED: NALOXONE HCL 0.4 MG/ML AMP IV PRN (22:00)
[2016-08-10] MEDS ORDERED: GLUCAGON 1 MG/ML VIAL OTHER PRN (22:00)
[2016-08-10] MEDS ORDERED: DEXTROSE 50% IN WATER 50 ML VIAL(D50) IV PRN (22:00)
[2016-08-10] MEDS ORDERED: ONDANSETRON HCL 4 MG/2 ML VIAL IV PUSH ONE (22:15)
[2016-08-10] MEDS ORDERED: MORPHINE SULFATE 4 MG/ML INJ IV PUSH ONE (22:15)
[2016-08-11] VITALS: BP 131/81; PULSE 90; RESP 17; TEMP 96.2; O2SAT 98
--- NOTE | 2016-08-11 04:53 | HHI.HP ---
[facility] Service [facility] Primary Care Physician Ritesh Henderson MD Admission Diagnosis right foot infection suspected osteomyelitis Diagnoses: Chief Complaint: foot infection Travel History International Travel<30 Days: No Contact w/Intl Traveler <30 Da: No Traveled to Known Affected Are: No History of Present Illness History from patient, ER provider's communication, and review of medical records. Patient reported that she came back to the hospital because her right foot is infected again. She stated that she was seen by her home health care nurse yesterday and she reported to the nurse that she saw increased drainage in her wound and she was therefore sent back to the hospital one that home health care nurse called her primary who is Dr. Foley. Patient denies any fevers. Reports she did take the antibiotics as prescribed. Patient was discharged from our hospital on August 04, 2016. She had a follow-up appointment on [facility], [facility]. When asked about how the wound was on that day, she stated that she does not know how the wound looks like that today because the clinic visit was supposed to be for her medical conditions and not for the wound care. She stated she was not examined at that time for her foot. She in fact has an appointment with auto club travel counselor Dr. Perez today. In the emergency room, patient's x-ray and MRI imaging studies revealed suspicious for osteomyelitis. Review of Systems Except as stated in HPI: all other systems reviewed are Neg Past Family Social History Past Medical History Hypertension Diabetes Right fifth toe amputation July 02, 2016 status post I and D and wound VAC on July 04, 2016 Hospitalization from August 01, 2016 to August 04, 2016was managed for surgical wound infection of the same. Was given vancomycin and Zosyn while in hospital. Was discharged on doxycycline 7 days course upon discharge. History of MRSA Past Surgical History Right fifth toe amputation Reported Medications Medications listed in EMRreviewed Allergies: Coded Allergies: Aspirin (Verified Adverse Reaction, Intermediate, VOMITING, 08/10/16) *MDRO Multi-Drug Resistant Organism (Verified Adverse Reaction, Unknown, ) MRSA (wound drainage) - 06/29/16 MRSA (foot)-08/01/16 Family History not that she knows of Social History quit smoking june 29 denies drinking denies drug hx Physical Exam Vital Signs Vital Signs Date Time Temp Pulse Resp B/P Pulse Ox O2 Delivery O2 Flow Rate FiO2 08/11/16 00:00 96.2 90 17 131/81 98 08/10/16 21:24 71 18 171/95 100 Room Air 08/10/16 17:25 14 08/10/16 16:56 98.3 84 17 143/84 98 Physical Exam GENERAL: This is a well-nourished, well-developed patient, in no apparent distress. SKIN: No rashes, ecchymoses or lesions. Cool and dry. HEAD: Atraumatic. Normocephalic. No temporal or scalp tenderness. EYES: No scleral icterus. No injection or drainage. ENT: Nose without bleeding, purulent drainage or septal hematoma. Airway patent. NECK: Trachea midline. No JVD CARDIOVASCULAR: Regular rate and rhythm without murmurs, gallops, or rubs. RESPIRATORY: Clear to auscultation. Breath sounds equal bilaterally. No wheezes , rales, or rhonchi. GASTROINTESTINAL: Abdomen soft, non-tender, nondistended.. No guarding. MUSCULOSKELETAL: Extremities without clubbing, cyanosis, or edema. . No calf tenderness. Right third toe at the base with open ulceration and mild drainage NEUROLOGICAL: Awake and alert. Motor and sensory grossly within normal limits. Normal speech. Laboratory Laboratory Tests Test 08/10/16 17:50 White Blood Count 10.1 Red Blood Count 4.65 Hemoglobin 13.1 Hematocrit 39.8 Mean Corpuscular Volume 85.7 Mean Corpuscular Hemoglobin 28.2 Mean Corpuscular Hemoglobin 32.8 Concent Red Cell Distribution Width 13.4 Platelet Count 248 Mean Platelet Volume 7.9 Neutrophils (%) (Auto) 51.5 Lymphocytes (%) (Auto) 33.4 Monocytes (%) (Auto) 5.5 Eosinophils (%) (Auto) 8.9 Basophils (%) (Auto) 0.7 Neutrophils # (Auto) 5.2 Lymphocytes # (Auto) 3.4 Monocytes # (Auto) 0.6 Eosinophils # (Auto) 0.9 Basophils # (Auto) 0.1 CBC Comment DIFF FINAL Differential Comment Erythrocyte Sedimentation Rate 42 Sodium Level 138 Potassium Level 4.4 Chloride Level 102 Carbon Dioxide Level 26.9 Anion Gap 9 Blood Urea Nitrogen 25 Creatinine 0.92 Estimat Glomerular Filtration 66 Rate Random Glucose 174 Lactic Acid Level 1.2 Calcium Level 9.7 C-Reactive Protein 0.30 Date/Time Procedure Status Source Growth 08/10/16 21:34 Gram Stain Received Wound Toe Pending 08/10/16 21:34 Wound Culture Received Wound Toe Pending 08/10/16 18:05 Aerobic Blood Culture Received Blood Peripheral Pending 08/10/16 18:05 Anaerobic Blood Culture Received Blood Peripheral Pending Result Diagram: 08/10/16 1750 08/10/16 1750 Imaging Last 48 hours Impressions Foot X-Ray 08/10/16 0000 Signed Impressions: Service Date/Time: Wednesday, August 10, 2016 17:49 - CONCLUSION: Soft tissue swelling and lucency involving the distal fifth metatarsal. Can't exclude osteomyelitis. Recommend MRI of the right foot. Pedro Greene MD Foot MRI 08/10/16 0000 Signed Impressions: Service Date/Time: Wednesday, August 10, 2016 19:44 - CONCLUSION: 1. Interval indentation of the fifth toe. 2. Subtle enhancement involving the head of the fourth and fifth metatarsals which is a new finding from the prior exam. This could relate to early osteomyelitis. Consideration should be made to a short-term followup MRI of the foot with gadolinium. 3. Diffuse edema throughout the forefoot without abscess. Forest Berry Jr., MD Assessment and Plan Problem List: (1) Diabetic foot infection ICD Code: E11.69 Status: Acute Assessment and Plan Impression: Right foot infectionsuspicious for possible myelitis per imaging studies. Hypertension Diabetes Right fifth toe amputation July 02, 2016 status post I and D and wound VAC on July 04, 2016 Hospitalization from August 01, 2016 to August 04, 2016was managed for surgical wound infection of the same. Was given vancomycin and Zosyn while in hospital. Was discharged on doxycycline 7 days course upon discharge. History of MRSA Plan: Patient was given clindamycin in ER. Culture was sent from their drainage. Will follow-up. Patient's MRI studies reports were reviewed with the reading radiologist by ER physician. The imaging studies where an equivocal and somewhat suspicious of osteomyelitis and thus the radiologist advise was to admit patient for IV antibiotics a few days and then to repeat MRI to see whether there is resolution. We would consult patient's auto club travel counselor to follow-up as well. For now and continue clindamycin 900 mg IV every 6 hours. Lactobacillus. We'll monitor fingersticks and cover with sliding scale coverage. Hold metformin. Continue long-acting insulin. Resume antihypertensive medications. DVT prophylaxiswith Lovenox. GI prophylaxis on pantoprazole. Discussed Condition With Patient, ER physician, patient's nurse Physician Certification 2 Midnight Certification Type: Admission for Inpatient Services Order for Inpatient Services The services are ordered in accordance with Medicare regulations or non- Medicare payer requirements, as applicable. In the case of services not specified as inpatient-only, they are appropriately provided as inpatient services in accordance with the 2-midnight benchmark. Estimated LOS (days): 2 days is the estimated time the patient will need to remain in the hospital, assuming treatment plan goals are met and no additional complications. Post-Hospital Plan: Home Rosalia Staley MD August 11, 2016 04:53
[2016-08-11 05:48] LABS: AUTOMATED NEUTROPHIL # 5.3 TH/MM3 (1.8-7.7); BASOPHIL # 0.1 TH/MM3 (0-0.2); BASOPHIL % 0.6 % (0.0-2.0); EOSINOPHIL # 0.8 TH/MM3 (0-0.4); EOSINOPHIL % 7.4 % (0.0-4.0); HEMATOCRIT 35.7 % (35.0-46.0); HEMO FLAGS DIFF FINAL; LYMPH % 34.4 % (9.0-44.0); LYMPHOCYTE # 3.6 TH/MM3 (1.0-4.8); MEAN CELL VOLUME 84.5 FL (80.0-100.0); MEAN CORPUSCULAR HGB CONC 33.2 % (32.0-36.0); NEUT % 51.6 % (16.0-70.0); PLATELET COUNT 249 TH/MM3 (150-450); RED BLOOD COUNT 4.22 MIL/MM3 (4.00-5.30); RED CELL DISTRIBUTION WIDTH 13.4 % (11.6-17.2); WHITE BLOOD COUNT 10.4 TH/MM3 (4.0-11.0)
[2016-08-11] MEDS: INSULIN ASPART SUPPLEMENTAL SCALE SQ SCH ×4 (05:50→22:26)
[2016-08-11] MEDS: ACETAMINOPHEN/HYDROcodone 325 MG/5 MG TAB PO PRN ×2 (05:51→20:38)
[2016-08-11] MEDS: CLINDAMYCIN INJ 900 MG in SODIUM CHLORIDE 0.9% INJ 100 ML IV SCH ×4 (05:53→22:24)
[2016-08-11] MEDS: SODIUM CHLORIDE 0.9% FLUSH 10 ML FLUSH IV FLUSH PRN (05:54)
[2016-08-11] MEDS ORDERED: PILL SPLITTER OTHER PRN (06:15)
[2016-08-11 06:21] LABS: BICARBONATE 27.3 MEQ/L (21.0-32.0); POTASSIUM 4.2 MEQ/L (3.5-5.1)
[2016-08-11] MEDS: amLODIPine BESYLATE 5 MG TAB PO SCH (07:49)
[2016-08-11] MEDS: LACTOBACILLUS ACIDOPHILUS TAB PO SCH ×3 (07:50→17:03)
[2016-08-11] MEDS: LISINOPRIL 20 MG TAB PO SCH (07:50)
[2016-08-11] MEDS: SERTRALINE HCL 50 MG TAB PO SCH (07:50)
[2016-08-11] MEDS: SODIUM CHLORIDE 0.9% FLUSH 10 ML FLUSH IV FLUSH SCH ×2 (07:51→20:28)
[2016-08-11] MEDS: INSULIN DETEMIR 100 UNITS/ML VIAL SQ SCH ×2 (07:51→22:25)
[2016-08-11 08:00] VITALS: BP 123/74; PULSE 74; RESP 17; TEMP 97; O2SAT 98
[2016-08-11 12:00] VITALS: BP 125/77; PULSE 76; RESP 18; TEMP 97.7; O2SAT 98
[2016-08-11 16:00] VITALS: BP 122/78; PULSE 79; RESP 17; TEMP 98.6; O2SAT 99
--- NOTE | 2016-08-11 18:44 | PD.POD ---
Subjective Podiatric Problems R foot wound, s/p amputation R 5th toe 07/02/16 [facility] wound vac has been d/c'ed Past Med/Surg/Social History Past Medical History Endocrine: 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: Diabetes mellitus Respiratory: DENIES HX OF: Allergies/hay fever, Asthma, COPD, CPAP use, Sleep apnea, Other respiratory history Cardiovascular: 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: Hyperlipidemia, Hypertension, DENIES HX OF: Abdominal aortic aneurysm, Angina, Atrial fibrillation, Cardiac arrhythmias, Coronary artery disease, Deep venous thrombosis, Heart failure, Heart valve disease, Myocardial infarction, Peripheral vascular dz, Other CV history Gastrointestinal: DENIES HX OF: Colitis, GERD, Irritable bowel syndrome, Liver disease, Pancreatitis, Peptic ulcer disease, Other GI history Genitourinary: DENIES HX OF: Chlamydia, Gonorrhea, Hemodialysis, Herpes genitalis, Human papillomavirus, Kidney disease, Kidney failure, Kidney stones, Past UTI, Peritoneal dialysis, Urinary incontinence, Other history Gynecologic: 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: 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) Age at menarche: 11 history: : 2 Live births: 0 Musculoskeletal: DENIES HX OF: Fibromyalgia, Fractures, Gout, Osteoarthritis, Osteoporosis, Rheumatoid arthritis, Other musculoskeletal hx Cancer/Hematology: DENIES HX OF: Anemia, Bladder Cancer, Blood cancer, Brain cancer, Breast cancer, Colorectal cancer, Endocrine cancer, Eye cancer, GI cancer, cancer, Kidney cancer, Leukemia, Liver cancer, Lung cancer, Lymphoma , Musculoskeletal cancer, Neurologic cancer, Oral cancer, Skin cancer, Stomach cancer, Thyroid cancer, Other cancer/hematology Cancer - female: DENIES HX OF: Cervical cancer, Ovarian cancer, Uterine cancer Infectious disease: DENIES HX OF: AIDS, Chickenpox, Hepatitis, HIV, Measles, MRSA, Mumps, Polio, Positive PPD, Rheumatic fever, Rubella, Syphilis, Tuberculosis, Vanc-resistant enterococc, Other inf disease history Integumentary: DENIES HX OF: Acne, Eczema, Psoriasis, Other integumentary hx Neurologic: DENIES HX OF: ADHD, Autism, Dementia, Developmental delay, Headaches, Multiple sclerosis, Parkinson disease, Peripheral neuropathy, Restless leg syndrome, Seizures, Stroke, Transient ischemic attack, Other neurologic history Psychiatric: 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: Anxiety, DENIES HX OF: Anorexia nervosa, Bipolar disorder, Bulimia, Depression, Schizophrenia, Other psychiatric history Genetic/metabolic: DENIES HX OF: Cystic fibrosis, Down syndrome, Other genetic history, Other metabolic history Events: DENIES HX OF: Anaphylaxis, Gunshot wound, Motor vehicle accident, Other events Disabilities: DENIES HX OF: Hearing deficit, Vision deficit, Hemiparesis, Paraplegia, Quadriplegia, Other disabilities Past Surgical History HEENT: DENIES HX OF: Cataract extraction, Dental surgery, Laryngectomy, Tonsillectomy, Other head surgery, Other eye surgery, Other ear surgery, Other nasal surgery, Other throat surgery Endocrine: DENIES HX OF: Parathyroidectomy, Thyroid surgery, Other endocrine surgery Respiratory: DENIES HX OF: Bronchoscopy, Lobectomy, Other chest surgery Cardiovascular: DENIES HX OF: Angiogram, Angioplasty, CABG surgery, Carotid endarterectomy, Coronary stent, Heart transplant, Pacemaker, Valve replacement, Other cardiac surgery Gastrointestinal: 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: Cholecystectomy, Hernia repair (umbilical ), DENIES HX OF: Appendectomy, Colectomy, subtotal, Colectomy, total, Gastric bypass, Splenectomy, Other GI surgery Genitourinary: DENIES HX OF: Bladder surgery, Kidney stone extraction, Nephrectomy, Other surgery Gynecologic: DENIES HX OF: Cervical conization/LEEP, delivery, Hysterectomy, Oophorectomy, Tubal ligation, 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 Musculoskeletal: DENIES HX OF: Joint replacement, Other musculoskeletal srg Integumentary: DENIES HX OF: Skin cancer removal, Other integumentary surg Neurologic: DENIES HX OF: Craniotomy, Spinal surgery, Other neurologic surgery Breast: DENIES HX OF: Breast biopsy, Lumpectomy, Mastectomy, bilateral, Mastectomy, left, Mastectomy, right, Other breast surgery Social History Smoking Status: Never Smoker Objective Vital Signs Vital Signs Date Time Temp Pulse Resp B/P Pulse Ox O2 Delivery O2 Flow Rate FiO2 08/11/16 16:00 98.6 79 17 122/78 99 08/11/16 12:00 97.7 76 18 125/77 98 08/11/16 08:00 97.0 74 17 123/74 98 08/11/16 00:00 96.2 90 17 131/81 98 08/10/16 21:24 71 18 171/95 100 Room Air Coded Allergies: Aspirin (Verified Adverse Reaction, Intermediate, VOMITING, 08/10/16) *MDRO Multi-Drug Resistant Organism (Verified Adverse Reaction, Unknown, ) MRSA (wound drainage) - 06/29/16 MRSA (foot)-08/01/16 Physical Exam Remarks R foot wound with dorsolateral ulcer continuing down forefoot to under 4th toe area. There is fibrotic covering with no purulence, no localized erythema present. Appears stable Assessment & Plan A/P R foot residual wound, s/p R 5th digit amputation and I&D R foot Plan to debride bedside will order materials Continue with plan for MRI and IV abx in the meantime. Trinity Perez DPM August 11, 2016 18:44
[2016-08-11 20:00] VITALS: BP 128/75; PULSE 76; RESP 18; TEMP 97.1; O2SAT 97
[2016-08-11] MEDS: ATORVASTATIN 40 MG TAB PO SCH (20:28)
[2016-08-12 00:09] VITALS: BP 138/80; PULSE 78; RESP 18; TEMP 97.8; O2SAT 96
[2016-08-12] MEDS: INSULIN ASPART SUPPLEMENTAL SCALE SQ SCH ×4 (04:36→20:49)
[2016-08-12] MEDS: CLINDAMYCIN INJ 900 MG in SODIUM CHLORIDE 0.9% INJ 100 ML IV SCH ×2 (04:36→11:12)
[2016-08-12 08:00] VITALS: BP 132/77; PULSE 75; RESP 18; TEMP 97.4; O2SAT 100
[2016-08-12] MEDS: LACTOBACILLUS ACIDOPHILUS TAB PO SCH ×3 (09:33→17:51)
[2016-08-12] MEDS: SERTRALINE HCL 50 MG TAB PO SCH (09:33)
[2016-08-12] MEDS: LISINOPRIL 20 MG TAB PO SCH (09:33)
[2016-08-12] MEDS: amLODIPine BESYLATE 5 MG TAB PO SCH (09:33)
[2016-08-12] MEDS: ACETAMINOPHEN/HYDROcodone 325 MG/5 MG TAB PO PRN ×3 (09:34→23:34)
[2016-08-12] MEDS: INSULIN DETEMIR 100 UNITS/ML VIAL SQ SCH ×2 (09:37→20:48)
[2016-08-12] MEDS: COLLAGENASE OINT 30 GM TUBE TOPICAL SCH (09:37)
[2016-08-12] MEDS: SODIUM CHLORIDE 0.9% FLUSH 10 ML FLUSH IV FLUSH SCH ×2 (09:38→20:45)
--- NOTE | 2016-08-12 10:03 | HHI.PR ---
Subjective Remarks no fever or chills no complains of pain at all Objective Vitals Vital Signs Date Time Temp Pulse Resp B/P Pulse Ox O2 Delivery O2 Flow Rate FiO2 08/12/16 08:00 97.4 75 18 132/77 100 08/12/16 00:09 97.8 78 18 138/80 96 08/11/16 20:00 97.1 76 18 128/75 97 08/11/16 16:00 98.6 79 17 122/78 99 08/11/16 12:00 97.7 76 18 125/77 98 I/O 08/11/16 08/11/16 08/11/16 08/12/16 08/12/16 08/12/16 07:00 15:00 23:00 07:00 15:00 23:00 Intake Total 480 ml 340 ml 480 ml 580 ml Balance 480 ml 340 ml 480 ml 580 ml Intake Oral 480 ml 240 ml 480 ml 380 ml IV Total 100 ml 200 ml # Voids 3 3 2 2 # Bowel Movements 0 Result Diagram: 08/11/16 0508 08/11/16 0508 Imaging Last Impressions Foot X-Ray 08/10/16 0000 Signed Impressions: Service Date/Time: Wednesday, August 10, 2016 17:49 - CONCLUSION: Soft tissue swelling and lucency involving the distal fifth metatarsal. Can't exclude osteomyelitis. Recommend MRI of the right foot. Pedro Greene MD Foot MRI 08/10/16 0000 Signed Impressions: Service Date/Time: Wednesday, August 10, 2016 19:44 - CONCLUSION: 1. Interval indentation of the fifth toe. 2. Subtle enhancement involving the head of the fourth and fifth metatarsals which is a new finding from the prior exam. This could relate to early osteomyelitis. Consideration should be made to a short-term followup MRI of the foot with gadolinium. 3. Diffuse edema throughout the forefoot without abscess. Forest Berry Jr., MD Objective Remarks awake and alert, no acute distress anicteric lungs clear regular rhythm abdomen soft, nontender right foot- mild swelling, dorsal aspect of the foot- along base of the toes- open wound with clean edges, no foul odor, base of the third toe- some necrotic dry skin very good ++ DP, PT A/P Problem List: (1) Diabetic foot infection ICD Code: E11.69 Status: Acute Assessment and Plan 45 years old female Right foot infection s/p recent 5th digit amputation 07/02 -MRSA- Had PICC completed Vancomycin last admission was discharged on Doxycycline on ff up wound care nurse and Dr. Foley [facility]- noted purulence from area - ff Gram stain and Cultures sent here for further evaluation. - seen by Podiatry- plan to do bedside debridement today - started on IV Clindamycin - MRI with signs of early osteomyelitis - will consult ID service for recommendationknown to Dr. Soares Hypertension. continue meds Diabetes Mellitus, type 2. We'll monitor fingersticks and cover with sliding scale coverage.Hold metformin. Continue long-acting insulin. DVT - patient encourage to do calf exercises and stretching GI prophylaxis on pantoprazole. d/w with Ms. Leyva. Joslyn Gunderson MD Aug 12, 2016 10:03
[2016-08-12 12:00] VITALS: BP 162/75; PULSE 80; RESP 18; TEMP 97.2; O2SAT 99
[2016-08-12 16:00] VITALS: BP 113/77; PULSE 80; RESP 18; TEMP 97.2; O2SAT 99
--- NOTE | 2016-08-12 16:02 | PD.ID.CON ---
History of Present Illness Service ID Consult Requested By Reason for Consult Evaluation and Mment of possible osteomyelitis recurrent. Primary Care Physician Ritesh Henderson MD Diagnoses: History of Present Illness Ms Leyva is a 45-year-old female with past medical history significant for type 2 diabetes uncontrolled presented with 3 week h/o ulcer back in June 2016. She was seen by me and during that admission. Patient was discharged on Vanco IV and was seen in follow up at clinic who reports the wound was doing better. Patient was readmitted a week or so back as toe ulcer margins are black in color and she was concerned about new infection. She reports compliance with medications. She was evaluated by covering natural resource economist for and no surgical intervention planned and recommended wound dressing. At this point her osteomyelitis treatment was few days shy of 6 weeks so she was switched to doxy oral. An MRI was done reports ? osteomyelitis although these could be post op changes. Podiatry consult is pending at time of my visit. ID consulted for evaluation and management of diabetic foot ulcer ? osteomyelitis. Review of Systems ROS Limitations: Poor Historian Constitutional: DENIES: Diaphoretic episodes, Fatigue, Fever, Weight gain, Weight loss, Chills, Dizziness, Change in appetite, Night Sweats Endocrine: DENIES: Abnorml menstrual pattern, Heat/cold intolerance, Polydipsia , Polyuria, Polyphagia Eyes: DENIES: Blurred vision, Diplopia, Eye inflammation, Eye pain, Vision loss , Photosensitivity, Double Vision Ears, nose, mouth, throat: DENIES: Tinnitus, Hearing loss, Vertigo, Nasal discharge, Oral lesions, Throat pain, Hoarseness, Ear Pain, Running Nose, Epistaxis, Sinus Pain, Toothache, Odynophagia Respiratory: DENIES: Apneas, Cough, Snoring, Wheezing, Hemoptysis, Sputum production, Shortness of breath Cardiovascular: DENIES: Chest pain, Palpitations, Syncope, Dyspnea on Exertion , PND, Lower Extremity Edema, Orthopnea, Claudication Gastrointestinal: DENIES: Abdominal pain, Black stools, Bloody stools, Constipation, Diarrhea, Nausea, Vomiting, Difficulty Swallowing, Anorexia Genitourinary: DENIES: Abnormal vaginal bleeding, Dysmenorrhea, Dyspareunia, Sexual dysfunction, Urinary frequency, Urinary incontinence, Urgency, Hematuria , Dysuria, Nocturia, Vaginal discharge Musculoskeletal: DENIES: Joint pain, Muscle aches, Stiffness, Joint Swelling, Back pain, Neck pain Integumentary: DENIES: Abnormal pigmentation, Pruritus, Rash, Nail changes, Breast masses, Breast skin changes, Nipple discharge Hematologic/lymphatic: DENIES: Bruising, Lymphadenopathy Immunologic/allergic: DENIES: Eczema, Urticaria Neurologic: DENIES: Abnormal gait, Headache, Localized weakness, Paresthesias, Seizures, Speech Problems, Tremor, Poor Balance Psychiatric: DENIES: Anxiety, Confusion, Mood changes, Depression, Hallucinations, Agitation, Suicidal Ideation, Homicidal Ideation, Delusions Except as stated in HPI: all other systems reviewed are Neg Past Family Social History Allergies: Coded Allergies: Aspirin (Verified Adverse Reaction, Intermediate, VOMITING, 08/10/16) *MDRO Multi-Drug Resistant Organism (Verified Adverse Reaction, Unknown, ) MRSA (wound drainage) - 06/29/16 MRSA (foot)-08/01/16 Past Medical History Diabetes mellitus type 2, uncontrolled Difficulty getting medical insurance Takes Metformin 500 mg daily for diabetes No complications besides current foot ulcer and neuropathy Past Surgical History Cholecystectomy Abdominal hernia repair Reported Medications Reported Meds & Active Scripts Active Amlodipine (Amlodipine Besylate) 5 Mg Tab 5 Mg PO DAILY Sertraline (Sertraline HCl) 25 Mg Tab 25 Mg PO DAILY Doxycycline Hyclate 100 Mg Cap 100 Mg PO BID 7 Days Atorvastatin (Atorvastatin Calcium) 40 Mg Tab 40 Mg PO HS Lisinopril 20 Mg Tab 40 Mg PO DAILY 30 Days Metformin (Metformin HCl) 500 Mg Tab 500 Mg PO BIDPC With meals Levemir Inj (Insulin Detemir) 1,000 unit/ 10 ML Vial 12 Units SQ BID Do not mix with any other Insulin. Reported Zoloft (Sertraline HCl) 25 Mg Tab 25 Mg PO DAILY Active Ordered Medications Current Medications Medications (Trade) Dose Ordered Sig/Tj Route Start Time Stop Time Status Last Admin (NS Flush) 2 ml UNSCH PRN IV FLUSH 08/10/16 22:00 08/11/16 05:54 (NS Flush) 2 ml BID IV FLUSH 08/11/16 09:00 08/12/16 09:38 (Narcan Inj) 0.4 mg UNSCH PRN IV 08/10/16 22:00 (D50w (Vial) Inj) 50 ml UNSCH PRN IV 08/10/16 22:00 (Glucagon Inj) 1 mg UNSCH PRN OTHER 08/10/16 22:00 Acetaminophen/ Hydrocodone Bitart 1 tab 1 tab Q6H PRN PO 08/11/16 05:00 08/12/16 09:34 (Cleocin Inj/NS Inj) 106 ml @ 212 mls/hr Q6H IV 08/11/16 05:00 08/12/16 11:12 (Lactinex) 1 tab TID PO 08/11/16 09:00 08/12/16 13:39 (Norvasc) 5 mg DAILY PO 08/11/16 09:00 08/12/16 09:33 (Lipitor) 40 mg HS PO 08/11/16 21:00 08/11/16 20:28 (Levemir Inj) 12 units BID SQ 08/11/16 09:00 08/12/16 09:37 (Prinivil) 40 mg DAILY PO 08/11/16 09:00 08/12/16 09:33 (Zoloft) 25 mg DAILY PO 08/11/16 09:00 08/12/16 09:33 (Pill Splitter) 1 ea UNSCH PRN OTHER 08/11/16 06:15 (Santyl Oint) 1 applic DAILY TOPICAL 08/12/16 09:00 08/12/16 09:37 Family History Mom had cancer: cervical Dad: of lung cancer Siblings: healthy Social History Smoke half pack per day, started age 25 Alcohol: None Drug use: Marijuana 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 SKIN: No rashes, ecchymoses or lesions. Cool and dry. HEAD: Atraumatic. Normocephalic. No temporal or scalp tenderness. EYES: Pupils equal round and reactive. Extraocular motions intact. No scleral icterus. No injection or drainage. ENT: Nose without bleeding, purulent drainage or septal hematoma. Throat without erythema, tonsillar hypertrophy or exudate. Uvula midline. Airway patent. NECK: Trachea midline. Supple, nontender, no meningeal signs. CARDIOVASCULAR: Regular rate and rhythm. RESPIRATORY: Clear to auscultation. Breath sounds equal bilaterally. No wheezes , rales, or rhonchi. GASTROINTESTINAL: Abdomen soft, non-tender, nondistended. MUSCULOSKELETAL: Extremities without clubbing, cyanosis, or edema. Right foot in dressing (pt deferred exam as natural resource economist was expected shortly). NEUROLOGICAL: Awake and alert. Grossly nonfocal Psych cooperative IV line sites with no evidence of infection. Laboratory Date/Time Procedure Status Source Growth 08/10/16 21:34 Gram Stain - Final Resulted Wound Toe 08/10/16 21:34 Wound Culture - Preliminary Resulted Wound Toe 08/10/16 18:05 Aerobic Blood Culture - Preliminary Resulted Blood Peripheral NO GROWTH IN 2 DAYS 08/10/16 18:05 Anaerobic Blood Culture - Preliminary Resulted Blood Peripheral NO GROWTH IN 2 DAYS Result Diagram: 08/11/16 0508 08/11/16 0508 Imaging Last Impressions Foot X-Ray 08/10/16 0000 Signed Impressions: Service Date/Time: Wednesday, August 10, 2016 17:49 - CONCLUSION: Soft tissue swelling and lucency involving the distal fifth metatarsal. Can't exclude osteomyelitis. Recommend MRI of the right foot. Pedro Greene MD Foot MRI 08/10/16 0000 Signed Impressions: Service Date/Time: Wednesday, August 10, 2016 19:44 - CONCLUSION: 1. Interval indentation of the fifth toe. 2. Subtle enhancement involving the head of the fourth and fifth metatarsals which is a new finding from the prior exam. This could relate to early osteomyelitis. Consideration should be made to a short-term followup MRI of the foot with gadolinium. 3. Diffuse edema throughout the forefoot without abscess. Forest Berry Jr., MD Assessment and Plan Assessment and Plan Right foot Diabetic foot ulcer infected. H/o MRSA foot infection Recently treated for MRSA osteomyelitis. Now readmitted for same. ? Osteomyelitis on MRI although recently completed 6 week course of IV vanco followed by oral doxy. Recs DC Clindamycin IV (at high risk of Cdiff due to prolonged antibiotic need and also clinda) Start Vanco IV (target 10-15) MRI findings could be post op changes. Patient completed a 6 week course of IV antibiotics. Await input from Podiatry will xuan Patino after she performs I&D bedside ( per RN discussions) Follow cultures Follow clinically. Check LFTs. Will follow. No PICC till cleared by ID. May not need IV ABX on discharge. Charmaine Soares MD Aug 12, 2016 16:02
[2016-08-12] MEDS ORDERED: Vancomycin Consult Pharmacy 1 EA OTHER SCH (16:15)
[2016-08-12] MEDS: VANCOMYCIN INJ 750 MG in SODIUM CHLOR 0.9% 250 ML INJ 250 ML IV SCH (17:52)
[2016-08-12 20:18] VITALS: BP 129/82; PULSE 82; RESP 18; TEMP 96.1; O2SAT 96
[2016-08-12] MEDS: ATORVASTATIN 40 MG TAB PO SCH (20:45)
[2016-08-13 00:01] VITALS: BP 126/74; PULSE 89; RESP 18; TEMP 96.9; O2SAT 97
[2016-08-13] MEDS: VANCOMYCIN INJ 750 MG in SODIUM CHLOR 0.9% 250 ML INJ 250 ML IV SCH ×2 (05:44→18:22)
[2016-08-13 06:01] LABS: ALT (GPT) 21 U/L (10-53); ANION GAP 8 MEQ/L (5-15); AST (GOT) 17 U/L (15-37); BICARBONATE 27.7 MEQ/L (21.0-32.0); BLOOD UREA NITROGEN 26 MG/DL (7-18); CHLORIDE 104 MEQ/L (98-107); GLOMERULAR FILTRATION RATE 68 ML/MIN (>89); POTASSIUM 4.2 MEQ/L (3.5-5.1); SODIUM (NA) 140 MEQ/L (136-145)
[2016-08-13 06:03] LABS: ALKALINE PHOSPHATASE 105 U/L (45-117); TOTAL BILIRUBIN ADULT 0.6 MG/DL (0.2-1.0)
[2016-08-13] MEDS: INSULIN ASPART SUPPLEMENTAL SCALE SQ SCH ×4 (06:17→21:28)
[2016-08-13] MEDS: ACETAMINOPHEN/HYDROcodone 325 MG/5 MG TAB PO PRN (06:27)
--- NOTE | 2016-08-13 07:54 | HHI.PR ---
Subjective Remarks patient complains of foot pain, no nausea vomiting or diarrhea no fever or chills Objective Vitals Vital Signs Date Time Temp Pulse Resp B/P Pulse Ox O2 Delivery O2 Flow Rate FiO2 08/13/16 07:33 16 08/13/16 00:01 96.9 89 18 126/74 97 08/12/16 20:18 96.1 82 18 129/82 96 08/12/16 16:00 97.2 80 18 113/77 99 08/12/16 12:00 97.2 80 18 162/75 99 08/12/16 08:00 97.4 75 18 132/77 100 I/O 08/12/16 08/12/16 08/12/16 08/13/16 08/13/16 08/13/16 07:00 15:00 23:00 07:00 15:00 23:00 Intake Total 580 ml 580 ml 480 ml 360 ml Output Total 800 ml Balance 580 ml 580 ml -320 ml 360 ml Intake Oral 380 ml 580 ml 480 ml 360 ml IV Total 200 ml Output Urine Total 800 ml # Voids 2 3 3 # Bowel Movements 0 Result Diagram: 08/11/16 0508 08/13/16 0345 Imaging Last Impressions Foot X-Ray 08/10/16 0000 Signed Impressions: Service Date/Time: Wednesday, August 10, 2016 17:49 - CONCLUSION: Soft tissue swelling and lucency involving the distal fifth metatarsal. Can't exclude osteomyelitis. Recommend MRI of the right foot. Pedro Greene MD Foot MRI 08/10/16 0000 Signed Impressions: Service Date/Time: Wednesday, August 10, 2016 19:44 - CONCLUSION: 1. Interval indentation of the fifth toe. 2. Subtle enhancement involving the head of the fourth and fifth metatarsals which is a new finding from the prior exam. This could relate to early osteomyelitis. Consideration should be made to a short-term followup MRI of the foot with gadolinium. 3. Diffuse edema throughout the forefoot without abscess. Forest Berry Jr., MD Objective Remarks awake and alert, no acute distress anicteric lungs clear regular rhythm abdomen soft, nontender right foot- swelling resolved, dorsal aspect of the foot- along base of the toes- open wound with clean edges, no foul odor, base of the third toe- superficial black scabs wound- edges clean, minimal lt yellowish drainage on gauze, ++ DP, PT very good ++ DP, PT A/P Problem List: (1) Diabetic foot infection ICD Code: E11.69 Status: Acute Assessment and Plan 45 years old female Right foot infection s/p recent 5th digit amputation 07/02 recent- -MRSA- Had PICC completed Vancomycin last admission was discharged on Doxycycline on ff up wound care nurse and Dr. Foley [facility]- noted purulence from area - ff Gram stain and Cultures - seen by Podiatry- plan to do bedside debridement today - started on IV Vancomycin - appreciate ID ff along with us - MRI with signs of early osteomyelitis - change to Percocet 7.5 prn for pain Hypertension. continue meds Diabetes Mellitus, type 2. We'll monitor fingersticks and cover with sliding scale coverage.Hold metformin for now. Continue long-acting insulin. DVT prophylaxis calf exercises and stretching. expect possibly more procedures GI prophylaxis on pantoprazole. d/w with Ms. Leyva. Joslyn Gunderson MD Aug 13, 2016 07:54
[2016-08-13 08:00] VITALS: BP 112/71; PULSE 80; RESP 18; TEMP 96.8; O2SAT 99
[2016-08-13] MEDS: amLODIPine BESYLATE 5 MG TAB PO SCH (09:24)
[2016-08-13] MEDS: LACTOBACILLUS ACIDOPHILUS TAB PO SCH ×3 (09:24→18:22)
[2016-08-13] MEDS: LISINOPRIL 20 MG TAB PO SCH (09:24)
[2016-08-13] MEDS: SODIUM CHLORIDE 0.9% FLUSH 10 ML FLUSH IV FLUSH SCH ×2 (09:25→21:36)
[2016-08-13] MEDS: SERTRALINE HCL 50 MG TAB PO SCH (09:25)
[2016-08-13] MEDS: COLLAGENASE OINT 30 GM TUBE TOPICAL SCH (09:25)
[2016-08-13] MEDS: INSULIN DETEMIR 100 UNITS/ML VIAL SQ SCH ×2 (09:27→21:28)
[2016-08-13 12:00] VITALS: BP 119/74; PULSE 88; RESP 18; TEMP 96.8; O2SAT 99
[2016-08-13] MEDS: oxyCODONE/ACETAMINOPHEN 7.5 MG/325 MG TAB PO PRN ×2 (14:50→21:22)
[2016-08-13 16:00] VITALS: BP 124/75; PULSE 75; RESP 18; TEMP 96.7; O2SAT 99
[2016-08-13] MEDS: SODIUM CHLORIDE 0.9% FLUSH 10 ML FLUSH IV FLUSH PRN (18:23)
[2016-08-13 20:48] VITALS: BP 137/81; PULSE 80; RESP 18; TEMP 96.9; O2SAT 98
[2016-08-13] MEDS: ATORVASTATIN 40 MG TAB PO SCH (21:22)
--- NOTE | 2016-08-13 22:36 | PD.POD ---
Subjective Podiatric Problems R foot wound, s/p amputation R 5th toe 07/02/16 [facility] Past Med/Surg/Social History Past Medical History Endocrine: 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: Diabetes mellitus Respiratory: DENIES HX OF: Allergies/hay fever, Asthma, COPD, CPAP use, Sleep apnea, Other respiratory history Cardiovascular: 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: Hyperlipidemia, Hypertension, DENIES HX OF: Abdominal aortic aneurysm, Angina, Atrial fibrillation, Cardiac arrhythmias, Coronary artery disease, Deep venous thrombosis, Heart failure, Heart valve disease, Myocardial infarction, Peripheral vascular dz, Other CV history Gastrointestinal: DENIES HX OF: Colitis, GERD, Irritable bowel syndrome, Liver disease, Pancreatitis, Peptic ulcer disease, Other GI history Genitourinary: DENIES HX OF: Chlamydia, Gonorrhea, Hemodialysis, Herpes genitalis, Human papillomavirus, Kidney disease, Kidney failure, Kidney stones, Past UTI, Peritoneal dialysis, Urinary incontinence, Other history Gynecologic: 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: 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) Age at menarche: 11 history: : 2 Live births: 0 Musculoskeletal: DENIES HX OF: Fibromyalgia, Fractures, Gout, Osteoarthritis, Osteoporosis, Rheumatoid arthritis, Other musculoskeletal hx Cancer/Hematology: DENIES HX OF: Anemia, Bladder Cancer, Blood cancer, Brain cancer, Breast cancer, Colorectal cancer, Endocrine cancer, Eye cancer, GI cancer, cancer, Kidney cancer, Leukemia, Liver cancer, Lung cancer, Lymphoma , Musculoskeletal cancer, Neurologic cancer, Oral cancer, Skin cancer, Stomach cancer, Thyroid cancer, Other cancer/hematology Cancer - female: DENIES HX OF: Cervical cancer, Ovarian cancer, Uterine cancer Infectious disease: DENIES HX OF: AIDS, Chickenpox, Hepatitis, HIV, Measles, MRSA, Mumps, Polio, Positive PPD, Rheumatic fever, Rubella, Syphilis, Tuberculosis, Vanc-resistant enterococc, Other inf disease history Integumentary: DENIES HX OF: Acne, Eczema, Psoriasis, Other integumentary hx Neurologic: DENIES HX OF: ADHD, Autism, Dementia, Developmental delay, Headaches, Multiple sclerosis, Parkinson disease, Peripheral neuropathy, Restless leg syndrome, Seizures, Stroke, Transient ischemic attack, Other neurologic history Psychiatric: 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: Anxiety, DENIES HX OF: Anorexia nervosa, Bipolar disorder, Bulimia, Depression, Schizophrenia, Other psychiatric history Genetic/metabolic: DENIES HX OF: Cystic fibrosis, Down syndrome, Other genetic history, Other metabolic history Events: DENIES HX OF: Anaphylaxis, Gunshot wound, Motor vehicle accident, Other events Disabilities: DENIES HX OF: Hearing deficit, Vision deficit, Hemiparesis, Paraplegia, Quadriplegia, Other disabilities Past Surgical History HEENT: DENIES HX OF: Cataract extraction, Dental surgery, Laryngectomy, Tonsillectomy, Other head surgery, Other eye surgery, Other ear surgery, Other nasal surgery, Other throat surgery Endocrine: DENIES HX OF: Parathyroidectomy, Thyroid surgery, Other endocrine surgery Respiratory: DENIES HX OF: Bronchoscopy, Lobectomy, Other chest surgery Cardiovascular: DENIES HX OF: Angiogram, Angioplasty, CABG surgery, Carotid endarterectomy, Coronary stent, Heart transplant, Pacemaker, Valve replacement, Other cardiac surgery Gastrointestinal: 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: Cholecystectomy, Hernia repair (umbilical ), DENIES HX OF: Appendectomy, Colectomy, subtotal, Colectomy, total, Gastric bypass, Splenectomy, Other GI surgery Genitourinary: DENIES HX OF: Bladder surgery, Kidney stone extraction, Nephrectomy, Other surgery Gynecologic: DENIES HX OF: Cervical conization/LEEP, delivery, Hysterectomy, Oophorectomy, Tubal ligation, Other stock saw operator surgery Musculoskeletal: DENIES HX OF: Joint replacement, Other musculoskeletal srg Integumentary: DENIES HX OF: Skin cancer removal, Other integumentary surg Neurologic: DENIES HX OF: Craniotomy, Spinal surgery, Other neurologic surgery Breast: DENIES HX OF: Breast biopsy, Lumpectomy, Mastectomy, bilateral, Mastectomy, left, Mastectomy, right, Other breast surgery Social History Smoking Status: Never Smoker Objective Vital Signs Vital Signs Date Time Temp Pulse Resp B/P Pulse Ox O2 Delivery O2 Flow Rate FiO2 08/13/16 20:48 96.9 80 18 137/81 98 08/13/16 16:00 96.7 75 18 124/75 99 08/13/16 12:00 96.8 88 18 119/74 99 08/13/16 08:00 96.8 80 18 112/71 99 08/13/16 07:33 16 08/13/16 00:01 96.9 89 18 126/74 97 Coded Allergies: Aspirin (Verified Adverse Reaction, Intermediate, VOMITING, 08/10/16) *MDRO Multi-Drug Resistant Organism (Verified Adverse Reaction, Unknown, ) MRSA (wound drainage) - 06/29/16 MRSA (foot)-08/01/16 Assessment & Plan A/P R foot residual wound, s/p R 5th digit amputation and I&D R foot Debrided wound bedside Found copious amounts of gauze adhered to wound bed, came out in pieces Culture taken R foot Plan to scrub foot and explore wound further in coming days Continue IV abx Trinity Perez DPM Aug 13, 2016 22:35
[2016-08-14] VITALS: BP 118/67; PULSE 78; RESP 18; TEMP 96.1; O2SAT 97
[2016-08-14] MEDS: oxyCODONE/ACETAMINOPHEN 7.5 MG/325 MG TAB PO PRN ×3 (05:01→18:17)
[2016-08-14] MEDS ORDERED: PHARMACY ORDERED LAB ONE (05:45)
[2016-08-14] MEDS: INSULIN ASPART SUPPLEMENTAL SCALE SQ SCH ×4 (06:42→22:22)
[2016-08-14] MEDS: VANCOMYCIN INJ 750 MG in SODIUM CHLOR 0.9% 250 ML INJ 250 ML IV SCH ×2 (06:43→16:41)
--- NOTE | 2016-08-14 07:59 | HHI.PR ---
Subjective Remarks overnight minimal pain, no fever yesterday bedside debridement done Objective Vitals Vital Signs Date Time Temp Pulse Resp B/P Pulse Ox O2 Delivery O2 Flow Rate FiO2 08/14/16 00:00 96.1 78 18 118/67 97 08/13/16 20:48 96.9 80 18 137/81 98 08/13/16 16:00 96.7 75 18 124/75 99 08/13/16 12:00 96.8 88 18 119/74 99 08/13/16 08:00 96.8 80 18 112/71 99 I/O 08/13/16 08/13/16 08/13/16 08/14/16 08/14/16 08/14/16 07:00 15:00 23:00 07:00 15:00 23:00 Intake Total 360 ml 250 ml 480 ml 480 ml Output Total 800 ml Balance 360 ml 250 ml 480 ml -320 ml Intake Oral 360 ml 250 ml 480 ml 480 ml Output Urine Total 800 ml # Voids 3 2 2 # Bowel Movements 0 0 Result Diagram: 08/11/16 0508 08/14/16 0327 Imaging Last Impressions Foot X-Ray 08/10/16 0000 Signed Impressions: Service Date/Time: Wednesday, August 10, 2016 17:49 - CONCLUSION: Soft tissue swelling and lucency involving the distal fifth metatarsal. Can't exclude osteomyelitis. Recommend MRI of the right foot. Pedro Greene MD Foot MRI 08/10/16 0000 Signed Impressions: Service Date/Time: Wednesday, August 10, 2016 19:44 - CONCLUSION: 1. Interval indentation of the fifth toe. 2. Subtle enhancement involving the head of the fourth and fifth metatarsals which is a new finding from the prior exam. This could relate to early osteomyelitis. Consideration should be made to a short-term followup MRI of the foot with gadolinium. 3. Diffuse edema throughout the forefoot without abscess. Forest Berry Jr., MD Objective Remarks awake and alert, no acute distress anicteric lungs clear regular rhythm abdomen soft, nontender right foot- swelling resolved, dorsal aspect of the foot- along base of the toes- open wound with clean edges, no foul odor, base of the third toe- wound- edges clean, dry, very good ++ DP, PT A/P Problem List: (1) Diabetic foot infection ICD Code: E11.69 Status: Acute Assessment and Plan 45 years old female Right foot infection s/p recent 5th digit amputation 07/02 recent- -MRSA- Retained Foreign body - pieces of gauze were retrieved during bedside debridement by Dr Perez - 08/13 - Had PICC completed Vancomycin last admission was discharged on Doxycycline - repeat cultures sent yesterday 08/13 - on IV Vancomycin - appreciate ID ff along with us - MRI with signs of early osteomyelitis - Percocet 7.5 prn for pain - patient going for further wound exploration today by Podiatry Hypertension. continue meds.good readings on CCB Diabetes Mellitus, type 2. last hemoglobin A1C- 07/11- 11.3 -We'll monitor fingersticks and cover with sliding scale coverage.Hold metformin for now. -Continue long-acting insulin.- blood sugars reviewed- Increase Levemer- hold for OR this pm DVT prophylaxiscalf exercises and stretching GI prophylaxis on pantoprazole. d/w with Ms. Leyva.- explained to patient Joslyn Gunderson MD Aug 14, 2016 07:59
[2016-08-14 08:00] VITALS: BP 115/66; PULSE 64; RESP 18; TEMP 96.6; O2SAT 99
[2016-08-14] MEDS: INSULIN DETEMIR 100 UNITS/ML VIAL SQ SCH ×2 (09:00→22:12)
[2016-08-14] MEDS: SODIUM CHLORIDE 0.9% FLUSH 10 ML FLUSH IV FLUSH SCH ×2 (09:00→22:10)
[2016-08-14] MEDS: COLLAGENASE OINT 30 GM TUBE TOPICAL SCH (09:00)
[2016-08-14] MEDS ORDERED: ACETAMINOPHEN 1000 MG/100 ML VIAL IV ONE (10:19)
[2016-08-14] MEDS ORDERED: FAMOTIDINE 20 MG/2 ML VIAL ONE (10:20)
[2016-08-14] MEDS ORDERED: MIDAZOLAM HCL 2 MG/2 ML VIAL ONE (10:20)
[2016-08-14] MEDS ORDERED: NEOMYCIN/POLYMYXIN 1 ML G.U. IRRIGANT IR ONE (10:48)
[2016-08-14] MEDS ORDERED: DO NOT ADM ANY ANTICOAGULANT DRUGS PRN (11:24)
[2016-08-14] MEDS ORDERED: *morphine SULFATE 8 MG/ML PERIprocedure ONLY ONE (11:35)
--- NOTE | 2016-08-14 11:49 | HHI.PR ---
Immediate Post Op Note Procedure Date: Aug 14, 2016 Pre Op Diagnosis: Infected wound R lateral /plantar foot Post Op Diagnosis: Same Surgeon: Trintiy Perez DPM Bow Maker Machine Tender(s): Staff Procedure: Irrigation/debridement R foot wound with wound vac placement Findings: Consistent with diagnosis. The R lateral/plantar foot wound, measuring approximately 25cm x 2cm x 0.6cm depth with pieces of embedded nonadherent gauze dressing in base of wound throughout. Upon debridement of this foreign material, plus excisional debridement of fibrotic tissue with #15 blade and curettage, the wound was irrigated with 3L NS, followed by culture of wound, then application of wound vac. Set at 125mmHg continuous. Continue MWF vac changes. Additional Information: n/a Complications: none Specimen(s) removed: culture R foot Estimated blood loss: minimal Anesthesia: General Drains: None Tourniquet time (min at mmHg) n/a Patient to: PACU Patient Condition: Good Date/Time of Procedure: SEE SURGICAL CARE RECORD Trinity Perez DPM Aug 14, 2016 11:49
[2016-08-14] MEDS ORDERED: ONDANSETRON HCL 4 MG/2 ML VIAL IV PUSH ONE (12:00)
[2016-08-14] MEDS ORDERED: PROPOFOL 200 MG/20 ML AMP IV ONE (12:00)
[2016-08-14] MEDS ORDERED: ePHEDrine/NS 25 MG/5 ML SYR IV ONE (12:00)
[2016-08-14 12:26] VITALS: BP 135/84; PULSE 89; RESP 17; TEMP 96.6; O2SAT 99
[2016-08-14] MEDS: amLODIPine BESYLATE 5 MG TAB PO SCH (12:27)
[2016-08-14] MEDS: LACTOBACILLUS ACIDOPHILUS TAB PO SCH ×3 (12:27→16:33)
[2016-08-14] MEDS: SERTRALINE HCL 50 MG TAB PO SCH (12:27)
[2016-08-14] MEDS: LISINOPRIL 20 MG TAB PO SCH (12:27)
[2016-08-14] MEDS: SODIUM CHLOR 0.9% 1000 ML INJ 1,000 ML IV SCH ×2 (12:57→22:18)
[2016-08-14 16:00] VITALS: BP 117/67; PULSE 96; RESP 16; TEMP 95.4; O2SAT 97
[2016-08-14 20:00] VITALS: BP 158/52; PULSE 73; RESP 17; TEMP 95.8; O2SAT 100
[2016-08-14] MEDS: ATORVASTATIN 40 MG TAB PO SCH (22:10)
[2016-08-14] MEDS ORDERED: MORPHINE SULFATE 4 MG/ML INJ IV PUSH ONE (23:30)
[2016-08-15] VITALS: BP 123/77; PULSE 83; RESP 17; TEMP 95.8; O2SAT 100
[2016-08-15] MEDS: oxyCODONE/ACETAMINOPHEN 7.5 MG/325 MG TAB PO PRN ×4 (00:23→22:00)
[2016-08-15] MEDS: VANCOMYCIN INJ 750 MG in SODIUM CHLOR 0.9% 250 ML INJ 250 ML IV SCH ×2 (05:08→16:18)
[2016-08-15] MEDS: INSULIN ASPART SUPPLEMENTAL SCALE SQ SCH ×4 (06:12→22:11)
--- NOTE | 2016-08-15 07:54 | HHI.PR ---
Subjective Remarks patient with episodic flashes of pain on the foot otherwise- no [place] or vomiting BS this am 127 Objective Vitals Vital Signs Date Time Temp Pulse Resp B/P Pulse Ox O2 Delivery O2 Flow Rate FiO2 08/15/16 00:00 95.8 83 17 123/77 100 08/14/16 20:00 95.8 73 17 158/52 100 08/14/16 16:00 95.4 96 16 117/67 97 08/14/16 12:26 96.6 89 17 135/84 99 08/14/16 11:55 73 16 97 Room Air 08/14/16 11:45 97.5 72 16 142/83 98 Room Air 08/14/16 11:40 15 08/14/16 11:30 77 16 132/75 95 Room Air 08/14/16 11:20 97.8 75 16 127/68 100 Simple Mask 8 08/14/16 08:00 96.6 64 18 115/66 99 I/O 08/14/16 08/14/16 08/14/16 08/15/16 08/15/16 08/15/16 07:00 15:00 23:00 07:00 15:00 23:00 Intake Total 480 ml 1272 ml 360 ml 240 ml Output Total 800 ml Balance -320 ml 1272 ml 360 ml 240 ml Intake Oral 480 ml 360 ml 240 ml IV Total 522 ml Other 750 ml Output Urine Total 800 ml # Voids 0 3 2 # Bowel Movements 0 Result Diagram: 08/11/16 0508 08/14/16 0327 Imaging Last Impressions Foot X-Ray 08/10/16 0000 Signed Impressions: Service Date/Time: Wednesday, August 10, 2016 17:49 - CONCLUSION: Soft tissue swelling and lucency involving the distal fifth metatarsal. Can't exclude osteomyelitis. Recommend MRI of the right foot. Pedro Greene MD Foot MRI 08/10/16 0000 Signed Impressions: Service Date/Time: Wednesday, August 10, 2016 19:44 - CONCLUSION: 1. Interval indentation of the fifth toe. 2. Subtle enhancement involving the head of the fourth and fifth metatarsals which is a new finding from the prior exam. This could relate to early osteomyelitis. Consideration should be made to a short-term followup MRI of the foot with gadolinium. 3. Diffuse edema throughout the forefoot without abscess. Forest Berry Jr., MD Objective Remarks awake and alert, no acute distress anicteric lungs clear regular rhythm abdomen soft, nontender right foot-- VAC dressing in place no calf swelling or tenderness Procedures 08/14- I and R foot with FB removal (embedded gauze) with VAC placement A/P Problem List: (1) Diabetic foot infection ICD Code: E11.69 Status: Acute Assessment and Plan 45 years old female Diabetic Right foot infection s/p recent 5th digit amputation 07/02 recent- -MRSA - Retained Foreign body - pieces of gauze were retrieved during bedside debridement by Dr Perez - 08/13 S/P I and D with FB removal of embedded gazuse and VAC placement- 08/14 - Had PICC completed Vancomycin last admission was discharged on Doxycycline - repeat cultures - MRSA - 08/13 - on IV Vancomycin - appreciate ID ff along with us - MRI with signs of early osteomyelitis - Percocet 7.5 prn for pain. IV Morphine for breakthrough pain Hypertension. continue meds.good readings on CCB Diabetes Mellitus, type 2. last hemoglobin A1C- 07/11- 11.3 -We'll monitor fingersticks and cover with sliding scale coverage.Hold metformin for now. On statins -Continue long-acting insulin.- blood sugars reviewed- Increase Levemer-- continue to monitor and adjust DVT prophylaxiscalf exercises and stretching GI prophylaxis on pantoprazole. Joslyn Gunderson MD Aug 15, 2016 07:54
[2016-08-15 08:00] VITALS: BP 126/67; PULSE 67; RESP 18; TEMP 96.9; O2SAT 100
[2016-08-15] MEDS: amLODIPine BESYLATE 5 MG TAB PO SCH (08:00)
[2016-08-15] MEDS: SERTRALINE HCL 50 MG TAB PO SCH (08:00)
[2016-08-15] MEDS: LISINOPRIL 20 MG TAB PO SCH (08:00)
[2016-08-15] MEDS: LACTOBACILLUS ACIDOPHILUS TAB PO SCH ×3 (08:00→16:18)
[2016-08-15] MEDS: INSULIN DETEMIR 100 UNITS/ML VIAL SQ SCH ×2 (08:03→22:10)
[2016-08-15] MEDS: SODIUM CHLORIDE 0.9% FLUSH 10 ML FLUSH IV FLUSH SCH ×2 (08:04→20:47)
[2016-08-15] MEDS: DOCUSATE SODIUM 100 MG CAP PO SCH ×2 (08:08→20:45)
[2016-08-15] MEDS: COLLAGENASE OINT 30 GM TUBE TOPICAL SCH (08:08)
[2016-08-15] MEDS: MORPHINE SULFATE 4 MG/ML INJ IV PUSH PRN (10:40)
--- NOTE | 2016-08-15 11:20 | PD.POD ---
Subjective Podiatric Problems R foot wound, s/p amputation R 5th toe 07/02/16 [facility], s/p I&D with vac R foot 08/14/16 [facility] Past Med/Surg/Social History Past Medical History Endocrine: 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: Diabetes mellitus Respiratory: DENIES HX OF: Allergies/hay fever, Asthma, COPD, CPAP use, Sleep apnea, Other respiratory history Cardiovascular: 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: Hyperlipidemia, Hypertension, DENIES HX OF: Abdominal aortic aneurysm, Angina, Atrial fibrillation, Cardiac arrhythmias, Coronary artery disease, Deep venous thrombosis, Heart failure, Heart valve disease, Myocardial infarction, Peripheral vascular dz, Other CV history Gastrointestinal: DENIES HX OF: Colitis, GERD, Irritable bowel syndrome, Liver disease, Pancreatitis, Peptic ulcer disease, Other GI history Genitourinary: DENIES HX OF: Chlamydia, Gonorrhea, Hemodialysis, Herpes genitalis, Human papillomavirus, Kidney disease, Kidney failure, Kidney stones, Past UTI, Peritoneal dialysis, Urinary incontinence, Other history Gynecologic: 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: 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) Age at menarche: 11 history: : 2 Live births: 0 Musculoskeletal: DENIES HX OF: Fibromyalgia, Fractures, Gout, Osteoarthritis, Osteoporosis, Rheumatoid arthritis, Other musculoskeletal hx Cancer/Hematology: DENIES HX OF: Anemia, Bladder Cancer, Blood cancer, Brain cancer, Breast cancer, Colorectal cancer, Endocrine cancer, Eye cancer, GI cancer, cancer, Kidney cancer, Leukemia, Liver cancer, Lung cancer, Lymphoma , Musculoskeletal cancer, Neurologic cancer, Oral cancer, Skin cancer, Stomach cancer, Thyroid cancer, Other cancer/hematology Cancer - female: DENIES HX OF: Cervical cancer, Ovarian cancer, Uterine cancer Infectious disease: DENIES HX OF: AIDS, Chickenpox, Hepatitis, HIV, Measles, MRSA, Mumps, Polio, Positive PPD, Rheumatic fever, Rubella, Syphilis, Tuberculosis, Vanc-resistant enterococc, Other inf disease history Integumentary: DENIES HX OF: Acne, Eczema, Psoriasis, Other integumentary hx Neurologic: DENIES HX OF: ADHD, Autism, Dementia, Developmental delay, Headaches, Multiple sclerosis, Parkinson disease, Peripheral neuropathy, Restless leg syndrome, Seizures, Stroke, Transient ischemic attack, Other neurologic history Psychiatric: 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: Anxiety, DENIES HX OF: Anorexia nervosa, Bipolar disorder, Bulimia, Depression, Schizophrenia, Other psychiatric history Genetic/metabolic: DENIES HX OF: Cystic fibrosis, Down syndrome, Other genetic history, Other metabolic history Events: DENIES HX OF: Anaphylaxis, Gunshot wound, Motor vehicle accident, Other events Disabilities: DENIES HX OF: Hearing deficit, Vision deficit, Hemiparesis, Paraplegia, Quadriplegia, Other disabilities Past Surgical History HEENT: DENIES HX OF: Cataract extraction, Dental surgery, Laryngectomy, Tonsillectomy, Other head surgery, Other eye surgery, Other ear surgery, Other nasal surgery, Other throat surgery Endocrine: DENIES HX OF: Parathyroidectomy, Thyroid surgery, Other endocrine surgery Respiratory: DENIES HX OF: Bronchoscopy, Lobectomy, Other chest surgery Cardiovascular: DENIES HX OF: Angiogram, Angioplasty, CABG surgery, Carotid endarterectomy, Coronary stent, Heart transplant, Pacemaker, Valve replacement, Other cardiac surgery Gastrointestinal: 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: Cholecystectomy, Hernia repair (umbilical ), DENIES HX OF: Appendectomy, Colectomy, subtotal, Colectomy, total, Gastric bypass, Splenectomy, Other GI surgery Genitourinary: DENIES HX OF: Bladder surgery, Kidney stone extraction, Nephrectomy, Other surgery Gynecologic: DENIES HX OF: Cervical conization/LEEP, delivery, Hysterectomy, Oophorectomy, Tubal ligation, Other drier and grinder tender surgery Musculoskeletal: DENIES HX OF: Joint replacement, Other musculoskeletal srg Integumentary: DENIES HX OF: Skin cancer removal, Other integumentary surg Neurologic: DENIES HX OF: Craniotomy, Spinal surgery, Other neurologic surgery Breast: DENIES HX OF: Breast biopsy, Lumpectomy, Mastectomy, bilateral, Mastectomy, left, Mastectomy, right, Other breast surgery Social History Smoking Status: Never Smoker Objective Vital Signs Vital Signs Date Time Temp Pulse Resp B/P Pulse Ox O2 Delivery O2 Flow Rate FiO2 08/15/16 08:00 96.9 67 18 126/67 100 08/15/16 00:00 95.8 83 17 123/77 100 08/14/16 20:00 95.8 73 17 158/52 100 08/14/16 16:00 95.4 96 16 117/67 97 08/14/16 12:26 96.6 89 17 135/84 99 08/14/16 11:55 73 16 97 Room Air 08/14/16 11:45 97.5 72 16 142/83 98 Room Air 08/14/16 11:40 15 08/14/16 11:30 77 16 132/75 95 Room Air 08/14/16 11:20 97.8 75 16 127/68 100 Simple Mask 8 Coded Allergies: Aspirin (Verified Adverse Reaction, Intermediate, VOMITING, 08/10/16) *MDRO Multi-Drug Resistant Organism (Verified Adverse Reaction, Unknown, ) MRSA (wound drainage) - 06/29/16 MRSA (foot)-08/01/16 Other Results Last Impressions Foot X-Ray 08/10/16 0000 Signed Impressions: Service Date/Time: Wednesday, August 10, 2016 17:49 - CONCLUSION: Soft tissue swelling and lucency involving the distal fifth metatarsal. Can't exclude osteomyelitis. Recommend MRI of the right foot. Pedro Greene MD Foot MRI 08/10/16 0000 Signed Impressions: Service Date/Time: Wednesday, August 10, 2016 19:44 - CONCLUSION: 1. Interval indentation of the fifth toe. 2. Subtle enhancement involving the head of the fourth and fifth metatarsals which is a new finding from the prior exam. This could relate to early osteomyelitis. Consideration should be made to a short-term followup MRI of the foot with gadolinium. 3. Diffuse edema throughout the forefoot without abscess. Forest Berry Jr., MD Physical Exam Remarks Vac in place and functioning R foot Assessment & Plan A/P R foot residual wound, s/p R 5th digit amputation and I&D R foot in june, s/p I &D with vac R foot 08/14/16 Ana Possible osteomyelitis R 4th/5th metatarsal heads Ordered Ceretec scan to determine if bone is infected to 4th/5th met head areas, per MRI suspicions Will determine further treatment based on results and discuss further amputation vs long-term IV antibiotics Trinity Perez DPM Aug 15, 2016 11:20
[2016-08-15 12:00] VITALS: BP 114/83; PULSE 80; RESP 18; TEMP 96.8; O2SAT 100
[2016-08-15] MEDS: SODIUM CHLOR 0.9% 1000 ML INJ 1,000 ML IV SCH (12:36)
[2016-08-15 16:40] VITALS: BP 118/81; PULSE 54; RESP 18; TEMP 97.8; O2SAT 100
[2016-08-15 20:00] VITALS: BP 132/74; PULSE 77; RESP 17; TEMP 97.6; O2SAT 100
[2016-08-15] MEDS: ATORVASTATIN 40 MG TAB PO SCH (20:45)
[2016-08-16] VITALS: BP 112/71; PULSE 75; RESP 17; TEMP 96.7; O2SAT 100
[2016-08-16] MEDS: SODIUM CHLOR 0.9% 1000 ML INJ 1,000 ML IV SCH ×2 (02:54→17:12)
[2016-08-16] MEDS: VANCOMYCIN INJ 750 MG in SODIUM CHLOR 0.9% 250 ML INJ 250 ML IV SCH ×2 (05:06→17:18)
[2016-08-16] MEDS: oxyCODONE/ACETAMINOPHEN 7.5 MG/325 MG TAB PO PRN ×2 (05:07→13:37)
[2016-08-16] MEDS: INSULIN ASPART SUPPLEMENTAL SCALE SQ SCH ×4 (06:34→21:52)
--- NOTE | 2016-08-16 07:32 | HHI.PR ---
Subjective Remarks minimal pain + BM movements Objective Vitals Vital Signs Date Time Temp Pulse Resp B/P Pulse Ox O2 Delivery O2 Flow Rate FiO2 08/16/16 06:07 18 08/16/16 00:00 96.7 75 17 112/71 100 08/15/16 20:00 97.6 77 17 132/74 100 08/15/16 16:40 97.8 54 18 118/81 100 08/15/16 12:00 96.8 80 18 114/83 100 08/15/16 08:00 96.9 67 18 126/67 100 I/O 08/15/16 08/15/16 08/15/16 08/16/16 08/16/16 08/16/16 07:00 15:00 23:00 07:00 15:00 23:00 Intake Total 240 ml 2 ml 240 ml 240 ml Balance 240 ml 2 ml 240 ml 240 ml Intake Oral 240 ml 240 ml 240 ml IV Total 2 ml # Voids 2 2 2 # Bowel Movements 3 Result Diagram: 08/16/16 0448 Imaging Last Impressions Foot X-Ray 08/10/16 0000 Signed Impressions: Service Date/Time: Wednesday, August 10, 2016 17:49 - CONCLUSION: Soft tissue swelling and lucency involving the distal fifth metatarsal. Can't exclude osteomyelitis. Recommend MRI of the right foot. Pedro Greene MD Foot MRI 08/10/16 0000 Signed Impressions: Service Date/Time: Wednesday, August 10, 2016 19:44 - CONCLUSION: 1. Interval indentation of the fifth toe. 2. Subtle enhancement involving the head of the fourth and fifth metatarsals which is a new finding from the prior exam. This could relate to early osteomyelitis. Consideration should be made to a short-term followup MRI of the foot with gadolinium. 3. Diffuse edema throughout the forefoot without abscess. Forest Berry Jr., MD Objective Remarks awake and alert, no acute distress anicteric lungs clear regular rhythm abdomen soft, nontender right foot-- seen during VAC change- wound with good edges, no foul odor edges clean no calf swelling or tenderness Procedures 08/14- I and R foot with FB removal (embedded gauze) with VAC placement A/P Problem List: (1) Diabetic foot infection ICD Code: E11.69 Status: Acute Assessment and Plan 45 years old female Diabetic Right foot infection s/p recent 5th digit amputation 07/02 recent- -MRSA - S/P bedside debridement by Dr Perez - 08/13 S/P I and D with FB removal of embedded gazuse and VAC placement- 08/14 - Had PICC completed Vancomycin last admission was discharged on Doxycycline - repeat cultures - MRSA - 08/13 - on IV Vancomycin - appreciate ID ff along with us - MRI with signs of early osteomyelitis. For Ceretec scan today to determine course of action based on findings - Percocet 7.5 prn for pain. IV Morphine for breakthrough pain- continue current regimen - VAC change -- Hypertension. continue meds.good readings on CCB/KASSIE Diabetes Mellitus, type 2. last hemoglobin A1C- 07/11- 11.3 - on statins -We'll monitor fingersticks and cover with sliding scale coverage.Hold metformin for now. - better blood sugars reviewed- Levemir bid 15 units BId with SS -- continue to monitor and adjust Constipation- resolved.. + BM on colace 100 mg po bid DVT prophylaxiscalf exercises and stretching GI prophylaxis on pantoprazole. Joslyn Gunderson MD Aug 16, 2016 07:32
[2016-08-16 08:00] VITALS: BP 129/59; PULSE 64; RESP 18; TEMP 97.9; O2SAT 95
[2016-08-16] MEDS: SODIUM CHLORIDE 0.9% FLUSH 10 ML FLUSH IV FLUSH SCH ×2 (08:20→21:45)
[2016-08-16] MEDS: COLLAGENASE OINT 30 GM TUBE TOPICAL SCH (08:21)
[2016-08-16] MEDS: amLODIPine BESYLATE 5 MG TAB PO SCH (08:22)
[2016-08-16] MEDS: LISINOPRIL 20 MG TAB PO SCH (08:22)
[2016-08-16] MEDS: SERTRALINE HCL 50 MG TAB PO SCH (08:22)
[2016-08-16] MEDS: LACTOBACILLUS ACIDOPHILUS TAB PO SCH ×3 (08:22→17:18)
[2016-08-16] MEDS: DOCUSATE SODIUM 100 MG CAP PO SCH ×2 (08:22→21:00)
[2016-08-16] MEDS: INSULIN DETEMIR 100 UNITS/ML VIAL SQ SCH ×2 (08:31→21:51)
[2016-08-16] MEDS: MORPHINE SULFATE 4 MG/ML INJ IV PUSH PRN ×5 (08:33→21:41)
--- NOTE | 2016-08-16 14:54 | HHI.PR ---
Addendum to Inpatient Note Addendum Reason: Additional Documentation Additional Information xuan Noland: In my opinion the MRI findings are likely chronic osteomyelitis at this point. Patient has completed a course of IV antibiotics for 6 weeks. Will await Podiatry workup to be completed and decision about further surgery to determine further course of action. Charmaine Soares MD Aug 16, 2016 14:54
[2016-08-16 16:00] VITALS: BP 132/56; PULSE 66; RESP 18; TEMP 97.4; O2SAT 95
[2016-08-16 20:00] VITALS: BP 137/76; PULSE 97; RESP 16; TEMP 97.8; O2SAT 100
[2016-08-16] MEDS: ATORVASTATIN 40 MG TAB PO SCH (21:44)
[2016-08-17] VITALS: BP 118/66; PULSE 86; RESP 16; TEMP 97.8; O2SAT 100
[2016-08-17] MEDS: oxyCODONE/ACETAMINOPHEN 7.5 MG/325 MG TAB PO PRN ×5 (00:08→23:05)
[2016-08-17] MEDS: VANCOMYCIN INJ 750 MG in SODIUM CHLOR 0.9% 250 ML INJ 250 ML IV SCH (06:03)
[2016-08-17] MEDS: INSULIN ASPART SUPPLEMENTAL SCALE SQ SCH ×4 (06:11→20:38)
--- NOTE | 2016-08-17 07:44 | HHI.PR ---
Subjective Remarks afebrile, pain well controlled + good BM Objective Vitals Vital Signs Date Time Temp Pulse Resp B/P Pulse Ox O2 Delivery O2 Flow Rate FiO2 08/17/16 00:00 97.8 86 16 118/66 100 08/16/16 20:00 97.8 97 16 137/76 100 08/16/16 16:00 97.4 66 18 132/56 95 08/16/16 08:00 97.9 64 18 129/59 95 I/O 08/16/16 08/16/16 08/16/16 08/17/16 08/17/16 08/17/16 07:00 15:00 23:00 07:00 15:00 23:00 Intake Total 240 ml 360 ml 1546 ml 240 ml Balance 240 ml 360 ml 1546 ml 240 ml Intake Oral 240 ml 360 ml 620 ml 240 ml IV Total 926 ml # Voids 2 2 1 # Bowel Movements 0 0 Result Diagram: 08/16/16 0448 Imaging Last Impressions Foot X-Ray 08/10/16 0000 Signed Impressions: Service Date/Time: Wednesday, August 10, 2016 17:49 - CONCLUSION: Soft tissue swelling and lucency involving the distal fifth metatarsal. Can't exclude osteomyelitis. Recommend MRI of the right foot. Pedro Greene MD Foot MRI 08/10/16 0000 Signed Impressions: Service Date/Time: Wednesday, August 10, 2016 19:44 - CONCLUSION: 1. Interval indentation of the fifth toe. 2. Subtle enhancement involving the head of the fourth and fifth metatarsals which is a new finding from the prior exam. This could relate to early osteomyelitis. Consideration should be made to a short-term followup MRI of the foot with gadolinium. 3. Diffuse edema throughout the forefoot without abscess. Forest Berry Jr., MD Objective Remarks awake and alert, no acute distress anicteric lungs clear regular rhythm abdomen soft, nontender right foot-- seen during VAC change- wound with good edges, no foul odor edges clean 08/16 good peripheral pulses no calf swelling or tenderness Procedures 08/14- I and R foot with FB removal (embedded gauze) with VAC placement A/P Problem List: (1) Diabetic foot infection ICD Code: E11.69 Status: Acute Assessment and Plan 45 years old female Diabetic Right foot infection s/p recent 5th digit amputation 07/02 recent- -MRSA - S/P bedside debridement by Dr Perez - 08/13 - Possible OM S/P I and D with FB removal of embedded gauze and VAC placement- 08/14 - Had PICC completed Vancomycin last admission was discharged on Doxycycline - repeat cultures - MRSA - 08/13 - on IV Vancomycin - appreciate ID ff along with us - MRI with signs of early osteomyelitis. For Ceretec scan- second part today to determine course of action based on findings - Percocet 7.5 prn for pain. IV Morphine for breakthrough pain- continue current regimen - VAC change -- Hypertension. continue meds.good readings on CCB/KASSIE Diabetes Mellitus, type 2. last hemoglobin A1C- 07/11- 11.3. - was improving - yesterday evening BS- 264. this am 167 -Continue on Levemer 15 unit bid for now and monitor. -We'll monitor fingersticks and cover with sliding scale coverage. - better blood sugars reviewed- Levemir bid 15 units BId with SS -- continue to monitor and adjust -on statins - restart her on her metformin 500 mg po bid Constipation- resolved.. + BM on colace 100 mg po bid Patine up and ambulating around DVT prophylaxiscalf exercises and stretching GI prophylaxis on pantoprazole. Joslyn Gunderson MD Aug 17, 2016 07:44
[2016-08-17 08:00] VITALS: BP 147/84; PULSE 70; RESP 16; TEMP 96.6; O2SAT 100
[2016-08-17] MEDS ORDERED: MORPHINE SULFATE 4 MG/ML INJ IV PUSH PRN (08:00)
[2016-08-17] MEDS: DOCUSATE SODIUM 100 MG CAP PO SCH ×2 (09:00→21:00)
[2016-08-17] MEDS: COLLAGENASE OINT 30 GM TUBE TOPICAL SCH (09:00)
[2016-08-17] MEDS: metFORMIN HCL 500 MG TAB PO SCH ×2 (09:00→16:57)
[2016-08-17] MEDS: SERTRALINE HCL 50 MG TAB PO SCH (09:42)
[2016-08-17] MEDS: LISINOPRIL 20 MG TAB PO SCH (09:43)
[2016-08-17] MEDS: LACTOBACILLUS ACIDOPHILUS TAB PO SCH ×3 (09:43→17:04)
[2016-08-17] MEDS: amLODIPine BESYLATE 5 MG TAB PO SCH (09:44)
[2016-08-17] MEDS: SODIUM CHLORIDE 0.9% FLUSH 10 ML FLUSH IV FLUSH SCH ×2 (09:45→23:09)
[2016-08-17] MEDS: INSULIN DETEMIR 100 UNITS/ML VIAL SQ SCH ×2 (09:48→20:37)
--- NOTE | 2016-08-17 10:12 | RADRPT ---
EXAM DATE/TIME: 08/16/2016 12:12 [facility] COMPARISON: FOOT RIGHT LIMITED (2VWS), August 10, 2016, 17:49. MRI FOOT RIGHT W & W/O CONTRAST, August 10, 2016, 19:44 . INDICATIONS : Right foot wound. DOSE: 21 mCi Tc99m Ceretec labeled white blood cells IV SPECT IMAGIN hrs, 20 hrs IMAGNG: SPECT/CT imaging with fusion was performed. RADIATION DOSE: 4.6 CTDIvol (mGy) MEDICAL HISTORY : Diabetes mellitus type 2. SURGICAL HISTORY : Cholecystectomy. Inguinal hernia repair. Right 5th toe amputation. ENCOUNTER: Initial ACUITY: 1 month PAIN SCALE: 2/10 LOCATION: Right Foot. TECHNIQUE: Following the in vitro labeling of autologous white cells and reinjection, whole body scan was perfor med at the specified times. SPECT imaging was performed at the specified time in sagittal, axial and coronal planes. Attenuation correction was performed with the computed tomography and both the atten uation correction and non-attenuation corrected data sets were reviewed. FINDINGS: There is diffuse and prominent white cell uptake in the right lateral forefoot on the 30 minute image s which localizes to the distal metatarsal region on the 3 hour images. Scanning at 20 hours demonst rates further localization to 3 discrete foci in the right forefoot, the most intense in the distal 3 rd metatarsal head, moderate in the distal 4th metatarsal head and mild in the distal 5th metatarsal head. No abnormal white cell accumulation in the left foot. CONCLUSION: There are 3 areas of progressive and increasing white cell accumulation in the right forefoot located to the 3rd 4th and 5th metatarsal head, with the most intense degree of uptake in the distal 3rd met atarsal head. Forest Recinos MD on August 17, 2016 at 10:02 Board Certified Radiologist. This report was verified electronically.
[2016-08-17 12:00] VITALS: BP 123/77; PULSE 87; RESP 17; TEMP 97.3; O2SAT 100
--- NOTE | 2016-08-17 15:02 | HHI.PR ---
Addendum to Inpatient Note Addendum Reason: Additional Documentation Additional Information Case d/w : MRI findings reviewed. Bone path from 07/02/16 was positive for Acute osteomyelitis and patient was treated with IV antibiotics for 6 weeks. Superficial wound cultures with MRSA but deeper cultures intra op are normal skin franc with no anaerobes. Left message with to provide further input based on WBC scan ? need for surgery and if oral antibiotics ok with them at this point. From an ID standpoint I feel this could be residual osteomyelitis and oral suppression with doxy for few more weeks may be appropriate. Charmaine Soares MD Aug 17, 2016 15:02
[2016-08-17 16:00] VITALS: BP 140/79; PULSE 73; RESP 18; TEMP 97.8; O2SAT 99
[2016-08-17] MEDS: DOXYCYCLINE HYCLATE 100 MG TAB PO SCH (16:10)
[2016-08-17 20:00] VITALS: BP 150/88; PULSE 75; RESP 20; TEMP 97.1; O2SAT 100
[2016-08-17] MEDS: ATORVASTATIN 40 MG TAB PO SCH (20:31)
--- NOTE | 2016-08-17 21:46 | PD.POD ---
Subjective Podiatric Problems s/p I&D with wound VAC application by on 08/14/16. The patient denies any pain at this time, she denies n/v/f/h/c/sob. She is concerned about being discharged home on oral abx as she has been readmitted for this same infection in the past. Pain score: 0 Past Med/Surg/Social History Past Medical History Endocrine: 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: Diabetes mellitus Respiratory: DENIES HX OF: Allergies/hay fever, Asthma, COPD, CPAP use, Sleep apnea, Other respiratory history Cardiovascular: 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: Hyperlipidemia, Hypertension, DENIES HX OF: Abdominal aortic aneurysm, Angina, Atrial fibrillation, Cardiac arrhythmias, Coronary artery disease, Deep venous thrombosis, Heart failure, Heart valve disease, Myocardial infarction, Peripheral vascular dz, Other CV history Gastrointestinal: DENIES HX OF: Colitis, GERD, Irritable bowel syndrome, Liver disease, Pancreatitis, Peptic ulcer disease, Other GI history Genitourinary: DENIES HX OF: Chlamydia, Gonorrhea, Hemodialysis, Herpes genitalis, Human papillomavirus, Kidney disease, Kidney failure, Kidney stones, Past UTI, Peritoneal dialysis, Urinary incontinence, Other history Gynecologic: 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: 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 (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) Age at menarche: 11 history: : 2 Live births: 0 Musculoskeletal: DENIES HX OF: Fibromyalgia, Fractures, Gout, Osteoarthritis, Osteoporosis, Rheumatoid arthritis, Other musculoskeletal hx Cancer/Hematology: DENIES HX OF: Anemia, Bladder Cancer, Blood cancer, Brain cancer, Breast cancer, Colorectal cancer, Endocrine cancer, Eye cancer, GI cancer, cancer, Kidney cancer, Leukemia, Liver cancer, Lung cancer, Lymphoma , Musculoskeletal cancer, Neurologic cancer, Oral cancer, Skin cancer, Stomach cancer, Thyroid cancer, Other cancer/hematology Cancer - female: DENIES HX OF: Cervical cancer, Ovarian cancer, Uterine cancer Infectious disease: DENIES HX OF: AIDS, Chickenpox, Hepatitis, HIV, Measles, MRSA, Mumps, Polio, Positive PPD, Rheumatic fever, Rubella, Syphilis, Tuberculosis, Vanc-resistant enterococc, Other inf disease history Integumentary: DENIES HX OF: Acne, Eczema, Psoriasis, Other integumentary hx Neurologic: DENIES HX OF: ADHD, Autism, Dementia, Developmental delay, Headaches, Multiple sclerosis, Parkinson disease, Peripheral neuropathy, Restless leg syndrome, Seizures, Stroke, Transient ischemic attack, Other neurologic history Psychiatric: 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: Anxiety, DENIES HX OF: Anorexia nervosa, Bipolar disorder, Bulimia, Depression, Schizophrenia, Other psychiatric history Genetic/metabolic: DENIES HX OF: Cystic fibrosis, Down syndrome, Other genetic history, Other metabolic history Events: DENIES HX OF: Anaphylaxis, Gunshot wound, Motor vehicle accident, Other events Disabilities: DENIES HX OF: Hearing deficit, Vision deficit, Hemiparesis, Paraplegia, Quadriplegia, Other disabilities Past Surgical History HEENT: DENIES HX OF: Cataract extraction, Dental surgery, Laryngectomy, Tonsillectomy, Other head surgery, Other eye surgery, Other ear surgery, Other nasal surgery, Other throat surgery Endocrine: DENIES HX OF: Parathyroidectomy, Thyroid surgery, Other endocrine surgery Respiratory: DENIES HX OF: Bronchoscopy, Lobectomy, Other chest surgery Cardiovascular: DENIES HX OF: Angiogram, Angioplasty, CABG surgery, Carotid endarterectomy, Coronary stent, Heart transplant, Pacemaker, Valve replacement, Other cardiac surgery Gastrointestinal: 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: Cholecystectomy, Hernia repair (umbilical ), DENIES HX OF: Appendectomy, Colectomy, subtotal, Colectomy, total, Gastric bypass, Splenectomy, Other GI surgery Genitourinary: DENIES HX OF: Bladder surgery, Kidney stone extraction, Nephrectomy, Other surgery Gynecologic: DENIES HX OF: Cervical conization/LEEP, delivery, Hysterectomy, Oophorectomy, Tubal ligation, Other federal java developer surgery Musculoskeletal: DENIES HX OF: Joint replacement, Other musculoskeletal srg Integumentary: DENIES HX OF: Skin cancer removal, Other integumentary surg Neurologic: DENIES HX OF: Craniotomy, Spinal surgery, Other neurologic surgery Breast: DENIES HX OF: Breast biopsy, Lumpectomy, Mastectomy, bilateral, Mastectomy, left, Mastectomy, right, Other breast surgery Social History Smoking Status: Never Smoker Objective Vital Signs Vital Signs Date Time Temp Pulse Resp B/P Pulse Ox O2 Delivery O2 Flow Rate FiO2 08/17/16 18:04 18 08/17/16 16:00 97.8 73 18 140/79 99 08/17/16 12:00 97.3 87 17 123/77 100 08/17/16 08:00 96.6 70 16 147/84 100 08/17/16 00:00 97.8 86 16 118/66 100 Coded Allergies: Aspirin (Verified Adverse Reaction, Intermediate, VOMITING, 08/10/16) *MDRO Multi-Drug Resistant Organism (Verified Adverse Reaction, Unknown, ) MRSA (wound drainage) - 06/29/16 MRSA (foot)-08/01/16, 08/10/16 Physical Exam Remarks Exam limited by wound VAC Assessment & Plan A/P 1) Stage II/III ulcer right foot with questionable OM -s/p I&D right foot, , 08/14 -I have spoken with and at length regarding the patient. She recently was diagnosed with OM and treated with 6 weeks of IV abx, therefore the MRI/ceretec can not be considered fully reliable as the changes could be from the previous infection. I will plan to change the wound VAC tomorrow after the patient has been off of iv abx for 24 hours and if the wound appears healthy and the tissue is viable will plan to d/c on PO abx. There was no exposed bone or deep tunneling at time of surgery. -The patient already has a home wound VAC, but is adament about not receiving HHC with [facility] again, as she attributes her current issues and readmission to complications with their care. Sosa Rich DPM Aug 17, 2016 21:46
[2016-08-18] VITALS: BP 135/86; PULSE 75; RESP 16; TEMP 97.6; O2SAT 100
[2016-08-18] MEDS: DOXYCYCLINE HYCLATE 100 MG TAB PO SCH (05:20)
[2016-08-18] MEDS: INSULIN ASPART SUPPLEMENTAL SCALE SQ SCH ×2 (05:28→11:33)
[2016-08-18] MEDS ORDERED: PHARMACY ORDERED LAB ONE (05:45)
[2016-08-18] MEDS: SODIUM CHLOR 0.9% 1000 ML INJ 1,000 ML IV SCH (06:21)
[2016-08-18 08:00] VITALS: BP 114/58; PULSE 72; RESP 16; TEMP 96.2; O2SAT 98
--- NOTE | 2016-08-18 08:21 | HHI.PR ---
Subjective Remarks no nausea or vomiting complains of foot hurting- does not feel good no diarrhea Objective Vitals Vital Signs Date Time Temp Pulse Resp B/P Pulse Ox O2 Delivery O2 Flow Rate FiO2 08/18/16 00:00 97.6 75 16 135/86 100 08/17/16 20:00 97.1 75 20 150/88 100 08/17/16 18:04 18 08/17/16 16:00 97.8 73 18 140/79 99 08/17/16 12:00 97.3 87 17 123/77 100 I/O 08/17/16 08/17/16 08/17/16 08/18/16 08/18/16 08/18/16 07:00 15:00 23:00 07:00 15:00 23:00 Intake Total 240 ml 575 ml 240 ml Balance 240 ml 575 ml 240 ml Intake Oral 240 ml 575 ml 240 ml # Voids 1 6 1 # Bowel Movements 0 0 Result Diagram: 08/16/16 0448 Imaging Last Impressions Tumor Localization 08/16/16 0000 Signed Impressions: Service Date/Time: Tuesday, August 16, 2016 12:12 - CONCLUSION: There are 3 areas of progressive and increasing white cell accumulation in the right forefoot located to the 3rd 4th and 5th metatarsal head, with the most intense degree of uptake in the distal 3rd metatarsal head. Forest Recinos MD Foot X-Ray 08/10/16 0000 Signed Impressions: Service Date/Time: Wednesday, August 10, 2016 17:49 - CONCLUSION: Soft tissue swelling and lucency involving the distal fifth metatarsal. Can't exclude osteomyelitis. Recommend MRI of the right foot. Pedro Greene MD Foot MRI 08/10/16 0000 Signed Impressions: Service Date/Time: Wednesday, August 10, 2016 19:44 - CONCLUSION: 1. Interval indentation of the fifth toe. 2. Subtle enhancement involving the head of the fourth and fifth metatarsals which is a new finding from the prior exam. This could relate to early osteomyelitis. Consideration should be made to a short-term followup MRI of the foot with gadolinium. 3. Diffuse edema throughout the forefoot without abscess. Forest Berry Jr., MD Objective Remarks awake and alert, no acute distress anicteric lungs clear regular rhythm abdomen soft, nontender right foot-- VAC in place, no calf tenderness good peripheral pulses Procedures 08/14- I and R foot with FB removal (embedded gauze) with VAC placement A/P Problem List: (1) Diabetic foot infection ICD Code: E11.69 Status: Acute Assessment and Plan 45 years old female Diabetic Right foot infection s/p recent 5th digit amputation 07/02 recent- -MRSA - Retained Foreign body - pieces of gauze were retrieved during bedside debridement by Dr Perez - 08/13 S/P I and D with FB removal of embedded gauze and VAC placement- 08/14 - Had PICC completed Vancomycin last admission was discharged on Doxycycline - repeat cultures - MRSA - 08/13 - on IV Vancomycin - appreciate ID ff along with us - MRI with signs of early osteomyelitis- ID feels that this is residual - Percocet 7.5 prn for pain. IV Morphine for breakthrough pain - for VAC change today Podiatry and possible DC today on Doxycycline for oral suppression- will DC with ID for clearance Hypertension. continue meds.good readings on CCB Diabetes Mellitus, type 2. last hemoglobin A1C- 07/11- 11.3 -We'll monitor fingersticks and cover with sliding scale coverage.Hold metformin for now. On statins -Continue long-acting insulin.- blood sugars reviewed- Increase Levemer-- continue to monitor and adjust- Increase levemer dose DVT prophylaxiscalf exercises and stretching GI prophylaxis on pantoprazole. If DC= ff up with PCP- Dr. Henderson CM consult for home health nursing ff up Joslyn Gunderson MD Aug 18, 2016 08:21
[2016-08-18] MEDS: metFORMIN HCL 500 MG TAB PO SCH (08:40)
[2016-08-18] MEDS: LACTOBACILLUS ACIDOPHILUS TAB PO SCH ×2 (08:40→11:34)
[2016-08-18] MEDS: LISINOPRIL 20 MG TAB PO SCH (08:40)
[2016-08-18] MEDS: SODIUM CHLORIDE 0.9% FLUSH 10 ML FLUSH IV FLUSH SCH (08:41)
[2016-08-18] MEDS: amLODIPine BESYLATE 5 MG TAB PO SCH (08:41)
[2016-08-18] MEDS: SERTRALINE HCL 50 MG TAB PO SCH (08:41)
[2016-08-18] MEDS: DOCUSATE SODIUM 100 MG CAP PO SCH (08:48)
[2016-08-18] MEDS: oxyCODONE/ACETAMINOPHEN 7.5 MG/325 MG TAB PO PRN ×2 (08:50→15:57)
[2016-08-18] MEDS ORDERED: INSULIN DETEMIR 100 UNITS/ML VIAL SQ SCH (09:00)
[2016-08-18] MEDS ORDERED: DOXY1CAP91 PO (10:50)
[2016-08-18] MEDS: COLLAGENASE OINT 30 GM TUBE TOPICAL SCH (11:35)
[2016-08-18 12:00] VITALS: BP 135/66; PULSE 83; RESP 17; TEMP 96.5; O2SAT 98
--- NOTE | 2016-08-18 12:58 | HHI.IDPN ---
Subjective Subjective Remarks Ms Leyva is a 45-year-old female with past medical history significant for type 2 diabetes uncontrolled presented with 3 week h/o ulcer back in June 2016. She was seen by me and during that admission. Patient was discharged on Vanco IV and was seen in follow up at clinic who reports the wound was doing better. Patient was readmitted a week or so back as toe ulcer margins are black in color and she was concerned about new infection. She reports compliance with medications. 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 At this point her osteomyelitis treatment was few days shy of 6 weeks so she was switched to doxy oral. An MRI was done reports ? osteomyelitis although these could be post op changes. Podiatry consult is pending at time of my visit. ID consulted for evaluation and management of diabetic foot ulcer ? osteomyelitis. Overnight events reviewed No fever No rash No diarrhea Antibiotics Vanco IV Doxy oral Lines Line sites with no e.o infection. Past Medical History reviewed Allergies: Coded Allergies: Aspirin (Verified Adverse Reaction, Intermediate, VOMITING, 08/10/16) *MDRO Multi-Drug Resistant Organism (Verified Adverse Reaction, Unknown, ) MRSA (wound drainage) - 06/29/16 MRSA (foot)-08/01/16, 08/10/16 Objective . Vital Signs Date Time Temp Pulse Resp B/P Pulse Ox O2 Delivery O2 Flow Rate FiO2 08/18/16 12:00 96.5 83 17 135/66 98 08/18/16 08:00 96.2 72 16 114/58 98 08/18/16 00:00 97.6 75 16 135/86 100 08/17/16 20:00 97.1 75 20 150/88 100 08/17/16 18:04 18 08/17/16 16:00 97.8 73 18 140/79 99 08/17/16 08/17/16 08/18/16 15:00 23:00 07:00 Intake Total 575 ml 240 ml Balance 575 ml 240 ml Intake Oral 575 ml 240 ml # Voids 6 1 # Bowel Movements 0 Imaging Last Impressions Tumor Localization 08/16/16 0000 Signed Impressions: Service Date/Time: Tuesday, August 16, 2016 12:12 - CONCLUSION: There are 3 areas of progressive and increasing white cell accumulation in the right forefoot located to the 3rd 4th and 5th metatarsal head, with the most intense degree of uptake in the distal 3rd metatarsal head. Forest Recinos MD Foot X-Ray 08/10/16 0000 Signed Impressions: Service Date/Time: Wednesday, August 10, 2016 17:49 - CONCLUSION: Soft tissue swelling and lucency involving the distal fifth metatarsal. Can't exclude osteomyelitis. Recommend MRI of the right foot. Pedro Greene MD Foot MRI 08/10/16 0000 Signed Impressions: Service Date/Time: Wednesday, August 10, 2016 19:44 - CONCLUSION: 1. Interval indentation of the fifth toe. 2. Subtle enhancement involving the head of the fourth and fifth metatarsals which is a new finding from the prior exam. This could relate to early osteomyelitis. Consideration should be made to a short-term followup MRI of the foot with gadolinium. 3. Diffuse edema throughout the forefoot without abscess. Forest Berry Jr., MD Physical Exam GENERAL: This is a well-nourished, well-developed patient, in no apparent distress. SKIN: No rashes, ecchymoses or lesions. Cool and dry. HEAD: Atraumatic. Normocephalic. No temporal or scalp tenderness. EYES: Pupils equal round and reactive. Extraocular motions intact. No scleral icterus. No injection or drainage. ENT: Nose without bleeding, purulent drainage or septal hematoma. Throat without erythema, tonsillar hypertrophy or exudate. Uvula midline. Airway patent. NECK: Trachea midline. Supple, nontender, no meningeal signs. CARDIOVASCULAR: Regular rate and rhythm. RESPIRATORY: Clear to auscultation. Breath sounds equal bilaterally. No wheezes , rales, or rhonchi. GASTROINTESTINAL: Abdomen soft, non-tender, nondistended. MUSCULOSKELETAL: Extremities without clubbing, cyanosis, or edema. Right foot in wound vac. NEUROLOGICAL: Awake and alert. Grossly nonfocal Psych cooperative IV line sites with no evidence of infection. Assessment & Plan Remarks Right foot Diabetic foot ulcer infected. H/o MRSA foot infection Recently treated for MRSA osteomyelitis. Now readmitted for same. ? Osteomyelitis on MRI although recently completed 6 week course of IV vanco followed by oral doxy. Recs DC Vanco IV Continue Oral Doxy for additional 4 weeks on discharge. The intraop cultures were negative and WBC scan is difficult to interpret in view of recent treatment with IV antibiotics for 6 weeks.Bone path from 07/02/16 was positive for Acute osteomyelitis and patient was treated with IV antibiotics for 6 weeks. At this point this could be treated infection as cultures are negative. d /w who agrees. Patient had retained pieces of gauze on admission which could have contributed to delayed healing and now that these are taken out she should do well on oral doxy to suppress any residual infection. d/w ok to discharge home on oral antibiotics. Ok to DC from ID standpoint scripts in chart. Will sign off please call back if any change in clinical condition or questions. Charmaine Soares MD Aug 18, 2016 12:58 MRI findings reviewed. Bone path from 07/02/16 was positive for Acute osteomyelitis and patient was treated with IV antibiotics for 6 weeks. Superficial wound cultures with MRSA but deeper cultures intra op are normal skin franc with no anaerobes. Left message with to provide further input based on WBC scan ? need for surgery and if oral antibiotics ok with them at this point. From an ID standpoint I feel this could be residual osteomyelitis and oral suppression with doxy for few more weeks may be appropriate. Charmaine Soares MD Aug 18, 2016 12:58
--- NOTE | 2016-08-18 13:14 | HHI.FF ---
Face to Face Verification Physical Therapy Order: Evaluate and Treat, Improve ambulation Home Health Nursing Order: Medical education Signs/symptoms of disease process Diabetic education Wound care and dressing changes Nursing assessment with vital signs Nutritional Services Host Order: To Evaluate: Support services I have seen patient Ana Leyva on 08/18/16. My clinical findings support the need for the requested home health care services because: Ltd mobility - disease progression Need for psychosocial assistance Infection w/ risk of complications I certify that my clinical findings support that this patient is homebound because: Need for psychosocial assistance Joslyn Gunderson MD Aug 18, 2016 13:14 because: Need for psychosocial assistance Joslyn Gunderson MD Aug 18, 2016 13:14
[2016-08-18] MEDS ORDERED: OXYC1TAB35 PO (13:21)
[2016-08-18] MEDS ORDERED: LACT PO (13:21)
[2016-08-18 16:00] VITALS: BP 141/83; PULSE 85; RESP 17; TEMP 97.2; O2SAT 100
--- NOTE | 2016-08-19 09:41 | HHI.FF ---
Face to Face Verification Diagnosis: (1) Diabetic foot ulcer (2) Osteomyelitis (3) Diabetic foot infection Home Health Nursing Order: Medical education Signs/symptoms of disease process Diabetic education Wound care and dressing changes Instructions: dressing change with small granulofoam VAC M-W-F on right foot, 125 mm Hg continuous. Gse Mechanic Order: To Evaluate: Support services I have seen patient Ana Leyva on 08/19/16. My clinical findings support the need for the requested home health care services because: Ltd mobility - disease progression Infection w/ risk of complications I certify that my clinical findings support that this patient is homebound because: Need for psychosocial assistance Joslyn Gunderson MD Aug 19, 2016 09:41
--- NOTE | 2016-08-20 09:07 | HHI.DS ---
Discharge Summary Admission Date August 10, 2016 at 21:47 Discharge Date: Aug 18, 2016 Admitting Diagnosis right foot infection suspected osteomyelitis (1) Diabetic foot infection ICD Code: E11.69 Diagnosis: Principal Procedures 08/14- I and R foot with FB removal (embedded gauze) with VAC placement Brief History - From Admission History from patient, ER provider's communication, and review of medical records. Patient reported that she came back to the hospital because her right foot is infected again. She stated that she was seen by her home health care nurse yesterday and she reported to the nurse that she saw increased drainage in her wound and she was therefore sent back to the hospital one that home health care nurse called her primary who is Dr. Foley. Patient denies any fevers. Reports she did take the antibiotics as prescribed. Patient was discharged from our hospital on August 04, 2016. She had a follow-up appointment on [facility], [facility]. When asked about how the wound was on that day, she stated that she does not know how the wound looks like that today because the clinic visit was supposed to be for her medical conditions and not for the wound care. She stated she was not examined at that time for her foot. She in fact has an appointment with hydraulic lift operator Dr. Perez today. In the emergency room, patient's x-ray and MRI imaging studies revealed suspicious for osteomyelitis. CBC/BMP: 08/16/16 0448 Imaging Last Impressions Tumor Localization 08/16/16 0000 Signed Impressions: Service Date/Time: Tuesday, August 16, 2016 12:12 - CONCLUSION: There are 3 areas of progressive and increasing white cell accumulation in the right forefoot located to the 3rd 4th and 5th metatarsal head, with the most intense degree of uptake in the distal 3rd metatarsal head. Forest Recinos MD Foot X-Ray 08/10/16 0000 Signed Impressions: Service Date/Time: Wednesday, August 10, 2016 17:49 - CONCLUSION: Soft tissue swelling and lucency involving the distal fifth metatarsal. Can't exclude osteomyelitis. Recommend MRI of the right foot. Pedro Greene MD Foot MRI 08/10/16 0000 Signed Impressions: Service Date/Time: Wednesday, August 10, 2016 19:44 - CONCLUSION: 1. Interval indentation of the fifth toe. 2. Subtle enhancement involving the head of the fourth and fifth metatarsals which is a new finding from the prior exam. This could relate to early osteomyelitis. Consideration should be made to a short-term followup MRI of the foot with gadolinium. 3. Diffuse edema throughout the forefoot without abscess. Forest Berry Jr., MD PE at Discharge awake and alert, no acute distress anicteric lungs clear regular rhythm abdomen soft, nontender right foot-- VAC in place, no calf tenderness good peripheral pulses Pt update on day of discharge afebrile, + pain foot/VAC area reinforced diabetes- education- very motivated Hospital Course 45 years old female Diabetic Right foot infection s/p recent 5th digit amputation 07/02 recent- -MRSA - Retained Foreign body - pieces of gauze were retrieved during bedside debridement by Dr Perez - 08/13 S/P I and D with FB removal of embedded gauze and VAC placement- 08/14 - Had PICC completed Vancomycin last admission was discharged on Doxycycline - repeat cultures - MRSA - 08/13 - on IV Vancomycin - appreciate ID ff along with us - MRI with signs of early osteomyelitis- ID feels that this is residual - Percocet 7.5 prn for pain. IV Morphine for breakthrough pain - for VAC change today Podiatry - C today on Doxycycline for oral suppression- will DC with ID for clearance Hypertension. continue meds.good readings on CCB Diabetes Mellitus, type 2. last hemoglobin A1C- 07/11- 11.3 -We'll monitor fingersticks and cover with sliding scale coverage.Hold metformin for now. On statins -Continue long-acting insulin.- blood sugars reviewed- Increase Levemer-- continue to monitor and adjust- Increase levemer dose DVT prophylaxiscalf exercises and stretching GI prophylaxis on pantoprazole. If DC= ff up with PCP- Dr. Beatriz BECERRA consult for home health nursing ff up Pt Condition on Discharge: Stable Discharge Disposition: Disch w/ Home Health Serv Discharge Time: <= 30 minutes Discharge Instructions DIET: Follow Instructions for: Heart Healthy Diet, Diabetic Diet Activities you can perform: Weight Bearing as Brien Follow up Referrals: PCP Follow-up - 1 Week with PCP Podiatry - 3-5 Days with Trinity Perez DPM New Medications: Doxycycline (Monohydrate) (Doxycycline) 100 Mg Cap 100 MG PO BID Diabetic foot infection. Days 21 Ref 0 CAP Lactobacillus Acidophilus (Acidophilus/l-Sporogenes) 1 Tab Tab 1 TAB PO BID ABASSDIA Days 21 Ref 0 TAB Oxycodone-Acetaminophen (Oxycodone-Acetaminophen) 7.5-325 mg Tab 1 TAB PO Q6H PRN pain #30 Ref 0 TAB Continued Medications: Amlodipine (Amlodipine) 5 Mg Tab 5 MG PO DAILY Blood Pressure Management #30 Ref 0 TAB Atorvastatin (Atorvastatin) 40 Mg Tab 40 MG PO HS Cholesterol Management #30 Ref 6 TAB Lisinopril (Lisinopril) 20 Mg Tab 40 MG PO DAILY Days 30 Ref 7 TAB Metformin (Metformin) 500 Mg Tab 500 MG PO BIDPC With meals Blood Sugar Management #180 Ref 3 TAB Sertraline (Sertraline) 25 Mg Tab 25 MG PO DAILY #30 Ref 0 TAB Discontinued Medications: Doxycycline Hyclate (Doxycycline Hyclate) 100 Mg Cap 100 MG PO BID MRSA Diabetic foot infection Days 7 Ref 0 CAP Insulin Detemir Inj (Levemir Inj) 1,000 unit/ 10 ML Vial 12 UNITS SQ BID Do not mix with any other Insulin. Blood Sugar Management #1 Ref 6 VIAL Joslyn Gunderson MD Aug 20, 2016 09:06
--- NOTE | 2016-08-21 04:58 | MP ---
cc: TRINITY HOUSTON DPM DATE OF SURGERY: 08/14/2016 DATE OF : 1970 HISTORY: The patient is a 45-year-old female who presented to the emergency department with a worsening infection to the right lateral foot. 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 After refusing further amputation as well as wound vac changes or the right lateral foot wound. She also has been having home health care coming change the bandages. It was noted upon examination of the right lateral dorsal foot wound, it measured approximately 25 cm x 2 cm x 0.6 cm in depth and had significant amounts of imbedded non adherent gauze dressing throughout the wound. That has not been removed with her wound vac changes. I discussed with the patient after try to remove some of it bedside that she would benefit from an irrigation and debridement of the right foot with placement of another wound vac to the area secondary to my and inability to clean up the wound adequately bedside. She consented to undergo the procedure and after all risks, benefits and potential complications were discussed in detail with her and she was seen in preop holding by myself, nursing staff and Anesthesia where the correct patient side and site were all confirmed to be correct and the right foot. She was taken back to the surgical suite, placed in supine position where attention was directed the right foot. It was prepped and draped in normal sterile fashion after timeouts were performed as per hospital protocol. A curette #15 blade and rongeur were utilized in order to remove all of the foreign material as well as the fibrotic material from the wound. It was irrigated copiously with 3 liters normal saline followed by a culture taken of the wound and then application of a small wound vac set at 125 mmHg on continuous setting. Orders were written again for Tuesday, Tuesday and Tuesday wound vac changes to the right foot. A culture was sent of the right foot and she tolerated procedure and anesthesia well without any complications and was taken back to PACU with vital signs stable vascular status intact to the remainder of the right foot. She will be non-weightbearing to the right foot and will evaluate the wound in the coming days to determine further treatment. SURGEON Trinity Houston MD. DIRECTOR OF MATERIALS: Staff. PREOPERATIVE DIAGNOSIS: Infected wound right lateral foot. POSTOPERATIVE DIAGNOSIS: Infected wound right lateral foot. PROCEDURE: Irrigation and debridement right foot wound with wound vac placement. PATHOLOGY: Culture right foot. ANESTHESIA General endotracheal anesthesia. ESTIMATED BLOOD LOSS Minimal HEMOSTASIS None. CONDITION: Condition stable to PACU. DISPOSITION Non-weightbearing right foot with Tuesday, Tuesday, Tuesday wound vac changes and infectious diseases consult. Trinity Coleman /4:59 PM /4:44 AM
== END 2016-08-18 16:58 | disposition home health service (06) | DRG 623 ==
LOC: NEPE 16:54 → NEDA 21:47 → N07A 23:02
PROVIDERS: ADMIT Internal Medicine; ATTEND Internal Medicine
PROC: 0HDMXZZ Extraction of Right Foot Skin, External Approach (ICD-10-PCS; 2016-08-13)
PROC: 0HBMXZZ Excision of Right Foot Skin, External Approach (ICD-10-PCS; principal; 2016-08-14 10:34)
DX: E11.628 Type 2 diabetes mellitus with other skin complications (principal); M86.671 Other chronic osteomyelitis, right ankle and foot; E11.621 Type 2 diabetes mellitus with foot ulcer; E11.65 Type 2 diabetes mellitus with hyperglycemia; L97.519 Non-pressure chronic ulcer of other part of right foot with unspecified severity; I10 Essential (primary) hypertension; E78.5 Hyperlipidemia, unspecified; B95.62 Methicillin resistant Staphylococcus aureus infection as the cause of diseases classified elsewhere; K59.00 Constipation, unspecified; E11.69 Type 2 diabetes mellitus with other specified complication; Z79.84 Long term (current) use of oral hypoglycemic drugs; Z89.421 Acquired absence of other right toe(s); Z87.891 Personal history of nicotine dependence
CPT/HCPCS: 73620; 73720; 76937; 78807; 78999; 80048; 80053; 80202; 82565; 82948; 83605; 85025; 85652; 86140; 86403; 87015; 87040; 87070; 87102; 87106; 87116; 87147; 87186; 87205; 87206; 99285; A9569; A9579; J0131; J1815; J2250; J2270; J2405; J3010; J3370; J7030; J7050

== ENCOUNTER 2016-08-30 11:27 | Emergency (ER) | payer SELFPAY ==
[~2016-08-30] VITALS: Ht 162.6 cm; Wt 71.0 kg
[~2016-08-30 11:27] MED LIST changes: -DOXY100C PO; +DOXY1CAP91 PO; +LACT PO; -LEVEMIR SQ; +OXYC1TAB35 PO; -ULTR37.55 PO; +ZOLO25TA PO
[2016-08-30 11:33] VITALS: BP 136/74; PULSE 86; RESP 16; TEMP 97.8; O2SAT 99
[2016-08-30] MEDS ORDERED: TRAM-388 PO (11:51)
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
== END 2016-08-30 12:18 | disposition home or self-care (01) ==
LOC: PHEFT 11:27
DX: M79.671 Pain in right foot (principal); E78.00 Pure hypercholesterolemia, unspecified; B95.62 Methicillin resistant Staphylococcus aureus infection as the cause of diseases classified elsewhere; Z89.421 Acquired absence of other right toe(s); Z91.19 Patient's noncompliance with other medical treatment and regimen
CPT/HCPCS: 99283

== ENCOUNTER 2017-01-04 10:36 | Emergency (ER) | payer SELFPAY ==
[~2017-01-04] VITALS: Ht 162.6 cm; Wt 75.0 kg
[~2017-01-04 10:36] MED LIST changes: -LACT PO; -SERT25TA83 PO; +TRAM-388 PO; -ZOLO25TA PO
[2017-01-04 10:44] VITALS: BP 192/94; PULSE 82; RESP 14; TEMP 98.6; O2SAT 97
[2017-01-04 10:51] VITALS: BP_SYST 180
--- NOTE | 2017-01-04 11:15 | PD ---
HPI Chief Complaint: Pain: Acute or Chronic Time Seen by Provider: 11:05 Travel History International Travel<30 days: No Contact w/Intl Traveler<30days: No Traveled to known affect area: No History of Present Illness HPI 46-year-old female presents to emergency department via EMS with complaint of right foot pain that started last night. Denies injury. Says she is diabetic and had an amputation of her right fifth toe in June. Says the pain radiates from her big toe to the arch of her foot and then to the medial heel area. Denies fever, vomiting. Reports paresthesias of the third and fourth toes that is unchanged. Denies loss of sensation. Denies decreased range of motion or strength. Pain is aggravated when she walks on the lateral aspect of her foot. Pain is constant. Rates the pain 10/10. Describes it as a stabbing sensation. Has not taken any medication or tried any treatments to alleviate her symptoms. No known relieving factors. Does not have an established primary care provider. Allergies to aspirin. Has no other medical complaints. No other modifying factors or associated signs and symptoms. History Past Medical Histgory Hx Cancer: No Social History Alcohol Use: No Tobacco Use: No Allergies-Medications (Allergen,Severity, Reaction): Coded Allergies: aspirin (Unverified Adverse Reaction, Intermediate, VOMITING, 01/04/17) *MDRO Multi-Drug Resistant Organism (Verified Adverse Reaction, Unknown, 01/04/17) MRSA (wound drainage) - 06/29/16 MRSA (foot)-08/01/16, 08/10/16 Reported Meds & Prescriptions Reported Meds & Active Scripts Active Oxycodone-Acetaminophen 7.5-325 mg Tab 1 Tab PO Q6H PRN Doxycycline (Doxycycline (Monohydrate)) 100 Mg Cap 100 Mg PO BID 21 Days Amlodipine (Amlodipine Besylate) 5 Mg Tab 5 Mg PO DAILY Atorvastatin (Atorvastatin Calcium) 40 Mg Tab 40 Mg PO HS Lisinopril 20 Mg Tab 40 Mg PO DAILY 30 Days Metformin (Metformin HCl) 500 Mg Tab 500 Mg PO BIDPC With meals Reported Tramadol-Acetaminophen 37.5-325 mg Tab 1 Tab PO Q6H PRN Review of Systems Except as stated in HPI: all other systems reviewed are Neg Physical Exam Narrative GENERAL: Well-nourished, well-developed female patient, in no acute distress SKIN: Warm and dry. HEAD: Atraumatic. Normocephalic. EYES: Pupils equal and round. No scleral icterus. No injection or drainage. ENT: Mucosa pink and moist. Airway patent. NECK: Trachea midline. CARDIOVASCULAR: Regular rate. RESPIRATORY: No accessory muscle use. GASTROINTESTINAL: Flat. MUSCULOSKELETAL: Right foot is without erythema, edema, ecchymosis; 2+ pedal pulse; no obvious deformities; fifth toe is absent; sensory intact; tenderness on palpation to the plantar aspect of the medial arch of the foot; no open wounds noted. No obvious deformities. No clubbing. No cyanosis. No edema. NEUROLOGICAL: Awake and alert. Oriented 3. No obvious cranial nerve deficits. Motor grossly within normal limits. Normal speech. PSYCHIATRIC: Appropriate mood and affect; insight and judgment normal. Data Data Last Documented VS Vital Signs Date Time Temp Pulse Resp B/P (MAP) Pulse Ox O2 Delivery O2 Flow Rate FiO2 01/04/17 10:51 180/ 01/04/17 10:44 98.6 82 14 97 MDM Medical Screen Exam Complete: Yes Emergency Medical Condition: No Differential Diagnosis Foot pain, diabetic neuropathy, plantar fasciitis, heel spur Narrative Course 46-year-old female with right foot pain that started last night. Denies injury. Patient is diabetic and has history of right fifth toe amputation in June. The foot is without erythema, edema. There are no signs of infection. Right lower extremity supple and non-tense with 2+ pedal pulse and sensory intact and without erythema or edema. The patient is ambulatory in the room with a limp to the right lower extremity. Bedside glucose was checked in triage and is 181. I do not suspect fracture, dislocation, or osteomyelitis until imaging is not necessary at this time. Instructed patient to follow-up with podiatry. Vital signs are stable and the patient is stable for outpatient follow-up and treatment. The patient has no urgent or emergent medical complaints. There is no emergent or urgent medical need at this time. I instructed the patient to follow up with their primary care provider. A medical screening exam was performed: At the time of evaluation the presenting medical condition was determined not to be of an emergent nature. The patient was given the option of receiving additional care, but declined. Patient was given options for additional community resources from which to obtain care. The Patient Has Been advised to seek medical attention for their presenting complaint. The patient has been advised to return to the ER at any time if an emergent condition develops. Primary Impression: Encounter for medical screening examination Condition: Stable Madeline Oliveira Jan 04, 2017 11:15
[2017-01-04 11:16] VITALS: BP 180/88
== END 2017-01-04 11:32 | disposition left against medical advice (07) ==
LOC: NEPK 10:36
DX: M79.671 Pain in right foot (principal); E11.9 Type 2 diabetes mellitus without complications; Z89.421 Acquired absence of other right toe(s); Z79.899 Other long term (current) drug therapy; Z88.6 Allergy status to analgesic agent
CPT/HCPCS: 99281

== ENCOUNTER 2017-01-04 12:04 | Inpatient (IN) | payer SELFPAY ==
[~2017-01-04] VITALS: Ht 162.6 cm; Wt 94.0 kg
[2017-01-04 12:06] VITALS: BP 184/89; PULSE 89; RESP 18; TEMP 98.2; O2SAT 98
--- NOTE | 2017-01-04 12:23 | PD ---
Physical Exam Date Seen by Provider: Jan 04, 2017 Time Seen by Provider: 12:21 Narrative 46-year-old female previously seen here this morning and made in the [facility] now for complaints of right lower extremity pain. Patient is a type II diabetic with history of right toe amputation. Patient was brought in by ambulance and then screened as in the [facility] now. She is requesting to be seen by a physician at this time. She has allergies to aspirin and history of MRSA. Data Data Last Documented VS Vital Signs Date Time Temp Pulse Resp B/P (MAP) Pulse Ox O2 Delivery O2 Flow Rate FiO2 01/04/17 12:06 98.2 89 18 184/89 (120) 98 MDM Medical Record Reviewed: Yes Supervised Visit with LUIS DANIEL: Yes Condition: Stable Luis Helton Jan 04, 2017 12:23
--- NOTE | 2017-01-04 15:48 | RADRPT ---
EXAM DATE/TIME: 01/04/2017 15:13 [facility] COMPARISON: FOOT RIGHT COMPLETE ([id number]), August 01, 2016, 15:38. INDICATIONS : Pain and swelling right lateral foot. MEDICAL HISTORY : Diabetes mellitus type II. Hypertension Hypercholesterolemia. SURGICAL HISTORY : right 5th toe amputation ENCOUNTER: Initial ACUITY: 3 days PAIN SCORE: 5/10 LOCATION: Right lateral foot FINDINGS: Smooth margins of the distal 5th metatarsus at the amputation site. There is some narrowing of the d istal margin suggesting bony resorption, but the cortical margins remain smooth. There is a changed appearance to the distal 4th metatarsal head with a lucent area in the distal epiphysis with intact c ortical margin. There is a changed appearance to the distal 2nd metatarsal head with flattening and some sclerosis and a small area of lucency seen on the oblique view. No evidence of periosteal react ion. No radiopaque foreign bodies. Mild thickening of the soft tissues about the lateral distal 5th metatarsal. CONCLUSION: Prior phalangeal amputation 5th digit. There are several new findings when compared to July 2016 incl uding remodeling of the distal 5th metatarsal head, a new lucent area in the distal 4th metatarsal he ad (possible arthropathy or infection), and flattening of the distal 2nd metatarsal head (possible as eptic necrosis). Forest Recinos MD on January 04, 2017 at 15:44 Board Certified Radiologist. This report was verified electronically.
[2017-01-04] MEDS ORDERED: VANCOMYCIN INJ 1,500 MG in SODIUM CHLORID 0.9% 500 ML INJ 500 ML IV ONE (16:15)
[2017-01-04 16:47] LABS: AUTOMATED NEUTROPHIL # 4.3 TH/MM3 (1.8-7.7); BASOPHIL # 0.1 TH/MM3 (0-0.2); BASOPHIL % 1.1 % (0.0-2.0); EOSINOPHIL # 0.5 TH/MM3 (0-0.4); EOSINOPHIL % 5.7 % (0.0-4.0); HEMATOCRIT 38.5 % (35.0-46.0); HEMOGLOBIN 13.1 GM/DL (11.6-15.3); LYMPH % 36.1 % (9.0-44.0); MEAN CELL VOLUME 87.2 FL (80.0-100.0); MEAN CORPUSCULAR HEMOGLOBIN 29.5 PG (27.0-34.0); MEAN CORPUSCULAR HGB CONC 33.9 % (32.0-36.0); MEAN PLATELET VOLUME 7.8 FL (7.0-11.0); MONO % 5.3 % (0.0-8.0); MONOCYTE # 0.4 TH/MM3 (0-0.9); NEUT % 51.8 % (16.0-70.0); PLATELET COUNT 273 TH/MM3 (150-450); RED BLOOD COUNT 4.42 MIL/MM3 (4.00-5.30); RED CELL DISTRIBUTION WIDTH 13.2 % (11.6-17.2); WHITE BLOOD COUNT 8.4 TH/MM3 (4.0-11.0)
[2017-01-04] MEDS ORDERED: SODIUM CHLORIDE 0.9% FLUSH 10 ML FLUSH IV FLUSH PRN ×2 (17:00→19:30)
[2017-01-04 17:11] VITALS: BP 199/99; PULSE 78; RESP 16; O2SAT 100
[2017-01-04 17:20] LABS: BICARBONATE 26.9 MEQ/L (21.0-32.0); CALCIUM 8.5 MG/DL (8.5-10.1)
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
[2017-01-04] MEDS ORDERED: diphenhydrAMINE HCL 50 MG/ML VIAL IVP ONE (17:45)
[2017-01-04] MEDS ORDERED: Vancomycin Consult Pharmacy 1 EA OTHER SCH (18:00)
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
[2017-01-04 18:47] VITALS: BP 179/82; PULSE 73; RESP 16; O2SAT 100
[2017-01-04] MEDS ORDERED: DEXTROSE 50% IN WATER 50 ML VIAL(D50) IV PUSH PRN (19:00)
[2017-01-04] MEDS ORDERED: MORPHINE SULFATE 4 MG/ML INJ IV PUSH PRN ×2 (19:00)
[2017-01-04] MEDS ORDERED: BISACODYL 10 MG SUPP RECTAL PRN (19:00)
[2017-01-04] MEDS ORDERED: ONDANSETRON HCL 4 MG/2 ML VIAL IVP PRN (19:00)
[2017-01-04] MEDS ORDERED: NALOXONE HCL 0.4 MG/ML AMP IV PUSH PRN (19:00)
[2017-01-04] MEDS ORDERED: ACETAMINOPHEN 325 MG TAB PO PRN ×2 (19:00)
[2017-01-04] MEDS ORDERED: PROCHLORPERAZINE 25 MG SUPP RECTAL PRN (19:00)
[2017-01-04] MEDS ORDERED: LACTULOSE SYRUP 20 GM/30 ML CUP PO PRN (19:00)
[2017-01-04] MEDS ORDERED: MAGNESIUM HYDROXIDE SUSP 30 ML CUP PO PRN (19:00)
[2017-01-04] MEDS ORDERED: GLUCAGON 1 MG/ML VIAL OTHER PRN (19:00)
[2017-01-04] MEDS ORDERED: SENNOSIDES 8.6 MG TAB PO PRN (19:00)
[2017-01-04] MEDS: SODIUM CHLOR 0.9% 1000 ML INJ 1,000 ML IV SCH (19:30)
[2017-01-04] MEDS ORDERED: GADODIAMIDE PF 287 MG/ML 5 ML VIAL (for RAD MRI) IVCONTRAST ONE (19:40)
[2017-01-04] MEDS: INSULIN ASPART SUPPLEMENTAL SCALE SQ SCH (21:00)
[2017-01-04] MEDS ORDERED: SODIUM CHLORIDE 0.9% FLUSH 10 ML FLUSH IV FLUSH SCH (21:00)
[2017-01-04 21:16] VITALS: BP 149/91; PULSE 83; RESP 20; TEMP 97.7; O2SAT 99
[2017-01-04] MEDS: DOCUSATE SODIUM 50 MG/SENNA 8.6 MG TAB PO SCH (21:27)
[2017-01-04] MEDS: metFORMIN HCL 500 MG TAB PO SCH (21:27)
[2017-01-04] MEDS: ATORVASTATIN 40 MG TAB PO SCH (21:27)
[2017-01-04] MEDS: SODIUM CHLORIDE 0.9% FLUSH 10 ML FLUSH IV FLUSH SCH (21:27)
[2017-01-04] MEDS: ENOXAPARIN SODIUM 40 MG/0.4 ML SYRINGE SQ SCH (21:28)
[2017-01-04] MEDS: PANTOPRAZOLE SOD 40 MG DELAYED RELEASE TAB PO SCH (21:28)
--- NOTE | 2017-01-04 21:30 | RADRPT ---
EXAM DATE/TIME: 01/04/2017 19:14 [facility] COMPARISON: MRI FOOT RIGHT W & W/O CONTRAST, August 10, 2016, 19:44. WBC SPECT CERETEC, August 16, 2016, 12:12. FOOT RIGHT COMPLETE ([id number]), January 04, 2017, 15:13. INDICATIONS : Right foot pain for 2 days. History of osteomyelitis and MRSA. CONTRAST: 15 cc Omniscan (gadodiamide) IV MEDICAL HISTORY : Hypertension. Diabetes mellitus type 2. Methicillin-resistant Staphylococcus aureus. SURGICAL HISTORY : Umbilical hernia repair. Cholecystectomy. Right 5th toe amputation. ENCOUNTER: Subsequent ACUITY: 2 day PAIN SCORE: 3/10 LOCATION: Right foot. TECHNIQUE: Multiplanar, multisequence MRI examination was performed without contrast and after the intravenous a dministration of gadolinium. FINDINGS: There is evidence for prior amputation of the fifth digit at the level of the metatarsophalangea l joint. There is slight degree of edema involving the distal portion of the fourth metacarpal head m ay represent osteomyelitis in the appropriate clinical setting and demonstrates abnormal enhancement. Similar finding is present involving the second distal metatarsal head not present on the prior exam . There is degenerative change involving the first metatarsophalangeal joint. There is no evidence fo r abscess. CONCLUSION: There is abnormal edema involving the distal second and fourth metatarsal heads with enhancement may represent osteomyelitis in the appropriate clinical setting, however the appearance is nonspecific. Lore Whitley MD on January 04, 2017 at 21:24 Board Certified Radiologist. This report was verified electronically.
[2017-01-04 23:28] VITALS: BP 194/94; PULSE 72; RESP 18; TEMP 97.7; O2SAT 100
[2017-01-04] MEDS ORDERED: ZOLPIDEM TARTRATE 5 MG TAB PO ONE (23:45)
[2017-01-05 03:51] VITALS: BP 137/78; PULSE 89; RESP 18; TEMP 98.8
[2017-01-05] MEDS: SODIUM CHLOR 0.9% 1000 ML INJ 1,000 ML IV SCH ×2 (04:41→15:30)
[2017-01-05] MEDS: oxyCODONE/ACETAMINOPHEN 10 MG/325 MG TAB PO PRN ×2 (04:58→21:42)
[2017-01-05 08:01] VITALS: BP 145/73; PULSE 68; RESP 18; TEMP 97.7; O2SAT 99
[2017-01-05 08:26] LABS: AUTOMATED NEUTROPHIL # 3.1 TH/MM3 (1.8-7.7); BASOPHIL % 0.6 % (0.0-2.0); EOSINOPHIL # 0.4 TH/MM3 (0-0.4); HEMATOCRIT 34.7 % (35.0-46.0); HEMOGLOBIN 12.2 GM/DL (11.6-15.3); LYMPH % 30.5 % (9.0-44.0); LYMPHOCYTE # 1.8 TH/MM3 (1.0-4.8); MEAN CELL VOLUME 86.8 FL (80.0-100.0); MEAN CORPUSCULAR HEMOGLOBIN 30.5 PG (27.0-34.0); MEAN CORPUSCULAR HGB CONC 35.1 % (32.0-36.0); MEAN PLATELET VOLUME 8.3 FL (7.0-11.0); MONO % 8.8 % (0.0-8.0); MONOCYTE # 0.5 TH/MM3 (0-0.9); NEUT % 53.1 % (16.0-70.0); PLATELET COUNT 211 TH/MM3 (150-450); RED CELL DISTRIBUTION WIDTH 12.8 % (11.6-17.2); WHITE BLOOD COUNT 5.8 TH/MM3 (4.0-11.0)
[2017-01-05 08:53] LABS: ALT (GPT) 13 U/L (10-53); AST (GOT) 14 U/L (15-37); BICARBONATE 23.8 MEQ/L (21.0-32.0); BLOOD UREA NITROGEN 19 MG/DL (7-18); CALCIUM 8.1 MG/DL (8.5-10.1); CHLORIDE 107 MEQ/L (98-107); CREATININE 0.94 MG/DL (0.50-1.00); GLOMERULAR FILTRATION RATE 64 ML/MIN (>89); GLUCOSE,RANDOM 160 MG/DL (74-106); MAGNESIUM 1.8 MG/DL (1.5-2.5); PHOSPHORUS 3.2 MG/DL (2.5-4.9); SODIUM (NA) 138 MEQ/L (136-145)
[2017-01-05 09:02] LABS: ALKALINE PHOSPHATASE 80 U/L (45-117); FREE T4 1.18 NG/DL (0.76-1.46); TOTAL BILIRUBIN ADULT 0.5 MG/DL (0.2-1.0); TOTAL PROTEIN 6.2 GM/DL (6.4-8.2)
[2017-01-05] MEDS: metFORMIN HCL 500 MG TAB PO SCH (09:26)
[2017-01-05] MEDS: DOCUSATE SODIUM 50 MG/SENNA 8.6 MG TAB PO SCH ×2 (09:27→21:33)
[2017-01-05] MEDS: INSULIN ASPART SUPPLEMENTAL SCALE SQ SCH ×4 (09:27→21:00)
[2017-01-05] MEDS: amLODIPine BESYLATE 5 MG TAB PO SCH (09:29)
[2017-01-05] MEDS: PANTOPRAZOLE SOD 40 MG DELAYED RELEASE TAB PO SCH (09:30)
[2017-01-05] MEDS: SODIUM CHLORIDE 0.9% FLUSH 10 ML FLUSH IV FLUSH SCH ×2 (09:30→21:00)
[2017-01-05] MEDS: LISINOPRIL 20 MG TAB PO SCH (09:36)
[2017-01-05] MEDS ORDERED: PNEUMOCOCCAL POLYVALENT INJ 25 MCG/0.5 ML SYR IM ONE (10:00)
[2017-01-05] MEDS ORDERED: INFLUENZA VIRUS VACCINE (QUADRIVALENT) 0.5 ML SYR IM ONE (10:00)
--- NOTE | 2017-01-05 10:36 | HHI.PR ---
Subjective Remarks Follow-up for foot pain. The patient states of some right foot pain today, a little bit better controlled than yesterday. She denies any foot redness. She states that she is told her foot was more swollen yesterday. She denies any fevers. She had some subjective chills last week. She is requesting to be on diabetic diet. Objective Vitals Vital Signs Date Time Temp Pulse Resp B/P (MAP) Pulse Ox O2 Delivery O2 Flow Rate FiO2 01/05/17 08:01 97.7 68 18 145/73 (97) 99 01/05/17 06:29 18 01/05/17 03:51 98.8 89 18 137/78 (97) 01/04/17 23:28 97.7 72 18 194/94 (127) 100 01/04/17 22:52 18 01/04/17 21:16 97.7 83 20 149/91 (110) 99 01/04/17 18:47 73 16 179/82 (114) 100 Room Air 01/04/17 17:11 78 16 199/99 (132) 100 Room Air 01/04/17 15:00 17 Room Air 01/04/17 12:06 98.2 89 18 184/89 (120) 98 I/O 01/04/17 01/04/17 01/04/17 01/05/17 01/05/17 01/05/17 07:00 15:00 23:00 07:00 15:00 23:00 Intake Total 815 ml Balance 815 ml Intake Oral 300 ml IV Total 515 ml Result Diagram: 01/05/1770401/05/17 0705 Imaging Last Impressions Foot X-Ray 01/04/17 0000 Signed Impressions: Service Date/Time: Wednesday, January 04, 2017 15:13 - CONCLUSION: Prior phalangeal amputation 5th digit. There are several new findings when compared to July 2016 including remodeling of the distal 5th metatarsal head, a new lucent area in the distal 4th metatarsal head (possible arthropathy or infection), and flattening of the distal 2nd metatarsal head (possible aseptic necrosis). Forest Recinos MD Foot MRI 01/04/17 0000 Signed Impressions: Service Date/Time: Wednesday, January 04, 2017 19:14 - CONCLUSION: There is abnormal edema involving the distal second and fourth metatarsal heads with enhancement may represent osteomyelitis in the appropriate clinical setting, however the appearance is nonspecific. Lore Whitley MD Objective Remarks GENERAL: Well-developed well-nourished. In no acute distress. SKIN: Warm and dry. No lesions noted. HEENT: Normocephalic. Pupils equal and round. Mucous membranes pink and moist. CARDIOVASCULAR: Regular rate and rhythm. No murmur appreciated. RESPIRATORY: No accessory muscle use. Clear to auscultation. Breath sounds equal bilaterally. GASTROINTESTINAL: Abdomen soft, non-tender, nondistended. Bowel sounds x4. MUSCULOSKELETAL: Right foot with previous pinky amputation, minimal swelling, erythema or induration, pulses intact. No clubbing or cyanosis. No edema. NEUROLOGICAL: Awake and alert. No focal neurological deficits. Moves upper and lower extremities spontaneously. Normal speech. PSYCHIATRIC: Appropriate mood and affect; insight and judgment normal. A/P Problem List: (1) Foot pain, right ICD Code: M79.671 - Pain in right foot Status: Acute (2) Osteomyelitis ICD Code: M86.9 - Osteomyelitis, unspecified Status: Chronic (3) Type 2 diabetes mellitus ICD Code: E11.9 - Type 2 diabetes mellitus without complications Status: Chronic (4) Hypertension ICD Code: I10 - Essential (primary) hypertension Status: Chronic (5) DM (diabetes mellitus) ICD Code: E11.9 - Type 2 diabetes mellitus without complications Status: Acute (6) HTN (hypertension) ICD Code: I10 - Essential (primary) hypertension Status: Chronic (7) Diabetic foot infection ICD Code: E11.69 - Type 2 diabetes mellitus with other specified complication; L08.9 - Local infection of the skin and subcutaneous tissue, unspecified Status: Acute (8) MRSA (methicillin resistant Staphylococcus aureus) infection ICD Code: A49.02 - Methicillin resistant Staphylococcus aureus infection, unspecified site Status: Chronic (9) Cellulitis of right leg ICD Code: L03.115 - Cellulitis of right lower limb Status: Acute Assessment and Plan 46-year-old female with a past medical history of DM, HLD, HTN with past medical history of right fifth toe osteomyelitis with amputation who presented with right foot pain Right foot pain: Possible infection/osteomyelitis. Reviewed: Foot x-ray with findings concerning for possible arthropathy or infection of the fourth metatarsal head and possible aseptic necrosis of the second metatarsal head. For MRI showed abnormal edema involving the distal second and fourth metatarsal heads with enhancement that may represent osteomyelitis, although the findings are nonspecific. Afebrile, no leukocytosis , ESR and CRP within normal limits. -Continue on IV vancomycin with history of MRSA -Podiatry consulted, ordered WBC scan -Pain control with Percocet as needed Diabetes mellitus: -Hemoglobin A1c pending -Hold metformin -Monitor Accu-Cheks and cover with SSI as needed Other chronic medical conditions including HTN, HLD: Continue home medications as indicated. DVT prophylaxis: Lovenox Discharge Planning Follow-up results of WBC scan and podiatry recommendations. Problem Qualifiers (1) Osteomyelitis: Qualified Codes: M86.60 - Other chronic osteomyelitis, unspecified site (2) DM (diabetes mellitus): Qualified Codes: E11.42 - Type 2 diabetes mellitus with diabetic polyneuropathy (3) HTN (hypertension): Qualified Codes: I10 - Essential (primary) hypertension Rogelio Tafoya Jan 05, 2017 10:36
[2017-01-05 10:43] LABS: HEMOGLOBIN A1C 8.5 % (4.3-6.0)
[2017-01-05 11:15] VITALS: BP 142/84; PULSE 72; RESP 16; TEMP 97.8; O2SAT 97
--- NOTE | 2017-01-05 12:34 | PD.POD.CON ---
Patient Intake Chief Complaint Possible chronic refractory osteomyelitis right foot Consult Requested by Dr. Spencer Reason for Consult Evaluation and possible treatment of right foot Primary Care Physician No Primary Care Physician History of Present Illness Patient is a 46-year-old female diabetic who is had a previous amputation of the fifth toe of the right foot. Back in August she had a bone scan which showed possible uptake on the third and fourth metatarsal heads. He presented to the emergency room complaining of pain and swelling of the right foot. Radiographs showed destruction of the fourth metatarsal head. MRI showed possible involvement of the second and fourth metatarsal heads of the right foot. Patient does not have any open wounds. She denies any fever or chills or redness going up her foot or leg. Coded Allergies: aspirin (Unverified Adverse Reaction, Intermediate, VOMITING, 01/04/17) *MDRO Multi-Drug Resistant Organism (Verified Adverse Reaction, Unknown, 01/04/17) MRSA (wound drainage) - 06/29/16 MRSA (foot)-08/01/16, 08/10/16 Preferred Language to Discuss: Polish Barriers to Learning: None Teaching Method: Discussion Vital Signs Date Time Temp Pulse Resp B/P (MAP) Pulse Ox O2 Delivery O2 Flow Rate FiO2 01/05/17 11:15 97.8 72 16 142/84 (103) 97 01/05/17 08:01 97.7 68 18 145/73 (97) 99 01/05/17 06:29 18 01/05/17 03:51 98.8 89 18 137/78 (97) 01/04/17 23:28 97.7 72 18 194/94 (127) 100 01/04/17 22:52 18 01/04/17 21:16 97.7 83 20 149/91 (110) 99 01/04/17 18:47 73 16 179/82 (114) 100 Room Air 01/04/17 17:11 78 16 199/99 (132) 100 Room Air 01/04/17 15:00 17 Room Air Pain scale used: 0-10 numeric scale Pain score: 2 Past, Family & Social History Past Medical History Endocrine: 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: Diabetes mellitus Respiratory: DENIES HX OF: Allergies/hay fever, Asthma, COPD, CPAP use, Sleep apnea, Other respiratory history Cardiovascular: 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: Hyperlipidemia, Hypertension, DENIES HX OF: Abdominal aortic aneurysm, Angina, Atrial fibrillation, Cardiac arrhythmias, Coronary artery disease, Deep venous thrombosis, Heart failure, Heart valve disease, Myocardial infarction, Peripheral vascular dz, Other CV history Gastrointestinal: DENIES HX OF: Colitis, GERD, Irritable bowel syndrome, Liver disease, Pancreatitis, Peptic ulcer disease, Other GI history Genitourinary: DENIES HX OF: Chlamydia, Gonorrhea, Hemodialysis, Herpes genitalis, Human papillomavirus, Kidney disease, Kidney failure, Kidney stones, Past UTI, Peritoneal dialysis, Urinary incontinence, Other history Gynecologic: 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: Other director speech and hearing history (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) Age at Menarche: 11 History: : 2 Live Births: 0 Musculoskeletal: DENIES HX OF: Fibromyalgia, Fractures, Gout, Osteoarthritis, Osteoporosis, Rheumatoid arthritis, Other musculoskeletal hx Cancer/Hematology: DENIES HX OF: Anemia, Bladder Cancer, Blood cancer, Brain cancer, Breast cancer, Colorectal cancer, Endocrine cancer, Eye cancer, GI cancer, cancer, Kidney cancer, Leukemia, Liver cancer, Lung cancer, Lymphoma , Musculoskeletal cancer, Neurologic cancer, Oral cancer, Skin cancer, Stomach cancer, Thyroid cancer, Other cancer/hematology Cancer - Female: DENIES HX OF: Cervical cancer, Ovarian cancer, Uterine cancer Infectious Disease: DENIES HX OF: AIDS, Chickenpox, Hepatitis, HIV, Measles, MRSA, Mumps, Polio, Positive PPD, Rheumatic fever, Rubella, Syphilis, Tuberculosis, Vanc-resistant enterococc, Other inf disease history Integumentary: DENIES HX OF: Acne, Eczema, Psoriasis, Other integumentary hx Neurologic: DENIES HX OF: ADHD, Autism, Dementia, Developmental delay, Headaches, Multiple sclerosis, Parkinson disease, Peripheral neuropathy, Restless leg syndrome, Seizures, Stroke, Transient ischemic attack, Other neurologic history Psychiatric: 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: Anxiety, DENIES HX OF: Anorexia nervosa, Bipolar disorder, Bulimia, Depression, Schizophrenia, Other psychiatric history Genetic/Metabolic: DENIES HX OF: Cystic fibrosis, Down syndrome, Other genetic history, Other metabolic history Events: DENIES HX OF: Anaphylaxis, Gunshot wound, Motor vehicle accident, Other events Disabilities: DENIES HX OF: Hearing deficit, Vision deficit, Hemiparesis, Paraplegia, Quadriplegia, Other disabilities Past Surgical History HEENT: DENIES HX OF: Cataract extraction, Dental surgery, Laryngectomy, Tonsillectomy, Other head surgery, Other eye surgery, Other ear surgery, Other nasal surgery, Other throat surgery Endocrine: DENIES HX OF: Parathyroidectomy, Thyroid surgery, Other endocrine surgery Respiratory: DENIES HX OF: Bronchoscopy, Lobectomy, Other chest surgery Cardiovascular: DENIES HX OF: Angiogram, Angioplasty, CABG surgery, Carotid endarterectomy, Coronary stent, Heart transplant, Pacemaker, Valve replacement, Other cardiac surgery Gastrointestinal: 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: Cholecystectomy, Hernia repair (umbilical ), DENIES HX OF: Appendectomy, Colectomy, subtotal, Colectomy, total, Gastric bypass, Splenectomy, Other GI surgery Genitourinary: DENIES HX OF: Bladder surgery, Kidney stone extraction, Nephrectomy, Other surgery Gynecologic: DENIES HX OF: Cervical conization/LEEP, delivery, Hysterectomy, Oophorectomy, Tubal ligation, Other director speech and hearing surgery Musculoskeletal: 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: Other musculoskeletal srg (fifth toe amputation right foot), DENIES HX OF: Joint replacement Integumentary: DENIES HX OF: Skin cancer removal, Other integumentary surg Neurologic: DENIES HX OF: Craniotomy, Spinal surgery, Other neurologic surgery Breast: DENIES HX OF: Breast biopsy, Lumpectomy, Mastectomy, bilateral, Mastectomy, left, Mastectomy, right, Other breast surgery Family Medical History Carcinomas G8 FATHER (lung and liver cancer 69) G8 MOTHER (cervical cancer at 58) Social History Social History: Adopted: Yes Educational Level: 12th grade Marital Status: single Service: No 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 Substance Use Substance Use: Marijuana, Other Vilma/Anabaptist Vilma Tradition/Anabaptist: Congregational Review of Systems Constitutional: COMPLAINS OF: Pain Cardiovascular: COMPLAINS OF: Swelling legs / ankles Musculoskeletal: COMPLAINS OF: Joint pain/swell/dysarthr, Deformaties Exam-Podiatry Constitutional General appearance: comfortable Nutritional status: normal Orientation: alert and oriented x3 Dermatological Exam Skin Temp - Right: Within Normal Limits Skin Texture - Right: Within Normal Limits Skin Elasticity - Right: Within Normal Limits Skin Tugor - Right: Within Normal Limits Hair Growth - Right: Within Normal Limits Pigmentation - Right: Within Normal Limits Skin Temp - Left: Within Normal Limits Skin Texture - Left: Within Normal Limits Skin Elasticity - Left: Within Normal Limits Skin Tugor - Left: Within Normal Limits Hair Growth - Left: Within Normal Limits Pigmentation - Left: Within Normal Limits Vascular/Lymphatic Exam R Dorsails Pedis: Palpable L Dorsails Pedis: Palpable R Posterior Tibial: Palpable L Posterior Tibial: Palpable Neurologic Exam Present on right: Tingling, Paraesthesia Present on left: Tingling, Paraesthesia Musculoskeletal Exam Details Amputated fifth toe right foot. MusculoSkeletal Exam (Right): Not Present: Rica's Deformity Muscle Strength Dorsiflexion (Right): Normal Plantarflexion (Right): Normal Inversion (Right): Normal Eversion (Right): Normal Digital (Right): Normal Dorsiflexion (Left): Normal Plantarflexion (Left): Normal Inversion (Left): Normal Eversion (Left): Normal Digital (Left): Normal Foot Range of Motion Dorsiflexion (Right): Normal Plantarflexion (Right): Normal Inversion (Right): Normal Eversion (Right): Normal Digital (Right): Normal Dorsiflexion (Left): Normal Plantarflexion (Left): Normal Inversion (Left): Normal Eversion (Left): Normal Digital (Left): Normal Joint Instability Hammer Toe: Toe #3 (R), Toe #2 (R) Wound Assessment Wound Information - Wound One Wound Location: Right foot ulcer Lab and Radiology Results Laboratory Laboratory Tests Test 01/04/17 16:30 01/05/17 07:05 White Blood Count 8.4 TH/MM3 5.8 TH/MM3 Red Blood Count 4.42 MIL/MM3 4.00 MIL/MM3 Hemoglobin 13.1 GM/DL 12.2 GM/DL Hematocrit 38.5 % 34.7 % Mean Corpuscular Volume 87.2 FL 86.8 FL Mean Corpuscular Hemoglobin 29.5 PG 30.5 PG Mean Corpuscular Hemoglobin Concent 33.9 % 35.1 % Red Cell Distribution Width 13.2 % 12.8 % Platelet Count 273 TH/MM3 211 TH/MM3 Mean Platelet Volume 7.8 FL 8.3 FL Neutrophils (%) (Auto) 51.8 % 53.1 % Lymphocytes (%) (Auto) 36.1 % 30.5 % Monocytes (%) (Auto) 5.3 % 8.8 % Eosinophils (%) (Auto) 5.7 % 7.0 % Basophils (%) (Auto) 1.1 % 0.6 % Neutrophils # (Auto) 4.3 TH/MM3 3.1 TH/MM3 Lymphocytes # (Auto) 3.0 TH/MM3 1.8 TH/MM3 Monocytes # (Auto) 0.4 TH/MM3 0.5 TH/MM3 Eosinophils # (Auto) 0.5 TH/MM3 0.4 TH/MM3 Basophils # (Auto) 0.1 TH/MM3 0.0 TH/MM3 CBC Comment DIFF FINAL DIFF FINAL Differential Comment Erythrocyte Sedimentation Rate 18 mm/hr Laboratory Tests Test 01/04/17 16:30 01/05/17 07:05 Blood Urea Nitrogen 21 MG/DL 19 MG/DL Creatinine 1.00 MG/DL 0.94 MG/DL Random Glucose 178 MG/DL 160 MG/DL Calcium Level 8.5 MG/DL 8.1 MG/DL Sodium Level 137 MEQ/L 138 MEQ/L Potassium Level 4.0 MEQ/L 4.6 MEQ/L Chloride Level 106 MEQ/L 107 MEQ/L Carbon Dioxide Level 26.9 MEQ/L 23.8 MEQ/L Anion Gap 4 MEQ/L 7 MEQ/L Estimat Glomerular Filtration Rate 60 ML/MIN 64 ML/MIN C-Reactive Protein LESS THAN 0.29 MG/DL Total Protein 6.2 GM/DL Albumin 3.0 GM/DL Phosphorus Level 3.2 MG/DL Magnesium Level 1.8 MG/DL Alkaline Phosphatase 80 U/L Aspartate Amino Transf (AST/SGOT) 14 U/L Alanine Aminotransferase (ALT/SGPT) 13 U/L Total Bilirubin 0.5 MG/DL Free Thyroxine 1.18 NG/DL Thyroid Stimulating Hormone 3rd Gen 1.030 uIU/ML Radiology Last Impressions Foot X-Ray 01/04/17 0000 Signed Impressions: Service Date/Time: Wednesday, January 04, 2017 15:13 - CONCLUSION: Prior phalangeal amputation 5th digit. There are several new findings when compared to July 2016 including remodeling of the distal 5th metatarsal head, a new lucent area in the distal 4th metatarsal head (possible arthropathy or infection), and flattening of the distal 2nd metatarsal head (possible aseptic necrosis). Forest Recinos MD Foot MRI 01/04/17 0000 Signed Impressions: Service Date/Time: Wednesday, January 04, 2017 19:14 - CONCLUSION: There is abnormal edema involving the distal second and fourth metatarsal heads with enhancement may represent osteomyelitis in the appropriate clinical setting, however the appearance is nonspecific. Lore Whitley MD Assessment/Plan Problem List: (1) Osteomyelitis Status: Chronic (2) DM (diabetes mellitus) Status: Acute Additional information PLAN: Ordered a Ceretec labeled white blood cell scan with CT SPECT to rule out osteomyelitis. Discussed with patient that if the test is positive she might require either metatarsal head removal or transmetatarsal amputation. We'll follow the patient during the course of this admission. Thank you for the consultation. Problem Qualifiers (1) Osteomyelitis: Qualified Codes: M86.60 - Other chronic osteomyelitis, unspecified site (2) DM (diabetes mellitus): Qualified Codes: E11.42 - Type 2 diabetes mellitus with diabetic polyneuropathy Dalton Salvador DPM Jan 05, 2017 12:34
[2017-01-05] MEDS: oxyCODONE/ACETAMINOPHEN 5 MG/325 MG TAB PO PRN (14:50)
[2017-01-05] MEDS: VANCOMYCIN INJ 1,250 MG in SODIUM CHLOR 0.9% 250 ML INJ 250 ML IV SCH ×2 (14:50→22:05)
[2017-01-05 20:04] VITALS: BP 171/98; PULSE 77; RESP 19; TEMP 97.8; O2SAT 100
[2017-01-05] MEDS: ATORVASTATIN 40 MG TAB PO SCH (21:33)
[2017-01-05] MEDS: ENOXAPARIN SODIUM 40 MG/0.4 ML SYRINGE SQ SCH (21:33)
[2017-01-05] MEDS ORDERED: ZOLPIDEM TARTRATE 10 MG TAB PO ONE (23:45)
[2017-01-05 23:51] VITALS: BP 168/104; PULSE 74; RESP 19; TEMP 97.4; O2SAT 98
[2017-01-05] MEDS: diphenhydrAMINE HCL 50 MG/ML VIAL IV PUSH PRN (23:58)
[2017-01-06] MEDS: SODIUM CHLOR 0.9% 1000 ML INJ 1,000 ML IV SCH ×3 (01:30→21:30)
[2017-01-06 04:27] VITALS: BP 139/62; PULSE 74; RESP 18; TEMP 98.2; O2SAT 99
[2017-01-06 07:26] VITALS: BP 150/78; PULSE 77; RESP 18; TEMP 96.7; O2SAT 98
[2017-01-06] MEDS: INSULIN ASPART SUPPLEMENTAL SCALE SQ SCH ×4 (08:00→22:28)
--- NOTE | 2017-01-06 08:31 | HHI.PR ---
Subjective Remarks Follow-up for right foot pain. The patient is upset today because she is still in the observation unit and wants to shower. The patient continues to have some right foot pain today, a little bit improved from admission. She has felt hot and sweaty overnight. No fevers. No chest pain or shortness of breath. Awaiting second part of white blood cell scan today. Objective Vitals Vital Signs Date Time Temp Pulse Resp B/P (MAP) Pulse Ox O2 Delivery O2 Flow Rate FiO2 01/06/17 07:26 96.7 77 18 150/78 (102) 98 01/06/17 04:27 98.2 74 18 139/62 (87) 99 01/05/17 23:51 97.4 74 19 168/104 (125) 98 01/05/17 23:04 18 01/05/17 20:04 97.8 77 19 171/98 (122) 100 01/05/17 15:50 20 01/05/17 11:15 97.8 72 16 142/84 (103) 97 I/O 01/05/17 01/05/17 01/05/17 01/06/17 01/06/17 01/06/17 07:00 15:00 23:00 07:00 15:00 23:00 Intake Total 1200 ml 1050 ml Output Total 0 ml Balance 1200 ml 1050 ml Intake Oral 500 ml 500 ml IV Total 700 ml 550 ml Output Stool Total 0 ml # Voids 4 Result Diagram: 01/05/17 0705 01/05/17 0705 Imaging Last Impressions Foot X-Ray 01/04/17 0000 Signed Impressions: Service Date/Time: Wednesday, January 04, 2017 15:13 - CONCLUSION: Prior phalangeal amputation 5th digit. There are several new findings when compared to July 2016 including remodeling of the distal 5th metatarsal head, a new lucent area in the distal 4th metatarsal head (possible arthropathy or infection), and flattening of the distal 2nd metatarsal head (possible aseptic necrosis). Forest Recinos MD Foot MRI 01/04/17 0000 Signed Impressions: Service Date/Time: Wednesday, January 04, 2017 19:14 - CONCLUSION: There is abnormal edema involving the distal second and fourth metatarsal heads with enhancement may represent osteomyelitis in the appropriate clinical setting, however the appearance is nonspecific. K. Sachin Whitley MD Objective Remarks GENERAL: Well-developed well-nourished. In no acute distress. SKIN: Warm and dry. No lesions noted. HEENT: Normocephalic. Pupils equal and round. Mucous membranes pink and moist. CARDIOVASCULAR: Regular rate and rhythm. No murmur appreciated. RESPIRATORY: No accessory muscle use. Clear to auscultation. Breath sounds equal bilaterally. GASTROINTESTINAL: Abdomen soft, non-tender, nondistended. Bowel sounds x4. MUSCULOSKELETAL: Right foot with previous pinky amputation, no swelling, erythema or induration, pulses intact. No clubbing or cyanosis. No edema. NEUROLOGICAL: Awake and alert. No focal neurological deficits. Moves upper and lower extremities spontaneously. Normal speech. PSYCHIATRIC: Appropriate mood and affect; insight and judgment normal. A/P Problem List: (1) Foot pain, right ICD Code: M79.671 - Pain in right foot Status: Acute (2) Osteomyelitis ICD Code: M86.9 - Osteomyelitis, unspecified Status: Chronic (3) Type 2 diabetes mellitus ICD Code: E11.9 - Type 2 diabetes mellitus without complications Status: Chronic (4) Hypertension ICD Code: I10 - Essential (primary) hypertension Status: Chronic (5) DM (diabetes mellitus) ICD Code: E11.9 - Type 2 diabetes mellitus without complications Status: Acute (6) HTN (hypertension) ICD Code: I10 - Essential (primary) hypertension Status: Chronic (7) Diabetic foot infection ICD Code: E11.69 - Type 2 diabetes mellitus with other specified complication; L08.9 - Local infection of the skin and subcutaneous tissue, unspecified Status: Acute (8) MRSA (methicillin resistant Staphylococcus aureus) infection ICD Code: A49.02 - Methicillin resistant Staphylococcus aureus infection, unspecified site Status: Chronic (9) Cellulitis of right leg ICD Code: L03.115 - Cellulitis of right lower limb Status: Acute Assessment and Plan 46-year-old female with a past medical history of DM, HLD, HTN with past medical history of right fifth toe osteomyelitis with amputation who presented with right foot pain Right foot pain: Possible infection/osteomyelitis. Reviewed: Foot x-ray with findings concerning for possible arthropathy or infection of the fourth metatarsal head and possible aseptic necrosis of the second metatarsal head. Foot MRI showed abnormal edema involving the distal second and fourth metatarsal heads with enhancement that may represent osteomyelitis, although the findings are nonspecific. Afebrile, no leukocytosis , ESR and CRP within normal limits. -Continue on IV vancomycin with history of MRSA -Podiatry consulted, D/W Dr. Salvador, WBC scan pending -Pain control with Percocet as needed Diabetes mellitus: -Hemoglobin A1c 8.5 -Hold metformin for now -Monitor Accu-Cheks and cover with SSI as needed Other chronic medical conditions including HTN, HLD: Continue home medications as indicated. DVT prophylaxis: Lovenox Discharge Planning Follow-up results of WBC scan and podiatry recommendations. Problem Qualifiers (1) Osteomyelitis: Qualified Codes: M86.60 - Other chronic osteomyelitis, unspecified site (2) Hypertension: Qualified Codes: I10 - Essential (primary) hypertension (3) DM (diabetes mellitus): Qualified Codes: E11.42 - Type 2 diabetes mellitus with diabetic polyneuropathy (4) HTN (hypertension): Qualified Codes: I10 - Essential (primary) hypertension Rogelio Tafoya Jan 06, 2017 08:31
[2017-01-06] MEDS: SODIUM CHLORIDE 0.9% FLUSH 10 ML FLUSH IV FLUSH SCH ×2 (09:00→21:46)
[2017-01-06] MEDS: oxyCODONE/ACETAMINOPHEN 5 MG/325 MG TAB PO PRN (10:47)
[2017-01-06] MEDS: amLODIPine BESYLATE 5 MG TAB PO SCH (10:48)
[2017-01-06] MEDS: PANTOPRAZOLE SOD 40 MG DELAYED RELEASE TAB PO SCH (10:48)
[2017-01-06] MEDS: DOCUSATE SODIUM 50 MG/SENNA 8.6 MG TAB PO SCH ×2 (10:48→21:42)
[2017-01-06] MEDS: LISINOPRIL 20 MG TAB PO SCH (10:49)
[2017-01-06] MEDS: VANCOMYCIN INJ 1,250 MG in SODIUM CHLOR 0.9% 250 ML INJ 250 ML IV SCH ×2 (11:45→21:46)
[2017-01-06 13:50] VITALS: BP 157/87; PULSE 80; RESP 20; TEMP 97.8; O2SAT 99
[2017-01-06 16:00] VITALS: BP 185/94; PULSE 83; RESP 20; TEMP 97.7; O2SAT 99
--- NOTE | 2017-01-06 16:02 | RADRPT ---
EXAM DATE/TIME: 01/05/2017 13:25 [facility] COMPARISON: FOOT RIGHT COMPLETE ([id number]), January 04, 2017, 15:13. MRI FOOT RIGHT W & W/O CONTRAST, January 04, 2017, 19:14. WBC SPECT CERETEC, August 16, 2016, 12:12. INDICATIONS : Right foot pain. DOSE: 21.2 mCi Tc99m Ceretec labeled white blood cells IV SPECT IMAGIN hrs, 20 hrs IMAGNG: SPECT/CT imaging with fusion was performed. RADIATION DOSE: 6.06 CTDIvol (mGy) ; Multiple Day Study MEDICAL HISTORY : Diabetes mellitus type 2. SURGICAL HISTORY : Cholecystectomy. Right pinky toe amputation. ENCOUNTER: Subsequent ACUITY: 2 days PAIN SCALE: 4/10 LOCATION: Right Foot. TECHNIQUE: Following the in vitro labeling of autologous white cells and reinjection, whole body scan was perfor med at the specified times. SPECT imaging was performed at the specified time in sagittal, axial and coronal planes. Attenuation correction was performed with the computed tomography and both the atten uation correction and non-attenuation corrected data sets were reviewed. FINDINGS: On the early images, there is diffuse asymmetric white cell uptake in the soft tissues of the plantar forefoot involving 2nd through 5th digits. The marrow of the 2nd, 3rd, and 5th metatarsal bones pito ear as photopenic voids on the early images. On the 20 hour images, there is a focal small area of white cell accumulation localized to the distal metaphysis of the 4th metatarsal bone. This correlates with the focal area of enhancement seen on M R and the lucent area seen on conventional radiographs. No other focal localization to bone seen. CONCLUSION: The study is positive for osteomyelitis involving the distal 4th metatarsal head. Forest Recinos MD on January 06, 2017 at 15:25 Board Certified Radiologist. This report was verified electronically.
--- NOTE | 2017-01-06 16:04 | PD.POD ---
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 This one on to heal. Patient presented to the emergency department with pain and swelling in the right foot. Radiographs show destruction of the fourth metatarsal head. MRI showed possible second and fourth metatarsal head involvement. I ordered Ceretec labeled white blood cell scan with CT SPECT we showed osteomyelitis of the fourth metatarsal head only. Past Med/Surg/Social History Past Medical History Endocrine: 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: Diabetes mellitus Respiratory: DENIES HX OF: Allergies/hay fever, Asthma, COPD, CPAP use, Sleep apnea, Other respiratory history Cardiovascular: 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: Hyperlipidemia, Hypertension, DENIES HX OF: Abdominal aortic aneurysm, Angina, Atrial fibrillation, Cardiac arrhythmias, Coronary artery disease, Deep venous thrombosis, Heart failure, Heart valve disease, Myocardial infarction, Peripheral vascular dz, Other CV history Gastrointestinal: DENIES HX OF: Colitis, GERD, Irritable bowel syndrome, Liver disease, Pancreatitis, Peptic ulcer disease, Other GI history Genitourinary: DENIES HX OF: Chlamydia, Gonorrhea, Hemodialysis, Herpes genitalis, Human papillomavirus, Kidney disease, Kidney failure, Kidney stones, Past UTI, Peritoneal dialysis, Urinary incontinence, Other history Gynecologic: 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: Other sanitor history (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) Age at menarche: 11 history: : 2 Live Births: 0 Musculoskeletal: DENIES HX OF: Fibromyalgia, Fractures, Gout, Osteoarthritis, Osteoporosis, Rheumatoid arthritis, Other musculoskeletal hx Cancer/Hematology: DENIES HX OF: Anemia, Bladder Cancer, Blood cancer, Brain cancer, Breast cancer, Colorectal cancer, Endocrine cancer, Eye cancer, GI cancer, cancer, Kidney cancer, Leukemia, Liver cancer, Lung cancer, Lymphoma , Musculoskeletal cancer, Neurologic cancer, Oral cancer, Skin cancer, Stomach cancer, Thyroid cancer, Other cancer/hematology Cancer - female: DENIES HX OF: Cervical cancer, Ovarian cancer, Uterine cancer Infectious disease: DENIES HX OF: AIDS, Chickenpox, Hepatitis, HIV, Measles, MRSA, Mumps, Polio, Positive PPD, Rheumatic fever, Rubella, Syphilis, Tuberculosis, Vanc-resistant enterococc, Other inf disease history Integumentary: DENIES HX OF: Acne, Eczema, Psoriasis, Other integumentary hx Neurologic: DENIES HX OF: ADHD, Autism, Dementia, Developmental delay, Headaches, Multiple sclerosis, Parkinson disease, Peripheral neuropathy, Restless leg syndrome, Seizures, Stroke, Transient ischemic attack, Other neurologic history Psychiatric: 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: Anxiety, DENIES HX OF: Anorexia nervosa, Bipolar disorder, Bulimia, Depression, Schizophrenia, Other psychiatric history Genetic/metabolic: DENIES HX OF: Cystic fibrosis, Down syndrome, Other genetic history, Other metabolic history Events: DENIES HX OF: Anaphylaxis, Gunshot wound, Motor vehicle accident, Other events Disabilities: DENIES HX OF: Hearing deficit, Vision deficit, Hemiparesis, Paraplegia, Quadriplegia, Other disabilities Past Surgical History HEENT: DENIES HX OF: Cataract extraction, Dental surgery, Laryngectomy, Tonsillectomy, Other head surgery, Other eye surgery, Other ear surgery, Other nasal surgery, Other throat surgery Endocrine: DENIES HX OF: Parathyroidectomy, Thyroid surgery, Other endocrine surgery Respiratory: DENIES HX OF: Bronchoscopy, Lobectomy, Other chest surgery Cardiovascular: DENIES HX OF: Angiogram, Angioplasty, CABG surgery, Carotid endarterectomy, Coronary stent, Heart transplant, Pacemaker, Valve replacement, Other cardiac surgery Gastrointestinal: 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: Cholecystectomy, Hernia repair (umbilical ), DENIES HX OF: Appendectomy, Colectomy, subtotal, Colectomy, total, Gastric bypass, Splenectomy, Other GI surgery Genitourinary: DENIES HX OF: Bladder surgery, Kidney stone extraction, Nephrectomy, Other surgery Gynecologic: DENIES HX OF: Cervical conization/LEEP, delivery, Hysterectomy, Oophorectomy, Tubal ligation, Other sanitor surgery Musculoskeletal: 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: Other musculoskeletal srg (fifth toe amputation right foot), DENIES HX OF: Joint replacement Integumentary: DENIES HX OF: Skin cancer removal, Other integumentary surg Neurologic: DENIES HX OF: Craniotomy, Spinal surgery, Other neurologic surgery Breast: DENIES HX OF: Breast biopsy, Lumpectomy, Mastectomy, bilateral, Mastectomy, left, Mastectomy, right, Other breast surgery Social History Smoking Status: Former Smoker Review of Systems Notes No changes in her 14 point review of systems exam since the patient was last seen Objective Vital Signs Vital Signs Date Time Temp Pulse Resp B/P (MAP) Pulse Ox O2 Delivery O2 Flow Rate FiO2 01/06/17 13:50 97.8 80 20 157/87 (110) 99 01/06/17 11:47 20 01/06/17 07:26 96.7 77 18 150/78 (102) 98 01/06/17 04:27 98.2 74 18 139/62 (87) 99 01/05/17 23:51 97.4 74 19 168/104 (125) 98 01/05/17 23:04 18 01/05/17 20:04 97.8 77 19 171/98 (122) 100 Coded Allergies: aspirin (Unverified Adverse Reaction, Intermediate, VOMITING, 01/04/17) *MDRO Multi-Drug Resistant Organism (Verified Adverse Reaction, Unknown, 01/04/17) MRSA (wound drainage) - 06/29/16 MRSA (foot)-08/01/16, 08/10/16 Medications and IVs Current Medications Vancomycin HCl 1500 mg/Sodium Chloride 515 ml @ 257.5 mls/ hr ONCE ONCE IV Last administered on 01/04/17 16:50; Start 01/04/17 at 16:15; Stop 01/04/17 at 18:14; Status DC Sodium Chloride (NS Flush) 2 ml UNSCH PRN IV FLUSH FLUSH AFTER USING IV ACCESS ; Start 01/04/17 at 17:00; Stop 01/04/17 at 20:54; Status DC Sodium Chloride (NS Flush) 2 ml BID IV FLUSH ; Start 01/04/17 at 21:00; Stop 01/04/17 at 21:00; Status DC Diphenhydramine HCl (Benadryl Inj) 25 mg ONCE ONCE IVP Last administered on 18:16; Start 01/04/17 at 17:45; Stop 01/04/17 at 17:46; Status DC Dextrose (D50w (Vial) Inj) 50 ml UNSCH PRN IV PUSH HYPOGLYCEMIA-SEE COMMENTS; Start 01/04/17 at 19:00 Glucagon (Glucagon Inj) 1 mg UNSCH PRN OTHER HYPOGLYCEMIA-SEE COMMENTS; Start 01/04/17 at 19:00 Insulin Aspart (NovoLOG SUPPLEMENTAL SCALE) 1 ACHS SLIDING SCALE SQ Last administered on 01/06/17 14:59; Start 01/04/17 at 21:00 Sodium Chloride 1,000 ml @ 100 mls/hr Q10H IV Last administered on 01/06/17 11:30; Start 01/04/17 at 19:30 Sodium Chloride (NS Flush) 2 ml UNSCH PRN IV FLUSH FLUSH AFTER USING IV ACCESS ; Start 01/04/17 at 19:30 Sodium Chloride (NS Flush) 2 ml BID IV FLUSH Last administered on 01/06/17 09 :00; Start 01/04/17 at 21:00 Acetaminophen (Tylenol) 650 mg Q4H PRN PO TEMP > 100.4; Start 01/04/17 at 19: 00 Ondansetron HCl (Zofran Inj) 4 mg Q6H PRN IVP NAUSEA OR VOMITING; Start at 19:00 Prochlorperazine (Compazine Supp) 25 mg Q12H PRN RECTAL NAUSEA OR VOMITING; Start 01/04/17 at 19:00 Enoxaparin Sodium (Lovenox Inj) 40 mg Q24H SQ Last administered on 01/05/17 21:33; Start 01/04/17 at 21:00 Acetaminophen (Tylenol) 650 mg Q6H PRN PO PAIN SCALE 1 TO 2; Start 01/04/17 at 19:00 Oxycodone/ Acetaminophen (Percocet 5-325 Mg) 1 tab Q6H PRN PO PAIN SCALE 3 TO 5 Last administered on 01/06/17 10:47; Start 01/04/17 at 19:00 Oxycodone/ Acetaminophen (Percocet 10-325 Mg) 1 tab Q6H PRN PO PAIN SCALE 6 TO 10 Last administered on 01/05/17 21:42; Start 01/04/17 at 19:00 Morphine Sulfate (Morphine Inj) 2 mg Q3H PRN IV PUSH Pain 3-5; if unable to take PO; Start 01/04/17 at 19:00 Morphine Sulfate (Morphine Inj) 4 mg Q3H PRN IV PUSH Pain 6-10;if unable to take PO Last administered on 01/04/17 21:29; Start 01/04/17 at 19:00 Naloxone HCl (Narcan Inj) 0.4 mg UNSCH PRN IV PUSH SEE LABEL COMMENTS; Start 01/04/17 at 19:00 Senna/Docusate Sodium (Nessa-Colace) 1 tab BID PO Last administered on 10:48; Start 01/04/17 at 21:00 Magnesium Hydroxide (Milk Of Magnesia Liq) 30 ml Q12H PRN PO Mild constipation ; Start 01/04/17 at 19:00 Sennosides (Senokot) 17.2 mg Q12H PRN PO Moderate constipation; Start at 19:00 Bisacodyl (Dulcolax Supp) 10 mg DAILY PRN RECTAL SEVERE CONSITIPATION; Start 01/04/17 at 19:00 Lactulose (Lactulose Liq) 30 ml DAILY PRN PO SEVERE CONSITIPATION; Start 01/04 at 19:00 Pharmacy Profile Note 0 ml @ 0 mls/hr UNSCH OTHER ; Start 01/04/17 at 18:00 Diphenhydramine HCl (Benadryl Inj) 25 mg Q6H PRN IV PUSH ALLERGIC REACTION Last administered on 01/05/17 23:58; Start 01/04/17 at 19:00 Amlodipine Besylate (Norvasc) 5 mg DAILY PO Last administered on 01/06/17 10: 48; Start 01/05/17 at 09:00 Atorvastatin Calcium (Lipitor) 40 mg HS PO Last administered on 01/05/17 21: 33; Start 01/04/17 at 21:00 Lisinopril (Prinivil) 40 mg DAILY PO Last administered on 01/06/17 10:49; Start 01/05/17 at 09:00 Metformin HCl (Glucophage) 500 mg BIDPC PO Last administered on 01/05/17 09: 26; Start 01/04/17 at 18:00; Stop 01/05/17 at 10:31; Status DC Pantoprazole Sodium (Protonix) 40 mg DAILY PO Last administered on 01/06/17 10:48; Start 01/04/17 at 19:15 Gadodiamide (Omniscan Pf Inj) 15 ml STK-MED ONCE IVCONTRAST Last administered on 01/04/17 19:40; Start 01/04/17 at 19:40; Stop 01/04/17 at 19:42; Status DC Vancomycin HCl 1250 mg/Sodium Chloride 262.5 ml @ 250 mls/hr Q12H IV Last administered on 01/06/17 11:45; Start 01/05/17 at 10:00 Miscellaneous Information SPECIFIC LAB TO BE DRAWN:[facility]... ONCE ONCE .XX ; Start 01/06/17 at 21:45; Stop 01/06/17 at 21:46 Pneumococcal Polyvalent Vaccine (Pneumovax-23 Inj) 25 mcg ONCE ONCE IM Last administered on 01/05/17 09:22; Start 01/05/17 at 10:00; Stop 01/05/17 at 10 :01; Status DC Influenza Virus Vaccine (Flu (Quadrivalent) Vaccine Inj) 0.5 ml ONCE ONCE IM Last administered on 01/05/17 09:26; Start 01/05/17 at 10:00; Stop 01/05/17 at 10:01; Status DC Zolpidem Tartrate (Ambien) 5 mg ONCE ONCE PO Last administered on 01/04/17 23:43; Start 01/04/17 at 23:45; Stop 01/04/17 at 23:46; Status DC Zolpidem Tartrate (Ambien) 10 mg ONCE ONCE PO Last administered on 01/05/17 23:58; Start 01/05/17 at 23:45; Stop 01/05/17 at 23:46; Status DC Other Results Laboratory Tests Test 01/04/17 16:30 01/05/17 07:05 White Blood Count 8.4 TH/MM3 5.8 TH/MM3 Red Blood Count 4.42 MIL/MM3 4.00 MIL/MM3 Hemoglobin 13.1 GM/DL 12.2 GM/DL Hematocrit 38.5 % 34.7 % Mean Corpuscular Volume 87.2 FL 86.8 FL Mean Corpuscular Hemoglobin 29.5 PG 30.5 PG Mean Corpuscular Hemoglobin Concent 33.9 % 35.1 % Red Cell Distribution Width 13.2 % 12.8 % Platelet Count 273 TH/MM3 211 TH/MM3 Mean Platelet Volume 7.8 FL 8.3 FL Neutrophils (%) (Auto) 51.8 % 53.1 % Lymphocytes (%) (Auto) 36.1 % 30.5 % Monocytes (%) (Auto) 5.3 % 8.8 % Eosinophils (%) (Auto) 5.7 % 7.0 % Basophils (%) (Auto) 1.1 % 0.6 % Neutrophils # (Auto) 4.3 TH/MM3 3.1 TH/MM3 Lymphocytes # (Auto) 3.0 TH/MM3 1.8 TH/MM3 Monocytes # (Auto) 0.4 TH/MM3 0.5 TH/MM3 Eosinophils # (Auto) 0.5 TH/MM3 0.4 TH/MM3 Basophils # (Auto) 0.1 TH/MM3 0.0 TH/MM3 CBC Comment DIFF FINAL DIFF FINAL Differential Comment Erythrocyte Sedimentation Rate 18 mm/hr Laboratory Tests Test 01/04/17 16:30 01/05/17 07:05 Blood Urea Nitrogen 21 MG/DL 19 MG/DL Creatinine 1.00 MG/DL 0.94 MG/DL Random Glucose 178 MG/DL 160 MG/DL Calcium Level 8.5 MG/DL 8.1 MG/DL Sodium Level 137 MEQ/L 138 MEQ/L Potassium Level 4.0 MEQ/L 4.6 MEQ/L Chloride Level 106 MEQ/L 107 MEQ/L Carbon Dioxide Level 26.9 MEQ/L 23.8 MEQ/L Anion Gap 4 MEQ/L 7 MEQ/L Estimat Glomerular Filtration Rate 60 ML/MIN 64 ML/MIN C-Reactive Protein LESS THAN 0.29 MG/DL Total Protein 6.2 GM/DL Albumin 3.0 GM/DL Phosphorus Level 3.2 MG/DL Magnesium Level 1.8 MG/DL Alkaline Phosphatase 80 U/L Aspartate Amino Transf (AST/SGOT) 14 U/L Alanine Aminotransferase (ALT/SGPT) 13 U/L Total Bilirubin 0.5 MG/DL Hemoglobin A1c 8.5 % Free Thyroxine 1.18 NG/DL Thyroid Stimulating Hormone 3rd Gen 1.030 uIU/ML Objective Remarks Last Impressions Foot X-Ray 01/04/17 0000 Signed Impressions: Service Date/Time: Wednesday, January 04, 2017 15:13 - CONCLUSION: Prior phalangeal amputation 5th digit. There are several new findings when compared to July 2016 including remodeling of the distal 5th metatarsal head, a new lucent area in the distal 4th metatarsal head (possible arthropathy or infection), and flattening of the distal 2nd metatarsal head (possible aseptic necrosis). Forest Recinos MD Foot MRI 01/04/17 0000 Signed Impressions: Service Date/Time: Wednesday, January 04, 2017 19:14 - CONCLUSION: There is abnormal edema involving the distal second and fourth metatarsal heads with enhancement may represent osteomyelitis in the appropriate clinical setting, however the appearance is nonspecific. Lore Whitley MD [facility] labeled white blood cell scan shows increased uptake to the fourth metatarsal head of the right foot. Exam-Podiatry Constitutional General appearance: comfortable Nutritional status: normal Orientation: alert and oriented x3 Dermatological Exam Skin Temp - Right: Within Normal Limits Skin Texture - Right: Within Normal Limits Skin Elasticity - Right: Within Normal Limits Skin Tugor - Right: Within Normal Limits Hair Growth - Right: Within Normal Limits Pigmentation - Right: Within Normal Limits Skin Temp - Left: Within Normal Limits Skin Texture - Left: Within Normal Limits Skin Elasticity - Left: Within Normal Limits Skin Tugor - Left: Within Normal Limits Hair Growth - Left: Within Normal Limits Pigmentation - Left: Within Normal Limits Ulcers: Location/Measurements No open lesions of the foot are seen Vascular/Lymphatic Exam R Dorsails Pedis: Palpable L Dorsails Pedis: Palpable R Posterior Tibial: Palpable L Posterior Tibial: Palpable Neurologic Exam Present on right: Tingling, Paraesthesia Present on left: Tingling, Paraesthesia Musculoskeletal Exam Details Previously amputated fifth toe right foot Muscle Strength Dorsiflexion (Right): Normal Plantarflexion (Right): Normal Inversion (Right): Normal Eversion (Right): Normal Digital (Right): Normal Dorsiflexion (Left): Normal Plantarflexion (Left): Normal Inversion (Left): Normal Eversion (Left): Normal Digital (Left): Normal Foot Range of Motion Dorsiflexion (Right): Normal Plantarflexion (Right): Normal Inversion (Right): Normal Eversion (Right): Normal Digital (Right): Normal Dorsiflexion (Left): Normal Plantarflexion (Left): Normal Inversion (Left): Normal Eversion (Left): Normal Digital (Left): Normal Assessment & Plan Diagnosis: (1) Osteomyelitis of ankle and foot ICD Codes: M86.9 - Osteomyelitis, unspecified Status: Chronic (2) DM (diabetes mellitus) ICD Codes: E11.9 - Type 2 diabetes mellitus without complications Status: Acute A/P PLAN: Discussed Ceretec scan with Dr. Bass from radiology. Explained results to the patient. She understands her best option would be surgical excision of the fourth metatarsal head. We will plan on doing this Tuesday morning. I will see the patient tomorrow and right preop orders and consent orders. Problem Qualifiers (1) DM (diabetes mellitus): Qualified Codes: E11.42 - Type 2 diabetes mellitus with diabetic polyneuropathy Dalton Salvador DPM Jan 06, 2017 16:04
[2017-01-06 20:43] VITALS: BP 171/96; PULSE 74; RESP 18; TEMP 97.9; O2SAT 99
[2017-01-06] MEDS: ENOXAPARIN SODIUM 40 MG/0.4 ML SYRINGE SQ SCH (21:41)
[2017-01-06] MEDS: ATORVASTATIN 40 MG TAB PO SCH (21:42)
[2017-01-06] MEDS: oxyCODONE/ACETAMINOPHEN 10 MG/325 MG TAB PO PRN (21:43)
[2017-01-06] MEDS ORDERED: PHARMACY ORDERED LAB ONE (21:45)
[2017-01-06 23:43] VITALS: BP 152/72; PULSE 71; RESP 18; TEMP 97.7; O2SAT 98
[2017-01-07 05:20] VITALS: BP 156/70; PULSE 84; RESP 18; TEMP 97.7; O2SAT 96
[2017-01-07] MEDS: oxyCODONE/ACETAMINOPHEN 10 MG/325 MG TAB PO PRN ×3 (05:38→22:10)
[2017-01-07] MEDS: SODIUM CHLOR 0.9% 1000 ML INJ 1,000 ML IV SCH (07:52)
[2017-01-07 08:00] VITALS: BP 158/81; PULSE 73; RESP 20; TEMP 97.8; O2SAT 99
[2017-01-07] MEDS: LISINOPRIL 20 MG TAB PO SCH (08:32)
[2017-01-07] MEDS: PANTOPRAZOLE SOD 40 MG DELAYED RELEASE TAB PO SCH (08:32)
[2017-01-07] MEDS: amLODIPine BESYLATE 5 MG TAB PO SCH (08:32)
[2017-01-07] MEDS: DOCUSATE SODIUM 50 MG/SENNA 8.6 MG TAB PO SCH ×2 (08:32→21:00)
[2017-01-07] MEDS: INSULIN ASPART SUPPLEMENTAL SCALE SQ SCH ×4 (08:32→23:07)
[2017-01-07] MEDS: SODIUM CHLORIDE 0.9% FLUSH 10 ML FLUSH IV FLUSH SCH ×2 (08:32→22:10)
--- NOTE | 2017-01-07 09:41 | PD.POD ---
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 This went on to heal. Patient presented to the emergency department with pain and swelling in the right foot. Radiographs show destruction of the fourth metatarsal head. MRI showed possible second and fourth metatarsal head involvement. I ordered [facility]ere[employer] labeled white blood cell scan with CT SPECT we showed osteomyelitis of the fourth metatarsal head only. Patient wishes to proceed with surgical management. Past Med/Surg/Social History Past Medical History Endocrine: 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: Diabetes mellitus Respiratory: DENIES HX OF: Allergies/hay fever, Asthma, COPD, CPAP use, Sleep apnea, Other respiratory history Cardiovascular: 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: Hyperlipidemia, Hypertension, DENIES HX OF: Abdominal aortic aneurysm, Angina, Atrial fibrillation, Cardiac arrhythmias, Coronary artery disease, Deep venous thrombosis, Heart failure, Heart valve disease, Myocardial infarction, Peripheral vascular dz, Other CV history Gastrointestinal: DENIES HX OF: Colitis, GERD, Irritable bowel syndrome, Liver disease, Pancreatitis, Peptic ulcer disease, Other GI history Genitourinary: DENIES HX OF: Chlamydia, Gonorrhea, Hemodialysis, Herpes genitalis, Human papillomavirus, Kidney disease, Kidney failure, Kidney stones, Past UTI, Peritoneal dialysis, Urinary incontinence, Other history Gynecologic: 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: Other product responsibility liaison history (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) Age at menarche: 11 history: : 2 Live Births: 0 Musculoskeletal: DENIES HX OF: Fibromyalgia, Fractures, Gout, Osteoarthritis, Osteoporosis, Rheumatoid arthritis, Other musculoskeletal hx Cancer/Hematology: DENIES HX OF: Anemia, Bladder Cancer, Blood cancer, Brain cancer, Breast cancer, Colorectal cancer, Endocrine cancer, Eye cancer, GI cancer, cancer, Kidney cancer, Leukemia, Liver cancer, Lung cancer, Lymphoma , Musculoskeletal cancer, Neurologic cancer, Oral cancer, Skin cancer, Stomach cancer, Thyroid cancer, Other cancer/hematology Cancer - female: DENIES HX OF: Cervical cancer, Ovarian cancer, Uterine cancer Infectious disease: DENIES HX OF: AIDS, Chickenpox, Hepatitis, HIV, Measles, MRSA, Mumps, Polio, Positive PPD, Rheumatic fever, Rubella, Syphilis, Tuberculosis, Vanc-resistant enterococc, Other inf disease history Integumentary: DENIES HX OF: Acne, Eczema, Psoriasis, Other integumentary hx Neurologic: DENIES HX OF: ADHD, Autism, Dementia, Developmental delay, Headaches, Multiple sclerosis, Parkinson disease, Peripheral neuropathy, Restless leg syndrome, Seizures, Stroke, Transient ischemic attack, Other neurologic history Psychiatric: 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: Anxiety, DENIES HX OF: Anorexia nervosa, Bipolar disorder, Bulimia, Depression, Schizophrenia, Other psychiatric history Genetic/metabolic: DENIES HX OF: Cystic fibrosis, Down syndrome, Other genetic history, Other metabolic history Events: DENIES HX OF: Anaphylaxis, Gunshot wound, Motor vehicle accident, Other events Disabilities: DENIES HX OF: Hearing deficit, Vision deficit, Hemiparesis, Paraplegia, Quadriplegia, Other disabilities Past Surgical History HEENT: DENIES HX OF: Cataract extraction, Dental surgery, Laryngectomy, Tonsillectomy, Other head surgery, Other eye surgery, Other ear surgery, Other nasal surgery, Other throat surgery Endocrine: DENIES HX OF: Parathyroidectomy, Thyroid surgery, Other endocrine surgery Respiratory: DENIES HX OF: Bronchoscopy, Lobectomy, Other chest surgery Cardiovascular: DENIES HX OF: Angiogram, Angioplasty, CABG surgery, Carotid endarterectomy, Coronary stent, Heart transplant, Pacemaker, Valve replacement, Other cardiac surgery Gastrointestinal: 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: Cholecystectomy, Hernia repair (umbilical ), DENIES HX OF: Appendectomy, Colectomy, subtotal, Colectomy, total, Gastric bypass, Splenectomy, Other GI surgery Genitourinary: DENIES HX OF: Bladder surgery, Kidney stone extraction, Nephrectomy, Other surgery Gynecologic: DENIES HX OF: Cervical conization/LEEP, delivery, Hysterectomy, Oophorectomy, Tubal ligation, Other product responsibility liaison surgery Musculoskeletal: 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: Other musculoskeletal srg (fifth toe amputation right foot), DENIES HX OF: Joint replacement Integumentary: DENIES HX OF: Skin cancer removal, Other integumentary surg Neurologic: DENIES HX OF: Craniotomy, Spinal surgery, Other neurologic surgery Breast: DENIES HX OF: Breast biopsy, Lumpectomy, Mastectomy, bilateral, Mastectomy, left, Mastectomy, right, Other breast surgery Social History Smoking Status: Former Smoker Review of Systems Notes No changes in her 14 point review of systems exam since she was seen yesterday Objective Vital Signs Vital Signs Date Time Temp Pulse Resp B/P (MAP) Pulse Ox O2 Delivery O2 Flow Rate FiO2 01/07/17 05:20 97.7 84 18 156/70 (98) 96 01/06/17 23:43 97.7 71 18 152/72 (98) 98 01/06/17 20:43 97.9 74 18 171/96 (121) 99 01/06/17 16:00 97.7 83 20 185/94 (124) 99 01/06/17 13:50 97.8 80 20 157/87 (110) 99 01/06/17 11:47 20 Coded Allergies: aspirin (Unverified Adverse Reaction, Intermediate, VOMITING, 01/04/17) Medications and IVs Current Medications Vancomycin HCl 1500 mg/Sodium Chloride 515 ml @ 257.5 mls/ hr ONCE ONCE IV Last administered on 01/04/17 16:50; Start 01/04/17 at 16:15; Stop 01/04/17 at 18:14; Status DC Sodium Chloride (NS Flush) 2 ml UNSCH PRN IV FLUSH FLUSH AFTER USING IV ACCESS ; Start 01/04/17 at 17:00; Stop 01/04/17 at 20:54; Status DC Sodium Chloride (NS Flush) 2 ml BID IV FLUSH ; Start 01/04/17 at 21:00; Stop 01/04/17 at 21:00; Status DC Diphenhydramine HCl (Benadryl Inj) 25 mg ONCE ONCE IVP Last administered on 18:16; Start 01/04/17 at 17:45; Stop 01/04/17 at 17:46; Status DC Dextrose (D50w (Vial) Inj) 50 ml UNSCH PRN IV PUSH HYPOGLYCEMIA-SEE COMMENTS; Start 01/04/17 at 19:00 Glucagon (Glucagon Inj) 1 mg UNSCH PRN OTHER HYPOGLYCEMIA-SEE COMMENTS; Start 01/04/17 at 19:00 Insulin Aspart (NovoLOG SUPPLEMENTAL SCALE) 1 ACHS SLIDING SCALE SQ Last administered on 01/07/17 08:32; Start 01/04/17 at 21:00 Sodium Chloride 1,000 ml @ 100 mls/hr Q10H IV Last administered on 01/06/17 11:30; Start 01/04/17 at 19:30 Sodium Chloride (NS Flush) 2 ml UNSCH PRN IV FLUSH FLUSH AFTER USING IV ACCESS ; Start 01/04/17 at 19:30 Sodium Chloride (NS Flush) 2 ml BID IV FLUSH Last administered on 01/07/17 08 :32; Start 01/04/17 at 21:00 Acetaminophen (Tylenol) 650 mg Q4H PRN PO TEMP > 100.4; Start 01/04/17 at 19: 00 Ondansetron HCl (Zofran Inj) 4 mg Q6H PRN IVP NAUSEA OR VOMITING Last administered on 01/07/17 09:19; Start 01/04/17 at 19:00 Prochlorperazine (Compazine Supp) 25 mg Q12H PRN RECTAL NAUSEA OR VOMITING; Start 01/04/17 at 19:00 Enoxaparin Sodium (Lovenox Inj) 40 mg Q24H SQ Last administered on 01/06/17 21:41; Start 01/04/17 at 21:00; Status Future Hold Acetaminophen (Tylenol) 650 mg Q6H PRN PO PAIN SCALE 1 TO 2; Start 01/04/17 at 19:00 Oxycodone/ Acetaminophen (Percocet 5-325 Mg) 1 tab Q6H PRN PO PAIN SCALE 3 TO 5 Last administered on 01/06/17 10:47; Start 01/04/17 at 19:00 Oxycodone/ Acetaminophen (Percocet 10-325 Mg) 1 tab Q6H PRN PO PAIN SCALE 6 TO 10 Last administered on 01/07/17 05:38; Start 01/04/17 at 19:00 Morphine Sulfate (Morphine Inj) 2 mg Q3H PRN IV PUSH Pain 3-5; if unable to take PO; Start 01/04/17 at 19:00 Morphine Sulfate (Morphine Inj) 4 mg Q3H PRN IV PUSH Pain 6-10;if unable to take PO Last administered on 01/04/17 21:29; Start 01/04/17 at 19:00 Naloxone HCl (Narcan Inj) 0.4 mg UNSCH PRN IV PUSH SEE LABEL COMMENTS; Start 01/04/17 at 19:00 Senna/Docusate Sodium (Nessa-Colace) 1 tab BID PO Last administered on 08:32; Start 01/04/17 at 21:00 Magnesium Hydroxide (Milk Of Magnesia Liq) 30 ml Q12H PRN PO Mild constipation ; Start 01/04/17 at 19:00 Sennosides (Senokot) 17.2 mg Q12H PRN PO Moderate constipation; Start at 19:00 Bisacodyl (Dulcolax Supp) 10 mg DAILY PRN RECTAL SEVERE CONSITIPATION; Start 01/04/17 at 19:00 Lactulose (Lactulose Liq) 30 ml DAILY PRN PO SEVERE CONSITIPATION; Start 01/04 at 19:00 Pharmacy Profile Note 0 ml @ 0 mls/hr UNSCH OTHER ; Start 01/04/17 at 18:00 Diphenhydramine HCl (Benadryl Inj) 25 mg Q6H PRN IV PUSH ALLERGIC REACTION Last administered on 01/05/17 23:58; Start 01/04/17 at 19:00 Amlodipine Besylate (Norvasc) 5 mg DAILY PO Last administered on 01/07/17 08: 32; Start 01/05/17 at 09:00 Atorvastatin Calcium (Lipitor) 40 mg HS PO Last administered on 01/06/17 21: 42; Start 01/04/17 at 21:00 Lisinopril (Prinivil) 40 mg DAILY PO Last administered on 01/07/17 08:32; Start 01/05/17 at 09:00 Metformin HCl (Glucophage) 500 mg BIDPC PO Last administered on 01/05/17 09: 26; Start 01/04/17 at 18:00; Stop 01/05/17 at 10:31; Status DC Pantoprazole Sodium (Protonix) 40 mg DAILY PO Last administered on 01/07/17 08:32; Start 01/04/17 at 19:15 Gadodiamide (Omniscan Pf Inj) 15 ml STK-MED ONCE IVCONTRAST Last administered on 01/04/17 19:40; Start 01/04/17 at 19:40; Stop 01/04/17 at 19:42; Status DC Vancomycin HCl 1250 mg/Sodium Chloride 262.5 ml @ 250 mls/hr Q12H IV Last administered on 01/06/17 21:46; Start 01/05/17 at 10:00 Miscellaneous Information SPECIFIC LAB TO BE DRAWN:[facility]... ONCE ONCE .XX Last administered on 01/06/17 21:46; Start 01/06/17 at 21:45; Stop 01/06/17 at 21 :46; Status DC Pneumococcal Polyvalent Vaccine (Pneumovax-23 Inj) 25 mcg ONCE ONCE IM Last administered on 01/05/17 09:22; Start 01/05/17 at 10:00; Stop 01/05/17 at 10 :01; Status DC Influenza Virus Vaccine (Flu (Quadrivalent) Vaccine Inj) 0.5 ml ONCE ONCE IM Last administered on 01/05/17 09:26; Start 01/05/17 at 10:00; Stop 01/05/17 at 10:01; Status DC Zolpidem Tartrate (Ambien) 5 mg ONCE ONCE PO Last administered on 01/04/17 23:43; Start 01/04/17 at 23:45; Stop 01/04/17 at 23:46; Status DC Zolpidem Tartrate (Ambien) 10 mg ONCE ONCE PO Last administered on 01/05/17 23:58; Start 01/05/17 at 23:45; Stop 01/05/17 at 23:46; Status DC Other Results Laboratory Tests Test 01/07/17 08:53 Objective Remarks Last Impressions Foot X-Ray 01/04/17 0000 Signed Impressions: Service Date/Time: Wednesday, January 04, 2017 15:13 - CONCLUSION: Prior phalangeal amputation 5th digit. There are several new findings when compared to July 2016 including remodeling of the distal 5th metatarsal head, a new lucent area in the distal 4th metatarsal head (possible arthropathy or infection), and flattening of the distal 2nd metatarsal head (possible aseptic necrosis). Forest Recinos MD Foot MRI 01/04/17 0000 Signed Impressions: Service Date/Time: Wednesday, January 04, 2017 19:14 - CONCLUSION: There is abnormal edema involving the distal second and fourth metatarsal heads with enhancement may represent osteomyelitis in the appropriate clinical setting, however the appearance is nonspecific. Lore Whitley MD [facility] labeled white blood cell scan shows increased uptake to the fourth metatarsal head of the right foot. Exam-Podiatry Constitutional General appearance: comfortable Nutritional status: overweight Orientation: alert and oriented x3 Dermatological Exam Skin Temp - Right: Within Normal Limits Skin Texture - Right: Within Normal Limits Skin Elasticity - Right: Within Normal Limits Skin Tugor - Right: Within Normal Limits Hair Growth - Right: Within Normal Limits Pigmentation - Right: Within Normal Limits Skin Temp - Left: Within Normal Limits Skin Texture - Left: Within Normal Limits Skin Elasticity - Left: Within Normal Limits Skin Tugor - Left: Within Normal Limits Hair Growth - Left: Within Normal Limits Pigmentation - Left: Within Normal Limits Vascular/Lymphatic Exam R Dorsails Pedis: Palpable L Dorsails Pedis: Palpable R Posterior Tibial: Palpable L Posterior Tibial: Palpable Neurologic Exam Present on right: Tingling, Paraesthesia Present on left: Tingling, Paraesthesia Musculoskeletal Exam Details Amputated fifth toe right foot Muscle Strength Dorsiflexion (Right): Normal Plantarflexion (Right): Normal Inversion (Right): Normal Eversion (Right): Normal Digital (Right): Normal Dorsiflexion (Left): Normal Plantarflexion (Left): Normal Inversion (Left): Normal Eversion (Left): Normal Digital (Left): Normal Foot Range of Motion Dorsiflexion (Right): Normal Plantarflexion (Right): Normal Inversion (Right): Normal Eversion (Right): Normal Digital (Right): Normal Dorsiflexion (Left): Normal Plantarflexion (Left): Normal Inversion (Left): Normal Eversion (Left): Normal Digital (Left): Normal Assessment & Plan Diagnosis: (1) Osteomyelitis of ankle and foot ICD Codes: M86.9 - Osteomyelitis, unspecified Status: Chronic (2) DM (diabetes mellitus) ICD Codes: E11.9 - Type 2 diabetes mellitus without complications Status: Acute A/P PLAN: Patient wishes to proceed with planned surgery for excision of the fourth metatarsal head and possible resection of proximal phalanx base right foot. Risks, benefits and possible complications were discussed with the patient. Preop orders and consent were written. Problem Qualifiers (1) DM (diabetes mellitus): Qualified Codes: E11.42 - Type 2 diabetes mellitus with diabetic polyneuropathy Dalton Salvador DPM Jan 07, 2017 09:41
[2017-01-07 09:47] LABS: CREATININE 0.91 MG/DL (0.50-1.00)
--- NOTE | 2017-01-07 10:15 | RADRPT ---
EXAM DATE/TIME: 01/07/2017 10:04 [place] COMPARISON: No previous studies available for comparison. INDICATIONS : Infection in foot- no chest complaint. MEDICAL HISTORY : Diabetes mellitus type II. Hypercholesterolemia. Hypertension. SURGICAL HISTORY : right 5th toe amputation ENCOUNTER: Subsequent ACUITY: 4 - 6 days PAIN SCORE: 0/10 LOCATION: Bilateral chest FINDINGS: PA and lateral views of the chest demonstrate the lungs to be symmetrically aerated without evidence of mass, infiltrate or effusion. The cardiomediastinal contours are unremarkable. Osseous structure s are intact. CONCLUSION: No acute cardio pulmonary disease. Forest Recinos MD on January 07, 2017 at 10:13 Board Certified Radiologist. This report was verified electronically.
[2017-01-07] MEDS: VANCOMYCIN INJ 1,250 MG in SODIUM CHLOR 0.9% 250 ML INJ 250 ML IV SCH ×2 (10:25→22:11)
[2017-01-07 12:00] VITALS: BP 147/83; PULSE 70; RESP 20; TEMP 97.7; O2SAT 98
[2017-01-07 14:10] LABS: INTERNATIONAL NORMALIZED RATIO 0.9 RATIO; PROTHROMBIN TIME - PATIENT 9.9 SEC (9.8-11.6)
[2017-01-07 16:00] VITALS: BP 140/68; PULSE 73; RESP 20; TEMP 97.9; O2SAT 99
--- NOTE | 2017-01-07 16:55 | HHI.PR ---
Subjective Remarks She sitting on the edge of the bed no lightheadedness or dizziness or chest pain or short of breath blood pressure still on the higher side now increase amlodipine Objective Vitals Vital Signs Date Time Temp Pulse Resp B/P (MAP) Pulse Ox O2 Delivery O2 Flow Rate FiO2 01/07/17 12:00 97.7 70 20 147/83 (104) 98 01/07/17 08:00 97.8 73 20 158/81 (106) 99 01/07/17 05:20 97.7 84 18 156/70 (98) 96 01/06/17 23:43 97.7 71 18 152/72 (98) 98 01/06/17 20:43 97.9 74 18 171/96 (121) 99 I/O 01/06/17 01/06/17 01/06/17 01/07/17 01/07/17 01/07/17 07:00 15:00 23:00 07:00 15:00 23:00 Intake Total 1050 ml 360 ml 240 ml Output Total 150 ml Balance 1050 ml 360 ml 90 ml Intake Oral 500 ml 360 ml 240 ml IV Total 550 ml Output Urine Total 150 ml # Voids 2 2 # Bowel Movements 0 Result Diagram: 01/05/17 0705 01/07/17 0853 Objective Remarks GENERAL: Well-developed well-nourished. In no acute distress. SKIN: Warm and dry. No lesions noted. HEENT: Normocephalic. Pupils equal and round. Mucous membranes pink and moist. CARDIOVASCULAR: Regular rate and rhythm. No murmur appreciated. RESPIRATORY: No accessory muscle use. Clear to auscultation. Breath sounds equal bilaterally. GASTROINTESTINAL: Abdomen soft, non-tender, nondistended. Bowel sounds x4. MUSCULOSKELETAL: Right foot with previous pinky amputation, no swelling, erythema or induration, pulses intact. No clubbing or cyanosis. No edema. NEUROLOGICAL: Awake and alert. No focal neurological deficits. Moves upper and lower extremities spontaneously. Normal speech. PSYCHIATRIC: Appropriate mood and affect; insight and judgment normal. A/P Problem List: (1) Foot pain, right ICD Code: M79.671 - Pain in right foot Status: Acute (2) Osteomyelitis ICD Code: M86.9 - Osteomyelitis, unspecified Status: Chronic (3) Type 2 diabetes mellitus ICD Code: E11.9 - Type 2 diabetes mellitus without complications Status: Chronic (4) Hypertension ICD Code: I10 - Essential (primary) hypertension Status: Chronic (5) DM (diabetes mellitus) ICD Code: E11.9 - Type 2 diabetes mellitus without complications Status: Acute (6) HTN (hypertension) ICD Code: I10 - Essential (primary) hypertension Status: Chronic (7) Diabetic foot infection ICD Code: E11.69 - Type 2 diabetes mellitus with other specified complication; L08.9 - Local infection of the skin and subcutaneous tissue, unspecified Status: Acute (8) MRSA (methicillin resistant Staphylococcus aureus) infection ICD Code: A49.02 - Methicillin resistant Staphylococcus aureus infection, unspecified site Status: Chronic (9) Cellulitis of right leg ICD Code: L03.115 - Cellulitis of right lower limb Status: Acute Assessment and Plan 46-year-old female with a past medical history of DM, HLD, HTN with past medical history of right fifth toe osteomyelitis with amputation who presented with right foot pain Right foot pain: Possible infection/osteomyelitis. Reviewed: Foot x-ray with findings concerning for possible arthropathy or infection of the fourth metatarsal head and possible aseptic necrosis of the second metatarsal head. Foot MRI showed abnormal edema involving the distal second and fourth metatarsal heads with enhancement that may represent osteomyelitis, although the findings are nonspecific. Afebrile, no leukocytosis , ESR and CRP within normal limits. -Continue on IV vancomycin with history of MRSA -Podiatry consulted, D/W Dr. Salvador, WBC scan done I reviewed with him he told me patient will go for surgery on Tuesday -Pain control with Percocet as needed Diabetes mellitus: -Hemoglobin A1c 8.5 -Hold metformin for now -Monitor Accu-Cheks and cover with SSI as needed Other chronic medical conditions including HTN, HLD: Continue home medications as indicated. DVT prophylaxis: Lovenox Problem Qualifiers (1) Osteomyelitis: Qualified Codes: M86.60 - Other chronic osteomyelitis, unspecified site (2) Hypertension: Qualified Codes: I10 - Essential (primary) hypertension (3) DM (diabetes mellitus): Qualified Codes: E11.42 - Type 2 diabetes mellitus with diabetic polyneuropathy (4) HTN (hypertension): Qualified Codes: I10 - Essential (primary) hypertension Sirisha Guzman MD Jan 07, 2017 16:55
[2017-01-07] MEDS: diphenhydrAMINE HCL 50 MG/ML VIAL IV PUSH PRN (18:11)
[2017-01-07 20:54] VITALS: BP 114/58; PULSE 100; RESP 18; TEMP 97.9; O2SAT 96
[2017-01-07] MEDS: ATORVASTATIN 40 MG TAB PO SCH (22:09)
[2017-01-08 00:18] VITALS: BP 138/69; PULSE 70; RESP 17; TEMP 98.3; O2SAT 97
[2017-01-08] MEDS ORDERED: INSULIN HUMAN REGULAR 1,000 UNITS/10 ML VIAL SQ PRN (03:15)
[2017-01-08] MEDS ORDERED: CHLORHEXIDINE GLUCONATE 2 % 1 PACK (2 CLOTHS) TOPICAL PRN (03:15)
[2017-01-08] MEDS ORDERED: LACTATED RINGER'S 1000 ML IV PRN (03:15)
[2017-01-08] MEDS ORDERED: POVIDONE IODINE 5% (ANTISEPSIS KIT) 4 APPLICATIONS EACH NARE PRN (03:15)
[2017-01-08] MEDS ORDERED: METOPROLOL TARTRATE 25 MG TAB PO PRN (03:15)
[2017-01-08] MEDS ORDERED: SODIUM CHLORID 0.9% 500 ML IV PRN (03:15)
[2017-01-08] MEDS: SODIUM CHLOR 0.9% 1000 ML INJ 1,000 ML IV SCH ×3 (03:30→23:30)
[2017-01-08 05:17] VITALS: BP 138/69; PULSE 70; RESP 16; TEMP 97.6; O2SAT 97
[2017-01-08 08:00] VITALS: BP 152/92; PULSE 70; RESP 20; TEMP 97.4; O2SAT 99
[2017-01-08] MEDS: INSULIN ASPART SUPPLEMENTAL SCALE SQ SCH ×4 (08:00→20:55)
[2017-01-08] MEDS ORDERED: BUPIVACAINE HCL PF 0.5% 30 ML VIAL ONE (08:38)
[2017-01-08] MEDS: PANTOPRAZOLE SOD 40 MG DELAYED RELEASE TAB PO SCH (08:54)
[2017-01-08] MEDS: LISINOPRIL 20 MG TAB PO SCH (08:56)
[2017-01-08] MEDS: DOCUSATE SODIUM 50 MG/SENNA 8.6 MG TAB PO SCH ×2 (08:56→20:42)
[2017-01-08] MEDS: SODIUM CHLORIDE 0.9% FLUSH 10 ML FLUSH IV FLUSH SCH ×2 (08:57→20:43)
[2017-01-08] MEDS: VANCOMYCIN INJ 1,250 MG in SODIUM CHLOR 0.9% 250 ML INJ 250 ML IV SCH ×2 (10:55→20:56)
--- NOTE | 2017-01-08 12:33 | HHI.PR ---
Subjective Remarks No acute events overnight. Afebrile, vital signs stable. Recent with no complaints this morning although she states she is hungry. Will go to OR today for excision of the fourth metatarsal head and possible resection of proximal phalanx base right foot. Objective Vitals Vital Signs Date Time Temp Pulse Resp B/P (MAP) Pulse Ox O2 Delivery O2 Flow Rate FiO2 01/08/17 08:00 97.4 70 20 152/92 (112) 99 01/08/17 05:17 97.6 70 16 138/69 (92) 97 01/08/17 00:18 98.3 70 17 138/69 (92) 97 01/07/17 20:54 97.9 100 18 114/58 (76) 96 01/07/17 16:00 97.9 73 20 140/68 (92) 99 I/O 01/07/17 01/07/17 01/07/17 01/08/17 01/08/17 01/08/17 07:00 15:00 23:00 07:00 15:00 23:00 Intake Total 240 ml 480 ml 480 ml Output Total 150 ml Balance 90 ml 480 ml 480 ml Intake Oral 240 ml 480 ml 480 ml Output Urine Total 150 ml # Voids 2 5 # Bowel Movements 0 0 Result Diagram: 01/05/17 0705 01/07/17 0853 Objective Remarks GENERAL: Well-developed well-nourished. In no acute distress. SKIN: Warm and dry. No lesions noted. HEENT: Normocephalic. Pupils equal and round. Mucous membranes pink and moist. CARDIOVASCULAR: Regular rate and rhythm. No murmur appreciated. RESPIRATORY: No accessory muscle use. Clear to auscultation. Breath sounds equal bilaterally. GASTROINTESTINAL: Abdomen soft, non-tender, nondistended. Bowel sounds x4. MUSCULOSKELETAL: Right foot with previous pinky amputation, no swelling, erythema or induration, pulses intact. No clubbing or cyanosis. No edema. NEUROLOGICAL: Awake and alert. No focal neurological deficits. Moves upper and lower extremities spontaneously. Normal speech. PSYCHIATRIC: Appropriate mood and affect; insight and judgment normal. A/P Problem List: (1) Foot pain, right ICD Code: M79.671 - Pain in right foot Status: Acute (2) Osteomyelitis ICD Code: M86.9 - Osteomyelitis, unspecified Status: Chronic (3) Type 2 diabetes mellitus ICD Code: E11.9 - Type 2 diabetes mellitus without complications Status: Chronic (4) Hypertension ICD Code: I10 - Essential (primary) hypertension Status: Chronic (5) DM (diabetes mellitus) ICD Code: E11.9 - Type 2 diabetes mellitus without complications Status: Acute (6) HTN (hypertension) ICD Code: I10 - Essential (primary) hypertension Status: Chronic (7) Diabetic foot infection ICD Code: E11.69 - Type 2 diabetes mellitus with other specified complication; L08.9 - Local infection of the skin and subcutaneous tissue, unspecified Status: Acute (8) MRSA (methicillin resistant Staphylococcus aureus) infection ICD Code: A49.02 - Methicillin resistant Staphylococcus aureus infection, unspecified site Status: Chronic (9) Cellulitis of right leg ICD Code: L03.115 - Cellulitis of right lower limb Status: Acute Assessment and Plan 46-year-old female with a past medical history of DM, HLD, HTN with past medical history of right fifth toe osteomyelitis with amputation who presented with right foot pain Right foot pain: Foot x-ray with findings concerning for possible arthropathy or infection of the fourth metatarsal head and possible aseptic necrosis of the second metatarsal head. Foot MRI showed abnormal edema involving the distal second and fourth metatarsal heads with enhancement that may represent osteomyelitis, although the findings are nonspecific. Afebrile, no leukocytosis, ESR and CRP within normal limits. -Continue on IV vancomycin with history of MRSA -Podiatry consulted, WBC scan done -OR today for excision of the fourth metatarsal head and possible resection of proximal phalanx base right foot. -Pain control with Percocet as needed Diabetes mellitus: -Hemoglobin A1c 8.5 -Hold metformin for now -Monitor Accu-Cheks and cover with SSI as needed Other chronic medical conditions including HTN, HLD: Continue home medications as indicated. DVT prophylaxis: Lovenox, on hold for procedure Discharge Planning Pending Podiatry Recommendations Problem Qualifiers (1) Osteomyelitis: Qualified Codes: M86.60 - Other chronic osteomyelitis, unspecified site (2) Hypertension: Qualified Codes: I10 - Essential (primary) hypertension (3) DM (diabetes mellitus): Qualified Codes: E11.42 - Type 2 diabetes mellitus with diabetic polyneuropathy (4) HTN (hypertension): Qualified Codes: I10 - Essential (primary) hypertension Natalie Steven MD Jan 08, 2017 12:33
[2017-01-08] MEDS ORDERED: NALOXONE HCL 0.4 MG/ML AMP IV PUSH PRN (13:15)
[2017-01-08] MEDS ORDERED: HYDROmorphone HCL PF 1 MG/ML VIAL IV PUSH PRN (13:15)
[2017-01-08] MEDS ORDERED: Post-op Orders (for Pharmacy) MISC XX ONE (13:15)
[2017-01-08] MEDS ORDERED: DO NOT ADM ANY ANTICOAGULANT DRUGS PRN (13:15)
[2017-01-08] MEDS ORDERED: SODIUM CHLORIDE 0.9% FLUSH 10 ML FLUSH IV FLUSH PRN (13:15)
--- NOTE | 2017-01-08 13:21 | PD.OP ---
Operative Report Date of Surgery: Jan 08, 2017 Preoperative Diagnosis: (1) Osteomyelitis of ankle and foot Fourth metatarsal right foot Postoperative Diagnosis: (1) Osteomyelitis of ankle and foot Fourth metatarsal right foot Procedure: Resection of the fourth metatarsal head and the phalangeal base fourth toe right foot Anesthesia: General inhalation Surgeon: Dalton Salvador DPM Sales Service Supervisor(s): None Operation and Findings: Patient was brought to the OR and placed on the OR table in a supine position. Pneumatic ankle cuff was placed around the patient's right ankle after adequate web roll padding. Patient was given general inhalation anesthesia. The right foot was prepped and draped in the usual sterile manner. The right foot was elevated above the operating table for a period of 3 minutes. The appropriate timeout was performed. The pneumatic ankle cuff was inflated to 250 mmHg. Total cuff time was 29 minutes. The right foot was lowered to the operating table and attention was directed to the dorsal aspect of the right foot. It was noted that on the preoperative [facility]eretec bone scan that the patient had osteomyelitis of the head of the fourth metatarsal. A 3-1/2 cm linear incision was made centered over the metatarsal phalangeal joint of the fourth metatarsal. Incision was deepened using sharp and blunt dissection. The head of the fourth metatarsal was freed up of its attachments. Using an oscillating saw the head of the fourth metatarsal was resected just proximal to the surgical neck. Base of the proximal phalanx was also resected. Bone from the head of the metatarsal sent for culture and sensitivity. The area is flushed with copious amounts of sterile saline. Subcutaneous tissue was reapproximated and closed using 2-0 Vicryl. Skin edges were reapproximated and closed with 4- 0 Prolene. 10 cc of 0.5% Marcaine was infiltrated for postoperative anesthesia. Incision was dressed with Adaptic, 4 x 4's and Ferny. The pneumatic ankle cuff was deflated and the vascular status returned to all toes of the right foot. Sponge and instrument count were noted to be correct. Bone was sent for culture and for pathology. Estimated blood loss was less than 5 cc. Patient tolerated procedures and anesthesia well and left the OR to PACU in apparent satisfactory condition with all vital signs stable endovascular status intact. Dalton Salvador DPM Jan 08, 2017 13:21
[2017-01-08] MEDS ORDERED: *morphine SULFATE 8 MG/ML PERIprocedure ONLY ONE (13:42)
--- NOTE | 2017-01-08 14:46 | RADRPT ---
EXAM DATE/TIME: 01/08/2017 13:19 [facility] COMPARISON: FOOT RIGHT COMPLETE ([id number]), January 04, 2017, 15:13. INDICATIONS : Post operative images. Status post amputation. MEDICAL HISTORY : Diabetes mellitus type II. Hypercholesterolemia. Hypertension. SURGICAL HISTORY : 5th digit amputation, right. ENCOUNTER: Initial ACUITY: 1 day PAIN SCORE: Non-responsive. LOCATION: Right foot. FINDINGS: AP, lateral and oblique views of the right foot were obtained and again demonstrate remote amputation of the fifth distal, middle and proximal phalanges. There has been interval resection of the proxima l half of the fourth proximal phalanx and distal portion of the fourth metatarsal. There is mild soft tissue prominence. Mild osteoarthritic changes are present in the metatarsal tarsal joints and inter tarsal joints. CONCLUSION: 1. Status post interval amputation of the proximal portion of the fourth proximal phalanx and distal fourth tarsal. 2. Stable remote amputation of the fifth digit. Mina Sumner MD on January 08, 2017 at 14:42 Board Certified Radiologist. This report was verified electronically.
--- NOTE | 2017-01-08 14:46 | RADRPT ---
EXAM DATE/TIME: 01/08/2017 13:19 [facility] COMPARISON: FOOT RIGHT COMPLETE ([id number]), January 04, 2017, 15:13. INDICATIONS : Post operative images. Status post amputation. MEDICAL HISTORY : Diabetes mellitus type II. Hypercholesterolemia. Hypertension. SURGICAL HISTORY : 5th digit amputation, right. ENCOUNTER: Initial ACUITY: 1 day PAIN SCORE: Non-responsive. LOCATION: Right foot. FINDINGS: AP, lateral and oblique views of the right foot were obtained and again demonstrate remote amputation of the fifth distal, middle and proximal phalanges. There has been interval resection of the proxima l half of the fourth proximal phalanx and distal portion of the fourth metatarsal. There is mild soft tissue prominence. Mild osteoarthritic changes are present in the metatarsal tarsal joints and inter tarsal joints. CONCLUSION: 1. Status post interval amputation of the proximal portion of the fourth proximal phalanx and distal fourth tarsal. 2. Stable remote amputation of the fifth digit. Mina Sumner MD on January 08, 2017 at 14:42 Board Certified Radiologist. This report was verified electronically.
--- NOTE | 2017-01-08 14:46 | RADRPT ---
EXAM DATE/TIME: 01/08/2017 13:19 [facility] COMPARISON: FOOT RIGHT COMPLETE ([id number]), January 04, 2017, 15:13. INDICATIONS : Post operative images. Status post amputation. MEDICAL HISTORY : Diabetes mellitus type II. Hypercholesterolemia. Hypertension. SURGICAL HISTORY : 5th digit amputation, right. ENCOUNTER: Initial ACUITY: 1 day PAIN SCORE: Non-responsive. LOCATION: Right foot. FINDINGS: AP, lateral and oblique views of the right foot were obtained and again demonstrate remote amputation of the fifth distal, middle and proximal phalanges. There has been interval resection of the proxima l half of the fourth proximal phalanx and distal portion of the fourth metatarsal. There is mild soft tissue prominence. Mild osteoarthritic changes are present in the metatarsal tarsal joints and inter tarsal joints. CONCLUSION: 1. Status post interval amputation of the proximal portion of the fourth proximal phalanx and distal fourth tarsal. 2. Stable remote amputation of the fifth digit. Mina Sumner MD on January 08, 2017 at 14:42 Board Certified Radiologist. This report was verified electronically.
[2017-01-08] MEDS: diphenhydrAMINE HCL 50 MG/ML VIAL IV PUSH PRN ×2 (15:44→22:16)
[2017-01-08 16:00] VITALS: BP 154/87; PULSE 81; RESP 20; TEMP 97; O2SAT 98
[2017-01-08 20:00] VITALS: BP 137/73; PULSE 80; RESP 19; TEMP 97.4; O2SAT 100
[2017-01-08] MEDS: ATORVASTATIN 40 MG TAB PO SCH (20:42)
[2017-01-09] VITALS: BP 134/63; PULSE 100; RESP 18; TEMP 97.9; O2SAT 100
[2017-01-09 04:00] VITALS: BP 153/82; PULSE 82; RESP 22; TEMP 97.7; O2SAT 100
[2017-01-09 08:00] VITALS: BP 162/72; PULSE 74; RESP 20; TEMP 97.5; O2SAT 97
[2017-01-09] MEDS: INSULIN ASPART SUPPLEMENTAL SCALE SQ SCH ×4 (08:00→22:04)
[2017-01-09 08:53] LABS: AUTOMATED NEUTROPHIL # 3.1 TH/MM3 (1.8-7.7); BASOPHIL % 0.6 % (0.0-2.0); EOSINOPHIL # 0.3 TH/MM3 (0-0.4); EOSINOPHIL % 5.9 % (0.0-4.0); HEMATOCRIT 32.9 % (35.0-46.0); HEMOGLOBIN 11.6 GM/DL (11.6-15.3); LYMPH % 29.9 % (9.0-44.0); LYMPHOCYTE # 1.7 TH/MM3 (1.0-4.8); MEAN CELL VOLUME 86.6 FL (80.0-100.0); MEAN CORPUSCULAR HEMOGLOBIN 30.4 PG (27.0-34.0); MEAN CORPUSCULAR HGB CONC 35.1 % (32.0-36.0); MEAN PLATELET VOLUME 8.6 FL (7.0-11.0); MONO % 8.6 % (0.0-8.0); MONOCYTE # 0.5 TH/MM3 (0-0.9); PLATELET COUNT 176 TH/MM3 (150-450); RED CELL DISTRIBUTION WIDTH 12.9 % (11.6-17.2); WHITE BLOOD COUNT 5.7 TH/MM3 (4.0-11.0)
[2017-01-09] MEDS: SODIUM CHLORIDE 0.9% FLUSH 10 ML FLUSH IV FLUSH SCH ×2 (09:00→20:11)
[2017-01-09 09:12] LABS: BICARBONATE 26.4 MEQ/L (21.0-32.0); CALCIUM 8.5 MG/DL (8.5-10.1); CREATININE 1.02 MG/DL (0.50-1.00)
[2017-01-09] MEDS: SODIUM CHLOR 0.9% 1000 ML INJ 1,000 ML IV SCH ×2 (09:30→13:03)
[2017-01-09] MEDS: PANTOPRAZOLE SOD 40 MG DELAYED RELEASE TAB PO SCH (10:36)
[2017-01-09] MEDS: VANCOMYCIN INJ 1,250 MG in SODIUM CHLOR 0.9% 250 ML INJ 250 ML IV SCH ×2 (10:36→20:10)
[2017-01-09] MEDS: LISINOPRIL 20 MG TAB PO SCH (10:37)
[2017-01-09] MEDS: DOCUSATE SODIUM 50 MG/SENNA 8.6 MG TAB PO SCH ×2 (10:37→20:11)
--- NOTE | 2017-01-09 10:47 | HHI.PR ---
Subjective Remarks No acute events overnight. Afebrile, vital signs stable. Patient complains of pain 7/10 in her right foot where her procedure was however states this pain is relieved with pain medication and she wanted to eat breakfast prior to taking any. She has no other complaints at this time. Objective Vitals Vital Signs Date Time Temp Pulse Resp B/P (MAP) Pulse Ox O2 Delivery O2 Flow Rate FiO2 01/09/17 08:00 97.5 74 20 162/72 (102) 97 01/09/17 04:00 97.7 82 22 153/82 (105) 100 01/09/17 00:00 97.9 100 18 134/63 (86) 100 01/08/17 20:00 97.4 80 19 137/73 (94) 100 01/08/17 16:00 97.0 81 20 154/87 (109) 98 01/08/17 13:45 82 15 148/77 (100) 99 Room Air 01/08/17 13:30 84 14 154/79 (104) 99 Room Air 01/08/17 13:15 97.9 91 14 138/77 (97) 100 Room Air I/O 01/08/17 01/08/17 01/08/17 01/09/17 01/09/17 01/09/17 07:00 15:00 23:00 07:00 15:00 23:00 Intake Total 480 ml 375 ml 480 ml 480 ml Output Total 5 ml Balance 480 ml 370 ml 480 ml 480 ml Intake Oral 480 ml 480 ml 480 ml IV Total 25 ml Other 350 ml Estimated Blood Loss 5 ml # Voids 3 4 # Bowel Movements 0 0 Result Diagram: 01/09/17 0801/09/17 0800 Objective Remarks GENERAL: Well-developed well-nourished. In no acute distress. SKIN: Warm and dry. No lesions noted. HEENT: Normocephalic. Pupils equal and round. Mucous membranes pink and moist. CARDIOVASCULAR: Regular rate and rhythm. No murmur appreciated. RESPIRATORY: No accessory muscle use. Clear to auscultation. Breath sounds equal bilaterally. GASTROINTESTINAL: Abdomen soft, non-tender, nondistended. Bowel sounds x4. MUSCULOSKELETAL: Right foot dressed, dressing clean/dry/intact. No clubbing or cyanosis. No edema. NEUROLOGICAL: Awake and alert. No focal neurological deficits. Moves upper and lower extremities spontaneously. Normal speech. PSYCHIATRIC: Appropriate mood and affect; insight and judgment normal. A/P Problem List: (1) Foot pain, right ICD Code: M79.671 - Pain in right foot Status: Acute (2) Osteomyelitis ICD Code: M86.9 - Osteomyelitis, unspecified Status: Chronic (3) Type 2 diabetes mellitus ICD Code: E11.9 - Type 2 diabetes mellitus without complications Status: Chronic (4) Hypertension ICD Code: I10 - Essential (primary) hypertension Status: Chronic (5) DM (diabetes mellitus) ICD Code: E11.9 - Type 2 diabetes mellitus without complications Status: Acute (6) HTN (hypertension) ICD Code: I10 - Essential (primary) hypertension Status: Chronic (7) Diabetic foot infection ICD Code: E11.69 - Type 2 diabetes mellitus with other specified complication; L08.9 - Local infection of the skin and subcutaneous tissue, unspecified Status: Acute (8) MRSA (methicillin resistant Staphylococcus aureus) infection ICD Code: A49.02 - Methicillin resistant Staphylococcus aureus infection, unspecified site Status: Chronic (9) Cellulitis of right leg ICD Code: L03.115 - Cellulitis of right lower limb Status: Acute Assessment and Plan 46-year-old female with a past medical history of DM, HLD, HTN with past medical history of right fifth toe osteomyelitis with amputation who presented with right foot pain Right foot pain: Foot x-ray with findings concerning for possible arthropathy or infection of the fourth metatarsal head and possible aseptic necrosis of the second metatarsal head. Foot MRI showed abnormal edema involving the distal second and fourth metatarsal heads with enhancement that may represent osteomyelitis, although the findings are nonspecific. Afebrile, no leukocytosis, ESR and CRP within normal limits. -Continue on IV vancomycin with history of MRSA, await culture results -Podiatry consulted, WBC scan done -OR 01/09 for resection of the fourth metatarsal head and the phalangeal base fourth toe right foot -Pain control with Percocet as needed -PT Diabetes mellitus: -Hemoglobin A1c 8.5 -Hold metformin for now -Monitor Accu-Cheks and cover with SSI as needed Other chronic medical conditions including HTN, HLD: Continue home medications as indicated. DVT prophylaxis: Lovenox Discharge Planning Pending Podiatry Recommendations Problem Qualifiers (1) Osteomyelitis: Qualified Codes: M86.60 - Other chronic osteomyelitis, unspecified site (2) Hypertension: Qualified Codes: I10 - Essential (primary) hypertension (3) DM (diabetes mellitus): Qualified Codes: E11.42 - Type 2 diabetes mellitus with diabetic polyneuropathy (4) HTN (hypertension): Qualified Codes: I10 - Essential (primary) hypertension Natalie Steven MD Jan 09, 2017 10:47
--- NOTE | 2017-01-09 11:10 | PD.POD ---
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 This went on to heal. Patient presented to the emergency department with pain and swelling in the right foot. Radiographs show destruction of the fourth metatarsal head. MRI showed possible second and fourth metatarsal head involvement. I ordered Ceretec labeled white blood cell scan with CT SPECT we showed osteomyelitis of the fourth metatarsal head only. Patient underwent excision of the fourth metatarsal head and proximal phalangeal base yesterday. She has no complaints of pain or discomfort. Gram stain on bone is no bacteria at this time. Past Med/Surg/Social History Past Medical History Endocrine: 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: Diabetes mellitus Respiratory: DENIES HX OF: Allergies/hay fever, Asthma, COPD, CPAP use, Sleep apnea, Other respiratory history Cardiovascular: 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: Hyperlipidemia, Hypertension, DENIES HX OF: Abdominal aortic aneurysm, Angina, Atrial fibrillation, Cardiac arrhythmias, Coronary artery disease, Deep venous thrombosis, Heart failure, Heart valve disease, Myocardial infarction, Peripheral vascular dz, Other CV history Gastrointestinal: DENIES HX OF: Colitis, GERD, Irritable bowel syndrome, Liver disease, Pancreatitis, Peptic ulcer disease, Other GI history Genitourinary: DENIES HX OF: Chlamydia, Gonorrhea, Hemodialysis, Herpes genitalis, Human papillomavirus, Kidney disease, Kidney failure, Kidney stones, Past UTI, Peritoneal dialysis, Urinary incontinence, Other history Gynecologic: 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) Age at menarche: 11 history: : 2 Live Births: 0 Musculoskeletal: DENIES HX OF: Fibromyalgia, Fractures, Gout, Osteoarthritis, Osteoporosis, Rheumatoid arthritis, Other musculoskeletal hx Cancer/Hematology: DENIES HX OF: Anemia, Bladder Cancer, Blood cancer, Brain cancer, Breast cancer, Colorectal cancer, Endocrine cancer, Eye cancer, GI cancer, cancer, Kidney cancer, Leukemia, Liver cancer, Lung cancer, Lymphoma , Musculoskeletal cancer, Neurologic cancer, Oral cancer, Skin cancer, Stomach cancer, Thyroid cancer, Other cancer/hematology Cancer - female: DENIES HX OF: Cervical cancer, Ovarian cancer, Uterine cancer Infectious disease: DENIES HX OF: AIDS, Chickenpox, Hepatitis, HIV, Measles, MRSA, Mumps, Polio, Positive PPD, Rheumatic fever, Rubella, Syphilis, Tuberculosis, Vanc-resistant enterococc, Other inf disease history Integumentary: DENIES HX OF: Acne, Eczema, Psoriasis, Other integumentary hx Neurologic: DENIES HX OF: ADHD, Autism, Dementia, Developmental delay, Headaches, Multiple sclerosis, Parkinson disease, Peripheral neuropathy, Restless leg syndrome, Seizures, Stroke, Transient ischemic attack, Other neurologic history Psychiatric: 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: Anxiety, DENIES HX OF: Anorexia nervosa, Bipolar disorder, Bulimia, Depression, Schizophrenia, Other psychiatric history Genetic/metabolic: DENIES HX OF: Cystic fibrosis, Down syndrome, Other genetic history, Other metabolic history Events: DENIES HX OF: Anaphylaxis, Gunshot wound, Motor vehicle accident, Other events Disabilities: DENIES HX OF: Hearing deficit, Vision deficit, Hemiparesis, Paraplegia, Quadriplegia, Other disabilities Past Surgical History HEENT: DENIES HX OF: Cataract extraction, Dental surgery, Laryngectomy, Tonsillectomy, Other head surgery, Other eye surgery, Other ear surgery, Other nasal surgery, Other throat surgery Endocrine: DENIES HX OF: Parathyroidectomy, Thyroid surgery, Other endocrine surgery Respiratory: DENIES HX OF: Bronchoscopy, Lobectomy, Other chest surgery Cardiovascular: DENIES HX OF: Angiogram, Angioplasty, CABG surgery, Carotid endarterectomy, Coronary stent, Heart transplant, Pacemaker, Valve replacement, Other cardiac surgery Gastrointestinal: 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: Cholecystectomy, Hernia repair (umbilical ), DENIES HX OF: Appendectomy, Colectomy, subtotal, Colectomy, total, Gastric bypass, Splenectomy, Other GI surgery Genitourinary: DENIES HX OF: Bladder surgery, Kidney stone extraction, Nephrectomy, Other surgery Gynecologic: DENIES HX OF: Cervical conization/LEEP, delivery, Hysterectomy, Oophorectomy, Tubal ligation, 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 Neurological: COMPLAINS OF: Numbness/tingling, Changes in sensation Objective Vital Signs Vital Signs Date Time Temp Pulse Resp B/P (MAP) Pulse Ox O2 Delivery O2 Flow Rate FiO2 01/09/17 08:00 97.5 74 20 162/72 (102) 97 01/09/17 04:00 97.7 82 22 153/82 (105) 100 01/09/17 00:00 97.9 100 18 134/63 (86) 100 01/08/17 20:00 97.4 80 19 137/73 (94) 100 01/08/17 16:00 97.0 81 20 154/87 (109) 98 01/08/17 13:45 82 15 148/77 (100) 99 Room Air 01/08/17 13:30 84 14 154/79 (104) 99 Room Air 01/08/17 13:15 97.9 91 14 138/77 (97) 100 Room Air Coded Allergies: aspirin (Unverified Adverse Reaction, Intermediate, VOMITING, 01/04/17) Medications and IVs Current Medications Vancomycin HCl 1500 mg/Sodium Chloride 515 ml @ 257.5 mls/ hr ONCE ONCE IV Last administered on 01/04/17 16:50; Start 01/04/17 at 16:15; Stop 01/04/17 at 18:14; Status DC Sodium Chloride (NS Flush) 2 ml UNSCH PRN IV FLUSH FLUSH AFTER USING IV ACCESS ; Start 01/04/17 at 17:00; Stop 01/04/17 at 20:54; Status DC Sodium Chloride (NS Flush) 2 ml BID IV FLUSH ; Start 01/04/17 at 21:00; Stop 01/04/17 at 21:00; Status DC Diphenhydramine HCl (Benadryl Inj) 25 mg ONCE ONCE IVP Last administered on 18:16; Start 01/04/17 at 17:45; Stop 01/04/17 at 17:46; Status DC Dextrose (D50w (Vial) Inj) 50 ml UNSCH PRN IV PUSH HYPOGLYCEMIA-SEE COMMENTS; Start 01/04/17 at 19:00 Glucagon (Glucagon Inj) 1 mg UNSCH PRN OTHER HYPOGLYCEMIA-SEE COMMENTS; Start 01/04/17 at 19:00 Insulin Aspart (NovoLOG SUPPLEMENTAL SCALE) 1 ACHS SLIDING SCALE SQ Last administered on 01/08/17 20:55; Start 01/04/17 at 21:00 Sodium Chloride 1,000 ml @ 100 mls/hr Q10H IV Last administered on 01/08/17 13:30; Start 01/04/17 at 19:30 Sodium Chloride (NS Flush) 2 ml UNSCH PRN IV FLUSH FLUSH AFTER USING IV ACCESS ; Start 01/04/17 at 19:30; Stop 01/08/17 at 13:29; Status DC Sodium Chloride (NS Flush) 2 ml BID IV FLUSH Last administered on 01/08/17 08 :57; Start 01/04/17 at 21:00; Stop 01/08/17 at 13:29; Status DC Acetaminophen (Tylenol) 650 mg Q4H PRN PO TEMP > 100.4; Start 01/04/17 at 19: 00 Ondansetron HCl (Zofran Inj) 4 mg Q6H PRN IVP NAUSEA OR VOMITING Last administered on 01/07/17 09:19; Start 01/04/17 at 19:00 Prochlorperazine (Compazine Supp) 25 mg Q12H PRN RECTAL NAUSEA OR VOMITING; Start 01/04/17 at 19:00 Enoxaparin Sodium (Lovenox Inj) 40 mg Q24H SQ Last administered on 01/06/17 21:41; Start 01/04/17 at 21:00; Status Future hold Acetaminophen (Tylenol) 650 mg Q6H PRN PO PAIN SCALE 1 TO 2; Start 01/04/17 at 19:00 Oxycodone/ Acetaminophen (Percocet 5-325 Mg) 1 tab Q6H PRN PO PAIN SCALE 3 TO 5 Last administered on 01/06/17 10:47; Start 01/04/17 at 19:00; Stop at 13:25; Status DC Oxycodone/ Acetaminophen (Percocet 10-325 Mg) 1 tab Q6H PRN PO PAIN SCALE 6 TO 10 Last administered on 01/07/17 22:10; Start 01/04/17 at 19:00; Stop at 13:25; Status DC Morphine Sulfate (Morphine Inj) 2 mg Q3H PRN IV PUSH Pain 3-5; if unable to take PO; Start 01/04/17 at 19:00 Morphine Sulfate (Morphine Inj) 4 mg Q3H PRN IV PUSH Pain 6-10;if unable to take PO Last administered on 01/04/17 21:29; Start 01/04/17 at 19:00 Naloxone HCl (Narcan Inj) 0.4 mg UNSCH PRN IV PUSH SEE LABEL COMMENTS; Start 01/04/17 at 19:00; Stop 01/08/17 at 13:29; Status DC Senna/Docusate Sodium (Nessa-Colace) 1 tab BID PO Last administered on 10:37; Start 01/04/17 at 21:00 Magnesium Hydroxide (Milk Of Magnesia Liq) 30 ml Q12H PRN PO Mild constipation ; Start 01/04/17 at 19:00 Sennosides (Senokot) 17.2 mg Q12H PRN PO Moderate constipation; Start at 19:00 Bisacodyl (Dulcolax Supp) 10 mg DAILY PRN RECTAL SEVERE CONSITIPATION; Start 01/04/17 at 19:00 Lactulose (Lactulose Liq) 30 ml DAILY PRN PO SEVERE CONSITIPATION; Start 01/04 at 19:00 Pharmacy Profile Note 0 ml @ 0 mls/hr UNSCH OTHER ; Start 01/04/17 at 18:00 Diphenhydramine HCl (Benadryl Inj) 25 mg Q6H PRN IV PUSH ALLERGIC REACTION Last administered on 01/08/17 22:16; Start 01/04/17 at 19:00 Amlodipine Besylate (Norvasc) 5 mg DAILY PO Last administered on 01/07/17 08: 32; Start 01/05/17 at 09:00; Stop 01/07/17 at 10:51; Status DC Atorvastatin Calcium (Lipitor) 40 mg HS PO Last administered on 01/08/17 20: 42; Start 01/04/17 at 21:00 Lisinopril (Prinivil) 40 mg DAILY PO Last administered on 01/09/17 10:37; Start 01/05/17 at 09:00 Metformin HCl (Glucophage) 500 mg BIDPC PO Last administered on 01/05/17 09: 26; Start 01/04/17 at 18:00; Stop 01/05/17 at 10:31; Status DC Pantoprazole Sodium (Protonix) 40 mg DAILY PO Last administered on 01/09/17 10:36; Start 01/04/17 at 19:15 Gadodiamide (Omniscan Pf Inj) 15 ml STK-MED ONCE IVCONTRAST Last administered on 01/04/17 19:40; Start 01/04/17 at 19:40; Stop 01/04/17 at 19:42; Status DC Vancomycin HCl 1250 mg/Sodium Chloride 262.5 ml @ 250 mls/hr Q12H IV Last administered on 01/09/17 10:36; Start 01/05/17 at 10:00 Miscellaneous Information SPECIFIC LAB TO BE DRAWN:[facility]... ONCE ONCE .XX Last administered on 01/06/17 21:46; Start 01/06/17 at 21:45; Stop 01/06/17 at 21 :46; Status DC Pneumococcal Polyvalent Vaccine (Pneumovax-23 Inj) 25 mcg ONCE ONCE IM Last administered on 01/05/17 09:22; Start 01/05/17 at 10:00; Stop 01/05/17 at 10 :01; Status DC Influenza Virus Vaccine (Flu (Quadrivalent) Vaccine Inj) 0.5 ml ONCE ONCE IM Last administered on 01/05/17 09:26; Start 01/05/17 at 10:00; Stop 01/05/17 at 10:01; Status DC Zolpidem Tartrate (Ambien) 5 mg ONCE ONCE PO Last administered on 01/04/17 23:43; Start 01/04/17 at 23:45; Stop 01/04/17 at 23:46; Status DC Zolpidem Tartrate (Ambien) 10 mg ONCE ONCE PO Last administered on 01/05/17 23:58; Start 01/05/17 at 23:45; Stop 01/05/17 at 23:46; Status DC Amlodipine Besylate (Norvasc) 10 mg DAILY PO Last administered on 01/09/17 10 :37; Start 01/08/17 at 09:00 Lactated Ringer's 1,000 ml @ 30 mls/hr Q24H PRN IV SEE LABEL COMMENTS; Start 01/08/17 at 03:15; Stop 01/11/17 at 03:14 Sodium Chloride 500 ml @ 30 mls/hr [id number] PRN IV SEE LABEL COMMENTS; Start at 03:15; Stop 01/11/17 at 03:14 Metoprolol Tartrate (Lopressor) 25 mg SKIMMER SCOOP OPERATOR PRN PO SEE LABEL COMMENTS; Start 01/08/17 at 03:15; Stop 01/11/17 at 03:14 Povidone Iodine (Betadine 5% Antisepsis Kit) 1 applic SKIMMER SCOOP OPERATOR PRN EACH NARE SEE LABEL COMMENTS; Start 01/08/17 at 03:15; Stop 01/11/17 at 03:14 Chlorhexidine Gluconate (Chlorhexidine 2% Cloth) 3 pack SKIMMER SCOOP OPERATOR PRN TOPICAL SEE LABEL COMMENTS; Start 01/08/17 at 03:15; Stop 01/11/17 at 03:14 Insulin Human Regular (NovoLIN R INJ) See Protocol Table ... SKIMMER SCOOP OPERATOR PRN SQ SEE PROTOCOL TABLE; Start 01/08/17 at 03:15; Stop 01/11/17 at 03:14 Bupivacaine HCl (Marcaine Pf 0.5% Inj) 30 ml STK-MED ONCE .ROUTE Last administered on 01/08/17 12:34; Start 01/08/17 at 08:38; Stop 01/08/17 at 08 :39; Status DC Sodium Chloride (NS Flush) 2 ml UNSCH PRN IV FLUSH FLUSH AFTER USING IV ACCESS ; Start 01/08/17 at 13:15 Sodium Chloride (NS Flush) 2 ml BID IV FLUSH Last administered on 01/08/17 20 :43; Start 01/08/17 at 21:00 Miscellaneous Information (Post-op Orders (for Pharmacy)) STAT ONCE XX ; Start 01/08/17 at 13:15; Stop 01/08/17 at 13:29; Status DC Oxycodone HCl (Roxicodone) 10 mg Q4H PRN PO PAIN SCALE 6 TO 10 Last administered on 01/09/17 10:38; Start 01/08/17 at 13:30 Hydromorphone HCl (Dilaudid Pf Inj) 1 mg Q3H PRN IV PUSH BREAKTHROUGH PAIN; Start 01/08/17 at 13:15 Oxycodone HCl (Roxicodone) 5 mg Q4H PRN PO PAIN SCALE 3 TO 5; Start 01/08/17 at 13:15 Naloxone HCl (Narcan Inj) 0.4 mg UNSCH PRN IV PUSH SEE LABEL COMMENTS; Start 01/08/17 at 13:15 Miscellaneous Information ALL NURSING DEPARTME... UNSCH PRN .XX SEE LABEL COMMENTS; Start 01/08/17 at 13:15; Stop 01/09/17 at 13:14 Morphine Sulfate (*morphine INJ PERIprocedure ONLY) 8 mg STK-MED ONCE .ROUTE Last administered on 01/08/17t 13:42; Start 01/08/17 at 13:42; Stop 01/08/17 at 13:43; Status DC Miscellaneous Information SPECIFIC LAB TO BE DRAWN:VANCO TROUGH DATE... ONCE ONCE .XX ; Start 01/10/17 at 09:45; Stop 01/10/17 at 09:46 Other Results Laboratory Tests Test 01/09/17 08:00 White Blood Count 5.7 TH/MM3 Red Blood Count 3.80 MIL/MM3 Hemoglobin 11.6 GM/DL Hematocrit 32.9 % Mean Corpuscular Volume 86.6 FL Mean Corpuscular Hemoglobin 30.4 PG Mean Corpuscular Hemoglobin Concent 35.1 % Red Cell Distribution Width 12.9 % Platelet Count 176 TH/MM3 Mean Platelet Volume 8.6 FL Neutrophils (%) (Auto) 55.0 % Lymphocytes (%) (Auto) 29.9 % Monocytes (%) (Auto) 8.6 % Eosinophils (%) (Auto) 5.9 % Basophils (%) (Auto) 0.6 % Neutrophils # (Auto) 3.1 TH/MM3 Lymphocytes # (Auto) 1.7 TH/MM3 Monocytes # (Auto) 0.5 TH/MM3 Eosinophils # (Auto) 0.3 TH/MM3 Basophils # (Auto) 0.0 TH/MM3 CBC Comment DIFF FINAL Differential Comment Laboratory Tests Test 01/09/17 08:00 Blood Urea Nitrogen 21 MG/DL Creatinine 1.02 MG/DL Random Glucose 137 MG/DL Calcium Level 8.5 MG/DL Sodium Level 135 MEQ/L Potassium Level 4.3 MEQ/L Chloride Level 103 MEQ/L Carbon Dioxide Level 26.4 MEQ/L Anion Gap 6 MEQ/L Estimat Glomerular Filtration Rate 58 ML/MIN Microbiology Date/Time Source Procedure Growth Status 01/08/17 10:44 Wound Toe Fungal Smear - Final NO FUNGAL ELEMENTS SEEN. Resulted 01/08/17 10:44 Wound Toe Fungal Culture Pending Resulted 01/08/17 10:44 Wound Toe Acid Fast Stain Pending Received 01/08/17 10:44 Wound Toe Mycobacterial Culture Pending Received 01/08/17 10:44 Wound Toe Gram Stain - Final Resulted 01/08/17 10:44 Wound Toe Wound Culture Pending Resulted Objective Remarks Last Impressions Foot X-Ray 01/04/17 0000 Signed Impressions: Service Date/Time: Wednesday, January 04, 2017 15:13 - CONCLUSION: Prior phalangeal amputation 5th digit. There are several new findings when compared to July 2016 including remodeling of the distal 5th metatarsal head, a new lucent area in the distal 4th metatarsal head (possible arthropathy or infection), and flattening of the distal 2nd metatarsal head (possible aseptic necrosis). Forest Recinos MD Foot MRI 01/04/17 0000 Signed Impressions: Service Date/Time: Wednesday, January 04, 2017 19:14 - CONCLUSION: There is abnormal edema involving the distal second and fourth metatarsal heads with enhancement may represent osteomyelitis in the appropriate clinical setting, however the appearance is nonspecific. [facility] shows increased uptake to the fourth metatarsal head of the right foot. Exam-Podiatry Constitutional General appearance: comfortable Nutritional status: overweight Orientation: alert and oriented x3 Dermatological Exam Skin Temp - Right: Within Normal Limits Skin Texture - Right: Within Normal Limits Skin Elasticity - Right: Within Normal Limits Skin Tugor - Right: Within Normal Limits Hair Growth - Right: Within Normal Limits Pigmentation - Right: Within Normal Limits Skin Temp - Left: Within Normal Limits Skin Texture - Left: Within Normal Limits Skin Elasticity - Left: Within Normal Limits Skin Tugor - Left: Within Normal Limits Hair Growth - Left: Within Normal Limits Pigmentation - Left: Within Normal Limits Other: Scars, Surgery,Injury Dressing to right foot is dry and intact. Minimal dry bleeding noted on the bandage. Vascular/Lymphatic Exam R Dorsails Pedis: Palpable L Dorsails Pedis: Palpable R Posterior Tibial: Palpable L Posterior Tibial: Palpable Neurologic Exam Present on right: Tingling, Paraesthesia Present on left: Tingling, Paraesthesia Musculoskeletal Exam Details Previously amputated fifth toe right foot Assessment & Plan Diagnosis: (1) Osteomyelitis of ankle and foot ICD Codes: M86.9 - Osteomyelitis, unspecified Status: Resolved (2) DM (diabetes mellitus) ICD Codes: E11.9 - Type 2 diabetes mellitus without complications Status: Chronic A/P PLAN: Patient can be discharged from podiatry standpoint when cleared by medicine. She'll need some oral antibiotics and pain med. No dressing changes. Keep the area dry and clean. Follow up in my office on Tuesday. Problem Qualifiers (1) DM (diabetes mellitus): Qualified Codes: E11.42 - Type 2 diabetes mellitus with diabetic polyneuropathy Dalton Salvador DPM Jan 09, 2017 11:10
[2017-01-09 12:00] VITALS: BP 154/73; PULSE 81; RESP 18; TEMP 97.7; O2SAT 100
[2017-01-09 16:00] VITALS: BP 167/71; PULSE 76; RESP 20; TEMP 97.7; O2SAT 99
[2017-01-09 20:00] VITALS: BP 154/96; PULSE 66; RESP 18; TEMP 98; O2SAT 100
[2017-01-09] MEDS: ENOXAPARIN SODIUM 40 MG/0.4 ML SYRINGE SQ SCH (20:10)
[2017-01-09] MEDS: ATORVASTATIN 40 MG TAB PO SCH (20:10)
--- NOTE | 2017-01-09 21:15 | EKG ---
Date Performed: 01/07/2017 Time Performed: 11:42:37 PTAGE: 46 years EKG: Sinus rhythm NORMAL ECG PREVIOUS TRACING : 07/01/2016 22.06 DOCTOR: Candace High Interpretating Date/Time 01/09/2017 21:04:05
--- NOTE | 2017-01-09 21:15 | EKG ---
Date Performed: 01/07/2017 Time Performed: 11:42:37 PTAGE: 46 years EKG: Sinus rhythm NORMAL ECG PREVIOUS TRACING : 07/01/2016 22.06 DOCTOR: Candace High Interpretating Date/Time 01/09/2017 21:04:05
--- NOTE | 2017-01-09 21:15 | EKG ---
Date Performed: 01/07/2017 Time Performed: 11:42:37 PTAGE: 46 years EKG: Sinus rhythm NORMAL ECG PREVIOUS TRACING : 07/01/2016 22.06 DOCTOR: Candace Hgih Interpretating Date/Time 01/09/2017 21:04:05
[2017-01-09] MEDS: diphenhydrAMINE HCL 50 MG/ML VIAL IV PUSH PRN (23:40)
[2017-01-10] VITALS: BP 168/86; PULSE 76; RESP 18; TEMP 97.2; O2SAT 100
[2017-01-10 04:00] VITALS: BP 130/92; PULSE 74; RESP 18; TEMP 97.7; O2SAT 100
[2017-01-10] MEDS: SODIUM CHLOR 0.9% 1000 ML INJ 1,000 ML IV SCH (05:30)
[2017-01-10 08:00] VITALS: BP 169/84; PULSE 85; RESP 20; TEMP 97.8; O2SAT 99
[2017-01-10] MEDS: INSULIN ASPART SUPPLEMENTAL SCALE SQ SCH ×2 (08:00→12:00)
[2017-01-10] MEDS: PANTOPRAZOLE SOD 40 MG DELAYED RELEASE TAB PO SCH (08:55)
[2017-01-10] MEDS: LISINOPRIL 20 MG TAB PO SCH (08:55)
[2017-01-10] MEDS: DOCUSATE SODIUM 50 MG/SENNA 8.6 MG TAB PO SCH (08:55)
[2017-01-10] MEDS: SODIUM CHLORIDE 0.9% FLUSH 10 ML FLUSH IV FLUSH SCH (08:57)
[2017-01-10] MEDS ORDERED: amLODIPine BESYLATE 5 MG TAB PO SCH (09:00)
[2017-01-10] MEDS ORDERED: PHARMACY ORDERED LAB ONE (09:45)
[2017-01-10] MEDS ORDERED: AMLO5TAB2 PO (10:40)
[2017-01-10] MEDS ORDERED: OXYC1TAB35 PO (10:40)
[2017-01-10] MEDS ORDERED: AUGM875T3 PO (10:40)
--- NOTE | 2017-01-10 10:45 | HHI.DS ---
Discharge Summary Admission Date Jan 05, 2017 at 10:29 Discharge Date: Jan 10, 2017 Admitting Diagnosis R Foot Osteomyelitis (1) Foot pain, right ICD Code: M79.671 - Pain in right foot Status: Acute (2) Osteomyelitis ICD Code: M86.9 - Osteomyelitis, unspecified Status: Chronic (3) Type 2 diabetes mellitus ICD Code: E11.9 - Type 2 diabetes mellitus without complications Status: Chronic (4) Hypertension ICD Code: I10 - Essential (primary) hypertension Status: Chronic (5) DM (diabetes mellitus) ICD Code: E11.9 - Type 2 diabetes mellitus without complications Status: Chronic (6) HTN (hypertension) ICD Code: I10 - Essential (primary) hypertension Status: Chronic (7) Diabetic foot infection ICD Code: E11.69 - Type 2 diabetes mellitus with other specified complication; L08.9 - Local infection of the skin and subcutaneous tissue, unspecified Status: Acute (8) MRSA (methicillin resistant Staphylococcus aureus) infection ICD Code: A49.02 - Methicillin resistant Staphylococcus aureus infection, unspecified site Status: Chronic (9) Cellulitis of right leg ICD Code: L03.115 - Cellulitis of right lower limb Status: Acute Procedures Resection of the fourth metatarsal head and the phalangeal base fourth toe right foot Brief History - From Admission Patient is a 46-year-old female. With history of diabetes hypertension hyperlipidemia MRSA infection as well as osteomyelitis of the right fifth toe who presents with pain in the right foot. She states that the duration is been about 2 days it's been gradual onset. She reports pain in the second third and fourth toes towards the metatarsal heads. Crampy-type quality. There is radiation to the calf. Reports of the pinky toe was amputated prior due to MRSA infection. Denies any fevers has diabetes mellitus. Has not followed up with podiatry due to lack of insurance CBC/BMP: 01/09/17 0800 01/09/17 0800 Significant Findings Laboratory Tests Test 01/07/17 13:30 01/09/17 08:00 Red Blood Count 3.80 MIL/MM3 (4.00-5.30) Hematocrit 32.9 % (35.0-46.0) Monocytes (%) (Auto) 8.6 % (0.0-8.0) Eosinophils (%) (Auto) 5.9 % (0.0-4.0) Blood Urea Nitrogen 21 MG/DL (7-18) Creatinine 1.02 MG/DL (0.50-1.00) Random Glucose 137 MG/DL (74-106) Sodium Level 135 MEQ/L (136-145) Estimat Glomerular Filtration Rate 58 ML/MIN (>89) Imaging Last Impressions Foot X-Ray 01/08/17 0000 Signed Impressions: Service Date/Time: Sunday, January 08, 2017 13:19 - CONCLUSION: 1. Status post interval amputation of the proximal portion of the fourth proximal phalanx and distal fourth tarsal. 2. Stable remote amputation of the fifth digit. Mina Sumner MD Chest X-Ray 01/07/17 0000 Signed Impressions: Service Date/Time: Saturday, January 07, 2017 10:04 - CONCLUSION: No acute cardio pulmonary disease. Forest Recinos MD Tumor Localization 01/06/17 0826 Signed Impressions: Service Date/Time: Thursday, January 05, 2017 13:25 - CONCLUSION: The study is positive for osteomyelitis involving the distal 4th metatarsal head. Forest Recinos MD Foot MRI 01/04/17 0000 Signed Impressions: Service Date/Time: Wednesday, January 04, 2017 19:14 - CONCLUSION: There is abnormal edema involving the distal second and fourth metatarsal heads with enhancement may represent osteomyelitis in the appropriate clinical setting, however the appearance is nonspecific. Lore Whitley MD PE at Discharge GENERAL: Well-developed well-nourished. In no acute distress. SKIN: Warm and dry. No lesions noted. HEENT: Normocephalic. Pupils equal and round. Mucous membranes pink and moist. CARDIOVASCULAR: Regular rate and rhythm. No murmur appreciated. RESPIRATORY: No accessory muscle use. Clear to auscultation. Breath sounds equal bilaterally. GASTROINTESTINAL: Abdomen soft, non-tender, nondistended. Bowel sounds x4. MUSCULOSKELETAL: Right foot dressed, dressing clean/dry/intact. No clubbing or cyanosis. No edema. NEUROLOGICAL: Awake and alert. No focal neurological deficits. Moves upper and lower extremities spontaneously. Normal speech. PSYCHIATRIC: Appropriate mood and affect; insight and judgment normal. Pt update on day of discharge Pt feels well. Looking forward to going home. worried about transportation. denies any CP/SOB/N/V Hospital Course 46-year-old female with a past medical history of DM, HLD, HTN with past medical history of right fifth toe osteomyelitis with amputation who presented with right foot pain Right foot pain: Foot x-ray with findings concerning for possible arthropathy or infection of the fourth metatarsal head and possible aseptic necrosis of the second metatarsal head. Foot MRI showed abnormal edema involving the distal second and fourth metatarsal heads with enhancement that may represent osteomyelitis, although the findings are nonspecific. Afebrile, no leukocytosis, ESR and CRP within normal limits. -was on IV vancomycin with history of MRSA while in the hospital, wound culture neg x [address] Salvador and he recommended augmentin po as an outpatient. He wants to see patient this coming tuesday. Pt instructed to make appt prior to leaving the hospital. -s/p 01/09 for resection of the fourth metatarsal head and the phalangeal base fourth toe right foot -continue Pain control Diabetes mellitus: -Hemoglobin A1c 8.5 -resume metformin for now -Monitor Accu-Cheks and cover with SSI as needed Other chronic medical conditions including HTN, HLD: Continue home medications as indicated. given script for amlodipine as it wasn't restarted. Pt Condition on Discharge: Stable Discharge Disposition: Discharge Home Discharge Time: > 30 minutes Discharge Instructions DIET: Follow Instructions for: Heart Healthy Diet, Diabetic Diet Activities you can perform: See Additionl Instruction Other Activity Instructions: per podiatry recs No dressing changes. Keep the area dry and clean. Follow up w podiatry on Tuesday. Follow up Referrals: PCP Follow-up - 1 Week Podiatry - 01/12/[address] Salvador New Medications: Amoxicillin-Clavulanate (Augmentin) 875-125 Mg Tab 1 TAB PO BID for Infection, #10 TAB 0 Refills Continued Medications: Amlodipine (Amlodipine) 5 Mg Tab 5 MG PO DAILY for Blood Pressure Management, #30 TAB 0 Refills (This prescription has been renewed) Atorvastatin (Atorvastatin) 40 Mg Tab 40 MG PO HS for Cholesterol Management, #30 TAB 6 Refills Lisinopril (Lisinopril) 20 Mg Tab 40 MG PO DAILY for 30 Days, TAB 7 Refills Metformin (Metformin) 500 Mg Tab 500 MG PO BIDPC for Blood Sugar Management, #180 TAB 3 Refills With meals Oxycodone-Acetaminophen (Oxycodone-Acetaminophen) 7.5-325 mg Tab 1 TAB PO Q6H PRN for pain, #30 TAB 0 Refills (This prescription has been renewed ) Discontinued Medications: Tramadol-Acetaminophen (Tramadol-Acetaminophen) 37.5-325 mg Tab 1 TAB PO Q6H PRN for PAIN, TAB 0 Refills Bianka Rogers MD Jan 10, 2017 10:45
[2017-01-10] MEDS ORDERED: MAGNESIUM HYDROXIDE SUSP 30 ML CUP PO ONE (11:00)
[2017-01-10] MEDS ORDERED: POLYETHYLENE GLYCOL 17 GM PKG PO ONE (11:00)
[2017-01-10 12:00] VITALS: BP 166/81; PULSE 78; RESP 20; TEMP 97.6; O2SAT 100
[2017-01-11] MEDS ORDERED: PHARMACY ORDERED LAB ONE (09:45)
== END 2017-01-10 14:29 | disposition home or self-care (01) | DRG 617 ==
LOC: NEPD 12:04 → NEDA 16:37 → INTOOBSV 16:37 → NEPGCP 20:57 → OBSVTOIN 01-05 10:29 → N04B 01-06 13:51
PROVIDERS: ADMIT Hospitalist; ATTEND Hospitalist
PROC: 0Y6V0Z0 Detachment at Right 4th Toe, Complete, Open Approach (ICD-10-PCS; principal; 2017-01-08 12:19)
DX: E11.69 Type 2 diabetes mellitus with other specified complication (principal); L03.115 Cellulitis of right lower limb; I10 Essential (primary) hypertension; M86.671 Other chronic osteomyelitis, right ankle and foot; E11.628 Type 2 diabetes mellitus with other skin complications; L27.0 Generalized skin eruption due to drugs and medicaments taken internally; T36.8X5A Adverse effect of other systemic antibiotics, initial encounter; E11.42 Type 2 diabetes mellitus with diabetic polyneuropathy; E66.9 Obesity, unspecified; E78.5 Hyperlipidemia, unspecified; F32.9 Major depressive disorder, single episode, unspecified; F41.9 Anxiety disorder, unspecified; B95.62 Methicillin resistant Staphylococcus aureus infection as the cause of diseases classified elsewhere; Y92.239 Unspecified place in hospital as the place of occurrence of the external cause; Z23 Encounter for immunization; Z68.35 Body mass index [BMI] 35.0-35.9, adult; Z79.84 Long term (current) use of oral hypoglycemic drugs; Z86.14 Personal history of Methicillin resistant Staphylococcus aureus infection; Z87.891 Personal history of nicotine dependence; Z88.6 Allergy status to analgesic agent; Z89.421 Acquired absence of other right toe(s); Z91.19 Patient's noncompliance with other medical treatment and regimen
CPT/HCPCS: 71020; 73630; 73720; 76937; 78806; 78807; 78999; 80048; 80053; 80202; 82565; 82948; 83036; 83735; 84100; 84439; 84443; 85025; 85610; 85652; 86140; 87015; 87070; 87102; 87116; 87176; 87205; 87206; 88305; 88307; 88311; 90686; 90732; 93005; 96365; 96375; A9569; A9579; G0378; J1200; J1650; J1815; J2270; J2405; J3370; J7030; J7040; J7050; L3260; Q2038

== ENCOUNTER 2017-01-17 11:00 | Emergency (ER) | payer SELFPAY ==
[~2017-01-17 11:00] MED LIST changes: +AUGM875T3 PO; -DOXY1CAP91 PO; -TRAM-388 PO
[2017-01-17 11:03] VITALS: BP 202/114; PULSE 78; RESP 15; TEMP 97.9; O2SAT 100
[2017-01-17 11:57] LABS: AUTOMATED NEUTROPHIL # 5.4 TH/MM3 (1.8-7.7); BASOPHIL # 0.1 TH/MM3 (0-0.2); BASOPHIL % 0.8 % (0.0-2.0); EOSINOPHIL # 0.6 TH/MM3 (0-0.4); EOSINOPHIL % 6.2 % (0.0-4.0); HEMATOCRIT 35.1 % (35.0-46.0); HEMO FLAGS DIFF FINAL; LYMPH % 29.7 % (9.0-44.0); LYMPHOCYTE # 2.8 TH/MM3 (1.0-4.8); MEAN CELL VOLUME 87.5 FL (80.0-100.0); MEAN CORPUSCULAR HGB CONC 34.2 % (32.0-36.0); MONO % 5.6 % (0.0-8.0); NEUT % 57.7 % (16.0-70.0); PLATELET COUNT 237 TH/MM3 (150-450); RED BLOOD COUNT 4.02 MIL/MM3 (4.00-5.30); RED CELL DISTRIBUTION WIDTH 12.9 % (11.6-17.2); WHITE BLOOD COUNT 9.3 TH/MM3 (4.0-11.0)
[2017-01-17 12:02] LABS: BLOOD, URINE MOD (NEG); COMMENT (UR) CULT NOT INDICATED; CULTURE IF INDICATED CULT NOT INDICATED; GLUCOSE,URINE 70 mg/dL (NEG); KETONE, URINE NEG (NEG); MUCUS URINE FEW /lpf (OCC); NITRITE,URINE NEG (NEG); PH, URINE 5.5 (5.0-8.5); SQUAMOUS EPITHELIAL CELL URINE 19 /hpf (0-5); URINE COLOR YELLOW (YELLW/STRAW)
[2017-01-17 12:18] LABS: ANION GAP 8 MEQ/L (5-15); AST (GOT) 13 U/L (15-37); BICARBONATE 22.9 MEQ/L (21.0-32.0); BLOOD UREA NITROGEN 17 MG/DL (7-18); CHLORIDE 104 MEQ/L (98-107); GLOMERULAR FILTRATION RATE 65 ML/MIN (>89); POTASSIUM 4.2 MEQ/L (3.5-5.1); SODIUM (NA) 135 MEQ/L (136-145)
[2017-01-17 12:21] LABS: ALKALINE PHOSPHATASE 118 U/L (45-117); ALT (GPT) 15 U/L (10-53); TOTAL BILIRUBIN ADULT 0.3 MG/DL (0.2-1.0)
[2017-01-17 13:15] VITALS: BP 184/88; PULSE 71; RESP 16; O2SAT 100
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
[2017-01-17] MEDS ORDERED: oxyCODONE/ACETAMINOPHEN 10 MG/325 MG TAB PO ONE (14:45)
== END 2017-01-17 15:25 | disposition home or self-care (01) ==
LOC: NEPD 11:00
DX: R50.9 Fever, unspecified (principal)
CPT/HCPCS: 80053; 81001; 83690; 85025; 99283

== ENCOUNTER 2017-02-23 14:31 | Emergency (ER) | payer SELFPAY ==
[~2017-02-23 14:31] MED LIST changes: -AUGM875T3 PO; -OXYC1TAB35 PO
[2017-02-23 14:34] VITALS: BP 194/99; PULSE 89; RESP 18; TEMP 97.9; O2SAT 98
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
--- NOTE | 2017-02-23 16:20 | RADRPT ---
EXAM DATE/TIME: 02/23/2017 15:46 [facility] COMPARISON: FOOT RIGHT COMPLETE ([id number]), January 08, 2017, 13:19. INDICATIONS : Right foot pain for 3 days MEDICAL HISTORY : Diabetes mellitus type II. Hypercholesterolemia. Hypertension SURGICAL HISTORY : Right 5th digit amputation, right 4th metatarsal amputation ENCOUNTER: Initial ACUITY: 3 days PAIN SCORE: 7/10 LOCATION: Right entire foot FINDINGS: Three view examination of the right foot demonstrates postsurgical changes following amputation of th e fifth toe and fourth metatarsophalangeal joints. The postsurgical changes appear stable compared to recent study. There is no evidence of destructive bone change. Soft tissue swelling remains evident along the plantar soft tissues of the metatarsal phalangeal region. Moderate bunion deformity great toe remains evident. There is no evidence of acute fracture. CONCLUSION: 1. Soft tissue swelling in the forefoot. 2. Stable post surgical changes following amputation of the fifth toe and resection of the fourth met atarsophalangeal joint. 3. No evidence of erosive or destructive bone changes Reji Hayward MD on February 23, 2017 at 16:15 Board Certified Radiologist. This report was verified electronically.
== END 2017-02-23 17:55 | disposition home or self-care (01) ==
LOC: NEPD 14:31
DX: A08.4 Viral intestinal infection, unspecified (principal); M79.674 Pain in right toe(s); M79.89 Other specified soft tissue disorders; E11.42 Type 2 diabetes mellitus with diabetic polyneuropathy; I10 Essential (primary) hypertension; E78.00 Pure hypercholesterolemia, unspecified; Z79.899 Other long term (current) drug therapy; Z88.6 Allergy status to analgesic agent
CPT/HCPCS: 73630; 87804; 99284

== ENCOUNTER 2017-06-15 09:09 | Emergency (ER) | payer SELFPAY ==
[~2017-06-15] VITALS: Ht 162.6 cm; Wt 75.0 kg
[2017-06-15 09:11] VITALS: BP 218/100; PULSE 83; RESP 18; TEMP 97.6
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
[2017-06-15] MEDS ORDERED: traMADol HCL 50 MG TAB PO ONE (10:00)
[2017-06-15] MEDS ORDERED: TRAM50TA PO (10:07)
[2017-06-15 10:15] VITALS: BP 211/97
[2017-06-15 10:45] VITALS: BP 198/100
== END 2017-06-15 11:36 | disposition home or self-care (01) ==
LOC: NEPD 09:09
DX: M79.671 Pain in right foot (principal); M54.32 Sciatica, left side; E11.9 Type 2 diabetes mellitus without complications; E78.00 Pure hypercholesterolemia, unspecified; G89.29 Other chronic pain; I10 Essential (primary) hypertension; F12.90 Cannabis use, unspecified, uncomplicated; Z79.84 Long term (current) use of oral hypoglycemic drugs
CPT/HCPCS: 99283

== ENCOUNTER 2017-07-18 21:57 | Emergency (ER) | payer SELFPAY | END 2017-07-19 01:48 | disposition home or self-care (01) | LOC: NEPE 21:57 | DX: S80.811A Abrasion, right lower leg, initial encounter (principal); E78.00 Pure hypercholesterolemia, unspecified; E11.9 Type 2 diabetes mellitus without complications; I10 Essential (primary) hypertension; E66.9 Obesity, unspecified; F12.90 Cannabis use, unspecified, uncomplicated; W22.8XXA Striking against or struck by other objects, initial encounter; Z86.14 Personal history of Methicillin resistant Staphylococcus aureus infection; Z79.84 Long term (current) use of oral hypoglycemic drugs | CPT/HCPCS: 99283 ==

== ENCOUNTER 2017-07-21 15:05 | Emergency (ER) | payer SELFPAY ==
[~2017-07-21] VITALS: Ht 160 cm; Wt 79.5 kg
[~2017-07-21 15:05] MED LIST changes: +CLIN300C5 PO; +MUPI2%T TOPICAL; +TRAM50TA PO
[2017-07-21 15:10] VITALS: BP 239/109; PULSE 89; RESP 18; TEMP 98.1; O2SAT 100
[2017-07-21] MEDS ORDERED: SODIUM CHLOR 0.9% 1000 ML INJ 1,000 ML IV SCH (15:23)
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
[2017-07-21] MEDS ORDERED: ONDANSETRON HCL 4 MG/2 ML VIAL IVP ONE (15:30)
[2017-07-21] MEDS ORDERED: SODIUM CHLORIDE 0.9% FLUSH 10 ML FLUSH IV FLUSH PRN (15:30)
[2017-07-21] MEDS ORDERED: MORPHINE SULFATE 4 MG/ML INJ IV PUSH ONE (15:30)
[2017-07-21 15:41] LABS: BASOPHIL % 0.4 % (0.0-2.0); EOSINOPHIL # 0.3 TH/MM3 (0-0.4); EOSINOPHIL % 2.8 % (0.0-4.0); HEMATOCRIT 36.6 % (35.0-46.0); HEMOGLOBIN 12.1 GM/DL (11.6-15.3); LYMPH % 16.3 % (9.0-44.0); LYMPHOCYTE # 1.9 TH/MM3 (1.0-4.8); MEAN CELL VOLUME 89.1 FL (80.0-100.0); MEAN CORPUSCULAR HEMOGLOBIN 29.4 PG (27.0-34.0); MEAN PLATELET VOLUME 7.9 FL (7.0-11.0); MONO % 3.5 % (0.0-8.0); MONOCYTE # 0.4 TH/MM3 (0-0.9); PLATELET COUNT 286 TH/MM3 (150-450); RED BLOOD COUNT 4.11 MIL/MM3 (4.00-5.30); RED CELL DISTRIBUTION WIDTH 12.5 % (11.6-17.2); WHITE BLOOD COUNT 11.6 TH/MM3 (4.0-11.0)
[2017-07-21 15:43] LABS: BILIRUBIN, URINE NEG (NEG); BLOOD, URINE LARGE (NEG); GLUCOSE,URINE 100 mg/dL (NEG); KETONE, URINE NEG (NEG); NITRITE,URINE NEG (NEG); URINE COLOR YELLOW (YELLW/STRAW); URINE LEUKOCYTE ESTERASE NEG (NEG)
[2017-07-21 15:48] VITALS: RESP 20; O2SAT 100
[2017-07-21 15:49] LABS: WBC, URINE 0-2 /hpf (0-5)
[2017-07-21 15:50] LABS: BACTERIA, URINE RARE /hpf; SQUAMOUS EPITHELIAL CELL URINE > 8 /hpf (0-5)
[2017-07-21 15:51] LABS: CHLORIDE 109 MEQ/L (98-107); SODIUM (NA) 139 MEQ/L (136-145)
[2017-07-21 15:54] LABS: CALCIUM 9.3 MG/DL (8.5-10.1)
[2017-07-21 15:55] LABS: ALBUMIN 3.5 GM/DL (3.4-5.0); BICARBONATE 27.1 MEQ/L (21.0-32.0); BLOOD UREA NITROGEN 18 MG/DL (7-18); GLUCOSE,RANDOM 188 MG/DL (74-106)
[2017-07-21 15:56] LABS: INTERNATIONAL NORMALIZED RATIO 0.9 RATIO; PROTHROMBIN TIME - PATIENT 9.5 SEC (9.8-11.6)
[2017-07-21 15:57] LABS: ALT (GPT) 15 U/L (10-53)
[2017-07-21 15:58] LABS: AST (GOT) 18 U/L (15-37); GLOMERULAR FILTRATION RATE 44 ML/MIN (>89)
[2017-07-21 15:59] LABS: TOTAL BILIRUBIN ADULT 0.6 MG/DL (0.2-1.0); TOTAL PROTEIN 7.6 GM/DL (6.4-8.2)
[2017-07-21 16:00] LABS: ALKALINE PHOSPHATASE 102 U/L (45-117)
[2017-07-21 16:13] VITALS: BP 206/104; PULSE 88; RESP 20; O2SAT 100
[2017-07-21] MEDS ORDERED: HYDROmorphone HCL PF 2 MG/ML VIAL IV PUSH ONE (16:15)
[2017-07-21] MEDS ORDERED: diphenhydrAMINE HCL 50 MG/ML VIAL IV PUSH ONE (16:30)
[2017-07-21] MEDS ORDERED: METOCLOPRAMIDE HCL 10 MG/2 ML VIAL IV PUSH ONE (16:30)
[2017-07-21] MEDS ORDERED: IOHEXOL 350 MG/ML 10 ML VIAL (for RAD DIAG) IVCONTRAST ONE (16:38)
[2017-07-21] MEDS ORDERED: ONDANSETRON HCL 4 MG/2 ML VIAL IV PUSH ONE (16:45)
[2017-07-21 16:54] VITALS: BP 206/90; PULSE 75; RESP 18; O2SAT 94
--- NOTE | 2017-07-21 17:03 | RADRPT ---
EXAM DATE/TIME: 07/21/2017 16:37 [facility] COMPARISON: CT ABDOMEN & PELVIS W CONTRAST, June 05, 2015, 12:20. INDICATIONS : Periumbilical pain. IV CONTRAST: 85 cc Omnipaque 350 (iohexol) IV ORAL CONTRAST: No oral contrast ingested. RADIATION DOSE: 13.30 CTDIvol (mGy) MEDICAL HISTORY : Cardiovascular disease. Hypertension. Hernia, hiatal. SURGICAL HISTORY : Cholecystectomy. ENCOUNTER: Initial ACUITY: 1 day PAIN SCALE: 7/10 LOCATION: [facility] TECHNIQUE: Volumetric scanning of the abdomen and pelvis was performed. Using automated exposure control and ad justment of the mA and/or kV according to patient size, radiation dose was kept as low as reasonably achievable to obtain optimal diagnostic quality images. DICOM format image data is available electro nically for review and comparison. FINDINGS: The lung bases are clear. No acute findings in the liver. There is some wedge-shaped low attenuation in the spleen possibly from a prior infarct. Adrenals, kidneys and pancreas unremarkable. Previous ch olecystectomy. No free fluid bowel obstruction. No adenopathy. Mild constipation. No acute bony abnormalities. Appen yumiko is normal. CONCLUSION: 1. No acute findings. Mild fatty liver. Appendix is normal. Questionable prior splenic infarct. Tristen Martinez MD on July 21, 2017 at 16:58 Board Certified Radiologist. This report was verified electronically.
[2017-07-21 17:05] VITALS: RESP 16
[2017-07-21] MEDS ORDERED: DICY10 PO (17:22)
[2017-07-21] MEDS ORDERED: PROM25TA10 PO (17:22)
== END 2017-07-21 17:33 | disposition home or self-care (01) ==
LOC: PHED 15:05
DX: K52.9 Noninfective gastroenteritis and colitis, unspecified (principal); K76.0 Fatty (change of) liver, not elsewhere classified; I10 Essential (primary) hypertension; E11.9 Type 2 diabetes mellitus without complications; E78.5 Hyperlipidemia, unspecified; E78.00 Pure hypercholesterolemia, unspecified; Z88.6 Allergy status to analgesic agent; Z79.899 Other long term (current) drug therapy
CPT/HCPCS: 74177; 80053; 81001; 83690; 84703; 85025; 85610; 85730; 96361; 96374; 96375; 96376; 99285; J1170; J1200; J2270; J2405; J7030; Q9967